=== PATIENT | female | born 1950 | race Two or more races ===

== ENCOUNTER 2020-03-12 07:14 | Outpatient (REF) | payer SELFPAY ==
[2020-03-12 07:53] LABS: Hematocrit 24.6 % (37-47); Hemoglobin 7.6 g/dl (12.0-16.0); Mean Corpuscular HGB Conc 30.9 g/dl (31.0-35.0); Mean Corpuscular Hemoglobin 27.2 pg (27.0-33.0); Mean Corpuscular Volume 88.2 fL (80-98); Mean Platelet Volume 10.8 fL (9.4-12.3); NRBC Pct Auto 0.3 /100WBC (0.0-0.2); Platelet Count 243 X10*3/uL (160-400); Red Blood Count 2.79 X10*6/uL (4.20-5.50); Red Cell Distribution Width 14.7 % (11.0-16.0); White Blood Count 10.9 X10*3/uL (4.8-10.8)
[2020-03-12 08:47] LABS: Alanine Aminotransferase 7 U/L (0-31); Albumin Level 2.7 g/dL (3.5-5.0); Alkaline Phosphatase 109 U/L (39-117); Anion Gap 12 (12-20); Aspartate Amino Transferase 9 U/L (5-31); Bilirubin Total 0.3 mg/dL (0.0-1.0); Blood Urea Nitrogen 26 mg/dL (9-16); Calcium 7.9 mg/dL (8.4-10.2); Carbon Dioxide 30 mmol/L (22-29); Chloride 101 mmol/L (96-108); Estimated Glomerular Filt Rate 15; Glucose Random 40 mg/dL (60-115); Sodium 139 mmol/L (135-145); Total Protein 4.9 g/dL (6.5-8.0)
== END 2020-03-12 07:15 | disposition home or self-care (01) ==
LOC: HO.MMNH1L 07:14
PROVIDERS: Visit Provider Family Medicine
DX: N18.9 Chronic kidney disease, unspecified (principal); E11.9 Type 2 diabetes mellitus without complications
CPT/HCPCS: 36415; 80053; 85027

== ENCOUNTER 2020-03-22 19:24 | Outpatient (REF) | payer MEDICARE, MEDICAID, SELFPAY | END 2020-03-22 19:25 | disposition home or self-care (01) | LOC: HO.LNP 19:24 | PROVIDERS: Visit Provider Family Medicine | DX: Z20.828 Contact with and (suspected) exposure to other viral communicable diseases (principal) | CPT/HCPCS: 87635 ==

== ENCOUNTER 2020-04-04 06:43 | Outpatient (REF) | payer SELFPAY | END 2020-04-04 06:44 | disposition home or self-care (01) | LOC: HO.MMNH3L 06:43 | PROVIDERS: Visit Provider Family Medicine | DX: Z20.828 Contact with and (suspected) exposure to other viral communicable diseases (principal) | CPT/HCPCS: 87635 ==

== ENCOUNTER 2022-04-21 15:42 | Emergency (ER) | payer MEDICARE, MEDICAID, SELFPAY ==
[2022-04-21 15:58] VITALS: BP 134/82; BP 163/61; PULSE 71; PULSE 89; RESP 16; TEMP 36.9; O2SAT 99; BMI 45.8
--- NOTE | 2022-04-21 16:34 | ED.GENADULT ---
HPI - General Adult General Chief complaint: General Medical Stated complaint: rectal bleeding Time Seen by Provider: 04/21/22 16:34 Source: patient Mode of arrival: ambulatory Limitations: no limitations History of Present Illness HPI narrative: Patient is 71 years old with history of CVA, atrial fibrillation, diabetes, end-stage renal disease on dialysis, hemorrhoids and chronic constipation on Eliquis and Plavix comes here for 2 days of rectal bleeding patient noticed bright red blood in her depends whenever she moves her bowels no blood clots noticed blood is bright red in color no abdominal pain no fever no chills no shortness of breath no chest pain or palpitation patient had dialysis yesterday Related Data Previous Rx's Medication Instructions Recorded hydrocortisone acetate 25 mg 25 mg HI BID #12 ea 04/21/22 rectal suppository (Anusol-HC) Allergies Allergy/AdvReac Type Severity Reaction Status Date / Time Penicillins Allergy Unknown Unknown Verified 04/21/22 16:53 lisinopri Allergy Unknown Unknown Uncoded 04/21/22 16:53 Review of Systems Review of Systems: Yes all other systems are reviewed and are negative [facility] Social History Social History Advance Directives: Yes Advance Directives on File: Yes Advance Directives Date on File: 03/12/20 Physical Exam ED Vital Signs: Vital Signs - 24 hr 04/21/22 15:58 04/21/22 19:25 Temperature 98.4 F 98.1 F Pulse Rate 71 72 Respiratory Rate 16 20 Blood Pressure 163/61 H 162/46 H Pulse Oximetry 99 98 Oxygen Delivery Method Room Air Room Air BMI result Body Mass Index 45.8 Appearance: Alert. Oriented X3. No acute distress. Eyes: PERRLA, No Nystagmus ENT: Pharynx normal. Oral Mucosa moist Neck: Normal inspection. Neck supple. CVS: Normal heart rate and rhythm. Pulses normal. Respiratory: No respiratory distress. Equal air entry bilateral, no wheezing/rales/rhonchi Abdomen: Soft and nontender. Bowel sounds are present, no mass palpable, no CVA tenderness rectal: No hemorrhoids palpable stool brown Skin: Skin warm and dry. Normal skin color. Normal skin turgor. Extremities: No lower extremity edema. No calf tenderness Neuro: Oriented X 3. Residual left-sided weakness No sensory deficit.No cerebellar signs , cranial nerves II-XII intact Medical Decision Making MDM Narrative Medical decision making narrative: Patient with rectal bleeding which is bright red mostly when she moves her bowels noticed bright red blood in the depends. No abdominal pain H&H stable rectal exam showed brown stool guaiac positive likely patient has hemorrhoids which causing the bleeding when patient strains will discharge patient home advised to use and his soles suppository avoid constipation report to the ER if major bleeding recurs Lab Data Lab results reviewed: Yes I reviewed the patient's lab results. Result diagrams: 04/21/22 17:46 04/21/22 17:46 Labs: Lab Results 04/21/22 04/21/22 04/21/22 Range/Units 17:46 17:46 17:46 WBC 13.6 H (4.8-10.8) X10*3/uL RBC 3.59 L (4.20-5.50) X10*6/uL Hgb 11.1 L (12.0-16.0) g/dl Hct 34.7 L (37.0-47.0) % MCV 96.7 (80.0-98.0) fL MCH 30.9 (27.0-33.0) pg MCHC 32.0 (31.0-35.0) g/dl RDW 15.1 (11.0-16.0) % Plt Count 225 (160-400) X10*3/uL MPV 10.3 (9.4-12.3) fL Immature Gran % (Auto) 0.7 H (0.0-0.4) % Neut % (Auto) 78.5 H (45-73) % Lymph % (Auto) 11.3 L (20-40) % [place] % (Auto) 8.4 (2-11) % Eos % (Auto) 0.9 (0-4) % Baso % (Auto) 0.2 (0-2) % Lymph # (Auto) 1.5 (1.2-4.9) X10*3/uL [place] # (Auto) 1.1 (0.1-1.2) X10*3/uL Eos # (Auto) 0.1 (0.0-0.4) X10*3/uL Baso # (Auto) 0.0 (0.0-0.2) X10*3/uL Abs Immat Gran (auto) 0.10 H (0.00-0.03) X10*3/uL Absolute Neuts (auto) 10.7 H (2.0-8.3) x10*3/uL Absolute Nucleated RBC 0.030 H (0.0-0.012) X10*3/uL Nucleated RBC % (auto) 0.2 (0.0-0.2) /100WBC PT 13.6 H (10.0-13.1) SEC INR 1.2 H (0.9-1.1) Sodium 140 (135-145) mmol/L Potassium 4.7 (3.3-5.1) mmol/L Chloride 95 L (96-108) mmol/L Carbon Dioxide 31 H (22-29) mmol/L Anion Gap 19 (12-20) BUN 36 H (9-16) mg/dL Creatinine 6.05 H* (0.5-1.4) mg/dL Estim Creat Clear Calc 11.2 Estimated GFR 7 Random Glucose 190 H (60-115) mg/dL Calcium 7.5 L (8.4-10.2) mg/dL Total Bilirubin 0.8 (0.0-1.0) mg/dL AST 14 (5-31) U/L ALT 10 (0-31) U/L Alkaline Phosphatase 350 H (39-117) U/L Total Protein 6.0 L (6.5-8.0) g/dL Albumin 3.5 (3.5-5.0) g/dL Stool Occult Blood (NEGATIVE) 04/21/22 Range/Units 17:47 WBC (4.8-10.8) X10*3/uL RBC (4.20-5.50) X10*6/uL Hgb (12.0-16.0) g/dl Hct (37.0-47.0) % MCV (80.0-98.0) fL MCH (27.0-33.0) pg MCHC (31.0-35.0) g/dl RDW (11.0-16.0) % Plt Count (160-400) X10*3/uL MPV (9.4-12.3) fL Immature Gran % (Auto) (0.0-0.4) % Neut % (Auto) (45-73) % Lymph % (Auto) (20-40) % [place] % (Auto) (2-11) % Eos % (Auto) (0-4) % Baso % (Auto) (0-2) % Lymph # (Auto) (1.2-4.9) X10*3/uL [place] # (Auto) (0.1-1.2) X10*3/uL Eos # (Auto) (0.0-0.4) X10*3/uL Baso # (Auto) (0.0-0.2) X10*3/uL Abs Immat Gran (auto) (0.00-0.03) X10*3/uL Absolute Neuts (auto) (2.0-8.3) x10*3/uL Absolute Nucleated RBC (0.0-0.012) X10*3/uL Nucleated RBC % (auto) (0.0-0.2) /100WBC PT (10.0-13.1) SEC INR (0.9-1.1) Sodium (135-145) mmol/L Potassium (3.3-5.1) mmol/L Chloride (96-108) mmol/L Carbon Dioxide (22-29) mmol/L Anion Gap (12-20) BUN (9-16) mg/dL Creatinine (0.5-1.4) mg/dL Estim Creat Clear Calc Estimated GFR Random Glucose (60-115) mg/dL Calcium (8.4-10.2) mg/dL Total Bilirubin (0.0-1.0) mg/dL AST (5-31) U/L ALT (0-31) U/L Alkaline Phosphatase (39-117) U/L Total Protein (6.5-8.0) g/dL Albumin (3.5-5.0) g/dL Stool Occult Blood POSITIVE (NEGATIVE) Discharge Plan Discharge Clinical Impression: Rectal bleeding, Bleeding hemorrhoids Patient Disposition: Xfer [facility] Transfer Details: Rectal bleeding likely from hemorrhoids Instructions: Hemorrhoids (ED) Additional Instructions: Anusol suppository twice daily Avoid straining/constipation Follow-up with your PCP Report to ER if recurrence of bleed may have to hold Eliquis if bleeding continues Prescriptions: New hydrocortisone acetate [Anusol-HC] 25 mg suppository 25 mg HI BID Qty: 12 0RF Interventions: ED Discharge Assessment Last Done: 04/21/22 19:28 Discharge Date/Time: 04/21/22 19:29
[2022-04-21 17:55] LABS: MANUAL DIFF FLAG NO
[2022-04-21 18:02] LABS: INTERNATIONAL NORM RATIO 1.2 (0.9-1.1); Prothrombin Time 13.6 SEC (10.0-13.1)
[2022-04-21 18:07] LABS: OBS Int Ctl Valid YES; OBS1 POSITIVE (NEGATIVE)
[2022-04-21 18:18] LABS: Basophils Percent Auto 0.2 % (0-2); Eosinophils Absolute Auto 0.1 X10*3/uL (0.0-0.4); Eosinophils Percent Auto 0.9 % (0-4); Hematocrit 34.7 % (37.0-47.0); Hemoglobin 11.1 g/dl (12.0-16.0); Imm Gran Pct Auto 0.7 % (0.0-0.4); Lymphocytes Absolute Auto 1.5 X10*3/uL (1.2-4.9); Lymphocytes Percent Auto 11.3 % (20-40); Mean Corpuscular Hemoglobin 30.9 pg (27.0-33.0); Mean Corpuscular Volume 96.7 fL (80.0-98.0); Mean Platelet Volume 10.3 fL (9.4-12.3); Monocytes Absolute Auto 1.1 X10*3/uL (0.1-1.2); Monocytes Percent Auto 8.4 % (2-11); NRBC Pct Auto 0.2 /100WBC (0.0-0.2); Neutrophils Absolute Auto 10.7 x10*3/uL (2.0-8.3); Neutrophils Percent Auto 78.5 % (45-73); Platelet Count 225 X10*3/uL (160-400); Red Blood Count 3.59 X10*6/uL (4.20-5.50); Red Cell Distribution Width 15.1 % (11.0-16.0); White Blood Count 13.6 X10*3/uL (4.8-10.8)
[2022-04-21 18:37] LABS: Alanine Aminotransferase 10 U/L (0-31); Albumin Level 3.5 g/dL (3.5-5.0); Alkaline Phosphatase 350 U/L (39-117); Anion Gap 19 (12-20); Aspartate Amino Transferase 14 U/L (5-31); Bilirubin Total 0.8 mg/dL (0.0-1.0); Blood Urea Nitrogen 36 mg/dL (9-16); Calcium 7.5 mg/dL (8.4-10.2); Carbon Dioxide 31 mmol/L (22-29); Chloride 95 mmol/L (96-108); Creatinine Clr Calc Pharmacy 11.2; Estimated Glomerular Filt Rate 7; Glucose Random 190 mg/dL (60-115); Potassium 4.7 mmol/L (3.3-5.1); Sodium 140 mmol/L (135-145)
--- NOTE | 2022-04-21 19:04 | PC.NURSE ---
Elliot called at 1859 for a bls transport back to [facility] per ,ETA 30mins.RN aware
[2022-04-21 19:25] VITALS: BP 162/46; PULSE 72; RESP 20; TEMP 36.7; O2SAT 98
== END 2022-04-21 19:29 | disposition skilled nursing facility (03) ==
PROVIDERS: Emergency Provider Internal Medicine
DX: K64.9 Unspecified hemorrhoids (principal); K62.5 Hemorrhage of anus and rectum; Z79.899 Other long term (current) drug therapy
CPT/HCPCS: 36415; 80053; 82272; 85025; 85610; 99283

== ENCOUNTER 2022-05-11 07:28 | Outpatient (REF) | payer MEDICARE, MEDICAID, SELFPAY ==
[2022-05-11 07:17] LABS: MANUAL DIFF FLAG NO
[2022-05-11 07:43] LABS: Basophils Absolute Auto 0.1 X10*3/uL (0.0-0.2); Basophils Percent Auto 0.8 % (0-2); Eosinophils Absolute Auto 0.2 X10*3/uL (0.0-0.4); Eosinophils Percent Auto 2.2 % (0-4); Hematocrit 33.5 % (37.0-47.0); Hemoglobin 11.2 g/dl (12.0-16.0); Imm Gran Abs Auto 0.11 X10*3/uL (0.00-0.03); Imm Gran Pct Auto 1.1 % (0.0-0.4); Lymphocytes Absolute Auto 1.6 X10*3/uL (1.2-4.9); Lymphocytes Percent Auto 15.5 % (20-40); Mean Corpuscular HGB Conc 33.4 g/dl (31.0-35.0); Mean Corpuscular Hemoglobin 30.7 pg (27.0-33.0); Mean Corpuscular Volume 91.8 fL (80.0-98.0); Mean Platelet Volume 10.3 fL (9.4-12.3); Monocytes Absolute Auto 1.1 X10*3/uL (0.1-1.2); Monocytes Percent Auto 10.3 % (2-11); Neutrophils Absolute Auto 7.2 x10*3/uL (2.0-8.3); Neutrophils Percent Auto 70.1 % (45-73); Platelet Count 285 X10*3/uL (160-400); Red Blood Count 3.65 X10*6/uL (4.20-5.50); Red Cell Distribution Width 13.8 % (11.0-16.0); White Blood Count 10.3 X10*3/uL (4.8-10.8)
[2022-05-11 08:10] LABS: Anion Gap 23 (12-20); Blood Urea Nitrogen 39 mg/dL (9-16); Calcium 8.7 mg/dL (8.4-10.2); Carbon Dioxide 30 mmol/L (22-29); Chloride 95 mmol/L (96-108); Potassium 3.7 mmol/L (3.3-5.1); Sodium 144 mmol/L (135-145)
[2022-05-11 08:46] LABS: Estimated Glomerular Filt Rate 5; Glucose Random 31 mg/dL (60-115)
== END 2022-05-11 07:29 | disposition home or self-care (01) ==
LOC: HO.MMNH2L 07:28
PROVIDERS: Visit Provider Family Medicine
DX: I10 Essential (primary) hypertension (principal)
CPT/HCPCS: 36415; 80048; 85025

== ENCOUNTER 2022-12-07 11:25 | Inpatient (IN) | payer MEDICARE, MEDICAID, SELFPAY ==
--- NOTE | ~2022-12-07 | XR_ITS ---
EXAMINATION: XR CHEST CLINICAL INFORMATION: Status post TLC placement. COMPARISON: Chest x-ray 12/22/2022 TECHNIQUE: Frontal view of the chest was obtained. FINDINGS: The lungs are well-expanded and clear of acute pneumonic process. The heart size is enlarged. Pulmonary vascularity is within normal limits. There is new left central venous catheter with its tip in proximal SVC. No gross bony abnormalities seen. XR/XR chest 1V IMPRESSION: New left central venous catheter tip is in proximal SVC. Mild cardiomegaly.
--- NOTE | ~2022-12-07 | MR_ITS ---
EXAMINATION: MR BRAIN WITHOUT CONTRAST CLINICAL INFORMATION: Encephalopathy COMPARISON: CT head without contrast 12/07/2021 TECHNIQUE: Multiplanar multisequence MR imaging of the brain was obtained without intravenous contrast. FINDINGS: There is no acute infarct on diffusion-weighted imaging. There is no intracranial hemorrhage on iron-sensitive imaging. No extra-axial collection or mass effect/herniation. Scattered periventricular and deep white matter T2 FLAIR hyperintensities consistent with mild underlying microangiopathy. Right parieto-occipital lobe encephalomalacia, gliosis, and mild cortical hemosiderin staining, compatible with chronic infarct. No hydrocephalus. Mild generalized cerebral volume loss with commensurate sulcal and ventricular prominence. Mild ex vacuo dilatation of the right occipital horn. The major flow voids at the skull base are preserved. Empty sella. The cerebellar tonsils are normally positioned. The craniocervical junction is normal. Congenital fusion of C2 and C3. Marrow signal is within normal limits. The visualized soft tissues are without significant abnormality. Mild scattered ethmoid sinus mucosal thickening. Small bilateral mastoid fluid. MR/MR head/brain wo con IMPRESSION: 1. No acute infarct or other acute intracranial abnormality. 2. Chronic right parieto-occipital lobe infarct and mild chronic microangiopathy.
--- NOTE | ~2022-12-07 | CT_ITS ---
EXAMINATION: CT ABDOMEN AND PELVIS WITHOUT CONTRAST CLINICAL INFORMATION: Question colonic versus obstructive uropathy. COMPARISON: Ultrasound of 12/29/2022. TECHNIQUE: Multidetector volumetric imaging was performed from the superior aspect of the liver through the pubic symphysis. Sagittal and coronal reformatted images were obtained on the technologist's workstation. This CT examination was performed using dose optimization techniques as appropriate, variously including the following: *Automated exposure control *Adjustment of mA and/or kV according to patient size (this includes techniques or standardized protocols for targeted exams where dose is matched to indication/reason for exam; i.e. extremities or head) *Use of iterative reconstruction technique DLP: 817 mGy-cm FINDINGS: LUNG BASES: There appear to be a few calcifications within the lower lobes bilaterally which may be related to old granulomatous disease. No suspicious mass, pleural effusion, or pericardial effusion is identified. LIVER, GALLBLADDER, AND BILIARY TREE: The liver is normal in size, shape, and attenuation. No focal hepatic lesion or biliary ductal dilatation is present. The gallbladder is unremarkable with no evidence of radiopaque gallstones, gallbladder wall thickening, or obvious pericholecystic inflammatory changes. There is some indistinctness of the gallbladder wall with what appears to be some wall thickening and question possible fat streaking, however, there is also motion artifact present, and an ultrasound study of the previous day did not show definite evidence of acute cholecystitis. PANCREAS: Unremarkable. No abnormal mass or peripancreatic inflammatory change is seen. SPLEEN: Unremarkable. ADRENAL GLANDS: There is some fullness of the left adrenal gland. There is a 1.5 cm right adrenal gland nodule with Hounsfield unit measurements of greater than 20. This probably represents an adenoma. A 1-year followup adrenal washout CT is recommended. If stable, no followup imaging would be recommended. KIDNEYS AND URETERS: There appears be some degree of cortical atrophy present bilaterally. There is lipomatosis of the collecting system. Bilateral renal cysts are present, largest within the lower pole of the right kidney measuring 1.7 cm in diameter. No hydronephrosis is evident. No followup imaging for the cysts is recommended. There are some vascular calcifications seen bilaterally. There are 2 mm nonobstructing calculi seen within the left renal upper and middle poles. No ureteral calculi identified. BLADDER: Unremarkable. GASTROINTESTINAL TRACT: No dilated loops of large or small bowel are evident. No free air or free fluid is noted. No pericolonic inflammatory change. The appendix appears unremarkable. ABDOMINAL WALL: No significant hernia is appreciated. LYMPH NODES: No lymphadenopathy appreciated. Calcified lymph node adjacent to the gastroesophageal junction and celiac axis noted. VASCULAR: Vascular calcifications are present. No abdominal aortic aneurysm. PELVIC VISCERA: 1.1 cm left ovarian calcification present. No suspicious abnormal adnexal masses. OSSEOUS STRUCTURES: There is question of possible nondisplaced insufficiency fracture involving the left sacrum as well as some degenerative change of the sacroiliac joints. There is bilateral facet arthropathy L4 through S1. Changes of enthesopathy present. There is bony bridging at a few levels of the lower thoracic and lumbar spine. CT/CT abdomen pelvis wo IV con IMPRESSION: Indistinctness of the gallbladder wall with question of pericholecystic fat stranding, however, this may be related to motion artifact. No definite pericholecystic fluid is seen. If there is strong suggestion of possible acute cholecystitis, then a repeat ultrasound examination may be of help in further evaluation. Bilateral renal cysts. Nephrolithiasis without evidence of obstructive uropathy. 1.5 cm right adrenal gland nodule with Hounsfield unit measurements of greater than 20. A 1-year followup adrenal washout CT is recommended. Question left sacral insufficiency fracture. Fleischner guidelines were followed.
--- NOTE | ~2022-12-07 | XR_ITS ---
EXAMINATION: XR CHEST CLINICAL INFORMATION: Hypoxia COMPARISON: None available. TECHNIQUE: Frontal view of the chest was obtained. FINDINGS: The lungs are clear with no focal consolidation. No evidence of pneumothorax, pulmonary edema, or pleural effusions. The cardiomediastinal silhouette is unremarkable. No acute osseous findings. XR/XR chest 1V IMPRESSION: No acute cardiopulmonary findings.
--- NOTE | ~2022-12-07 | US_ITS ---
EXAMINATION: US ABDOMEN LIMITED CLINICAL INFORMATION: SEPSIS TRANSAMINITIS ? GB DISEASE. COMPARISON: None available. TECHNIQUE: Real-time imaging of the right upper quadrant abdominal viscera. Color Doppler exam used. FINDINGS: PANCREAS: Normal appearance of the head and body of the pancreas. The tail is obscured by bowel gas. LIVER: Normal. The liver is normal in size. The liver contour is normal. Parenchymal echogenicity is normal. No focal hepatic lesion. There is no intrahepatic biliary duct dilatation seen. There is normal hepatopedal flow in the portal vein. GALLBLADDER: Normal. The gallbladder is physiologically distended without evidence of stones, sludge, polyps, wall thickening or pericholecystic fluid. COMMON BILE DUCT: Normal in caliber measuring 0.3 cm in diameter. RIGHT KIDNEY: Limited visualization of the right kidney. No gross evidence of hydronephrosis. 1 cm cortical cyst at the mid upper pole evident. No follow-up imaging is recommended for simple renal cyst.. FREE FLUID: None. US/US abdomen limited IMPRESSION: Normal ultrasound right upper quadrant.
--- NOTE | 2022-12-07 11:35 | ED.AMS ---
HPI - Altered Mental Status General Chief Complaint: Altered Mental Status Stated Complaint: Stroke alert LKWT last night. L side weak, conf Time Seen by Provider: 12/07/22 11:30 Source: EMS Mode of arrival: EMS Limitations: altered mental status History of Present Illness HPI narrative: 72-year-old female who was brought to the emergency department by ambulance for possible stroke. Information came from the paramedics. The patient's last well-known time was last night. According the paramedics the son believe the patient was not acting right this morning but he wanted her to go to dialysis. At the dialysis unit she appeared to be weak and there was a concerned that she may have had a stroke son ambulance was called and she was brought to the emergency department for evaluation. In reviewing her records she has had a previous stroke with aphasia. Patient was able to tell me her name. She was able to squeeze my fingers but not able to lift her legs up against gravity. Patient was sent immediately to CT scan from the ambulance stretcher to rule out possible stroke or bleed is the cause of her symptoms. I did obtain more information from the patient's sons who are here in the emergency department. The patient was admitted approximately 1 month prior to [facility] for seizures. She had a workup which included an MRI and EEG but the sons do not know the results. The patient however was started on valproic acid 250 mg pills, 3 pills b.i.d. and Keppra 500 mg daily. the patient's family states that the patient is not been acting herself, she the the sometimes appears confused and spaced out throughout the day. Related Data Home Medications Medication Instructions Recorded Confirmed albuterol sulfate 90 mcg/actuation 2 puff inhalation Q4H PRN Wheezing 12/07/22 12/07/22 aerosol inhaler (Ventolin HFA) amlodipine 5 mg tablet 5 mg PO DAILY 12/07/22 12/07/22 apixaban 5 mg tablet (Eliquis) 5 mg PO BID 12/07/22 12/07/22 atorvastatin 40 mg tablet 40 mg PO BEDTIME 12/07/22 12/07/22 cinacalcet 30 mg tablet 30 mg PO DAILY 12/07/22 12/07/22 divalproex 250 mg tablet,delayed 750 mg PO BID 12/07/22 12/07/22 release fluticasone 500 mcg-salmeterol 50 1 ea inhalation BID 12/07/22 12/07/22 mcg/dose blistr powdr for inhalation (Advair Diskus) gabapentin 100 mg capsule 100 mg PO TID 12/07/22 insulin aspart U-100 100 unit/mL 4 - 12 unit subcut TIDWM PRN 12/07/22 12/07/22 (3 mL) subcutaneous pen (Novolog ELEVATED BLOOD SUGAR FlexPen U-100 Insulin aspart) insulin detemir U-100 100 unit/mL 6 unit subcut BEDTIME 12/07/22 12/07/22 subcutaneous solution (Levemir U-100 Insulin) levetiracetam 500 mg tablet 500 mg PO DAILY 12/07/22 12/07/22 levetiracetam 500 mg tablet 500 mg PO MOWEFR@1645 12/07/22 12/07/22 levothyroxine 88 mcg tablet 88 mcg PO DAILY@0600 12/07/22 12/07/22 metoprolol tartrate 50 mg tablet 50 mg PO BID 12/07/22 12/07/22 midodrine 5 mg tablet 5 mg PO MOWEFR PRN Hypotension 12/07/22 12/07/22 pantoprazole 40 mg tablet,delayed 40 mg PO BID@0630,1630 12/07/22 12/07/22 release sevelamer carbonate 800 mg tablet 800 mg PO BIDWM 12/07/22 12/07/22 (Renvela) Allergies Allergy/AdvReac Type Severity Reaction Status Date / Time Penicillins Allergy Unknown Unknown Verified 04/21/22 16:53 lisinopri Allergy Unknown Unknown Uncoded 04/21/22 16:53 Review of Systems Review of Systems: Yes Unobtainable due to mental status [facility] Past Medical History [facility] Narrative: Past medical history was obtained from the [facility] dialysis center notes: Hypertension, hyperlipidemia, diastolic congestive heart failure, COPD, atrial fibrillation, depression, hypothyroidism, anemia, end-stage renal disease, cardiac arrest, stroke with aphasia. Social History Social History Advance Directives: Yes Advance Directives on File: Yes Advance Directives Date on File: 04/22/22 Physical Exam ED Vital Signs: Vital Signs - 24 hr 12/07/22 11:47 12/07/22 13:30 12/07/22 16:00 Temperature 97.9 F 97.8 F 97.8 F Pulse Rate 62 57 62 Respiratory Rate 12 16 17 Blood Pressure 158/69 H 137/47 L 150/41 H Pulse Oximetry 100 97 97 Oxygen Delivery Method Room Air Room Air Room Air BMI result Body Mass Index 41.8 Vital signs revealed an elevated blood pressure of 158/69 General: Patient is awake, she was able to tell me her name and follows some simple commands, she has aphasia at her baseline HEENT: Head is normal cephalic and atraumatic, pupils were equal round reactive light, sclera contact however normal, mouth revealed moist membranes Neck: Supple, no adenopathy Lungs: Clear to auscultation breath sounds symmetric bilaterally Heart: Regular rate rhythm, normal S1-S2 no murmurs rubs or gallops Abdomen: Obese, soft, nontender, nondistended, normoactive bowel sounds Extremities: No trauma Neuro: Patient is oriented to person, she has aphasia at baseline, she can follow simple commands, 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 Medical Decision Making Medical Decision Making MDM Narrative: 72-year-old female who was sent to the emergency department from her dialysis center for evaluation of possible stroke. Last well-known time was not able to be established but it was sometime yesterday. Patient is also on Eliquis which excludes here from consideration for tPA. According the sons, patient was admitted to [facility] 1 month prior diagnosed with seizure and started on valproic acid and Keppra. Patient's physical examination the is consistent with her old stroke and consistent with generalized weakness. The following tests were ordered: CBC, BMP, liver panel, troponin, CK, magnesium, PT/INR, PTT, lactic acid, stroke lab (PT/INR), point of care glucose, blood cultures x2, CT scan of the brain. [address] scan of the brain did not reveal any acute process but is consistent with an old stroke. Laboratory evaluation was consistent with her chronic kidney disease. Valproic acid was supratherapeutic at 108 The nursing staff witness several events which may be consistent with petite mal seizure. Patient was loaded with Keppra 500 mg IV. Patient's altered level of consciousness may be related to recurrent seizures versus subacute stroke. I will discuss admission with the covering hospitalist. 1719: I did discuss the patient's presentation with the covering hospitalist, Dr. Short the patient will be admitted for further management Differential Diagnosis Differential Diagnoses: The differential diagnosis associated with the presentation includes Differential diagnosis includes was not limited to stroke, cerebral hemorrhage, electrolyte abnormality, anemia Admission/Observation Consideration of admission/observation: Escalation of care including admission/observation considered Consult Healthcare Provider Management of the patient was discussed with: Hospitalist Lab Data MDM Lab Attestation statement: I reviewed the patient's lab results. My interpretation patient's laboratory evaluation is as follows: WBC was normal. H&H was low 10.9 and 32.4 consistent with chronic anemia. Coags were normal. Patient's potassium was normal at 3.8. BUN and creatinine were elevated at 46 and 8.35 consistent chronic kidney disease. Urinalysis was positive for blood and leukocyte esterase, microscopic revealed 5 RBCs 0 WBCs no bacteria-this is not consistent with an infection. Valproic acid level was supratherapeutic 108.6. 12/07/22 12:43 12/07/22 12:43 Labs: Lab Results 12/07/22 12/07/22 12/07/22 Range/Units 12:00 12:04 12:43 WBC 6.7 (4.8-10.8) X10*3/uL RBC 3.44 L (4.20-5.50) X10*6/uL Hgb 10.9 L (12.0-16.0) g/dl Hct 32.4 L (37.0-47.0) % MCV 94.2 (80.0-98.0) fL MCH 31.7 (27.0-33.0) pg MCHC 33.6 (31.0-35.0) g/dl RDW 16.2 H (11.0-16.0) % Plt Count 120 L D (160-400) X10*3/uL MPV Not Reportable Immature Gran % (Auto) 1.8 H (0.0-0.4) % Neut % (Auto) 60.8 (45-73) % Lymph % (Auto) 20.8 (20-40) % [place] % (Auto) 14.1 H (2-11) % Eos % (Auto) 1.9 (0-4) % Baso % (Auto) 0.6 (0-2) % Lymph # (Auto) 1.4 (1.2-4.9) X10*3/uL [place] # (Auto) 0.9 (0.1-1.2) X10*3/uL Eos # (Auto) 0.1 (0.0-0.4) X10*3/uL Baso # (Auto) 0.0 (0.0-0.2) X10*3/uL Abs Immat Gran (auto) 0.12 H (0.00-0.03) X10*3/uL Absolute Neuts (auto) 4.1 (2.0-8.3) x10*3/uL Absolute Nucleated RBC 0.000 (0.0-0.012) X10*3/uL Nucleated RBC % (auto) 0.0 (0.0-0.2) /100WBC Smear Tech's Comments VERIFIED PT (10.0-13.1) SEC Whole Blood PT 13.2 (11.1-13.5) sec INR (0.9-1.1) Whole Blood INR 1.1 (0.9-1.1) APTT (26.0-36.4) SEC Sodium (135-145) mmol/L Potassium (3.3-5.1) mmol/L Chloride (96-108) mmol/L Carbon Dioxide (22-29) mmol/L Anion Gap (12-20) BUN (9-16) mg/dL Creatinine (0.5-1.4) mg/dL Estim Creat Clear Calc Estimated GFR POC Glucose 126 H (60-115) mg/dL Random Glucose (60-115) mg/dL Lactic Acid (0.5-2.0) mmol/L Calcium (8.4-10.2) mg/dL Magnesium (1.6-2.6) mg/dL Total Bilirubin (0.0-1.0) mg/dL Direct Bilirubin (0.0-0.5) mg/dL AST (5-31) U/L ALT (0-31) U/L Alkaline Phosphatase (39-117) U/L Total Creatine Kinase (26-140) U/L Troponin I High Sens (<3.5-17.0) ng/L Total Protein (6.5-8.0) g/dL Albumin (3.5-5.0) g/dL Urine Color Urine Appearance Urine pH (5.0-9.0) Ur Specific [place] (1.005-1.025) Urine Protein (Neg-Trace) mg/dL Urine Glucose (UA) (Negative) mg/dL Urine Ketones (Negative) mg/dL Urine Blood (Negative) Urine Nitrite (Negative) Ur Leukocyte Esterase (Negative) Urine RBC (0-2) /HPF Urine WBC (0-5) /HPF Ur Squamous Epith Cells (0-2) /HPF Urine Bacteria (None Seen) Hyaline Casts (0-2) /LPF Valproic Acid (50.0-100.0) mcg/mL 12/07/22 12/07/22 12/07/22 Range/Units 12:43 12:43 14:44 WBC (4.8-10.8) X10*3/uL RBC (4.20-5.50) X10*6/uL Hgb (12.0-16.0) g/dl Hct (37.0-47.0) % MCV (80.0-98.0) fL MCH (27.0-33.0) pg MCHC (31.0-35.0) g/dl RDW (11.0-16.0) % Plt Count (160-400) X10*3/uL MPV Immature Gran % (Auto) (0.0-0.4) % Neut % (Auto) (45-73) % Lymph % (Auto) (20-40) % [place] % (Auto) (2-11) % Eos % (Auto) (0-4) % Baso % (Auto) (0-2) % Lymph # (Auto) (1.2-4.9) X10*3/uL [place] # (Auto) (0.1-1.2) X10*3/uL Eos # (Auto) (0.0-0.4) X10*3/uL Baso # (Auto) (0.0-0.2) X10*3/uL Abs Immat Gran (auto) (0.00-0.03) X10*3/uL Absolute Neuts (auto) (2.0-8.3) x10*3/uL Absolute Nucleated RBC (0.0-0.012) X10*3/uL Nucleated RBC % (auto) (0.0-0.2) /100WBC Smear Tech's Comments PT 10.7 (10.0-13.1) SEC Whole Blood PT (11.1-13.5) sec INR 0.9 (0.9-1.1) Whole Blood INR (0.9-1.1) APTT 31.8 (26.0-36.4) SEC Sodium (135-145) mmol/L Potassium (3.3-5.1) mmol/L Chloride (96-108) mmol/L Carbon Dioxide (22-29) mmol/L Anion Gap (12-20) BUN (9-16) mg/dL Creatinine (0.5-1.4) mg/dL Estim Creat Clear Calc Estimated GFR POC Glucose (60-115) mg/dL Random Glucose (60-115) mg/dL Lactic Acid (0.5-2.0) mmol/L Calcium (8.4-10.2) mg/dL Magnesium (1.6-2.6) mg/dL Total Bilirubin (0.0-1.0) mg/dL Direct Bilirubin (0.0-0.5) mg/dL AST (5-31) U/L ALT (0-31) U/L Alkaline Phosphatase (39-117) U/L Total Creatine Kinase (26-140) U/L Troponin I High Sens 8.3 (<3.5-17.0) ng/L Total Protein (6.5-8.0) g/dL Albumin (3.5-5.0) g/dL Urine Color Yellow Urine Appearance Clear Urine pH 8.5 (5.0-9.0) Ur Specific [place] <= 1.005 (1.005-1.025) Urine Protein 300 (3+) H (Neg-Trace) mg/dL Urine Glucose (UA) Negative (Negative) mg/dL Urine Ketones Negative (Negative) mg/dL Urine Blood Trace H (Negative) Urine Nitrite Negative (Negative) Ur Leukocyte Esterase Trace H (Negative) Urine RBC 3-5 H (0-2) /HPF Urine WBC 0-5 (0-5) /HPF Ur Squamous Epith Cells 0-2 (0-2) /HPF Urine Bacteria None Seen (None Seen) Hyaline Casts 0-2 (0-2) /LPF Valproic Acid (50.0-100.0) mcg/mL 12/07/22 12/07/22 12/07/22 Range/Units 16:17 16:17 16:17 WBC (4.8-10.8) X10*3/uL RBC (4.20-5.50) X10*6/uL Hgb (12.0-16.0) g/dl Hct (37.0-47.0) % MCV (80.0-98.0) fL MCH (27.0-33.0) pg MCHC (31.0-35.0) g/dl RDW (11.0-16.0) % Plt Count (160-400) X10*3/uL MPV Immature Gran % (Auto) (0.0-0.4) % Neut % (Auto) (45-73) % Lymph % (Auto) (20-40) % [place] % (Auto) (2-11) % Eos % (Auto) (0-4) % Baso % (Auto) (0-2) % Lymph # (Auto) (1.2-4.9) X10*3/uL [place] # (Auto) (0.1-1.2) X10*3/uL Eos # (Auto) (0.0-0.4) X10*3/uL Baso # (Auto) (0.0-0.2) X10*3/uL Abs Immat Gran (auto) (0.00-0.03) X10*3/uL Absolute Neuts (auto) (2.0-8.3) x10*3/uL Absolute Nucleated RBC (0.0-0.012) X10*3/uL Nucleated RBC % (auto) (0.0-0.2) /100WBC Smear Tech's Comments PT (10.0-13.1) SEC Whole Blood PT (11.1-13.5) sec INR (0.9-1.1) Whole Blood INR (0.9-1.1) APTT (26.0-36.4) SEC Sodium 137 (135-145) mmol/L Potassium 3.8 (3.3-5.1) mmol/L Chloride 91 L (96-108) mmol/L Carbon Dioxide 31 H (22-29) mmol/L Anion Gap 19 (12-20) BUN 46 H (9-16) mg/dL Creatinine 8.35 H* (0.5-1.4) mg/dL Estim Creat Clear Calc 7.6 Estimated GFR 5 POC Glucose (60-115) mg/dL Random Glucose 79 (60-115) mg/dL Lactic Acid 1.5 (0.5-2.0) mmol/L Calcium 9.2 (8.4-10.2) mg/dL Magnesium 1.7 (1.6-2.6) mg/dL Total Bilirubin 0.6 (0.0-1.0) mg/dL Direct Bilirubin 0.2 (0.0-0.5) mg/dL AST 15 (5-31) U/L ALT < 5 (0-31) U/L Alkaline Phosphatase 353 H (39-117) U/L Total Creatine Kinase 37 (26-140) U/L Troponin I High Sens (<3.5-17.0) ng/L Total Protein 6.5 (6.5-8.0) g/dL Albumin 3.5 (3.5-5.0) g/dL Urine Color Urine Appearance Urine pH (5.0-9.0) Ur Specific [place] (1.005-1.025) Urine Protein (Neg-Trace) mg/dL Urine Glucose (UA) (Negative) mg/dL Urine Ketones (Negative) mg/dL Urine Blood (Negative) Urine Nitrite (Negative) Ur Leukocyte Esterase (Negative) Urine RBC (0-2) /HPF Urine WBC (0-5) /HPF Ur Squamous Epith Cells (0-2) /HPF Urine Bacteria (None Seen) Hyaline Casts (0-2) /LPF Valproic Acid 108.6 H (50.0-100.0) mcg/mL Independent Interpretation I performed an independent interpretation of an: EKG Interpretation: My independent interpretation patient's 12 EKG done at 11:45 hours is as follows: Normal sinus rhythm with a rate of 63, normal LA interval, normal QRS duration, normal QTC interval, no ST segment elevation, no ST segment depression, no T-wave abnormalities, no PACs, no PVCs. This is a normal EKG. Radiology Impression Discussion of test interpretation with radiology: I discussed test interpretation with the radiologist Radiologist Impression: CT HEAD WITHOUT CONTRAST (STROKE PROTOCOL) CLINICAL INFORMATION: Stroke protocol. COMPARISON: None available. FINDINGS: There is large area of encephalomalacia in the right occipito-parietal lobe, most likely related to chronic/subacute stroke, without evidence of acute strokes or cerebral hemorrhage. There are patchy periventricular white matter changes as a sequela of microangiopathy. Ventricles and sulci are dilated. There is ex exvacuo dilatation of right occipital horn of lateral ventricle There is no mass effect, midline shift or brain edema. Frontal punctate coarse cortical calcification seen medially and there is punctate coarse calcification seen adjacent to the area of encephalomalacia in the right parietal lobe. This critical result was discussed with Dr. Prince at 11:50 AM hours on 12/07/2022. It was ascertained that the content and urgency of the report was understood at the time of direct communication. Dictated By:Archie Fonseca MD Discharge Plan Discharge Patient Disposition: Admitted As Inpatient Prescriptions: No Action atorvastatin 40 mg tablet 40 mg PO BEDTIME divalproex 250 mg tablet,delayed release (DR/EC) 750 mg PO BID levetiracetam 500 mg tablet 500 mg PO DAILY levetiracetam 500 mg tablet 500 mg PO MOWEFR@1645 Rx Instructions: GIVEN AFTER DIALYSIS ON DIALYSIS DAYS amlodipine 5 mg tablet 5 mg PO DAILY levothyroxine 88 mcg tablet 88 mcg PO DAILY@0600 pantoprazole 40 mg tablet,delayed release (DR/EC) 40 mg PO BID@0630,1630 fluticasone propion-salmeterol [Advair Diskus] 500-50 mcg/dose blister with device 1 ea INHALATION BID metoprolol tartrate 50 mg tablet 50 mg PO BID albuterol sulfate [Ventolin HFA] 90 mcg/actuation HFA aerosol inhaler 2 puff inhalation Q4H PRN (Reason: Wheezing) Levemir U-100 Insulin 100 unit/mL solution 6 unit subcut BEDTIME sevelamer carbonate [Renvela] 800 mg tablet 800 mg PO BIDWM Eliquis 5 mg tablet 5 mg PO BID midodrine 5 mg tablet 5 mg PO MOWEFR PRN (Reason: Hypotension) Rx Instructions: GIVEN NEEDED AT DIALYSIS insulin aspart U-100 [Novolog FlexPen U-100 Insulin] 100 unit/mL (3 mL) insulin pen 4 - 12 unit subcut TIDWM PRN (Reason: ELEVATED BLOOD SUGAR) cinacalcet 30 mg Tablet 30 mg PO DAILY gabapentin 100 mg capsule 100 mg PO TID
[2022-12-07 11:47] VITALS: BP 120/86; BP 158/69; PULSE 62; PULSE 68; RESP 12; TEMP 36.6; O2SAT 100; BMI 41.8
--- NOTE | 2022-12-07 12:15 | PC.NURSE ---
Went to place IV in patient, as starting IV patient reach across with her left arm and held it in place with blank expression on her face.
[2022-12-07 13:30] VITALS: BP 137/47; PULSE 57; RESP 16; TEMP 36.6; O2SAT 97
--- NOTE | 2022-12-07 13:30 | PC.NURSE ---
pt sleeping in naps, respirations are equal, and nonlabored
--- NOTE | 2022-12-07 15:35 | PC.NURSE ---
tech was in drawing patients blood, when she notified us that the patients o2 saturation dropped down to 55%, she sat the patient up with no increase in saturation. Removed the o2 probe and placed on other hand. patient had reached arm across her body and left it in air. patient had blank expression on her face. patient is now sitting up in bed, speaking with staff and family. o2 saturation 100% room air.
[2022-12-07 16:00] VITALS: BP 150/41; PULSE 62; RESP 17; TEMP 36.6; O2SAT 97
[2022-12-07 16:46] LABS: Alanine Aminotransferase < 5 U/L (0-31); Albumin Level 3.5 g/dL (3.5-5.0); Alkaline Phosphatase 353 U/L (39-117); Anion Gap 19 (12-20); Aspartate Amino Transferase 15 U/L (5-31); Bilirubin Direct 0.2 mg/dL (0.0-0.5); Bilirubin Total 0.6 mg/dL (0.0-1.0); Blood Urea Nitrogen 46 mg/dL (9-16); Calcium 9.2 mg/dL (8.4-10.2); Carbon Dioxide 31 mmol/L (22-29); Chloride 91 mmol/L (96-108); Creatinine Clr Calc Pharmacy 7.6; Estimated Glomerular Filt Rate 5; Glucose Random 79 mg/dL (60-115); Magnesium 1.7 mg/dL (1.6-2.6); Potassium 3.8 mmol/L (3.3-5.1); Sodium 137 mmol/L (135-145); Total Protein 6.5 g/dL (6.5-8.0); Valproate 108.6 mcg/mL (50.0-100.0)
--- NOTE | 2022-12-07 16:49 | PHA.MEDREC ---
Pharmacy Consult ? Medication Reconciliation Pharmacy has completed the medication reconciliation.Spoke to patient's three sons, one of which lives with patient and provides all medications. He had a list of the medications the patient is taking and he follows the list. I mentioned to him that certain medications were filled and had different directions. Here is a summary of the changes as reflected in the med list Patient is no longer on clopidogrel patient's son states patient is not taking on gabapentin, however claim history shows that patient gets dialysis MWF and has prn order for midodrine given as needed at dialysis patient only gets 6 units of levemir, not 23 patient has ss insulin used very seldomly cinacalcet 30mg on his list, patient son says he gets from dialysis center
--- NOTE | 2022-12-07 17:52 | PC.NURSE ---
PT RESTING, NO FURTHER URINE OUTPUT , HOSPITALIST WERE IN ED FOR ADMSSION
--- NOTE | 2022-12-07 19:06 | PM.IMHP ---
History of Present Illness Date of Service: 12/07/22 Attending physician on admission: Julio Cesar Short Chief Complaint: seizures 72-year-old female with history of paroxysmal atrial fibrillation anticoagulated with Eliquis, hypertension, hyperlipidemia, insulin-dependent type 2 diabetes, asthma, VIOLA, hypothyroidism, end-stage renal disease on dialysis, newly diagnosed seizure disorder, history CVA with expressive aphasia presented to the ED for evaluation of possible stroke. The patient lives with her son who stated that the patient is not acting like herself this morning prior to dialysis. At the dialysis unit she appeared to be weak and there is concern of stroke so EMS was called. She was recently diagnosed with generalized tonic-clonic seizures on 10/07 and started on Keppra and was recently admitted at [facility] with discharge in 11/20. During admission she did undergo EEG which showed seizure activity and she was started on Depakote 750 mg b.i.d. in addition to the Keppra 500 mg daily she was taking. Discussed with the son who states she had been mentating well following discharge off until this morning. On arrival to the ED, patient is altered, repeating her name when asked questions. There is no leukocytosis. Mild normocytic anemia with H/H 10.9/32.4, platelets 120. Creatinine 8.35, BUN 46, sodium 137, potassium 3.8, chloride 91, CO2 31 hepatic function normal. Troponin within normal limits. Total CK 37. Urinalysis with trace leukocytes, negative nitrites, trace blood, 3+ protein, negative urinary sediment and bacteria. Valproic acid level 108. Head CT showing large area of encephalomalacia in the right occipital parietal lobe most likely related to chronic/subacute stroke without evidence of acute infarction or hemorrhage. No mass effect, midline shift, brain edema. There is also an area of encephalomalacia in the right parietal lobe. Ventricles and sulci are dilated with ex vacuo dilatation of the right occipital horn of lateral ventricle. In ED, given 500 mg IV Keppra. For ED nurses, patient noted to have what appeared to be 2 absence seizures lasting several seconds while in the ED. Review of Systems Review of Systems: Yes Unobtainable due to mental condition and Unobtainable due to mental status [facility] Medical History (Updated 12/07/22 @ 19:25 by LORA Baires) Asthma Epilepsy ESRD on dialysis Expressive aphasia History of CVA (cerebrovascular accident) Hypertension Insulin dependent type 2 diabetes mellitus Morbid obesity Obstructive sleep apnea Paroxysmal atrial fibrillation Tubular adenoma of colon Social History Patient Tobacco Use Status: Never used Tobacco Advance Directives Date on File: 04/22/22 Meds Allergies Allergy/AdvReac Type Severity Reaction Status Date / Time Penicillins Allergy Unknown Unknown Verified 04/21/22 16:53 lisinopri Allergy Unknown Unknown Uncoded 04/21/22 16:53 Active Medications: Current Medications Acetaminophen (Acetaminophen 325 Mg Tablet) 650 mg PO Q6H PRN PRN Reason: Pain, Mild (Pain Scale 1-3) Docusate Sodium (Docusate Sodium 100 Mg Capsule) 100 mg PO DAILY PRN PRN Reason: Constipation Ondansetron HCl (Ondansetron Hcl 4 Mg/2 Ml Vial) 4 mg IVPUSH Q8H PRN PRN Reason: Nausea and Vomiting Pharmacy Consult (Consult Rx Perform Med Rec) 1 each MISCELLANE ONCE PRN PRN Reason: Consult order Home Medications Medication Instructions Recorded Confirmed Last Taken Type albuterol sulfate 90 mcg/actuation 2 puff inhalation Q4H PRN Wheezing 12/07/22 12/07/22 Unknown History aerosol inhaler (Ventolin HFA) amlodipine 5 mg tablet 5 mg PO DAILY 12/07/22 12/07/22 12/07/22 History apixaban 5 mg tablet (Eliquis) 5 mg PO BID 12/07/22 12/07/22 12/07/22 History atorvastatin 40 mg tablet 40 mg PO BEDTIME 12/07/22 12/07/22 12/06/22 History cinacalcet 30 mg tablet 30 mg PO DAILY 12/07/22 12/07/22 12/07/22 History divalproex 250 mg tablet,delayed 750 mg PO BID 12/07/22 12/07/22 12/07/22 History release fluticasone 500 mcg-salmeterol 50 1 ea inhalation BID 12/07/22 12/07/22 12/07/22 History mcg/dose blistr powdr for inhalation (Advair Diskus) gabapentin 100 mg capsule 100 mg PO TID 12/07/22 Unknown History insulin aspart U-100 100 unit/mL 4 - 12 unit subcut TIDWM PRN 12/07/22 12/07/22 Unknown History (3 mL) subcutaneous pen (Novolog ELEVATED BLOOD SUGAR FlexPen U-100 Insulin aspart) insulin detemir U-100 100 unit/mL 6 unit subcut BEDTIME 12/07/22 12/07/22 12/06/22 History subcutaneous solution (Levemir U-100 Insulin) levetiracetam 500 mg tablet 500 mg PO DAILY 12/07/22 12/07/22 12/07/22 History levetiracetam 500 mg tablet 500 mg PO MOWEFR@1645 12/07/22 12/07/22 12/04/22 History levothyroxine 88 mcg tablet 88 mcg PO DAILY@0600 12/07/22 12/07/22 12/07/22 History metoprolol tartrate 50 mg tablet 50 mg PO BID 12/07/22 12/07/22 12/07/22 History midodrine 5 mg tablet 5 mg PO MOWEFR PRN Hypotension 12/07/22 12/07/22 Unknown History pantoprazole 40 mg tablet,delayed 40 mg PO BID@0630,1630 12/07/22 12/07/22 12/07/22 History release sevelamer carbonate 800 mg tablet 800 mg PO BIDWM 12/07/22 12/07/22 12/07/22 History (Leonela) Physical Exam Vital Signs and Narrative: Vital Signs: Last Vital Signs Temp 97.8 F 12/07/22 16:00 Pulse 62 12/07/22 16:00 Resp 17 12/07/22 16:00 BP 150/41 H 12/07/22 16:00 Pulse Ox 97 12/07/22 16:00 O2 Del Method Room Air 12/07/22 16:00 BMI result Body Mass Index 41.8 Constitutional - Awake and Alert, No apparent distress Eyes - PERRLA, EOMI Cardiovascular - S1S2, RRR, No edema Respiratory - Normal lung expansion, Normal respiratory effort, No respiratory distress, CTA bilaterally Gastrointestinal - NT / ND; +BS; No rebound or guarding Extremities - no calf tenderness bilaterally, no swelling Skin - Warm/Dry Neurological - Alert & disoriented, repeating name when asked questions, 5/5 protein scientist strength, unable to to follow further commands to participate in neuro exam Psychological - Appropriate affect Results Labs 12/07/22 12:43 12/07/22 16:17 Labs: Laboratory Results - last 24 hr 12/07/22 12/07/22 12/07/22 12:00 12:04 12:43 MCV 94.2 MCH 31.7 MCHC 33.6 RDW 16.2 H Plt Count 120 L D MPV Not Reportable Immature Gran % (Auto) 1.8 H Neut % (Auto) 60.8 Lymph % (Auto) 20.8 [place] % (Auto) 14.1 H Eos % (Auto) 1.9 Baso % (Auto) 0.6 Lymph # (Auto) 1.4 [place] # (Auto) 0.9 Eos # (Auto) 0.1 Baso # (Auto) 0.0 Abs Immat Gran (auto) 0.12 H Absolute Neuts (auto) 4.1 Absolute Nucleated RBC 0.000 Nucleated RBC % (auto) 0.0 Smear Tech's Comments VERIFIED PT Whole Blood PT 13.2 INR Whole Blood INR 1.1 APTT Anion Gap Estim Creat Clear Calc Estimated GFR POC Glucose 126 H Random Glucose Lactic Acid Calcium Magnesium Total Bilirubin Direct Bilirubin AST ALT Alkaline Phosphatase Total Creatine Kinase Troponin I High Sens Total Protein Albumin Urine Color Urine Appearance Urine pH Ur Specific [place] Urine Protein Urine Glucose (UA) Urine Ketones Urine Blood Urine Nitrite Ur Leukocyte Esterase Urine RBC Urine WBC Ur Squamous Epith Cells Urine Bacteria Hyaline Casts Valproic Acid 12/07/22 12/07/22 12/07/22 12:43 12:43 14:44 MCV MCH MCHC RDW Plt Count MPV Immature Gran % (Auto) Neut % (Auto) Lymph % (Auto) [place] % (Auto) Eos % (Auto) Baso % (Auto) Lymph # (Auto) [place] # (Auto) Eos # (Auto) Baso # (Auto) Abs Immat Gran (auto) Absolute Neuts (auto) Absolute Nucleated RBC Nucleated RBC % (auto) Smear Tech's Comments PT 10.7 Whole Blood PT INR 0.9 Whole Blood INR APTT 31.8 Anion Gap Estim Creat Clear Calc Estimated GFR POC Glucose Random Glucose Lactic Acid Calcium Magnesium Total Bilirubin Direct Bilirubin AST ALT Alkaline Phosphatase Total Creatine Kinase Troponin I High Sens 8.3 Total Protein Albumin Urine Color Yellow Urine Appearance Clear Urine pH 8.5 Ur Specific [place] <= 1.005 Urine Protein 300 (3+) H Urine Glucose (UA) Negative Urine Ketones Negative Urine Blood Trace H Urine Nitrite Negative Ur Leukocyte Esterase Trace H Urine RBC 3-5 H Urine WBC 0-5 Ur Squamous Epith Cells 0-2 Urine Bacteria None Seen Hyaline Casts 0-2 Valproic Acid 12/07/22 12/07/22 12/07/22 16:17 16:17 16:17 MCV MCH MCHC RDW Plt Count MPV Immature Gran % (Auto) Neut % (Auto) Lymph % (Auto) [place] % (Auto) Eos % (Auto) Baso % (Auto) Lymph # (Auto) [place] # (Auto) Eos # (Auto) Baso # (Auto) Abs Immat Gran (auto) Absolute Neuts (auto) Absolute Nucleated RBC Nucleated RBC % (auto) Smear Tech's Comments PT Whole Blood PT INR Whole Blood INR APTT Anion Gap 19 Estim Creat Clear Calc 7.6 Estimated GFR 5 POC Glucose Random Glucose 79 Lactic Acid 1.5 Calcium 9.2 Magnesium 1.7 Total Bilirubin 0.6 Direct Bilirubin 0.2 AST 15 ALT < 5 Alkaline Phosphatase 353 H Total Creatine Kinase 37 Troponin I High Sens Total Protein 6.5 Albumin 3.5 Urine Color Urine Appearance Urine pH Ur Specific [place] Urine Protein Urine Glucose (UA) Urine Ketones Urine Blood Urine Nitrite Ur Leukocyte Esterase Urine RBC Urine WBC Ur Squamous Epith Cells Urine Bacteria Hyaline Casts Valproic Acid 108.6 H Assessment and Plan (1) Acute alteration in mental status: Status: Acute (2) Seizure: Status: Acute Plan 72-year-old female with history of paroxysmal atrial fibrillation anticoagulated with Eliquis, hypertension, hyperlipidemia, insulin-dependent type 2 diabetes, asthma, VIOLA, hypothyroidism, end-stage renal disease on dialysis, newly diagnosed seizure disorder, history CVA with expressive aphasia to be observed for seizure activity. #Recently diagnosed seziure disorder -head CT negative for any acute intracranial abnormality but shows areas of encephalomalacia in the left occipital and right parietal lobes -noted to have 2 absence seizures while in the ED -continue Keppra IV 500 mg b.i.d. -continue Depakote 750 mg b.i.d. -did not have brain MRI performed while at [facility] with new diagnosis of seizures. Brain MRI ordered -EEG at [facility] confirmed seizure activity during recent admission -neurology consult # acute metabolic encephalopathy -likely postictal -UA unremarkable. Lung exam clear. No leukocytosis, vital stable. Low suspicion for infection -monitor mentation -keep NPO for now, nursing bedside swallow evaluation ordered # paroxysmal atrial fibrillation -rate controlled -continue Eliquis for anticoagulation and metoprolol for rate control # ESRD on dialysis -gets dialyzed M, W, F. Missed dialysis this morning -creatinine 8.35, BUN 46, electrolytes normal except for chloride 91, CO2 31 -Nephrology consult # hypertension-reasonably controlled -continue home meds # hypothyroidism -continue Synthroid # insulin-dependent type 2 diabetes -dose adjusted basal insulin -Humalog on sliding scale -POC glucose -diabetic diet pending swallow eval #Thombocytopenia -etiology unclear -Trend, cbc am # mild intermittent asthma -no acute exacerbation -albuterol p.r.n. DVT prophylaxis- on eliquis Full code Time Spent With Patient Time: Total time managing care of this patient today ____ minutes. Quality Stroke Does the patient have a stroke diagnosis?: No VTE Prior VTE?: No VTE Risk Level:: Medical - moderate - high VTE Device Contraindication: Treatment Not Indicated VTE Drug Contraindication: N/A - Med Ordered
[2022-12-07 19:11] VITALS: BP 141/53; PULSE 64; RESP 13; O2SAT 99
--- NOTE | 2022-12-07 19:18 | PC.NURSE ---
Addendum to admission assessment: pt primarily bed bound, minimal ability to ambulate.
--- NOTE | 2022-12-07 19:19 | PC.NURSE ---
Assumed care of pt. pt lying on stretcher, responsive to voice. pt answering some questions, though appears to have mild confusion. VSS at this time, preparing for admission.
[2022-12-07 20:00] VITALS: BP 178/77; PULSE 57; RESP 16; TEMP 36.9; O2SAT 98
--- NOTE | 2022-12-07 20:50 | PC.NURSE ---
Report given to AYUSH Kilpatrick
[2022-12-07 22:00] VITALS: BMI 41.4
[2022-12-08] VITALS: BP 144/62; PULSE 55; PULSE 61; RESP 18; TEMP 36.3; O2SAT 93
--- NOTE | 2022-12-08 00:14 | PC.NURSE ---
Patient admitted to [facility] ~2130 from ED. Patient alert, opening eyes and moving extremities spontaneously. Appeared confused, pt awake but slow to verbally respond to assessment questions. When pt did verbally respond she kept repeating the same one or two responses ( What do you want? and Christina ) to all questions asked of her. See admission assessment for full details. Safety measures including bed alarm, in-room camera placed. POC obtained on arrival = 62. Covering Dr. Lal notified, prn 25gm dextrose IV given 2300 as pt NPO. Handoff report given to oncoming RN at 2305.
[2022-12-08 03:13] VITALS: BP 140/59; PULSE 61; RESP 16; TEMP 36.2; O2SAT 99
--- NOTE | 2022-12-08 04:50 | MHC.PIE ---
Late entry....POC AT 0320 WAS 56.Given PRN dextrose 25 grams IV.POC recheck was 117.Dr Lal updated.No further orders.
[2022-12-08 07:30] VITALS: PULSE 64; RESP 18; O2SAT 97
--- NOTE | 2022-12-08 08:59 | PM.NEUROCN ---
History of Present Illness Data of Consult Service Date: 12/08/22 Primary Care Provider: Jevon Rice MD [facility] Reason for consult: Epilepsy 72 years old woman with paroxysmal atrial fibrillation on anticoagulation, chronic right occipital infarct, and apparently secondarily generalized seizure disorder. She was brought to hospital with nonspecific symptoms of not doing well. Apparently she also was admitted [facility] recently with seizure disorder when Depakote was added to her regimen. Review of Systems Review of Systems: No recent cold or flu-like illness PMFSH Past Medical History Medical History (Updated 12/08/22 @ 09:06 by Radhika Flores MD) Asthma Epilepsy ESRD on dialysis Expressive aphasia History of CVA (cerebrovascular accident) Hypertension Insulin dependent type 2 diabetes mellitus Morbid obesity Obstructive sleep apnea Paroxysmal atrial fibrillation Tubular adenoma of colon Social History Social History Household Members: Unknown / Unable to assess Housing: Unknown / Unable to assess Unable to assess alcohol history related to: Refusing to respond Patient Tobacco Use Status: Never used Tobacco Use of substances other than those prescribed or required for medical reasons: Unknown Currently Displaying Signs/Symptoms of Drug Intoxication Withdrawal: No Advance Directives: Yes Advance Directives on File: Yes Advance Directives Date on File: 04/22/22 Recently lost weight without trying: Unsure How much weight loss: Unsure Nutrition Risks: No Nutritional Risk Patient : No Meds Allergies Allergy/AdvReac Type Severity Reaction Status Date / Time Penicillins Allergy Unknown Unknown Verified 04/21/22 16:53 lisinopri Allergy Unknown Unknown Uncoded 04/21/22 16:53 Active Medications: Current Medications Acetaminophen (Acetaminophen 325 Mg Tablet) 650 mg PO Q6H PRN PRN Reason: Pain, Mild (Pain Scale 1-3) Albuterol Sulfate (Albuterol Sulfate 90 Mcg 8 Gm Inhaler) 2 puff INHALE Q4H PRN PRN Reason: Wheezing Amlodipine Besylate (Amlodipine Besylate 5 Mg Tablet) 5 mg PO DAILY [facility]; Protocol Apixaban (Apixaban 5 Mg Tablet) 5 mg PO BID [facility] Last Admin: 12/07/22 22:30 Dose: Not Given Atorvastatin Calcium (Atorvastatin Calcium 40 Mg Tablet) 40 mg PO BEDTIME PB Last Admin: 12/07/22 22:30 Dose: Not Given Cinacalcet (Cinacalcet Hcl 30 Mg Tablet) 30 mg PO DAILY [facility] Dextrose (Dextrose 50 % 25 Gm/50 Ml Syringe) 25 gm IVPUSH Q15M PRN; Protocol PRN Reason: per Hypoglycemia Standing Ord. Last Admin: 12/08/22 03:25 Dose: 25 gm Dextrose (Dextrose 50 % 25 Gm/50 Ml Syringe) 25 gm IVPUSH Q15M PRN; Protocol PRN Reason: per Hypoglycemia Standing Ord. Last Admin: 12/07/22 23:03 Dose: 25 gm Divalproex Sodium (Divalproex Sodium 250 Mg Tablet.Dr) 750 mg PO BID [facility] Last Admin: 12/07/22 22:30 Dose: Not Given Docusate Sodium (Docusate Sodium 100 Mg Capsule) 100 mg PO DAILY PRN PRN Reason: Constipation Fluticasone/Vilanterol (Fluticasone/Vilanterol 200/25 Blst.W.Dev) 1 puff INHALE RDAILY [facility] Last Admin: 12/08/22 07:27 Dose: 1 puff Glucose (Glucose Gel 15 Gm Gel..Gram.) 15 gm PO Q15M PRN; Protocol PRN Reason: per Hypoglycemia Standing Ord. Glucose (Glucose Gel 15 Gm Gel..Gram.) 15 gm PO Q15M PRN; Protocol PRN Reason: per Hypoglycemia Standing Ord. Insulin Glargine (Insulin Glargine,Hum.Rec.Anlog 100 Unit/Ml 10 Ml Vial) 3 unit SUBCUT BEDTIME [facility] Last Admin: 12/07/22 22:31 Dose: Not Given Insulin Human Lispro (Insulin Lispro 100 Unit/Ml 3 Ml Vial) 0 unit SUBCUT QIDACHS [facility]; Protocol Last Admin: 12/08/22 07:52 Dose: Not Given Insulin Human Lispro (Insulin Lispro 100 Unit/Ml 3 Ml Vial) 0 unit SUBCUT Q4H [facility]; Protocol Last Admin: 12/08/22 06:45 Dose: Not Given Levetiracetam (Levetiracetam 500 Mg Tablet) 500 mg PO BID [facility] Levothyroxine Sodium (Levothyroxine Sodium 88 Mcg Tablet) 88 mcg PO DAILY@0600 [facility] Last Admin: 12/08/22 05:36 Dose: Not Given Metoprolol Tartrate (Metoprolol Tartrate 50 Mg Tablet) 50 mg PO BID [facility]; Protocol Last Admin: 12/07/22 22:30 Dose: Not Given Midodrine (Midodrine Hcl 5 Mg Tablet) 5 mg PO MOWEFR PRN PRN Reason: Hypotension Omeprazole (Omeprazole 20 Mg Capsule.) 20 mg PO BID@0630,1630 [facility] Last Admin: 12/08/22 05:36 Dose: Not Given Ondansetron HCl (Ondansetron Hcl 4 Mg/2 Ml Vial) 4 mg IVPUSH Q8H PRN PRN Reason: Nausea and Vomiting Pharmacy Consult (Consult Rx Perform Med Rec) 1 each MISCELLANE ONCE PRN PRN Reason: Consult order Sevelamer Carbonate (Sevelamer Carbonate Tablet 800 Mg Tablet) 800 mg PO BIDWM [facility] Home Medications Medication Instructions Recorded Confirmed Last Taken Type albuterol sulfate 90 mcg/actuation 2 puff inhalation Q4H PRN Wheezing 12/07/22 12/07/22 Unknown History aerosol inhaler (Ventolin HFA) amlodipine 5 mg tablet 5 mg PO DAILY 12/07/22 12/07/22 12/07/22 History apixaban 5 mg tablet (Eliquis) 5 mg PO BID 12/07/22 12/07/22 12/07/22 History atorvastatin 40 mg tablet 40 mg PO BEDTIME 12/07/22 12/07/22 12/06/22 History cinacalcet 30 mg tablet 30 mg PO DAILY 12/07/22 12/07/22 12/07/22 History divalproex 250 mg tablet,delayed 750 mg PO BID 12/07/22 12/07/22 12/07/22 History release fluticasone 500 mcg-salmeterol 50 1 ea inhalation BID 12/07/22 12/07/22 12/07/22 History mcg/dose blistr powdr for inhalation (Advair Diskus) gabapentin 100 mg capsule 100 mg PO TID 12/07/22 Unknown History insulin aspart U-100 100 unit/mL 4 - 12 unit subcut TIDWM PRN 12/07/22 12/07/22 Unknown History (3 mL) subcutaneous pen (Novolog ELEVATED BLOOD SUGAR FlexPen U-100 Insulin aspart) insulin detemir U-100 100 unit/mL 6 unit subcut BEDTIME 12/07/22 12/07/22 12/06/22 History subcutaneous solution (Levemir U-100 Insulin) levetiracetam 500 mg tablet 500 mg PO DAILY 12/07/22 12/07/22 12/07/22 History levetiracetam 500 mg tablet 500 mg PO MOWEFR@1645 12/07/22 12/07/22 12/04/22 History levothyroxine 88 mcg tablet 88 mcg PO DAILY@0600 12/07/22 12/07/22 12/07/22 History metoprolol tartrate 50 mg tablet 50 mg PO BID 12/07/22 12/07/22 12/07/22 History midodrine 5 mg tablet 5 mg PO MOWEFR PRN Hypotension 12/07/22 12/07/22 Unknown History pantoprazole 40 mg tablet,delayed 40 mg PO BID@0630,1630 12/07/22 12/07/22 12/07/22 History release sevelamer carbonate 800 mg tablet 800 mg PO BIDWM 12/07/22 12/07/22 12/07/22 History (Leonela) Physical Exam Vital Signs: Vital Signs: Last Vital Signs Temp 97.2 F 12/08/22 03:13 Pulse 64 12/08/22 07:30 Resp 18 12/08/22 07:30 BP 140/59 H 12/08/22 03:13 Pulse Ox 99 12/08/22 03:13 O2 Del Method Room Air 12/08/22 03:13 BMI result Body Mass Index 41.4 Neuro: Other: She is alert and awake able to tell me her last name and follow simple commands. She was not in any distress. There was no obvious tremor or myoclonus. Face was symmetrical. Visual razo were difficult to determine. [id number] testing was normal with right hand and she did not do that with left. Exam was limited Results Labs 12/08/22 06:21 12/08/22 06:21 Labs: Short CBC 12/07/22 12/08/22 Range/Units 12:43 06:21 WBC 6.7 6.7 (4.8-10.8) X10*3/uL Hgb 10.9 L 10.3 L (12.0-16.0) g/dl Hct 32.4 L 30.3 L (37.0-47.0) % Plt Count 120 L D 104 L (160-400) X10*3/uL BMP 12/07/22 12/08/22 16:17 06:21 Sodium 137 136 Potassium 3.8 4.1 Chloride 91 L 93 L Carbon Dioxide 31 H 26 BUN 46 H 53 H Creatinine 8.35 H* 9.04 H* Calcium 9.2 8.9 Cardiac Enzymes 12/07/22 Range/Units 16:17 Total Creatine Kinase 37 (26-140) U/L Liver Function 12/07/22 Range/Units 16:17 Total Bilirubin 0.6 (0.0-1.0) mg/dL Direct Bilirubin 0.2 (0.0-0.5) mg/dL AST 15 (5-31) U/L ALT < 5 (0-31) U/L Alkaline Phosphatase 353 H (39-117) U/L Albumin 3.5 (3.5-5.0) g/dL Urine 12/07/22 Range/Units 14:44 Urine Color Yellow Urine Appearance Clear Urine pH 8.5 (5.0-9.0) Ur Specific [place] <= 1.005 (1.005-1.025) Urine Protein 300 (3+) H (Neg-Trace) mg/dL Urine Glucose (UA) Negative (Negative) mg/dL Noncontrast head CT revealed chronic right occipital infarct. Assessment and Plan (1) Epilepsy: Status: Acute (2) Encephalopathy: Status: Acute 72 years old woman with paroxysmal atrial fibrillation on anticoagulation, a chronic right occipital infarct probably from cardiac source of embolism, likely secondarily generalize seizure disorder, and end-stage renal disease. Present admission was likely due to encephalopathy from multiple factors instead of seizure. This was likely triggered by relative high dose of Depakote and high level. I recommend discontinuing levetiracetam and decreasing divalproex acid dose to 500 mg twice a day. Time Spent With Patient Time: Total time managing care of this patient today ____ minutes. Procedures Date of Service Date of Service: 12/08/22
--- NOTE | 2022-12-08 10:58 | MHC.SL.SWA ---
Speech Pathologist Impression: Risk of Aspiration Due to: Lethargy Medically Fragile Neurological Condition History of Pneumonia Reduced Cognition Dysphasia Diet Status: Liquid Consistency and Strategies for Safe Swallow: Liquid Intake Recommendation: Thin Liquid Intake Strategies: Unrestricted Solid Food Consistency: Dietary Recommendations: Chopped/Advanced (NDD3) Additional Modifications to Solid Foods: Avoid difficult to chew solids and mixed consistencies. Oral Medication Intake: Whole with Puree Please contact the pharmacy regarding appropriate crushable or liquid drug formulations that are available whenever modified delivery is recommended. Compensatory Strategies and Precautions to be Taken for Safe Swallow: Sitting Upright (90 deg) Double Swallow Liquids from Straw Small Bites and Sips Alternate Liquids/Solids Rate of Ingestion Change Oral Check Avoid Specific Foods Supervision While Eating and Drinking for Safe Swallow: Intermittent Supervision Foods to Avoid: Regular Solids Mixed consistencies (i.e., soups, cereal with milk, fruit cups, etc.) Swallowing Recommended Treatments: Compens. Strategy Educat. Recommendation for Speech: Inpatient Speech Therapy Timeline to reassess: MANN Joint Sealer Clinican/Clinical Fellow: No Supervisory Statement: I have reviewed and agree with the student/clinical fellow's documentation: N/A Speech Language Pathologist: David De Jesus M.A., CCC-BAG FILLER
[2022-12-08 11:04] VITALS: BP 124/82; PULSE 68; RESP 20; TEMP 36.4; O2SAT 98
[2022-12-08] MEDS: amLODIPine Besylate 5 MG TABLET PO (11:04)
[2022-12-08] MEDS: Metoprolol Tartrate 50 MG TABLET PO (11:04)
[2022-12-08] MEDS: Apixaban 5 MG TABLET PO (11:05)
--- NOTE | 2022-12-08 13:43 | PM.DS ---
DS: Providers Provider Date of Service: 12/08/22 Date of admission: 12/07/22 19:01 Primary care physician: Jevon Rice MD Consults: 12/07/22 19:05 Consult to Neurology Routine Consulting Provider: [facility] Reason for consultation: increased seizure activity 12/07/22 19:17 Consult to Nephrology Routine Consulting Provider: Ender Esqueda Reason for consultation: esrd on dialysis DS: Diagnosis Discharge Diagnosis (1) Epilepsy: Status: Acute (2) Encephalopathy: Status: Acute DS: Summary Hospital Course Hospital Course: Chief Complaint: seizures 72-year-old female with history of paroxysmal atrial fibrillation anticoagulated with Eliquis, hypertension, hyperlipidemia, insulin-dependent type 2 diabetes, asthma, VIOLA, hypothyroidism, end-stage renal disease on dialysis, newly diagnosed seizure disorder, history CVA with expressive aphasia presented to the ED for evaluation of possible stroke.? The patient lives with her son who stated that the patient is not acting like herself this morning prior to dialysis.? At the dialysis unit she appeared to be weak and there is concern of stroke so EMS was called.? She was recently diagnosed with generalized tonic-clonic seizures on 10/07 and started on Keppra and was recently admitted at [facility] with discharge in 11/20. During admission she did undergo EEG which showed seizure activity and she was started on Depakote 750 mg b.i.d. in addition to the Keppra 500 mg daily she was taking.? Discussed with the son who states she had been mentating well following discharge off until this morning.? On arrival to the ED, patient is altered, repeating her name when asked questions.? There is no leukocytosis.? Mild normocytic anemia with H/H 10.9/32.4, platelets 120.? Creatinine 8.35, BUN 46, sodium 137, potassium 3.8, chloride 91, CO2 31 hepatic function normal.? Troponin within normal limits.? Total CK 37.? Urinalysis with trace leukocytes, negative nitrites, trace blood, 3+ protein, negative urinary sediment and bacteria.? Valproic acid level 108.? Head CT showing large area of encephalomalacia in the right occipital parietal lobe most likely related to chronic/subacute stroke without evidence of acute infarction or hemorrhage.? No mass effect, midline shift, brain edema.? There is also an area of encephalomalacia in the right parietal lobe.? Ventricles and sulci are dilated with ex vacuo dilatation of the right occipital horn of lateral ventricle.? In ED, given 500 mg IV Keppra.? For ED nurses, patient noted to have what appeared to be 2 absence seizures lasting several seconds while in the ED. Hospital course: This patient with ESRD on dialysis MWF was recently diagnoed with seizure at [facility] andstarted on Keppra 500 daily and additional suplement on dialysis days, Depakote 750 mg twice and presently with breakthrough seizure and noted to have excess depakote level of 108. CT showed no acute finding. She was observed overnight given IV Keppra 500 mg twice daily. There has not been no further seizure, Neurologist Dr. Flores recommend stopping Keppra, and redcucing Depakote 500 mg twice daily as toxic level of it likely trigered seizure and he furthermore does recommend MRI at this time. Time Spent with Patient Time attestation: Total time managing care of this patient today ____ minutes. Discharge coordination time: Greater than 30 minutes Quality: Safe Use of Opioids Does Pt have an Active Cancer Diagnosis on the Problem List?: No Quality: Stroke Does the patient have a stroke diagnosis?: No Physical Exam Vital Signs: Vital Signs: Last Vital Signs Temp 97.5 F 12/08/22 11:04 Pulse 68 12/08/22 11:04 Resp 20 12/08/22 11:04 BP 124/82 12/08/22 11:04 Pulse Ox 98 12/08/22 11:04 O2 Del Method Room Air 12/08/22 11:04 BMI result Body Mass Index 41.4 DS: Data Data Completed and Pending Labs on day of discharge: Laboratory Results - last 24 hr 12/07/22 12/07/22 12/07/22 12:04 12:43 14:44 WBC 6.7 RBC Hgb Hct MCV MCH MCHC RDW Plt Count 120 L D MPV Immature Gran % (Auto) 1.8 H Neut % (Auto) 60.8 Lymph % (Auto) 20.8 Elbert % (Auto) 14.1 H Eos % (Auto) 1.9 Baso % (Auto) 0.6 Lymph # (Auto) 1.4 Elbert # (Auto) 0.9 Eos # (Auto) 0.1 Baso # (Auto) 0.0 Abs Immat Gran (auto) 0.12 H Absolute Neuts (auto) 4.1 Absolute Nucleated RBC 0.000 Nucleated RBC % (auto) 0.0 Smear Tech's Comments VERIFIED Whole Blood PT 13.2 Whole Blood INR 1.1 Sodium Potassium Chloride Carbon Dioxide Anion Gap BUN Creatinine Estim Creat Clear Calc Estimated GFR POC Glucose Random Glucose Lactic Acid Calcium Magnesium Total Bilirubin Direct Bilirubin AST ALT Alkaline Phosphatase Total Creatine Kinase Total Protein Albumin Urine Color Yellow Urine Appearance Clear Urine pH 8.5 Ur Specific [place] <= 1.005 Urine Protein 300 (3+) H Urine Glucose (UA) Negative Urine Ketones Negative Urine Blood Trace H Urine Nitrite Negative Ur Leukocyte Esterase Trace H Urine RBC 3-5 H Urine WBC 0-5 Ur Squamous Epith Cells 0-2 Urine Bacteria None Seen Hyaline Casts 0-2 Valproic Acid 12/07/22 12/07/22 12/07/22 16:17 16:17 16:17 WBC RBC Hgb Hct MCV MCH MCHC RDW Plt Count MPV Immature Gran % (Auto) Neut % (Auto) Lymph % (Auto) Elbert % (Auto) Eos % (Auto) Baso % (Auto) Lymph # (Auto) Elbert # (Auto) Eos # (Auto) Baso # (Auto) Abs Immat Gran (auto) Absolute Neuts (auto) Absolute Nucleated RBC Nucleated RBC % (auto) Smear Tech's Comments Whole Blood PT Whole Blood INR Sodium 137 Potassium 3.8 Chloride 91 L Carbon Dioxide 31 H Anion Gap 19 BUN 46 H Creatinine 8.35 H* Estim Creat Clear Calc 7.6 Estimated GFR 5 POC Glucose Random Glucose 79 Lactic Acid 1.5 Calcium 9.2 Magnesium 1.7 Total Bilirubin 0.6 Direct Bilirubin 0.2 AST 15 ALT < 5 Alkaline Phosphatase 353 H Total Creatine Kinase 37 Total Protein 6.5 Albumin 3.5 Urine Color Urine Appearance Urine pH Ur Specific [place] Urine Protein Urine Glucose (UA) Urine Ketones Urine Blood Urine Nitrite Ur Leukocyte Esterase Urine RBC Urine WBC Ur Squamous Epith Cells Urine Bacteria Hyaline Casts Valproic Acid 108.6 H 12/07/22 12/07/22 12/08/22 21:50 23:53 03:21 WBC RBC Hgb Hct MCV MCH MCHC RDW Plt Count MPV Immature Gran % (Auto) Neut % (Auto) Lymph % (Auto) Elbert % (Auto) Eos % (Auto) Baso % (Auto) Lymph # (Auto) Elbert # (Auto) Eos # (Auto) Baso # (Auto) Abs Immat Gran (auto) Absolute Neuts (auto) Absolute Nucleated RBC Nucleated RBC % (auto) Smear Tech's Comments Whole Blood PT Whole Blood INR Sodium Potassium Chloride Carbon Dioxide Anion Gap BUN Creatinine Estim Creat Clear Calc Estimated GFR POC Glucose 62 133 H 56 L* Random Glucose Lactic Acid Calcium Magnesium Total Bilirubin Direct Bilirubin AST ALT Alkaline Phosphatase Total Creatine Kinase Total Protein Albumin Urine Color Urine Appearance Urine pH Ur Specific [place] Urine Protein Urine Glucose (UA) Urine Ketones Urine Blood Urine Nitrite Ur Leukocyte Esterase Urine RBC Urine WBC Ur Squamous Epith Cells Urine Bacteria Hyaline Casts Valproic Acid 12/08/22 12/08/22 12/08/22 04:41 06:21 06:21 WBC 6.7 RBC 3.24 L Hgb 10.3 L Hct 30.3 L MCV 93.5 MCH 31.8 MCHC 34.0 RDW 15.9 Plt Count 104 L MPV 10.7 Immature Gran % (Auto) 1.2 H Neut % (Auto) 58.7 Lymph % (Auto) 21.0 Elbert % (Auto) 16.2 H Eos % (Auto) 2.2 Baso % (Auto) 0.7 Lymph # (Auto) 1.4 Elbert # (Auto) 1.1 Eos # (Auto) 0.2 Baso # (Auto) 0.1 Abs Immat Gran (auto) 0.08 H Absolute Neuts (auto) 4.0 Absolute Nucleated RBC 0.000 Nucleated RBC % (auto) 0.0 Smear Tech's Comments Whole Blood PT Whole Blood INR Sodium 136 Potassium 4.1 Chloride 93 L Carbon Dioxide 26 Anion Gap 21 H BUN 53 H Creatinine 9.04 H* Estim Creat Clear Calc 7.0 Estimated GFR 4 POC Glucose 117 H Random Glucose 88 Lactic Acid Calcium 8.9 Magnesium Total Bilirubin Direct Bilirubin AST ALT Alkaline Phosphatase Total Creatine Kinase Total Protein Albumin Urine Color Urine Appearance Urine pH Ur Specific [place] Urine Protein Urine Glucose (UA) Urine Ketones Urine Blood Urine Nitrite Ur Leukocyte Esterase Urine RBC Urine WBC Ur Squamous Epith Cells Urine Bacteria Hyaline Casts Valproic Acid 12/08/22 12/08/22 12/08/22 06:41 07:51 10:14 WBC RBC Hgb Hct MCV MCH MCHC RDW Plt Count MPV Immature Gran % (Auto) Neut % (Auto) Lymph % (Auto) [place] % (Auto) Eos % (Auto) Baso % (Auto) Lymph # (Auto) [place]bert # (Auto) Eos # (Auto) Baso # (Auto) Abs Immat Gran (auto) Absolute Neuts (auto) Absolute Nucleated RBC Nucleated RBC % (auto) Smear Tech's Comments Whole Blood PT Whole Blood INR Sodium Potassium Chloride Carbon Dioxide Anion Gap BUN Creatinine Estim Creat Clear Calc Estimated GFR POC Glucose 70 75 70 Random Glucose Lactic Acid Calcium Magnesium Total Bilirubin Direct Bilirubin AST ALT Alkaline Phosphatase Total Creatine Kinase Total Protein Albumin Urine Color Urine Appearance Urine pH Ur Specific [place] Urine Protein Urine Glucose (UA) Urine Ketones Urine Blood Urine Nitrite Ur Leukocyte Esterase Urine RBC Urine WBC Ur Squamous Epith Cells Urine Bacteria Hyaline Casts Valproic Acid 12/08/22 12/08/22 11:08 11:56 WBC RBC Hgb Hct MCV MCH MCHC RDW Plt Count MPV Immature Gran % (Auto) Neut % (Auto) Lymph % (Auto) [place] % (Auto) Eos % (Auto) Baso % (Auto) Lymph # (Auto) [place]bert # (Auto) Eos # (Auto) Baso # (Auto) Abs Immat Gran (auto) Absolute Neuts (auto) Absolute Nucleated RBC Nucleated RBC % (auto) Smear Tech's Comments Whole Blood PT Whole Blood INR Sodium Potassium Chloride Carbon Dioxide Anion Gap BUN Creatinine Estim Creat Clear Calc Estimated GFR POC Glucose 66 88 Random Glucose Lactic Acid Calcium Magnesium Total Bilirubin Direct Bilirubin AST ALT Alkaline Phosphatase Total Creatine Kinase Total Protein Albumin Urine Color Urine Appearance Urine pH Ur Specific [place] Urine Protein Urine Glucose (UA) Urine Ketones Urine Blood Urine Nitrite Ur Leukocyte Esterase Urine RBC Urine WBC Ur Squamous Epith Cells Urine Bacteria Hyaline Casts Valproic Acid Discharge Plan Discharge Anticipated Discharge Date/Time: 12/08/22 13:33 Patient Disposition: Home Health Service Discharge Diagnosis: Breakthrough seizure Referrals: Jevon Rice MD [Primary Care Provider] - 1 Week Discharge Medications: Continued atorvastatin 40 mg tablet 40 mg PO BEDTIME amlodipine 5 mg tablet 5 mg PO DAILY levothyroxine 88 mcg tablet 88 mcg PO DAILY@0600 pantoprazole 40 mg tablet,delayed release (DR/EC) 40 mg PO BID@0630,1630 fluticasone propion-salmeterol [Advair Diskus] 500-50 mcg/dose blister with device 1 ea INHALATION BID metoprolol tartrate 50 mg tablet 50 mg PO BID albuterol sulfate [Ventolin HFA] 90 mcg/actuation HFA aerosol inhaler 2 puff inhalation Q4H PRN (Reason: Wheezing) Levemir U-100 Insulin 100 unit/mL solution 6 unit subcut BEDTIME sevelamer carbonate [Renvela] 800 mg tablet 800 mg PO BIDWM Eliquis 5 mg tablet 5 mg PO BID midodrine 5 mg tablet 5 mg PO MOWEFR PRN (Reason: Hypotension) Rx Instructions: GIVEN NEEDED AT DIALYSIS insulin aspart U-100 [Novolog FlexPen U-100 Insulin] 100 unit/mL (3 mL) insulin pen 4 - 12 unit subcut TIDWM PRN (Reason: ELEVATED BLOOD SUGAR) cinacalcet 30 mg Tablet 30 mg PO DAILY gabapentin 100 mg capsule 100 mg PO TID Changed divalproex 250 mg tablet,delayed release (DR/EC) 500 mg PO BID Qty: 60 0RF Discontinued levetiracetam 500 mg tablet 500 mg PO DAILY levetiracetam 500 mg tablet 500 mg PO MOWEFR@1645 Rx Instructions: GIVEN AFTER DIALYSIS ON DIALYSIS DAYS Discharge Orders: Discharge Order (Routine); Ordered 12/08/22 Ordered By: Alejandro Acosta Diet: chopped solid diet Activity on Discharge: As tolerated Stand Alone Forms: Patient Portal Discharge page Care Plan Goals: seizure control Health Concerns: seizure Plan of Treatment: Stop taking Keppra (levacitretam) Depkote dose has been reduced to 500 mg twice daily Follow up with your Doctor in a week Assessment: as above
--- NOTE | 2022-12-08 14:45 | P.CONNP_ITS ---
History of Present Illness Reason for Consult Consult date: 12/08/22 Reason for consult: ESRD Chief Complaint Chief complaint: Seizures History of Present Illness Narrative: 72-year-old female with history of paroxysmal atrial fibrillation anticoagulated with Eliquis, hypertension, hyperlipidemia, insulin-dependent type 2 diabetes, asthma, VIOLA, hypothyroidism, end-stage renal disease on dialysis, newly diagnose d seizure disorder, history CVA with expressive aphasia presented to the ED for evaluation of possible stroke.? The patient lives with her son who stated that the patient is not acting like herself this morning prior to dialysis.? At the dialysis unit she appeared to be weak and there is concern of stroke so EMS was called.? She was recently diagnosed with generalized tonic-clonic seizures on 10/07 and started on Keppra and was recently admitted at [facility] with discharge in 11/20. During admission she did undergo EEG which showed seizure activity and she was started on Depakote 750 mg b.i.d. in addition to the Keppra 500 mg daily she was taking.? She underwent hemodialysis today Review of Systems Review of Systems No headache. No nausea vomiting. No abdominal pain. No shortness of breath. No cough. No dysuria urgency or hematuria. No edema. No rash. [facility] Past Medical History Medical History (Updated 12/08/22 @ 09:06 by Radhika Flores MD) Asthma Epilepsy ESRD on dialysis Expressive aphasia History of CVA (cerebrovascular accident) Hypertension Insulin dependent type 2 diabetes mellitus Morbid obesity Obstructive sleep apnea Paroxysmal atrial fibrillation Tubular adenoma of colon Social History Social History Household Members: Unknown / Unable to assess Housing: Unknown / Unable to assess Unable to assess alcohol history related to: Refusing to respond Patient Tobacco Use Status: Never used Tobacco Use of substances other than those prescribed or required for medical reasons: Unknown Currently Displaying Signs/Symptoms of Drug Intoxication Withdrawal: No Advance Directives: Yes Advance Directives on File: Yes Advance Directives Date on File: 04/22/22 Recently lost weight without trying: Unsure How much weight loss: Unsure Nutrition Risks: No Nutritional Risk Patient : No Meds Allergies Allergy/AdvReac Type Severity Reaction Status Date / Time Penicillins Allergy Unknown Unknown Verified 04/21/22 16:53 lisinopri Allergy Unknown Unknown Uncoded 04/21/22 16:53 Active Medications: Current Medications Acetaminophen (Acetaminophen 325 Mg Tablet) 650 mg PO Q6H PRN PRN Reason: Pain, Mild (Pain Scale 1-3) Albuterol Sulfate (Albuterol Sulfate 90 Mcg 8 Gm Inhaler) 2 puff INHALE Q4H PRN PRN Reason: Wheezing Amlodipine Besylate (Amlodipine Besylate 5 Mg Tablet) 5 mg PO DAILY [facility]; Protocol Last Admin: 12/08/22 11:04 Dose: 5 mg Apixaban (Apixaban 5 Mg Tablet) 5 mg PO BID [facility] Last Admin: 12/08/22 11:05 Dose: 5 mg Atorvastatin Calcium (Atorvastatin Calcium 40 Mg Tablet) 40 mg PO BEDTIME [facility] Last Admin: 12/07/22 22:30 Dose: Not Given Cinacalcet (Cinacalcet Hcl 30 Mg Tablet) 30 mg PO DAILY [facility] Last Admin: 12/08/22 11:04 Dose: 30 mg Dextrose (Dextrose 50 % 25 Gm/50 Ml Syringe) 25 gm IVPUSH Q15M PRN; Protocol PRN Reason: per Hypoglycemia Standing Ord. Last Admin: 12/08/22 03:25 Dose: 25 gm Dextrose (Dextrose 50 % 25 Gm/50 Ml Syringe) 25 gm IVPUSH Q15M PRN; Protocol PRN Reason: per Hypoglycemia Standing Ord. Last Admin: 12/07/22 23:03 Dose: 25 gm Divalproex Sodium (Divalproex Sodium 250 Mg Tablet.Dr) 750 mg PO BID [facility] Last Admin: 12/08/22 11:25 Dose: Not Given Docusate Sodium (Docusate Sodium 100 Mg Capsule) 100 mg PO DAILY PRN PRN Reason: Constipation Fluticasone/Vilanterol (Fluticasone/Vilanterol 200/25 Blst.W.Dev) 1 puff INHALE RDAILY [facility] Last Admin: 12/08/22 07:27 Dose: 1 puff Glucose (Glucose Gel 15 Gm Gel..Gram.) 15 gm PO Q15M PRN; Protocol PRN Reason: per Hypoglycemia Standing Ord. Glucose (Glucose Gel 15 Gm Gel..Gram.) 15 gm PO Q15M PRN; Protocol PRN Reason: per Hypoglycemia Standing Ord. Insulin Glargine (Insulin Glargine,Hum.Rec.Anlog 100 Unit/Ml 10 Ml Vial) 3 unit SUBCUT BEDTIME [facility] Last Admin: 12/07/22 22:31 Dose: Not Given Insulin Human Lispro (Insulin Lispro 100 Unit/Ml 3 Ml Vial) 0 unit SUBCUT QIDACHS [facility]; Protocol Last Admin: 12/08/22 11:42 Dose: Not Given Insulin Human Lispro (Insulin Lispro 100 Unit/Ml 3 Ml Vial) 0 unit SUBCUT Q4H [facility]; Protocol Last Admin: 12/08/22 11:42 Dose: Not Given Levetiracetam (Levetiracetam 500 Mg Tablet) 500 mg PO BID [facility] Levothyroxine Sodium (Levothyroxine Sodium 88 Mcg Tablet) 88 mcg PO DAILY@0600 [facility] Last Admin: 12/08/22 05:36 Dose: Not Given Metoprolol Tartrate (Metoprolol Tartrate 50 Mg Tablet) 50 mg PO BID [facility]; Protocol Last Admin: 12/08/22 11:04 Dose: 50 mg Midodrine (Midodrine Hcl 5 Mg Tablet) 5 mg PO MOWEFR PRN PRN Reason: Hypotension Omeprazole (Omeprazole 20 Mg Capsule.Dr) 20 mg PO BID@0630,1630 [facility] Last Admin: 12/08/22 05:36 Dose: Not Given Ondansetron HCl (Ondansetron Hcl 4 Mg/2 Ml Vial) 4 mg IVPUSH Q8H PRN PRN Reason: Nausea and Vomiting Pharmacy Consult (Consult Rx Perform Med Rec) 1 each MISCELLANE ONCE PRN PRN Reason: Consult order Sevelamer Carbonate (Sevelamer Carbonate Tablet 800 Mg Tablet) 800 mg PO BIDWM [facility] Last Admin: 12/08/22 11:24 Dose: Not Given Home Medications Medication Instructions Recorded Confirmed Last Taken Type albuterol sulfate 90 mcg/actuation 2 puff inhalation Q4H PRN Wheezing 12/07/22 12/07/22 Unknown History aerosol inhaler (Ventolin HFA) amlodipine 5 mg tablet 5 mg PO DAILY 12/07/22 12/07/22 12/07/22 History apixaban 5 mg tablet (Eliquis) 5 mg PO BID 12/07/22 12/07/22 12/07/22 History atorvastatin 40 mg tablet 40 mg PO BEDTIME 12/07/22 12/07/22 12/06/22 History cinacalcet 30 mg tablet 30 mg PO DAILY 12/07/22 12/07/22 12/07/22 History fluticasone 500 mcg-salmeterol 50 1 ea inhalation BID 12/07/22 12/07/22 12/07/22 History mcg/dose blistr powdr for inhalation (Advair Diskus) gabapentin 100 mg capsule 100 mg PO TID 12/07/22 Unknown History insulin aspart U-100 100 unit/mL 4 - 12 unit subcut TIDWM PRN 12/07/22 12/07/22 Unknown History (3 mL) subcutaneous pen (Novolog ELEVATED BLOOD SUGAR FlexPen U-100 Insulin aspart) insulin detemir U-100 100 unit/mL 6 unit subcut BEDTIME 12/07/22 12/07/22 12/06/22 History subcutaneous solution (Levemir U-100 Insulin) levothyroxine 88 mcg tablet 88 mcg PO DAILY@0600 12/07/22 12/07/22 12/07/22 History metoprolol tartrate 50 mg tablet 50 mg PO BID 12/07/22 12/07/22 12/07/22 History midodrine 5 mg tablet 5 mg PO MOWEFR PRN Hypotension 12/07/22 12/07/22 Unknown History pantoprazole 40 mg tablet,delayed 40 mg PO BID@0630,1630 12/07/22 12/07/22 12/07/22 History release sevelamer carbonate 800 mg tablet 800 mg PO BIDWM 12/07/22 12/07/22 12/07/22 History (Renvela) Physical Exam Vital Signs: Last Vital Signs Temp 97.5 F 12/08/22 11:04 Pulse 68 12/08/22 11:04 Resp 20 12/08/22 11:04 BP 124/82 12/08/22 11:04 Pulse Ox 98 12/08/22 11:04 O2 Del Method Room Air 12/08/22 11:04 BMI result Body Mass Index 41.4 Comfortable Neck is supple Lung: Air entry equal Heart: S1,S2, normal. No rub Abd: Soft. BS + NS : Alert.No asterexis Ext: No edema Results Lab Results 12/08/22 06:21 12/08/22 06:21 Lab results: Chemistry 12/07/22 12/08/22 16:17 06:21 Sodium 137 136 Potassium 3.8 4.1 Carbon Dioxide 31 H 26 BUN 46 H 53 H Creatinine 8.35 H* 9.04 H* Calcium 9.2 8.9 Hematology 12/07/22 12/08/22 12:43 06:21 WBC 6.7 6.7 Hgb 10.9 L 10.3 L Plt Count 120 L D 104 L Urinalysis 12/07/22 14:44 Urine Color Yellow Urine Appearance Clear Urine pH 8.5 Ur Specific [place] <= 1.005 Urine Protein 300 (3+) H Urine Glucose (UA) Negative Urine Ketones Negative Urine Blood Trace H Urine Nitrite Negative Ur Leukocyte Esterase Trace H Urine RBC 3-5 H Urine WBC 0-5 Ur Squamous Epith Cells 0-2 Hyaline Casts 0-2 Assessment and Plan (1) End stage kidney disease: Status: Acute Plan ESRD Usually gets dialysis on Wednesday. No overt signs or symptoms of uremia. For hemodialysis today as per protocol Still follow along Time Spent With Patient Time: Total time managing care of this patient today ____ minutes. Procedures Date of Service Date of Service: 12/08/22
--- NOTE | 2022-12-08 14:57 | HO.PM.IMPN ---
Subjective Subjective Date of Service: 12/08/22 Interval History: f/u on seizure interval no sieizure Physical Exam Vital Signs: Vital Signs: Last Vital Signs Temp 97.5 F 12/08/22 11:04 Pulse 68 12/08/22 11:04 Resp 20 12/08/22 11:04 BP 124/82 12/08/22 11:04 Pulse Ox 98 12/08/22 11:04 O2 Del Method Room Air 12/08/22 11:04 BMI result Body Mass Index 41.4 Const: Other: General: Resp: CTA bilateral CVS: S1,S2,RRR GI: +BS, NT, no distention Skin: No rash Neuro: motor grossly intact Psych: appropriate affect Objective Data Active Medications Acetaminophen (Acetaminophen 325 Mg Tablet) 650 mg PO Q6H PRN PRN Reason: Pain, Mild (Pain Scale 1-3) Albuterol Sulfate (Albuterol Sulfate 90 Mcg 8 Gm Inhaler) 2 puff INHALE Q4H PRN PRN Reason: Wheezing Amlodipine Besylate (Amlodipine Besylate 5 Mg Tablet) 5 mg PO DAILY [facility]; Protocol Last Admin: 12/08/22 11:04 Dose: 5 mg Documented By: JOHN Apixaban (Apixaban 5 Mg Tablet) 5 mg PO BID [facility] Last Admin: 12/08/22 11:05 Dose: 5 mg Documented By: JOHN Atorvastatin Calcium (Atorvastatin Calcium 40 Mg Tablet) 40 mg PO BEDTIME [facility] Last Admin: 12/07/22 22:30 Dose: Not Given Documented By: FLOR Non-Admin Reason: NPO Cinacalcet (Cinacalcet Hcl 30 Mg Tablet) 30 mg PO DAILY [facility] Last Admin: 12/08/22 11:04 Dose: 30 mg Documented By: JOHN Dextrose (Dextrose 50 % 25 Gm/50 Ml Syringe) 25 gm IVPUSH Q15M PRN; Protocol PRN Reason: per Hypoglycemia Standing Ord. Last Admin: 12/08/22 03:25 Dose: 25 gm Documented By: FREYA Dextrose (Dextrose 50 % 25 Gm/50 Ml Syringe) 25 gm IVPUSH Q15M PRN; Protocol PRN Reason: per Hypoglycemia Standing Ord. Last Admin: 12/07/22 23:03 Dose: 25 gm Documented By: FLOR Divalproex Sodium (Divalproex Sodium 250 Mg Tablet.) 750 mg PO BID [facility] Last Admin: 12/08/22 11:25 Dose: Not Given Documented By: JOHN Non-Admin Reason: can not be crushed Docusate Sodium (Docusate Sodium 100 Mg Capsule) 100 mg PO DAILY PRN PRN Reason: Constipation Fluticasone/Vilanterol (Fluticasone/Vilanterol 200/25 Blst.W.Dev) 1 puff INHALE RDAILY [facility] Last Admin: 12/08/22 07:27 Dose: 1 puff Documented By: DOUG Glucose (Glucose Gel 15 Gm Gel..Gram.) 15 gm PO Q15M PRN; Protocol PRN Reason: per Hypoglycemia Standing Ord. Glucose (Glucose Gel 15 Gm Gel..Gram.) 15 gm PO Q15M PRN; Protocol PRN Reason: per Hypoglycemia Standing Ord. Insulin Glargine (Insulin Glargine,Hum.Rec.Anlog 100 Unit/Ml 10 Ml Vial) 3 unit SUBCUT BEDTIME [facility] Last Admin: 12/07/22 22:31 Dose: Not Given Documented By: FLOR Non-Admin Reason: NPO Insulin Human Lispro (Insulin Lispro 100 Unit/Ml 3 Ml Vial) 0 unit SUBCUT QIDACHS [facility]; Protocol Last Admin: 12/08/22 11:42 Dose: Not Given Documented By: JOHN Non-Admin Reason: No Insulin Coverage Insulin Human Lispro (Insulin Lispro 100 Unit/Ml 3 Ml Vial) 0 unit SUBCUT Q4H [facility]; Protocol Last Admin: 12/08/22 11:42 Dose: Not Given Documented By: JOHN Non-Admin Reason: No Insulin Coverage Levetiracetam (Levetiracetam 500 Mg Tablet) 500 mg PO BID [facility] Levothyroxine Sodium (Levothyroxine Sodium 88 Mcg Tablet) 88 mcg PO DAILY@0600 [facility] Last Admin: 12/08/22 05:36 Dose: Not Given Documented By: FREYA Non-Admin Reason: NPO Metoprolol Tartrate (Metoprolol Tartrate 50 Mg Tablet) 50 mg PO BID [facility]; Protocol Last Admin: 12/08/22 11:04 Dose: 50 mg Documented By: JOHN Midodrine (Midodrine Hcl 5 Mg Tablet) 5 mg PO MOWEFR PRN PRN Reason: Hypotension Omeprazole (Omeprazole 20 Mg Capsule.Dr) 20 mg PO BID@0630,1630 [facility] Last Admin: 12/08/22 05:36 Dose: Not Given Documented By: FREYA Non-Admin Reason: NPO Ondansetron HCl (Ondansetron Hcl 4 Mg/2 Ml Vial) 4 mg IVPUSH Q8H PRN PRN Reason: Nausea and Vomiting Pharmacy Consult (Consult Rx Perform Med Rec) 1 each MISCELLANE ONCE PRN PRN Reason: Consult order Sevelamer Carbonate (Sevelamer Carbonate Tablet 800 Mg Tablet) 800 mg PO BIDWM [facility] Last Admin: 12/08/22 11:24 Dose: Not Given Documented By: JOHN Non-Admin Reason: cant be crushed Labs 12/08/22 06:21 12/08/22 06:21 Labs: Laboratory Results - last 24 hr 12/07/22 12/07/22 12/07/22 14:44 16:17 16:17 MCV MCH MCHC RDW Plt Count MPV Immature Gran % (Auto) Neut % (Auto) Lymph % (Auto) [place] % (Auto) Eos % (Auto) Baso % (Auto) Lymph # (Auto) [place] # (Auto) Eos # (Auto) Baso # (Auto) Abs Immat Gran (auto) Absolute Neuts (auto) Absolute Nucleated RBC Nucleated RBC % (auto) Anion Gap 19 Estim Creat Clear Calc 7.6 Estimated GFR 5 POC Glucose Random Glucose 79 Lactic Acid 1.5 Calcium 9.2 Magnesium 1.7 Total Bilirubin 0.6 Direct Bilirubin 0.2 AST 15 ALT < 5 Alkaline Phosphatase 353 H Total Creatine Kinase 37 Total Protein 6.5 Albumin 3.5 Urine Color Yellow Urine Appearance Clear Urine pH 8.5 Ur Specific [place] <= 1.005 Urine Protein 300 (3+) H Urine Glucose (UA) Negative Urine Ketones Negative Urine Blood Trace H Urine Nitrite Negative Ur Leukocyte Esterase Trace H Urine RBC 3-5 H Urine WBC 0-5 Ur Squamous Epith Cells 0-2 Urine Bacteria None Seen Hyaline Casts 0-2 Valproic Acid 12/07/22 12/07/22 12/07/22 16:17 21:50 23:53 MCV MCH MCHC RDW Plt Count MPV Immature Gran % (Auto) Neut % (Auto) Lymph % (Auto) [place] % (Auto) Eos % (Auto) Baso % (Auto) Lymph # (Auto) [place] # (Auto) Eos # (Auto) Baso # (Auto) Abs Immat Gran (auto) Absolute Neuts (auto) Absolute Nucleated RBC Nucleated RBC % (auto) Anion Gap Estim Creat Clear Calc Estimated GFR POC Glucose 62 133 H Random Glucose Lactic Acid Calcium Magnesium Total Bilirubin Direct Bilirubin AST ALT Alkaline Phosphatase Total Creatine Kinase Total Protein Albumin Urine Color Urine Appearance Urine pH Ur Specific [place] Urine Protein Urine Glucose (UA) Urine Ketones Urine Blood Urine Nitrite Ur Leukocyte Esterase Urine RBC Urine WBC Ur Squamous Epith Cells Urine Bacteria Hyaline Casts Valproic Acid 108.6 H 12/08/22 12/08/22 12/08/22 03:21 04:41 06:21 MCV 93.5 MCH 31.8 MCHC 34.0 RDW 15.9 Plt Count 104 L MPV 10.7 Immature Gran % (Auto) 1.2 H Neut % (Auto) 58.7 Lymph % (Auto) 21.0 [place] % (Auto) 16.2 H Eos % (Auto) 2.2 Baso % (Auto) 0.7 Lymph # (Auto) 1.4 [place] # (Auto) 1.1 Eos # (Auto) 0.2 Baso # (Auto) 0.1 Abs Immat Gran (auto) 0.08 H Absolute Neuts (auto) 4.0 Absolute Nucleated RBC 0.000 Nucleated RBC % (auto) 0.0 Anion Gap Estim Creat Clear Calc Estimated GFR POC Glucose 56 L* 117 H Random Glucose Lactic Acid Calcium Magnesium Total Bilirubin Direct Bilirubin AST ALT Alkaline Phosphatase Total Creatine Kinase Total Protein Albumin Urine Color Urine Appearance Urine pH Ur Specific [place] Urine Protein Urine Glucose (UA) Urine Ketones Urine Blood Urine Nitrite Ur Leukocyte Esterase Urine RBC Urine WBC Ur Squamous Epith Cells Urine Bacteria Hyaline Casts Valproic Acid 12/08/22 12/08/22 12/08/22 06:21 06:41 07:51 MCV MCH MCHC RDW Plt Count MPV Immature Gran % (Auto) Neut % (Auto) Lymph % (Auto) [place] % (Auto) Eos % (Auto) Baso % (Auto) Lymph # (Auto) [place] # (Auto) Eos # (Auto) Baso # (Auto) Abs Immat Gran (auto) Absolute Neuts (auto) Absolute Nucleated RBC Nucleated RBC % (auto) Anion Gap 21 H Estim Creat Clear Calc 7.0 Estimated GFR 4 POC Glucose 70 75 Random Glucose 88 Lactic Acid Calcium 8.9 Magnesium Total Bilirubin Direct Bilirubin AST ALT Alkaline Phosphatase Total Creatine Kinase Total Protein Albumin Urine Color Urine Appearance Urine pH Ur Specific [place] Urine Protein Urine Glucose (UA) Urine Ketones Urine Blood Urine Nitrite Ur Leukocyte Esterase Urine RBC Urine WBC Ur Squamous Epith Cells Urine Bacteria Hyaline Casts Valproic Acid 12/08/22 12/08/22 12/08/22 10:14 11:08 11:56 MCV MCH MCHC RDW Plt Count MPV Immature Gran % (Auto) Neut % (Auto) Lymph % (Auto) [place] % (Auto) Eos % (Auto) Baso % (Auto) Lymph # (Auto) [place] # (Auto) Eos # (Auto) Baso # (Auto) Abs Immat Gran (auto) Absolute Neuts (auto) Absolute Nucleated RBC Nucleated RBC % (auto) Anion Gap Estim Creat Clear Calc Estimated GFR POC Glucose 70 66 88 Random Glucose Lactic Acid Calcium Magnesium Total Bilirubin Direct Bilirubin AST ALT Alkaline Phosphatase Total Creatine Kinase Total Protein Albumin Urine Color Urine Appearance Urine pH Ur Specific [place] Urine Protein Urine Glucose (UA) Urine Ketones Urine Blood Urine Nitrite Ur Leukocyte Esterase Urine RBC Urine WBC Ur Squamous Epith Cells Urine Bacteria Hyaline Casts Valproic Acid Microbiology Microbiology Results: Microbiology 12/07/22 12:43 Blood Culture - Preliminary Blood - Venous No growth after 24 hours. 12/07/22 12:11 Blood Culture - Preliminary Blood - Venous No growth after 24 hours. Assessment and Plan (1) Encephalopathy: Status: Acute (2) Epilepsy: Status: Acute Plan 72-year-old female with history of paroxysmal atrial fibrillation anticoagulated with Eliquis, hypertension, hyperlipidemia, insulin-dependent type 2 diabetes, asthma, VIOLA, hypothyroidism, end-stage renal disease on dialysis, newly diagnosed seizure disorder, history CVA with expressive aphasia to be observed for seizure activity. #Recently diagnosed seziure disorder and now with breakthrough SZ with supratherapeutic depakote level -Neuro recommends reducing Depakote to 500 bid and stop Keppra, MRI not indicated at this time. # acute metabolic encephalopathy -likely postictal, at baseline now # paroxysmal atrial fibrillation-continue Eliquis for anticoagulation and metoprolol for rate control # ESRD on dialysis -gets dialyzed M, W, F. Missed dialysis this morning -creatinine 8.35, BUN 46, electrolytes normal except for chloride 91, CO2 31 -Nephrology consult # hypertension-reasonably controlled -continue home meds # hypothyroidism -continue Synthroid # insulin-dependent type 2 diabetes -dose adjusted basal insulin -Humalog on sliding scale -POC glucose -diabetic diet pending swallow eval #Thombocytopenia -etiology unclear -Trend, cbc am # mild intermittent asthma -no acute exacerbation -albuterol p.r.n. DVT prophylaxis- on eliquis Full code Obsv for seizure Time Spent With Patient Time: Total time managing care of this patient today ____ minutes. Quality Stroke Does the patient have a stroke diagnosis?: No VTE Prior VTE?: No VTE Risk Level:: Medical - moderate - high VTE Device Contraindication: Treatment Not Indicated VTE Drug Contraindication: N/A - Med Ordered
--- NOTE | 2022-12-08 15:08 | MHC.CM.PN ---
JOY 12/08/22 DELIVERED TO SON/HCP [facility] AT BEDSIDE PT SOUNDLY SLEEPING, SON REQUESTING STR AT [facility] SHE WAS THERE IN PAST AND HAS HD AT [facility], [facility] REPORTS AT BASELINE PT AMBULATES INDEP W/WALKER HOWEVER HAS NOT BEEN ABLE TO DO SO AND PT UNABLE TO AMBULATE INDEPENDENTLY AT THIS TIME, PT EVAL REQUESTED. HOSPITALIST DID LOOK [facility] AND REPORTS SHE WAS ADMITTED 11/16- QUALIFYING HER FOR STR. REFERRAL PLACED TO PREFERRED [facility] AWAITING RESPONSE.
[2022-12-08 15:33] VITALS: BP 140/84; PULSE 65; RESP 14; TEMP 36.1; O2SAT 95
[2022-12-08] MEDS: Omeprazole 20 MG CAPSULE.DR PO (17:14)
[2022-12-08 19:31] VITALS: BP 146/67; PULSE 62; RESP 14; TEMP 36.2; O2SAT 92
[2022-12-09] VITALS: BP 135/60; PULSE 63; RESP 20; TEMP 36.3; O2SAT 96
[2022-12-09 04:00] VITALS: BP 140/63; PULSE 69; RESP 20; TEMP 37.1; O2SAT 97
[2022-12-09] MEDS: Omeprazole 20 MG CAPSULE.DR PO (06:00)
[2022-12-09] MEDS: Levothyroxine Sodium 88 MCG TABLET PO (06:00)
--- NOTE | 2022-12-09 09:22 | HO.PM.IMPN ---
Subjective Subjective Date of Service: 12/09/22 Interval History: f/u on seizure interval has had 3 mini seizures during dialysis and confused after Physical Exam Vital Signs: Vital Signs: Last Vital Signs Temp 98.7 F 12/09/22 04:00 Pulse 69 12/09/22 04:00 Resp 20 12/09/22 04:00 BP 140/63 H 12/09/22 04:00 Pulse Ox 97 12/09/22 04:00 O2 Del Method Room Air 12/09/22 00:00 BMI result Body Mass Index 41.4 Const: Other: General: Resp: CTA bilateral CVS: S1,S2,RRR GI: +BS, NT, no distention Skin: No rash Neuro: motor grossly intact Psych: appropriate affect Objective Data Active Medications Acetaminophen (Acetaminophen 325 Mg Tablet) 650 mg PO Q6H PRN PRN Reason: Pain, Mild (Pain Scale 1-3) Albuterol Sulfate (Albuterol Sulfate 90 Mcg 8 Gm Inhaler) 2 puff INHALE Q4H PRN PRN Reason: Wheezing Amlodipine Besylate (Amlodipine Besylate 5 Mg Tablet) 5 mg PO DAILY [facility]; Protocol Last Admin: 12/08/22 11:04 Dose: 5 mg Documented By: JOHN Apixaban (Apixaban 5 Mg Tablet) 5 mg PO BID [facility] Last Admin: 12/08/22 20:58 Dose: Not Given Documented By: BASSAM Non-Admin Reason: Patient Refused Atorvastatin Calcium (Atorvastatin Calcium 40 Mg Tablet) 40 mg PO BEDTIME [facility] Last Admin: 12/08/22 20:57 Dose: Not Given Documented By: BASSAM Non-Admin Reason: Patient Refused Cinacalcet (Cinacalcet Hcl 30 Mg Tablet) 30 mg PO DAILY [facility] Last Admin: 12/08/22 11:04 Dose: 30 mg Documented By: JOHN Dextrose (Dextrose 50 % 25 Gm/50 Ml Syringe) 25 gm IVPUSH Q15M PRN; Protocol PRN Reason: per Hypoglycemia Standing Ord. Last Admin: 12/08/22 03:25 Dose: 25 gm Documented By: FREYA Dextrose (Dextrose 50 % 25 Gm/50 Ml Syringe) 25 gm IVPUSH Q15M PRN; Protocol PRN Reason: per Hypoglycemia Standing Ord. Last Admin: 12/07/22 23:03 Dose: 25 gm Documented By: FLOR Divalproex Sodium (Divalproex Sodium 500 Mg Tablet.) 500 mg PO BID [facility] Last Admin: 12/08/22 20:57 Dose: Not Given Documented By: BASSAM Non-Admin Reason: Patient Refused Docusate Sodium (Docusate Sodium 100 Mg Capsule) 100 mg PO DAILY PRN PRN Reason: Constipation Fluticasone/Vilanterol (Fluticasone/Vilanterol 200/25 Blst.W.Dev) 1 puff INHALE RDAILY [facility] Last Admin: 12/09/22 07:49 Dose: Not Given Documented By: DOUG Non-Admin Reason: Off unit: Dialysis Glucose (Glucose Gel 15 Gm Gel..Gram.) 15 gm PO Q15M PRN; Protocol PRN Reason: per Hypoglycemia Standing Ord. Glucose (Glucose Gel 15 Gm Gel..Gram.) 15 gm PO Q15M PRN; Protocol PRN Reason: per Hypoglycemia Standing Ord. Insulin Glargine (Insulin Glargine,Hum.Rec.Anlog 100 Unit/Ml 10 Ml Vial) 3 unit SUBCUT BEDTIME [facility] Last Admin: 12/08/22 20:58 Dose: Not Given Documented By: BASSAM Non-Admin Reason: NPO Insulin Human Lispro (Insulin Lispro 100 Unit/Ml 3 Ml Vial) 0 unit SUBCUT QIDACHS [facility]; Protocol Last Admin: 12/09/22 07:13 Dose: Not Given Documented By: JOHN Non-Admin Reason: No Insulin Coverage Insulin Human Lispro (Insulin Lispro 100 Unit/Ml 3 Ml Vial) 0 unit SUBCUT Q4H [facility]; Protocol Last Admin: 12/09/22 06:11 Dose: Not Given Documented By: BASSAM Non-Admin Reason: No Insulin Coverage Levothyroxine Sodium (Levothyroxine Sodium 88 Mcg Tablet) 88 mcg PO DAILY@0600 [facility] Last Admin: 12/09/22 06:00 Dose: 88 mcg Documented By: BASSAM Metoprolol Tartrate (Metoprolol Tartrate 50 Mg Tablet) 50 mg PO BID [facility]; Protocol Last Admin: 12/08/22 20:57 Dose: Not Given Documented By: BASSAM Non-Admin Reason: Patient Refused Midodrine (Midodrine Hcl 5 Mg Tablet) 5 mg PO MOWEFR PRN PRN Reason: Hypotension Omeprazole (Omeprazole 20 Mg Capsule.) 20 mg PO BID@0630,1630 [facility] Last Admin: 12/09/22 06:00 Dose: 20 mg Documented By: BASSAM Ondansetron HCl (Ondansetron Hcl 4 Mg/2 Ml Vial) 4 mg IVPUSH Q8H PRN PRN Reason: Nausea and Vomiting Pharmacy Consult (Consult Rx Perform Med Rec) 1 each MISCELLANE ONCE PRN PRN Reason: Consult order Sevelamer Carbonate (Sevelamer Carbonate Tablet 800 Mg Tablet) 800 mg PO BIDWM [facility] Last Admin: 12/09/22 07:20 Dose: Not Given Documented By: JOHN Non-Admin Reason: Patient Refused Labs 12/08/22 06:21 12/08/22 06:21 Labs: Laboratory Results - last 24 hr 12/08/22 12/08/22 12/08/22 10:14 11:08 11:56 POC Glucose 70 66 88 12/08/22 12/08/22 12/08/22 15:35 19:35 22:31 POC Glucose 114 119 H 108 12/09/22 12/09/22 02:01 05:59 POC Glucose 80 93 Microbiology Microbiology Results: Microbiology 12/07/22 12:43 Blood Culture - Preliminary Blood - Venous No growth after 24 hours. 12/07/22 12:11 Blood Culture - Preliminary Blood - Venous No growth after 24 hours. Assessment and Plan (1) Epilepsy: Status: Acute (2) Encephalopathy: Status: Acute Plan 72-year-old female with history of paroxysmal atrial fibrillation anticoagulated with Eliquis, hypertension, hyperlipidemia, insulin-dependent type 2 diabetes, asthma, VIOLA, hypothyroidism, end-stage renal disease on dialysis, newly diagnosed seizure disorder, history CVA with expressive aphasia to be observed for seizure activity. #Recently diagnosed seziure disorder with [place] [facility] [place] and now with breakthrough SZ with supratherapeutic depakote level -Neuro recommends reducing Depakote to 500 bid and stop Keppra. continues to have seizure, check depakote level and discuss next step with neurology # acute metabolic encephalopathy -likely postictal, expected to return to baseline # paroxysmal atrial fibrillation-continue Eliquis for anticoagulation and metoprolol for rate control # ESRD on dialysis -gets dialyzed M, W, F. Missed dialysis this morning -creatinine 8.35, BUN 46, electrolytes normal except for chloride 91, CO2 31 -Nephrology consult # hypertension-reasonably controlled -continue home meds # hypothyroidism -continue Synthroid # insulin-dependent type 2 diabetes -dose adjusted basal insulin -Humalog on sliding scale -POC glucose -diabetic diet pending swallow eval #Thombocytopenia -etiology unclear -Trend, cbc am # mild intermittent asthma -no acute exacerbation -albuterol p.r.n. DVT prophylaxis- on eliquis Full code Obsv for seizure Time Spent With Patient Time: Total time managing care of this patient today ____ minutes. Quality Stroke Does the patient have a stroke diagnosis?: No VTE Prior VTE?: No VTE Risk Level:: Medical - moderate - high VTE Device Contraindication: Treatment Not Indicated VTE Drug Contraindication: N/A - Med Ordered
--- NOTE | 2022-12-09 09:41 | PC.NURSE ---
Pt. taken to dialysis at ^am this morning. Upon arriving the dialysis nurse stated that she believed that the pt. had a mini seizure but was not sure. At 8:15 dialysis nurse called and started she believed that the pt. had another mini seizure, this RN went to check up on pt. and found the pt. to be non-verbal and less coherent the usual but was still able to form words. MD was notified. At 9:00 dialysis nurse called again and stated that the pt. had another mini seizure, this RN went to check up on pt. and found the same after affect on pt. non-verbal and non coherent. The dialysis nurse said that each seizure lasted for less than 1 minute. MD was notified again and 0.5 ml ativan was ordered. This Rn gave the ativan and upon giving the medication the pt. was starting to speak more, still not coherent but verbal. Will continue to monitor pt.
--- NOTE | 2022-12-09 11:11 | PM.PNNEP ---
Subjective Subjective Date of Service: 12/09/22 Interval history: Seen on HD Had seizure confused after Had ativan Physical Exam Vital Signs: Vital Signs: Last Vital Signs Temp 98.7 F 12/09/22 04:00 Pulse 69 12/09/22 04:00 Resp 20 12/09/22 04:00 BP 140/63 H 12/09/22 04:00 Pulse Ox 97 12/09/22 04:00 O2 Del Method Room Air 12/09/22 00:00 BMI result Body Mass Index 41.4 Const: Other: General: Resp: CTA bilateral CVS: S1,S2,RRR GI: +BS, NT, no distention Skin: No rash Neuro: motor grossly intact Psych: appropriate affect Objective Data Labs 12/08/22 06:21 12/08/22 06:21 Labs: Laboratory Results - last 24 hr 12/08/22 12/08/22 12/08/22 11:08 11:56 15:35 POC Glucose 66 88 114 12/08/22 12/08/22 12/09/22 19:35 22:31 02:01 POC Glucose 119 H 108 80 12/09/22 05:59 POC Glucose 93 Microbiology Microbiology Results: Microbiology 12/07/22 12:43 Blood - Venous Blood Culture - Preliminary No growth after 24 hours. 12/07/22 12:11 Blood - Venous Blood Culture - Preliminary No growth after 24 hours. Procedures Date of Service Date of Service: 12/09/22 Assessment & Plan Assessment and plan (1) End stage kidney disease: Status: Acute (2) Seizure: Status: Acute Plan ESRD No overt signs or symptoms of uremia. On hemodialysis Still follow along Seizures- W/u in progress Will d/c Cinacalcet- Ca is normal Not uremia related Time Spent With Patient Time: Total time managing care of this patient today ____ minutes. Progress Note: Quality Stroke Does the patient have a stroke diagnosis?: No
--- NOTE | 2022-12-09 11:14 | MHC.SLORD ---
Speech Language Pathology Order Status: FEATHER DRYING MACHINE OPERATOR attempted to see pt this morning for dysphagia treatment. Pt was unavailable, away from room. Pt currently on CHOPPED/ADVANCED (NDD3) diet w/ THIN liquids, whole pills in puree, intermittent supervision. [facility] FEATHER DRYING MACHINE OPERATOR f/u 1-2x during hospitalization.
[2022-12-09 11:25] VITALS: BP 104/50; PULSE 73; RESP 16; TEMP 36.6; O2SAT 100
--- NOTE | 2022-12-09 11:50 | PC.NURSE ---
Morning medications held due to pt. being in dialysis. Ativan given in dialysis making pt. more comfortable but now drowsy. Pt. now unable to take medications due to drowsiness, all morning medications held.
--- NOTE | 2022-12-09 13:14 | MHC.CM.PN ---
IMM 12/09 given verbally to son Gwyn and copy will be sent via certified mail to him. Pt changed from obs to inpatient. EMR reviewed and per MD rounds, pt is not medically cleared for D/C due to ongoing seizures and management of seizures. [facility] willing to accept pt when she is medically cleared for D/C, pts son updated. CM will continue to follow.
--- NOTE | 2022-12-09 13:59 | MHC.SLORD ---
Speech Language Pathology Order Status: SHELL FREEZING MACHINE OPERATOR attempted to see patient this afternoon. Per RN, patient too lethargic and not appropriate for PO trials. SHELL FREEZING MACHINE OPERATOR will continue to follow.
[2022-12-09 15:27] VITALS: BP 147/65; PULSE 73; RESP 73; TEMP 36.1; O2SAT 100
[2022-12-09 19:28] VITALS: BP 144/65; PULSE 75; RESP 19; TEMP 36.5; O2SAT 98
[2022-12-09] MEDS: Metoprolol Tartrate 50 MG TABLET PO (20:46)
[2022-12-09] MEDS: Apixaban 5 MG TABLET PO (20:46)
[2022-12-09] MEDS: Atorvastatin Calcium 40 MG TABLET PO (20:46)
[2022-12-09] MEDS: Divalproex Sodium 500 MG TABLET.DR PO (20:46)
[2022-12-09 22:59] VITALS: BP 125/57; PULSE 72; RESP 18; TEMP 36.3; O2SAT 97
[2022-12-10] VITALS (7 sets, daily range): BP systolic 125–145; BP diastolic 50–63; PULSE 62–71; RESP 14–20; TEMP 36.1–37.1; O2SAT 96–100
[2022-12-10] MEDS: Levothyroxine Sodium 88 MCG TABLET PO (05:26)
[2022-12-10] MEDS: Omeprazole 20 MG CAPSULE.DR PO ×2 (05:28→17:18)
[2022-12-10] MEDS: Apixaban 5 MG TABLET PO ×2 (08:17→21:02)
[2022-12-10] MEDS: Divalproex Sodium 500 MG TABLET.DR PO ×2 (08:17→21:02)
[2022-12-10] MEDS: amLODIPine Besylate 5 MG TABLET PO (08:18)
[2022-12-10] MEDS: Metoprolol Tartrate 50 MG TABLET PO ×2 (08:18→21:02)
--- NOTE | 2022-12-10 10:31 | HO.PM.IMPN ---
Subjective Subjective Date of Service: 12/10/22 Interval History: f/u on seizure No seizure noted overnight Physical Exam Vital Signs: Vital Signs: Last Vital Signs Temp 97.6 F 12/10/22 07:04 Pulse 69 12/10/22 07:57 Resp 16 12/10/22 07:57 BP 132/60 12/10/22 07:04 Pulse Ox 100 12/10/22 07:04 O2 Del Method Room Air 12/10/22 07:04 BMI result Body Mass Index 41.4 Const: Other: General: Resp: CTA bilateral CVS: S1,S2,RRR GI: +BS, NT, no distention Skin: No rash Neuro: motor grossly intact Psych: appropriate affect Objective Data Active Medications Acetaminophen (Acetaminophen 325 Mg Tablet) 650 mg PO Q6H PRN PRN Reason: Pain, Mild (Pain Scale 1-3) Albuterol Sulfate (Albuterol Sulfate 90 Mcg 8 Gm Inhaler) 2 puff INHALE Q4H PRN PRN Reason: Wheezing Amlodipine Besylate (Amlodipine Besylate 5 Mg Tablet) 5 mg PO DAILY [facility]; Protocol Last Admin: 12/10/22 08:18 Dose: 5 mg Documented By: RASHAWN Apixaban (Apixaban 5 Mg Tablet) 5 mg PO BID [facility] Last Admin: 12/10/22 08:17 Dose: 5 mg Documented By: RASHAWN Atorvastatin Calcium (Atorvastatin Calcium 40 Mg Tablet) 40 mg PO BEDTIME [facility] Last Admin: 12/09/22 20:46 Dose: 40 mg Documented By: JUSTINO Dextrose (Dextrose 50 % 25 Gm/50 Ml Syringe) 25 gm IVPUSH Q15M PRN; Protocol PRN Reason: per Hypoglycemia Standing Ord. Last Admin: 12/08/22 03:25 Dose: 25 gm Documented By: FREYA Divalproex Sodium (Divalproex Sodium 500 Mg Tablet.Dr) 500 mg PO BID [facility] Last Admin: 12/10/22 08:17 Dose: 500 mg Documented By: RASHAWN Docusate Sodium (Docusate Sodium 100 Mg Capsule) 100 mg PO DAILY PRN PRN Reason: Constipation Fluticasone/Vilanterol (Fluticasone/Vilanterol 200/25 Blst.W.Dev) 1 puff INHALE RDAILY [facility] Last Admin: 12/10/22 07:55 Dose: 1 puff Documented By: CAL Glucose (Glucose Gel 15 Gm Gel..Gram.) 15 gm PO Q15M PRN; Protocol PRN Reason: per Hypoglycemia Standing Ord. Insulin Glargine (Insulin Glargine,Hum.Rec.Anlog 100 Unit/Ml 10 Ml Vial) 3 unit SUBCUT BEDTIME [facility] Last Admin: 12/09/22 20:57 Dose: Not Given Documented By: JUSTINO Non-Admin Reason: No Insulin Coverage Insulin Human Lispro (Insulin Lispro 100 Unit/Ml 3 Ml Vial) 0 unit SUBCUT QIDACHS [facility]; Protocol Last Admin: 12/10/22 07:24 Dose: Not Given Documented By: RASHAWN Non-Admin Reason: No Insulin Coverage Levothyroxine Sodium (Levothyroxine Sodium 88 Mcg Tablet) 88 mcg PO DAILY@0600 [facility] Last Admin: 12/10/22 05:26 Dose: 88 mcg Documented By: JUSTINO Metoprolol Tartrate (Metoprolol Tartrate 50 Mg Tablet) 50 mg PO BID [facility]; Protocol Last Admin: 12/10/22 08:18 Dose: 50 mg Documented By: RASHAWN Midodrine (Midodrine Hcl 5 Mg Tablet) 5 mg PO MOWEFR PRN PRN Reason: Hypotension Omeprazole (Omeprazole 20 Mg Capsule.Dr) 20 mg PO BID@0630,1630 [facility] Last Admin: 12/10/22 05:28 Dose: 20 mg Documented By: JUSTINO Ondansetron HCl (Ondansetron Hcl 4 Mg/2 Ml Vial) 4 mg IVPUSH Q8H PRN PRN Reason: Nausea and Vomiting Pharmacy Consult (Consult Rx Perform Med Rec) 1 each MISCELLANE ONCE PRN PRN Reason: Consult order Sevelamer Carbonate (Sevelamer Carbonate Tablet 800 Mg Tablet) 800 mg PO BIDWM [facility] Last Admin: 12/10/22 09:29 Dose: Not Given Documented By: RASHAWN Non-Admin Reason: cant crush med Labs 12/08/22 06:21 12/08/22 06:21 Labs: Laboratory Results - last 24 hr 12/09/22 12/09/22 12/09/22 11:27 15:51 20:22 POC Glucose 123 H 116 H 132 H 12/10/22 07:09 POC Glucose 94 Microbiology Microbiology Results: Microbiology 12/07/22 12:43 Blood Culture - Preliminary Blood - Venous No growth after 48 hours. 12/07/22 12:11 Blood Culture - Preliminary Blood - Venous No growth after 48 hours. Assessment and Plan (1) Epilepsy: Status: Acute (2) Encephalopathy: Status: Acute Plan 72-year-old female with history of paroxysmal atrial fibrillation anticoagulated with Eliquis, hypertension, hyperlipidemia, insulin-dependent type 2 diabetes, asthma, VIOLA, hypothyroidism, end-stage renal disease on dialysis, newly diagnosed seizure disorder, history CVA with expressive aphasia to be observed for seizure activity. #Recently diagnosed seziure disorder with video eeg at [facility] [place] and now with breakthrough SZs with supratherapeutic depakote level -Neuro recommends reducing Depakote to 500 bid and stop Keppra. check depakote level and discuss next step with neurology if continues to have seizure, # acute metabolic encephalopathy -likely postictal, expected to return to baseline # paroxysmal atrial fibrillation-continue Eliquis for anticoagulation and metoprolol for rate control # ESRD on dialysis -gets dialyzed M, W, F. Missed dialysis this morning -creatinine 8.35, BUN 46, electrolytes normal except for chloride 91, CO2 31 -Nephrology consult # hypertension-reasonably controlled -continue home meds # hypothyroidism -continue Synthroid # insulin-dependent type 2 diabetes -dose adjusted basal insulin -Humalog on sliding scale -POC glucose -diabetic diet pending swallow eval #Thombocytopenia -etiology unclear -Trend, cbc am # mild intermittent asthma -no acute exacerbation -albuterol p.r.n. DVT prophylaxis- on eliquis Full code Need for inpatient: recurrent seizures, needing med adjustment and monitoring of levels PT is recommending SNF Time Spent With Patient Time: Total time managing care of this patient today ____ minutes. Quality Stroke Does the patient have a stroke diagnosis?: No VTE Prior VTE?: No VTE Risk Level:: Medical - moderate - high VTE Device Contraindication: Treatment Not Indicated VTE Drug Contraindication: N/A - Med Ordered
--- NOTE | 2022-12-10 11:06 | MHC.CM.PN ---
Patient has been unable to participate with PT and she may require LTC. First choice SNF/[facility] (also where Patient gets her HD)is unable to accept a LTC Patient. CM has expanded SNF search. Patient does have [facility] [employer] (# [phone]) that could cover transport to HD at [facility] from another accepting SNF. CM awaits a bed offer and will continue to follow. is aware.
--- NOTE | 2022-12-10 13:09 | MHC.SLORD ---
Speech Language Pathology Order Status: Attempted to see patient X2. In a.m. patient asleep, per RN had been distressed at taking meds. Later INCIDENT RESPONSE CONSULTANT reported patient had eaten most of Breakfast without difficulty. In PM arrived after patient had finished lunch, patient refused any other PO trials, Patient repeatedly asking to go home. Per INCIDENT RESPONSE CONSULTANT patient ate all of lunch with assistance. Patient appears to be tolerating current diet, but requires encouragement and assistance at meal. MEAT DEPARTMENT MANAGER will continue to follow.
[2022-12-10] MEDS: Insulin Glargine,Hum.rec.anlog 100 UNIT/ML 10 ML VIAL SUBCUT (21:01)
[2022-12-10] MEDS: Insulin Lispro 100 UNIT/ML 3 ML VIAL SUBCUT (21:02)
[2022-12-10] MEDS: Atorvastatin Calcium 40 MG TABLET PO (21:02)
--- NOTE | 2022-12-10 22:36 | PM.PNNEP ---
Subjective Subjective Date of Service: 12/10/22 Interval history: f/u on seizure No seizure noted overnight Physical Exam Vital Signs: Vital Signs: Last Vital Signs Temp 97.4 F 12/10/22 19:13 Pulse 67 12/10/22 19:13 Resp 18 12/10/22 19:13 BP 130/61 12/10/22 19:13 Pulse Ox 96 12/10/22 19:13 O2 Del Method Room Air 12/10/22 19:13 BMI result Body Mass Index 41.4 Const: Other: General: Resp: CTA bilateral CVS: S1,S2,RRR GI: +BS, NT, no distention Skin: No rash Neuro: motor grossly intact Psych: appropriate affect Objective Data Labs 12/08/22 06:21 12/08/22 06:21 Labs: Laboratory Results - last 24 hr 12/10/22 12/10/22 12/10/22 07:09 11:00 16:11 POC Glucose 94 146 H 123 H 12/10/22 20:22 POC Glucose 163 H Microbiology Microbiology Results: Microbiology 12/07/22 12:43 Blood - Venous Blood Culture - Preliminary No growth after 48 hours. 12/07/22 12:11 Blood - Venous Blood Culture - Preliminary No growth after 48 hours. Procedures Date of Service Date of Service: 12/10/22 Assessment & Plan Assessment and plan (1) End stage kidney disease: Status: Acute (2) Seizure: Status: Acute Plan ESRD No overt signs or symptoms of uremia. On hemodialysis Still follow along Seizures- W/u in progress HD in AM Not uremia related Time Spent With Patient Time: Total time managing care of this patient today ____ minutes. Progress Note: Quality Stroke Does the patient have a stroke diagnosis?: No
[2022-12-11] VITALS (7 sets, daily range): BP systolic 108–153; BP diastolic 50–69; PULSE 63–77; RESP 18–20; TEMP 35.7–36.7; O2SAT 90–98
[2022-12-11] MEDS: Levothyroxine Sodium 88 MCG TABLET PO (05:45)
[2022-12-11] MEDS: Apixaban 5 MG TABLET PO ×2 (08:50→20:27)
[2022-12-11] MEDS: Sevelamer Carbonate Powder 800 MG POWD.PACK PO ×2 (08:50→17:07)
[2022-12-11] MEDS: Divalproex Sodium 500 MG TABLET.DR PO ×2 (08:50→20:27)
--- NOTE | 2022-12-11 08:53 | HO.PM.IMPN ---
Subjective Subjective Date of Service: 12/11/22 Interval History: f/uo seizures no seizures reported last over the last 24 hours Physical Exam Vital Signs: Vital Signs: Last Vital Signs Temp 97.2 F 12/11/22 07:14 Pulse 63 12/11/22 08:33 Resp 18 12/11/22 08:33 BP 130/50 L 12/11/22 07:14 Pulse Ox 98 12/11/22 07:14 O2 Del Method Room Air 12/11/22 07:14 BMI result Body Mass Index 41.4 Const: Other: General: AO X 2, no acute distress Resp: CTA bilateral CVS: S1,S2,RRR GI: +BS, NT, no distention Skin: No rash Neuro: motor grossly intact Psych: appropriate affect Objective Data Active Medications Acetaminophen (Acetaminophen 325 Mg Tablet) 650 mg PO Q6H PRN PRN Reason: Pain, Mild (Pain Scale 1-3) Albuterol Sulfate (Albuterol Sulfate 90 Mcg 8 Gm Inhaler) 2 puff INHALE Q4H PRN PRN Reason: Wheezing Amlodipine Besylate (Amlodipine Besylate 5 Mg Tablet) 5 mg PO DAILY [facility]; Protocol Last Admin: 12/10/22 08:18 Dose: 5 mg Documented By: RASHAWN Apixaban (Apixaban 5 Mg Tablet) 5 mg PO BID [facility] Last Admin: 12/10/22 21:02 Dose: 5 mg Documented By: IRMA Atorvastatin Calcium (Atorvastatin Calcium 40 Mg Tablet) 40 mg PO BEDTIME [facility] Last Admin: 12/10/22 21:02 Dose: 40 mg Documented By: IRMA Dextrose (Dextrose 50 % 25 Gm/50 Ml Syringe) 25 gm IVPUSH Q15M PRN; Protocol PRN Reason: per Hypoglycemia Standing Ord. Last Admin: 12/08/22 03:25 Dose: 25 gm Documented By: FREYA Divalproex Sodium (Divalproex Sodium 500 Mg Tablet.Dr) 500 mg PO BID [facility] Last Admin: 12/10/22 21:02 Dose: 500 mg Documented By: IRMA Docusate Sodium (Docusate Sodium 100 Mg Capsule) 100 mg PO DAILY PRN PRN Reason: Constipation Fluticasone/Vilanterol (Fluticasone/Vilanterol 200/25 Blst.W.Dev) 1 puff INHALE RDAILY [facility] Last Admin: 12/11/22 08:33 Dose: 1 puff Documented By: CAL Glucose (Glucose Gel 15 Gm Gel..Gram.) 15 gm PO Q15M PRN; Protocol PRN Reason: per Hypoglycemia Standing Ord. Insulin Glargine (Insulin Glargine,Hum.Rec.Anlog 100 Unit/Ml 10 Ml Vial) 3 unit SUBCUT BEDTIME [facility] Last Admin: 12/10/22 21:01 Dose: 3 unit Documented By: IRMA Insulin Human Lispro (Insulin Lispro 100 Unit/Ml 3 Ml Vial) 0 unit SUBCUT QIDACHS [facility]; Protocol Last Admin: 12/11/22 07:20 Dose: Not Given Documented By: PRAFUL Non-Admin Reason: No Insulin Coverage Levothyroxine Sodium (Levothyroxine Sodium 88 Mcg Tablet) 88 mcg PO DAILY@0600 [facility] Last Admin: 12/11/22 05:45 Dose: 88 mcg Documented By: IRMA Metoprolol Tartrate (Metoprolol Tartrate 50 Mg Tablet) 50 mg PO BID [facility]; Protocol Last Admin: 12/10/22 21:02 Dose: 50 mg Documented By: IRMA Midodrine (Midodrine Hcl 5 Mg Tablet) 5 mg PO MOWEFR PRN PRN Reason: Hypotension Omeprazole (Omeprazole 20 Mg Capsule.Dr) 20 mg PO BID@0630,1630 [facility] Last Admin: 12/11/22 05:47 Dose: Not Given Documented By: IRMA Non-Admin Reason: Patient Refused Ondansetron HCl (Ondansetron Hcl 4 Mg/2 Ml Vial) 4 mg IVPUSH Q8H PRN PRN Reason: Nausea and Vomiting Pharmacy Consult (Consult Rx Perform Med Rec) 1 each MISCELLANE ONCE PRN PRN Reason: Consult order Sevelamer Carbonate (Sevelamer Carbonate Powder 800 Mg Powd.Pack) 800 mg PO BIDWM [facility] Labs 12/08/22 06:21 12/08/22 06:21 Labs: Laboratory Results - last 24 hr 12/10/22 12/10/22 12/10/22 11:00 16:11 20:22 POC Glucose 146 H 123 H 163 H 12/11/22 07:04 POC Glucose 104 Assessment and Plan (1) Epilepsy: Status: Acute (2) Encephalopathy: Status: Acute Plan 72-year-old female with history of paroxysmal atrial fibrillation anticoagulated with Eliquis, hypertension, hyperlipidemia, insulin-dependent type 2 diabetes, asthma, VIOLA, hypothyroidism, end-stage renal disease on dialysis, newly diagnosed seizure disorder, history CVA with expressive aphasia to be observed for seizure activity. #Recently diagnosed seziure disorder with video eeg at [facility] [place] and now with breakthrough SZs with supratherapeutic depakote level -Neuro recommends reducing Depakote to 500 bid and stop Keppra. check depakote level and discuss next step with neurology if continues to have seizure, # acute metabolic encephalopathy -likely postictal, expected to return to baseline # paroxysmal atrial fibrillation-continue Eliquis for anticoagulation and metoprolol for rate control # ESRD on dialysis -gets dialyzed M, W, F. Missed dialysis this morning # hypertension-reasonably controlled -continue home meds # hypothyroidism -continue Synthroid # insulin-dependent type 2 diabetes -dose adjusted basal insulin -Humalog on sliding scale -POC glucose -diabetic diet pending swallow eval #Thombocytopenia -etiology unclear -Trend, cbc am # mild intermittent asthma -no acute exacerbation -albuterol p.r.n. DVT prophylaxis- on eliquis Full code Need for inpatient: recurrent seizures, needing med adjustment and monitoring of levels PT is recommending SNF Time Spent With Patient Time: Total time managing care of this patient today ____ minutes. Quality Stroke Does the patient have a stroke diagnosis?: No VTE Prior VTE?: No VTE Risk Level:: Medical - moderate - high VTE Device Contraindication: Treatment Not Indicated VTE Drug Contraindication: N/A - Med Ordered
[2022-12-11] MEDS: amLODIPine Besylate 5 MG TABLET PO (08:54)
[2022-12-11] MEDS: Metoprolol Tartrate 50 MG TABLET PO ×2 (08:54→20:26)
[2022-12-11 11:07] LABS: Valproate 63.6 mcg/mL (50.0-100.0)
--- NOTE | 2022-12-11 13:09 | MHC.SLORD ---
Speech Language Pathology Order Status: [employer] attempted to see pt for dysphagia tx. Pt was away from floor. She has reportedly been tolerating chopped diet (NDD3) and thin liquids, pills whole in puree.
[2022-12-11] MEDS: Omeprazole 20 MG CAPSULE.DR PO (17:07)
[2022-12-11] MEDS: Atorvastatin Calcium 40 MG TABLET PO (20:26)
[2022-12-11] MEDS: Insulin Glargine,Hum.rec.anlog 100 UNIT/ML 10 ML VIAL SUBCUT (20:28)
--- NOTE | 2022-12-11 23:48 | PM.PNNEP ---
Subjective Subjective Date of Service: 12/11/22 Interval history: f/uo seizures no seizures reported last over the last 24 hours een on HD Physical Exam Vital Signs: Vital Signs: Last Vital Signs Temp 97.8 F 12/11/22 23:23 Pulse 74 12/11/22 23:23 Resp 18 12/11/22 23:23 BP 147/66 H 12/11/22 23:23 Pulse Ox 97 12/11/22 23:23 O2 Del Method Room Air 12/11/22 23:23 BMI result Body Mass Index 41.4 Const: Other: General: AO X 2, no acute distress Resp: CTA bilateral CVS: S1,S2,RRR GI: +BS, NT, no distention Skin: No rash Neuro: motor grossly intact Psych: appropriate affect Objective Data Labs 12/08/22 06:21 12/08/22 06:21 Labs: Laboratory Results - last 24 hr 12/11/22 12/11/22 12/11/22 07:04 09:29 10:53 POC Glucose 104 140 H Valproic Acid 63.6 12/11/22 12/11/22 16:19 19:57 POC Glucose 109 134 H Valproic Acid Microbiology Microbiology Results: Microbiology 12/07/22 12:43 Blood - Venous Blood Culture - Preliminary No growth after 48 hours. 12/07/22 12:11 Blood - Venous Blood Culture - Preliminary No growth after 48 hours. Procedures Date of Service Date of Service: 12/11/22 Assessment & Plan Assessment and plan (1) End stage kidney disease: Status: Acute (2) Seizure: Status: Acute Plan ESRD No overt signs or symptoms of uremia. On hemodialysis Still follow along Seizures- W/u in progress Continue Hd Vol removal as tolerated Not uremia related Time Spent With Patient Time: Total time managing care of this patient today ____ minutes. Progress Note: Quality Stroke Does the patient have a stroke diagnosis?: No
[2022-12-12] VITALS (7 sets, daily range): BP systolic 113–152; BP diastolic 57–74; PULSE 66–77; RESP 14–19; TEMP 36–36.8; O2SAT 95–100
[2022-12-12] MEDS: Levothyroxine Sodium 88 MCG TABLET PO (06:08)
[2022-12-12] MEDS: Omeprazole 20 MG CAPSULE.DR PO ×2 (06:08→16:30)
--- NOTE | 2022-12-12 08:48 | HO.PM.IMPN ---
Subjective Subjective Date of Service: 12/12/22 Interval History: f/uo seizures no seizures reported last over the last 24 hours. seems confused this morning Physical Exam Vital Signs: Vital Signs: Last Vital Signs Temp 96.8 F 12/12/22 07:34 Pulse 69 12/12/22 08:05 Resp 18 12/12/22 08:05 BP 127/59 L 12/12/22 07:34 Pulse Ox 98 12/12/22 07:34 O2 Del Method Room Air 12/12/22 07:34 BMI result Body Mass Index 41.4 Const: Other: General: AO X 2, no acute distress Resp: CTA bilateral CVS: S1,S2,RRR GI: +BS, NT, no distention Skin: No rash Neuro: motor grossly intact Psych: appropriate affect Objective Data Active Medications Acetaminophen (Acetaminophen 325 Mg Tablet) 650 mg PO Q6H PRN PRN Reason: Pain, Mild (Pain Scale 1-3) Albuterol Sulfate (Albuterol Sulfate 90 Mcg 8 Gm Inhaler) 2 puff INHALE Q4H PRN PRN Reason: Wheezing Amlodipine Besylate (Amlodipine Besylate 5 Mg Tablet) 5 mg PO DAILY [facility]; Protocol Last Admin: 12/11/22 08:54 Dose: 5 mg Documented By: PRAFUL Apixaban (Apixaban 5 Mg Tablet) 5 mg PO BID [facility] Last Admin: 12/11/22 20:27 Dose: 5 mg Documented By: ELIAS Atorvastatin Calcium (Atorvastatin Calcium 40 Mg Tablet) 40 mg PO BEDTIME [facility] Last Admin: 12/11/22 20:26 Dose: 40 mg Documented By: ELIAS Dextrose (Dextrose 50 % 25 Gm/50 Ml Syringe) 25 gm IVPUSH Q15M PRN; Protocol PRN Reason: per Hypoglycemia Standing Ord. Last Admin: 12/08/22 03:25 Dose: 25 gm Documented By: FREYA Divalproex Sodium (Divalproex Sodium 500 Mg Tablet.) 500 mg PO BID [facility] Last Admin: 12/11/22 20:27 Dose: 500 mg Documented By: ELIAS Docusate Sodium (Docusate Sodium 100 Mg Capsule) 100 mg PO DAILY PRN PRN Reason: Constipation Fluticasone/Vilanterol (Fluticasone/Vilanterol 200/25 Blst.W.Dev) 1 puff INHALE RDAILY [facility] Last Admin: 12/12/22 08:05 Dose: 1 puff Documented By: TERESA Glucose (Glucose Gel 15 Gm Gel..Gram.) 15 gm PO Q15M PRN; Protocol PRN Reason: per Hypoglycemia Standing Ord. Insulin Glargine (Insulin Glargine,Hum.Rec.Anlog 100 Unit/Ml 10 Ml Vial) 3 unit SUBCUT BEDTIME [facility] Last Admin: 12/11/22 20:28 Dose: 1 unit Documented By: ELIAS Insulin Human Lispro (Insulin Lispro 100 Unit/Ml 3 Ml Vial) 0 unit SUBCUT QIDACHS [facility]; Protocol Last Admin: 12/12/22 08:06 Dose: Not Given Documented By: OSWALDO Non-Admin Reason: NPO Levothyroxine Sodium (Levothyroxine Sodium 88 Mcg Tablet) 88 mcg PO DAILY@0600 [facility] Last Admin: 12/12/22 06:08 Dose: 88 mcg Documented By: ELIAS Metoprolol Tartrate (Metoprolol Tartrate 50 Mg Tablet) 50 mg PO BID [facility]; Protocol Last Admin: 12/11/22 20:26 Dose: 50 mg Documented By: ELIAS Midodrine (Midodrine Hcl 5 Mg Tablet) 5 mg PO MOWEFR PRN PRN Reason: Hypotension Omeprazole (Omeprazole 20 Mg Capsule.Dr) 20 mg PO BID@0630,1630 [facility] Last Admin: 12/12/22 06:08 Dose: 20 mg Documented By: ELIAS Ondansetron HCl (Ondansetron Hcl 4 Mg/2 Ml Vial) 4 mg IVPUSH Q8H PRN PRN Reason: Nausea and Vomiting Pharmacy Consult (Consult Rx Perform Med Rec) 1 each MISCELLANE ONCE PRN PRN Reason: Consult order Sevelamer Carbonate (Sevelamer Carbonate Powder 800 Mg Powd.Pack) 800 mg PO BIDWM [facility] Last Admin: 12/11/22 17:07 Dose: 800 mg Documented By: PRAFUL Labs 12/08/22 06:21 12/08/22 06:21 Labs: Laboratory Results - last 24 hr 12/11/22 12/11/22 12/11/22 09:29 10:53 16:19 POC Glucose 140 H 109 Valproic Acid 63.6 12/11/22 12/12/22 19:57 07:32 POC Glucose 134 H 86 Valproic Acid Assessment and Plan (1) Epilepsy: Status: Acute (2) Encephalopathy: Status: Acute Plan 72-year-old female with history of paroxysmal atrial fibrillation anticoagulated with Eliquis, hypertension, hyperlipidemia, insulin-dependent type 2 diabetes, asthma, VIOLA, hypothyroidism, end-stage renal disease on dialysis, newly diagnosed seizure disorder, history CVA with expressive aphasia to be observed for seizure activity. #Recently diagnosed seziure disorder with video eeg at [facility] [place] and now with breakthrough SZs with supratherapeutic depakote level -Neuro recommends reducing Depakote to 500 bid and stop Keppra. Depakote level is within therapeutic range at 68 # acute metabolic encephalopathy -likely postictal, expected to return to baseline # paroxysmal atrial fibrillation-continue Eliquis for anticoagulation and metoprolol for rate control # ESRD on dialysis---HD on MWF # hypertension-reasonably controlled -continue home meds # hypothyroidism -continue Synthroid # insulin-dependent type 2 diabetes -dose adjusted basal insulin -Humalog on sliding scale -POC glucose -diabetic diet pending swallow eval #Thombocytopenia -etiology unclear -Trend, cbc am # mild intermittent asthma -no acute exacerbation -albuterol p.r.n. DVT prophylaxis- on eliquis Full code Need for inpatient: recurrent seizures, needing med adjustment and monitoring of levels, extremely weak and need full assitance and therefore needs rehab PT is recommending SNF Time Spent With Patient Time: Total time managing care of this patient today ____ minutes. Quality Stroke Does the patient have a stroke diagnosis?: No VTE Prior VTE?: No VTE Risk Level:: Medical - moderate - high VTE Device Contraindication: Treatment Not Indicated VTE Drug Contraindication: N/A - Med Ordered
[2022-12-12] MEDS: Sevelamer Carbonate Powder 800 MG POWD.PACK PO ×2 (09:25→16:29)
[2022-12-12] MEDS: Apixaban 5 MG TABLET PO ×2 (09:25→21:38)
[2022-12-12] MEDS: amLODIPine Besylate 5 MG TABLET PO (09:26)
[2022-12-12] MEDS: Metoprolol Tartrate 50 MG TABLET PO ×2 (09:26→21:38)
[2022-12-12] MEDS: Divalproex Sodium 500 MG TABLET.DR PO ×2 (09:26→21:38)
--- NOTE | 2022-12-12 14:10 | PM.PNNEP ---
Subjective Subjective Date of Service: 12/12/22 Interval history: f/uo seizures no seizures reported last over the last 24 hours. seems confused this morning Physical Exam Vital Signs: Vital Signs: Last Vital Signs Temp 96.8 F 12/12/22 11:25 Pulse 66 12/12/22 11:25 Resp 18 12/12/22 11:25 BP 122/57 L 12/12/22 11:25 Pulse Ox 99 12/12/22 11:25 O2 Del Method Room Air 12/12/22 11:25 BMI result Body Mass Index 41.4 Const: Other: General: AO X 2, no acute distress Resp: CTA bilateral CVS: S1,S2,RRR GI: +BS, NT, no distention Skin: No rash Neuro: motor grossly intact Psych: appropriate affect Objective Data Labs 12/08/22 06:21 12/08/22 06:21 Labs: Laboratory Results - last 24 hr 12/11/22 12/11/22 12/12/22 16:19 19:57 07:32 POC Glucose 109 134 H 86 12/12/22 11:16 POC Glucose 122 H Microbiology Microbiology Results: Microbiology 12/07/22 12:43 Blood - Venous Blood Culture - Preliminary No growth after 48 hours. 12/07/22 12:11 Blood - Venous Blood Culture - Preliminary No growth after 48 hours. Procedures Date of Service Date of Service: 12/12/22 Assessment & Plan Assessment and plan (1) End stage kidney disease: Status: Acute (2) Seizure: Status: Acute Plan ESRD No overt signs or symptoms of uremia. On hemodialysis Still follow along Seizures- W/u in progress Continue Hd per schedule Vol removal as tolerated Not uremia related Time Spent With Patient Time: Total time managing care of this patient today ____ minutes. Progress Note: Quality Stroke Does the patient have a stroke diagnosis?: No
[2022-12-12] MEDS: Atorvastatin Calcium 40 MG TABLET PO (21:38)
[2022-12-12] MEDS: Insulin Glargine,Hum.rec.anlog 100 UNIT/ML 10 ML VIAL SUBCUT (21:38)
[2022-12-13] VITALS (7 sets, daily range): BP systolic 138–151; BP diastolic 64–70; PULSE 65–77; RESP 14–20; TEMP 35.9–36.6; O2SAT 97–100
[2022-12-13] MEDS: Omeprazole 20 MG CAPSULE.DR PO ×2 (05:21→15:25)
[2022-12-13] MEDS: Levothyroxine Sodium 88 MCG TABLET PO (05:21)
[2022-12-13] MEDS: Metoprolol Tartrate 50 MG TABLET PO ×2 (08:09→21:59)
[2022-12-13] MEDS: amLODIPine Besylate 5 MG TABLET PO (08:09)
[2022-12-13] MEDS: Divalproex Sodium 500 MG TABLET.DR PO ×2 (08:10→21:59)
[2022-12-13] MEDS: Apixaban 5 MG TABLET PO ×2 (08:10→21:59)
[2022-12-13] MEDS: Sevelamer Carbonate Powder 800 MG POWD.PACK PO ×2 (08:10→15:25)
--- NOTE | 2022-12-13 08:46 | HO.PM.IMPN ---
Subjective Subjective Date of Service: 12/13/22 Interval History: f/uo seizures no seizures reported overnight, she is very confused Physical Exam Vital Signs: Vital Signs: Last Vital Signs Temp 97.5 F 12/13/22 07:11 Pulse 71 12/13/22 07:31 Resp 14 12/13/22 07:31 BP 150/64 H 12/13/22 07:11 Pulse Ox 98 12/13/22 07:11 O2 Del Method Room Air 12/13/22 07:11 BMI result Body Mass Index 41.4 Const: Other: General: confused Resp: CTA bilateral CVS: S1,S2,RRR GI: +BS, NT, no distention Skin: No rash Neuro: motor grossly intact Psych: flat Objective Data Active Medications Acetaminophen (Acetaminophen 325 Mg Tablet) 650 mg PO Q6H PRN PRN Reason: Pain, Mild (Pain Scale 1-3) Albuterol Sulfate (Albuterol Sulfate 90 Mcg 8 Gm Inhaler) 2 puff INHALE Q4H PRN PRN Reason: Wheezing Amlodipine Besylate (Amlodipine Besylate 5 Mg Tablet) 5 mg PO DAILY [facility]; Protocol Last Admin: 12/13/22 08:09 Dose: 5 mg Documented By: OSWALDO Apixaban (Apixaban 5 Mg Tablet) 5 mg PO BID [facility] Last Admin: 12/13/22 08:10 Dose: 5 mg Documented By: OSWALDO Atorvastatin Calcium (Atorvastatin Calcium 40 Mg Tablet) 40 mg PO BEDTIME [facility] Last Admin: 12/12/22 21:38 Dose: 40 mg Documented By: REGINALDO Dextrose (Dextrose 50 % 25 Gm/50 Ml Syringe) 25 gm IVPUSH Q15M PRN; Protocol PRN Reason: per Hypoglycemia Standing Ord. Last Admin: 12/08/22 03:25 Dose: 25 gm Documented By: FREYA Divalproex Sodium (Divalproex Sodium 500 Mg Tablet.Dr) 500 mg PO BID [facility] Last Admin: 12/13/22 08:10 Dose: 500 mg Documented By: OSWALDO Docusate Sodium (Docusate Sodium 100 Mg Capsule) 100 mg PO DAILY PRN PRN Reason: Constipation Fluticasone/Vilanterol (Fluticasone/Vilanterol 200/25 Blst.W.Dev) 1 puff INHALE RDAILY [facility] Last Admin: 12/13/22 07:29 Dose: 1 puff Documented By: DOUG Glucose (Glucose Gel 15 Gm Gel..Gram.) 15 gm PO Q15M PRN; Protocol PRN Reason: per Hypoglycemia Standing Ord. Insulin Glargine (Insulin Glargine,Hum.Rec.Anlog 100 Unit/Ml 10 Ml Vial) 3 unit SUBCUT BEDTIME [facility] Last Admin: 12/12/22 21:38 Dose: 3 unit Documented By: REGINALDO Insulin Human Lispro (Insulin Lispro 100 Unit/Ml 3 Ml Vial) 0 unit SUBCUT QIDACHS [facility]; Protocol Last Admin: 12/13/22 07:56 Dose: Not Given Documented By: OSWALDO Non-Admin Reason: No Insulin Coverage Levothyroxine Sodium (Levothyroxine Sodium 88 Mcg Tablet) 88 mcg PO DAILY@0600 [facility] Last Admin: 12/13/22 05:21 Dose: 88 mcg Documented By: REGINALDO Metoprolol Tartrate (Metoprolol Tartrate 50 Mg Tablet) 50 mg PO BID [facility]; Protocol Last Admin: 12/13/22 08:09 Dose: 50 mg Documented By: OSWALDO Midodrine (Midodrine Hcl 5 Mg Tablet) 5 mg PO MOWEFR PRN PRN Reason: Hypotension Omeprazole (Omeprazole 20 Mg Capsule.Dr) 20 mg PO BID@0630,1630 [facility] Last Admin: 12/13/22 05:21 Dose: 20 mg Documented By: REGINALDO Ondansetron HCl (Ondansetron Hcl 4 Mg/2 Ml Vial) 4 mg IVPUSH Q8H PRN PRN Reason: Nausea and Vomiting Pharmacy Consult (Consult Rx Perform Med Rec) 1 each MISCELLANE ONCE PRN PRN Reason: Consult order Sevelamer Carbonate (Sevelamer Carbonate Powder 800 Mg Powd.Pack) 800 mg PO BIDWM [facility] Last Admin: 12/13/22 08:10 Dose: 800 mg Documented By: OSWALDO Labs 12/08/22 06:21 12/08/22 06:21 Labs: Laboratory Results - last 24 hr 12/12/22 12/12/22 12/12/22 11:16 15:55 19:26 POC Glucose 122 H 122 H 145 H 12/13/22 07:16 POC Glucose 92 Microbiology Microbiology Results: Microbiology 12/07/22 12:43 Blood Culture - Final Blood - Venous No growth after 5 days. 12/07/22 12:11 Blood Culture - Final Blood - Venous No growth after 5 days. Assessment and Plan (1) Epilepsy: Status: Acute (2) Encephalopathy: Status: Acute Plan 72-year-old female with history of paroxysmal atrial fibrillation anticoagulated with Eliquis, hypertension, hyperlipidemia, insulin-dependent type 2 diabetes, asthma, VIOLA, hypothyroidism, end-stage renal disease on dialysis, newly diagnosed seizure disorder, history CVA with expressive aphasia to be observed for seizure activity. #Recently [place] [facility] [place] with breakthrough SZs with supratherapeutic depakote level -Neuro recommends reducing Depakote to 500 bid and stop Keppra. Depakote level is within therapeutic range at 68 # acute metabolic encephalopathy -Initially d/t post ictal state, but continues to be donfuse, rule uti # paroxysmal atrial fibrillation-continue Eliquis for anticoagulation and metoprolol for rate control # ESRD on dialysis---HD on MWF # hypertension-reasonably controlled -continue home meds # hypothyroidism -continue Synthroid # insulin-dependent type 2 diabetes -dose adjusted basal insulin -Humalog on sliding scale -POC glucose -diabetic diet pending swallow eval #Thombocytopenia -etiology unclear -Trend, cbc am # mild intermittent asthma -no acute exacerbation -albuterol p.r.n. DVT prophylaxis- on eliquis Full code Need for inpatient: recurrent seizures, needing med adjustment and monitoring of levels, extremely weak and need full assitance and therefore needs rehab PT is recommending SNF Time Spent With Patient Time: Total time managing care of this patient today ____ minutes. Quality Stroke Does the patient have a stroke diagnosis?: No VTE Prior VTE?: No VTE Risk Level:: Medical - moderate - high VTE Device Contraindication: Treatment Not Indicated VTE Drug Contraindication: N/A - Med Ordered
--- NOTE | 2022-12-13 14:40 | PM.PNNEP ---
Subjective Subjective Date of Service: 12/13/22 Interval history: f/uo seizures no seizures reported overnight, she is very confused Physical Exam Vital Signs: Vital Signs: Last Vital Signs Temp 97.9 F 12/13/22 11:06 Pulse 65 12/13/22 11:06 Resp 18 12/13/22 11:06 BP 151/67 H 12/13/22 11:06 Pulse Ox 100 12/13/22 11:06 O2 Del Method Room Air 12/13/22 11:06 BMI result Body Mass Index 41.4 Const: Other: General: confused Resp: CTA bilateral CVS: S1,S2,RRR GI: +BS, NT, no distention Skin: No rash Neuro: motor grossly intact Psych: flat Objective Data Labs 12/08/22 06:21 12/08/22 06:21 Labs: Laboratory Results - last 24 hr 12/12/22 12/12/22 12/13/22 15:55 19:26 07:16 POC Glucose 122 H 145 H 92 12/13/22 11:09 POC Glucose 138 H Microbiology Microbiology Results: Microbiology 12/07/22 12:43 Blood - Venous Blood Culture - Final No growth after 5 days. 12/07/22 12:11 Blood - Venous Blood Culture - Final No growth after 5 days. Procedures Date of Service Date of Service: 12/13/22 Assessment & Plan Assessment and plan (1) End stage kidney disease: Status: Acute (2) Seizure: Status: Acute Plan ESRD No overt signs or symptoms of uremia. On hemodialysis Still follow along Seizures- W/u in progress Continue Hd per schedule Vol removal as tolerated Not uremia related Time Spent With Patient Time: Total time managing care of this patient today ____ minutes. Progress Note: Quality Stroke Does the patient have a stroke diagnosis?: No
[2022-12-13] MEDS: Insulin Lispro 100 UNIT/ML 3 ML VIAL SUBCUT (17:11)
[2022-12-13] MEDS: Atorvastatin Calcium 40 MG TABLET PO (21:59)
[2022-12-13] MEDS: Insulin Glargine,Hum.rec.anlog 100 UNIT/ML 10 ML VIAL SUBCUT (21:59)
[2022-12-14] VITALS: BP 163/68; PULSE 75; RESP 20; TEMP 36.7; O2SAT 98
[2022-12-14 04:00] VITALS: BP 159/67; PULSE 77; RESP 20; TEMP 36.6; O2SAT 97
[2022-12-14] MEDS: Omeprazole 20 MG CAPSULE.DR PO ×2 (05:37→18:02)
[2022-12-14] MEDS: Levothyroxine Sodium 88 MCG TABLET PO (05:37)
[2022-12-14 08:04] VITALS: PULSE 77; RESP 16; O2SAT 97
--- NOTE | 2022-12-14 08:56 | HO.PM.IMPN ---
Subjective Subjective Date of Service: 12/14/22 Interval History: f/u on seizure, confusion remains confused Physical Exam Vital Signs: Vital Signs: Last Vital Signs Temp 97.8 F 12/14/22 04:00 Pulse 77 12/14/22 08:04 Resp 16 12/14/22 08:04 BP 159/67 H 12/14/22 04:00 Pulse Ox 97 12/14/22 04:00 O2 Del Method Room Air 12/14/22 04:00 BMI result Body Mass Index 41.4 Const: Other: General: AO X 3, no acute distress Resp: CTA bilateral CVS: S1,S2,RRR GI: +BS, NT, no distention Skin: No rash Neuro: motor grossly intact Psych: appropriate affect Objective Data Active Medications Acetaminophen (Acetaminophen 325 Mg Tablet) 650 mg PO Q6H PRN PRN Reason: Pain, Mild (Pain Scale 1-3) Albuterol Sulfate (Albuterol Sulfate 90 Mcg 8 Gm Inhaler) 2 puff INHALE Q4H PRN PRN Reason: Wheezing Amlodipine Besylate (Amlodipine Besylate 5 Mg Tablet) 5 mg PO DAILY [facility]; Protocol Last Admin: 12/13/22 08:09 Dose: 5 mg Documented By: OSWALDO Apixaban (Apixaban 5 Mg Tablet) 5 mg PO BID [facility] Last Admin: 12/13/22 21:59 Dose: 5 mg Documented By: GEOVANNA Atorvastatin Calcium (Atorvastatin Calcium 40 Mg Tablet) 40 mg PO BEDTIME [facility] Last Admin: 12/13/22 21:59 Dose: 40 mg Documented By: GEOVANNA Dextrose (Dextrose 50 % 25 Gm/50 Ml Syringe) 25 gm IVPUSH Q15M PRN; Protocol PRN Reason: per Hypoglycemia Standing Ord. Last Admin: 12/08/22 03:25 Dose: 25 gm Documented By: FREYA Divalproex Sodium (Divalproex Sodium 500 Mg Tablet.Dr) 500 mg PO BID [facility] Last Admin: 12/13/22 21:59 Dose: 500 mg Documented By: GEOVANNA Docusate Sodium (Docusate Sodium 100 Mg Capsule) 100 mg PO DAILY PRN PRN Reason: Constipation Fluticasone/Vilanterol (Fluticasone/Vilanterol 200/25 Blst.W.Dev) 1 puff INHALE RDAILY [facility] Last Admin: 12/14/22 08:03 Dose: 1 puff Documented By: CAL Glucose (Glucose Gel 15 Gm Gel..Gram.) 15 gm PO Q15M PRN; Protocol PRN Reason: per Hypoglycemia Standing Ord. Insulin Glargine (Insulin Glargine,Hum.Rec.Anlog 100 Unit/Ml 10 Ml Vial) 3 unit SUBCUT BEDTIME [facility] Last Admin: 12/13/22 21:59 Dose: 3 unit Documented By: GEOVANNA Insulin Human Lispro (Insulin Lispro 100 Unit/Ml 3 Ml Vial) 0 unit SUBCUT QIDACHS [facility]; Protocol Last Admin: 12/13/22 21:42 Dose: Not Given Documented By: GEOVANNA Non-Admin Reason: Glucose in range Levothyroxine Sodium (Levothyroxine Sodium 88 Mcg Tablet) 88 mcg PO DAILY@0600 [facility] Last Admin: 12/14/22 05:37 Dose: 88 mcg Documented By: GEOVANNA Metoprolol Tartrate (Metoprolol Tartrate 50 Mg Tablet) 50 mg PO BID [facility]; Protocol Last Admin: 12/13/22 21:59 Dose: 50 mg Documented By: GEOVANNA Midodrine (Midodrine Hcl 5 Mg Tablet) 5 mg PO MOWEFR PRN PRN Reason: Hypotension Omeprazole (Omeprazole 20 Mg Capsule.Dr) 20 mg PO BID@0630,1630 [facility] Last Admin: 12/14/22 05:37 Dose: 20 mg Documented By: GEOVANNA Ondansetron HCl (Ondansetron Hcl 4 Mg/2 Ml Vial) 4 mg IVPUSH Q8H PRN PRN Reason: Nausea and Vomiting Pharmacy Consult (Consult Rx Perform Med Rec) 1 each MISCELLANE ONCE PRN PRN Reason: Consult order Sevelamer Carbonate (Sevelamer Carbonate Powder 800 Mg Powd.Pack) 800 mg PO BIDWM [facility] Last Admin: 12/13/22 15:25 Dose: 800 mg Documented By: OSWALDO Labs 12/08/22 06:21 12/08/22 06:21 Labs: Laboratory Results - last 24 hr 12/13/22 12/13/22 12/13/22 11:09 15:18 18:57 POC Glucose 138 H 153 H 135 H 12/14/22 07:41 POC Glucose 102 Assessment and Plan (1) Epilepsy: Status: Acute (2) Encephalopathy: Status: Acute Plan 72-year-old female with history of paroxysmal atrial fibrillation anticoagulated with Eliquis, hypertension, hyperlipidemia, insulin-dependent type 2 diabetes, asthma, VIOLA, hypothyroidism, end-stage renal disease on dialysis, newly diagnosed seizure disorder, history CVA with expressive aphasia to be observed for seizure activity. #[place] [facility] [place] with breakthrough SZs with supratherapeutic depakote level -Neuro suspect high supratherapeutic depakote causing seizure and recommends reducing Depakote to 500 bid and stop Keppra. Depakote level is within therapeutic range at 68 # acute metabolic encephalopathy -Initially d/t post ictal state, but continues to be donfuse, rule uti # paroxysmal atrial fibrillation-continue Eliquis for anticoagulation and metoprolol for rate control # ESRD on dialysis---HD on MWF # hypERtension-reasonably controlled -continue home meds # hypothyroidism -continue Synthroid # insulin-dependent type 2 diabetes -dose adjusted basal insulin -Humalog on sliding scale -POC glucose -diabetic diet pending swallow eval #Thombocytopenia -etiology unclear -Trend, cbc am # mild intermittent asthma -no acute exacerbation -albuterol p.r.n. DVT prophylaxis- on eliquis Full code Need for inpatient: recurrent seizures, needing med adjustment and monitoring of levels, and need to go to SNF PT is recommending SNF Time Spent With Patient Time: Total time managing care of this patient today ____ minutes. Quality Stroke Does the patient have a stroke diagnosis?: No VTE Prior VTE?: No VTE Risk Level:: Medical - moderate - high VTE Device Contraindication: Treatment Not Indicated VTE Drug Contraindication: N/A - Med Ordered
--- NOTE | 2022-12-14 10:06 | MHC.CM.PN ---
Patient is medically cleared for dc and has been unable to participate with PT and therefore appearing like LTC may be needed. Extensive SNF search is ongoing with no resulting SNF bed offers. Per MD in ROUNDS, Patient appears more alert today and CM has asked PT to re-eval Patient today. CM will follow.
[2022-12-14 13:07] VITALS: BP 140/63; PULSE 85; RESP 17; TEMP 36.5; O2SAT 97
[2022-12-14] MEDS: Apixaban 5 MG TABLET PO ×2 (13:17→20:32)
[2022-12-14] MEDS: amLODIPine Besylate 5 MG TABLET PO (13:17)
[2022-12-14] MEDS: Metoprolol Tartrate 50 MG TABLET PO ×3 (13:17→20:32)
[2022-12-14] MEDS: Divalproex Sodium 500 MG TABLET.DR PO ×2 (13:17→20:32)
[2022-12-14] MEDS: Acetaminophen 325 MG TABLET 650 MG PO (13:22)
--- NOTE | 2022-12-14 14:54 | PM.PNNEP ---
Subjective Subjective Date of Service: 12/14/22 Interval history: Seen and examined,events noted Physical Exam Vital Signs: Vital Signs: Last Vital Signs Temp 97.7 F 12/14/22 13:07 Pulse 85 12/14/22 13:07 Resp 17 12/14/22 13:07 BP 140/63 H 12/14/22 13:07 Pulse Ox 97 12/14/22 13:07 O2 Del Method Room Air 12/14/22 13:07 BMI result Body Mass Index 41.4 Const: Other: General: confused Resp: CTA bilateral CVS: S1,S2,RRR GI: +BS, NT, no distention Skin: No rash Neuro: motor grossly intact Psych: flat Objective Data Labs 12/08/22 06:21 12/08/22 06:21 Labs: Laboratory Results - last 24 hr 12/13/22 12/13/22 12/14/22 15:18 18:57 07:41 POC Glucose 153 H 135 H 102 12/14/22 13:05 POC Glucose 111 Microbiology Microbiology Results: Microbiology 12/07/22 12:43 Blood - Venous Blood Culture - Final No growth after 5 days. 12/07/22 12:11 Blood - Venous Blood Culture - Final No growth after 5 days. Procedures Date of Service Date of Service: 12/14/22 Assessment & Plan Assessment and plan (1) End stage kidney disease: Status: Acute (2) Seizure: Status: Acute Plan ESRD: mwf AMS: w/u in progress H/O Calciphylaxis: will look to r/s STS MBD with signif 2ry HPTism: will recheck REC: cont HD 3x/wk; AMS being eval; recheck PTH Time Spent With Patient Time: Total time managing care of this patient today ____ minutes. Progress Note: Quality Stroke Does the patient have a stroke diagnosis?: No
--- NOTE | 2022-12-14 15:02 | PC.NURSE ---
Per [place] pt does not need IV access.
[2022-12-14 15:14] VITALS: BP 134/61; PULSE 74; RESP 20; TEMP 36.6; O2SAT 97
[2022-12-14] MEDS: Sevelamer Carbonate Powder 800 MG POWD.PACK PO (18:04)
[2022-12-14 19:13] VITALS: BP 148/70; PULSE 87; RESP 14; TEMP 36.4; O2SAT 93
[2022-12-14 20:24] LABS: Glucose, Whole Blood 194 mg/dL (60-115)
[2022-12-14] MEDS: Insulin Glargine,Hum.rec.anlog 100 UNIT/ML 10 ML VIAL SUBCUT (20:31)
[2022-12-14] MEDS: Insulin Lispro 100 UNIT/ML 3 ML VIAL SUBCUT (20:31)
[2022-12-14] MEDS: Atorvastatin Calcium 40 MG TABLET PO (20:32)
[2022-12-15] VITALS (8 sets, daily range): BP systolic 106–155; BP diastolic 52–74; PULSE 73–84; RESP 14–20; TEMP 36.1–36.6; O2SAT 97–100
--- NOTE | 2022-12-15 | EEG_ITS ---
DESCRIPTION: This is a 16-channel EEG with an EKG lead. The patient is reported awake during the tracing. Background EEG rhythm in earlier part of the tracing was about 10-12 Hz, 5-20 microvolt posteriorly, lower amplitude fast anteriorly. The patient transitioned into drowsiness with rhythm ranging in theta to delta range. Mild asymmetric slowing was noted in the right hemispheric leads compared to left. Cardiac lead did not reveal any significant abnormality. Photic stimulation did not produce any significant driving. No sharp waves or spikes were noted. IMPRESSION: No evidence of seizure disorder on this EEG. There was mild right hemispheric slowing that should be correlated with imaging. MD SALENA Gallardo/LEO / [id number]
[2022-12-15] MEDS: Omeprazole 20 MG CAPSULE.DR PO ×2 (06:12→18:22)
[2022-12-15] MEDS: Levothyroxine Sodium 88 MCG TABLET PO (06:12)
[2022-12-15 07:20] LABS: Phosphorus 4.7 mg/dL (2.7-4.5)
[2022-12-15 07:31] LABS: Glucose, Whole Blood 107 mg/dL (60-115)
--- NOTE | 2022-12-15 07:48 | MHC.CM.PN ---
CM continues to search for a LTC SNF bed. [facility] today and CM will continue to follow.
[2022-12-15] MEDS: amLODIPine Besylate 5 MG TABLET PO (08:32)
[2022-12-15] MEDS: Divalproex Sodium 500 MG TABLET.DR PO ×2 (08:32→21:24)
[2022-12-15] MEDS: Metoprolol Tartrate 50 MG TABLET PO ×2 (08:33→21:24)
[2022-12-15] MEDS: Apixaban 5 MG TABLET PO ×2 (08:33→21:24)
[2022-12-15] MEDS: Sevelamer Carbonate Powder 800 MG POWD.PACK PO ×2 (08:33→18:22)
[2022-12-15 08:50] LABS: Hemoglobin 12.2 g/dl (12.0-16.0)
[2022-12-15 11:10] LABS: Ammonia 41 umol/L (13-55)
[2022-12-15 11:11] LABS: Anion Gap 19 (12-20); Blood Urea Nitrogen 48 mg/dL (9-16); Calcium 9.8 mg/dL (8.4-10.2); Carbon Dioxide 20 mmol/L (22-29); Chloride 95 mmol/L (96-108); Creatinine Clr Calc Pharmacy 8.8; Estimated Glomerular Filt Rate 6; Glucose Random 144 mg/dL (60-115); Potassium 4.5 mmol/L (3.3-5.1); Sodium 129 mmol/L (135-145)
[2022-12-15 11:20] LABS: Glucose, Whole Blood 137 mg/dL (60-115)
[2022-12-15 11:40] LABS: Basophils Absolute Auto 0.1 X10*3/uL (0.0-0.2); Basophils Percent Auto 0.7 % (0-2); Eosinophils Absolute Auto 0.1 X10*3/uL (0.0-0.4); Eosinophils Percent Auto 0.8 % (0-4); Imm Gran Abs Auto 0.08 X10*3/uL (0.00-0.03); Imm Gran Pct Auto 0.7 % (0.0-0.4); Lymphocytes Absolute Auto 1.6 X10*3/uL (1.2-4.9); Lymphocytes Percent Auto 12.7 % (20-40); MANUAL DIFF FLAG SCAN; Mean Corpuscular HGB Conc 34.3 g/dl (31.0-35.0); Mean Corpuscular Hemoglobin 31.9 pg (27.0-33.0); Mean Corpuscular Volume 93.2 fL (80.0-98.0); Mean Platelet Volume 11.3 fL (9.4-12.3); Monocytes Absolute Auto 2.1 X10*3/uL (0.1-1.2); Monocytes Percent Auto 17.4 % (2-11); Neutrophils Absolute Auto 8.3 x10*3/uL (2.0-8.3); Neutrophils Percent Auto 67.7 % (45-73); Platelet Count 206 X10*3/uL (160-400); Red Blood Count 3.85 X10*6/uL (4.20-5.50); Red Cell Distribution Width 16.4 % (11.0-16.0); SCAN SMEAR FLAG 1; White Blood Count 12.3 X10*3/uL (4.8-10.8)
--- NOTE | 2022-12-15 12:10 | MHC.CM.PN ---
CM left a detailed message for Son/HCP/Gwyn @ [phone], requesting a return call to discuss dc planning (to determine id a dc to home with services is at all possible); CM will follow.
[2022-12-15 12:18] LABS: SLIDE REVIEW VERIFIED
--- NOTE | 2022-12-15 12:57 | P.CNNE_ITS ---
History of Present Illness Data of Consult Service Date: 12/15/22 Primary Care Provider: Jevon Rice MD [facility] Reason for consult: Encephalopathy 72 years old woman who I had seen few days ago. She was still not back to her baseline and this consultation was requested. There was no sign of any active convulsion or seizure. There was no other obvious explanation now. Her Depakote level has dropped to 60s and Keppra has been stop. Review of Systems Review of Systems: Could not be done with her. [facility] Past Medical History Medical History (Updated 12/08/22 @ 09:06 by Radhika Flores MD) Asthma Epilepsy ESRD on dialysis Expressive aphasia History of CVA (cerebrovascular accident) Hypertension Insulin dependent type 2 diabetes mellitus Morbid obesity Obstructive sleep apnea Paroxysmal atrial fibrillation Tubular adenoma of colon Social History Social History Household Members: Unknown / Unable to assess Housing: Unknown / Unable to assess Unable to assess alcohol history related to: Refusing to respond Patient Tobacco Use Status: Never used Tobacco Use of substances other than those prescribed or required for medical reasons: Unknown Currently Displaying Signs/Symptoms of Drug Intoxication Withdrawal: No Advance Directives: Yes Advance Directives on File: Yes Advance Directives Date on File: 04/22/22 Recently lost weight without trying: Unsure How much weight loss: Unsure Nutrition Risks: No Nutritional Risk Patient : No service: No Meds Allergies Allergy/AdvReac Type Severity Reaction Status Date / Time Penicillins Allergy Unknown Unknown Verified 04/21/22 16:53 lisinopri Allergy Unknown Unknown Uncoded 04/21/22 16:53 Active Medications: Current Medications Acetaminophen (Acetaminophen 325 Mg Tablet) 650 mg PO Q6H PRN PRN Reason: Pain, Mild (Pain Scale 1-3) Last Admin: 12/14/22 13:22 Dose: 650 mg Albuterol Sulfate (Albuterol Sulfate 90 Mcg 8 Gm Inhaler) 2 puff INHALE Q4H PRN PRN Reason: Wheezing Amlodipine Besylate (Amlodipine Besylate 5 Mg Tablet) 5 mg PO DAILY [facility]; Protocol Last Admin: 12/15/22 08:32 Dose: 5 mg Apixaban (Apixaban 5 Mg Tablet) 5 mg PO BID [facility] Last Admin: 12/15/22 08:33 Dose: 5 mg Atorvastatin Calcium (Atorvastatin Calcium 40 Mg Tablet) 40 mg PO BEDTIME [facility] Last Admin: 12/14/22 20:32 Dose: 40 mg Dextrose (Dextrose 50 % 25 Gm/50 Ml Syringe) 25 gm IVPUSH Q15M PRN; Protocol PRN Reason: per Hypoglycemia Standing Ord. Last Admin: 12/08/22 03:25 Dose: 25 gm Divalproex Sodium (Divalproex Sodium 500 Mg Tablet.) 500 mg PO BID [facility] Last Admin: 12/15/22 08:32 Dose: 500 mg Docusate Sodium (Docusate Sodium 100 Mg Capsule) 100 mg PO DAILY PRN PRN Reason: Constipation Fluticasone/Vilanterol (Fluticasone/Vilanterol 200/25 Blst.W.Dev) 1 puff INHALE RDAILY [facility] Last Admin: 12/15/22 07:38 Dose: 1 puff Glucose (Glucose Gel 15 Gm Gel..Gram.) 15 gm PO Q15M PRN; Protocol PRN Reason: per Hypoglycemia Standing Ord. Insulin Glargine (Insulin Glargine,Hum.Rec.Anlog 100 Unit/Ml 10 Ml Vial) 3 unit SUBCUT BEDTIME [facility] Last Admin: 12/14/22 20:31 Dose: 3 unit Insulin Human Lispro (Insulin Lispro 100 Unit/Ml 3 Ml Vial) 0 unit SUBCUT Q IDACHS [facility]; Protocol Last Admin: 12/15/22 12:21 Dose: Not Given Levothyroxine Sodium (Levothyroxine Sodium 88 Mcg Tablet) 88 mcg PO DAILY@0600 [facility] Last Admin: 12/15/22 06:12 Dose: 88 mcg Metoprolol Tartrate (Metoprolol Tartrate 50 Mg Tablet) 50 mg PO BID [facility]; Protocol Last Admin: 12/15/22 08:33 Dose: 50 mg Midodrine (Midodrine Hcl 5 Mg Tablet) 5 mg PO MOWEFR PRN PRN Reason: Hypotension Omeprazole (Omeprazole 20 Mg Capsule.) 20 mg PO BID@0630,1630 [facility] Last Admin: 12/15/22 06:12 Dose: 20 mg Ondansetron HCl (Ondansetron Hcl 4 Mg/2 Ml Vial) 4 mg IVPUSH Q8H PRN PRN Reason: Nausea and Vomiting Pharmacy Consult (Consult Rx Perform Med Rec) 1 each MISCELLANE ONCE PRN PRN Reason: Consult order Sevelamer Carbonate (Sevelamer Carbonate Powder 800 Mg Powd.Pack) 800 mg PO BIDWM [facility] Last Admin: 12/15/22 08:33 Dose: 800 mg Home Medications Medication Instructions Recorded Confirmed Last Taken Type albuterol sulfate 90 mcg/actuation 2 puff inhalation Q4H PRN Wheezing 12/07/22 12/07/22 Unknown History aerosol inhaler (Ventolin HFA) amlodipine 5 mg tablet 5 mg PO DAILY 12/07/22 12/07/22 12/07/22 History apixaban 5 mg tablet (Eliquis) 5 mg PO BID 12/07/22 12/07/22 12/07/22 History atorvastatin 40 mg tablet 40 mg PO BEDTIME 12/07/22 12/07/22 12/06/22 History cinacalcet 30 mg tablet 30 mg PO DAILY 12/07/22 12/07/22 12/07/22 History fluticasone 500 mcg-salmeterol 50 1 ea inhalation BID 12/07/22 12/07/22 12/07/22 History mcg/dose blistr powdr for inhalation (Advair Diskus) gabapentin 100 mg capsule 100 mg PO TID 12/07/22 Unknown History insulin aspart U-100 100 unit/mL 4 - 12 unit subcut TIDWM PRN 12/07/22 12/07/22 Unknown History (3 mL) subcutaneous pen (Novolog ELEVATED BLOOD SUGAR FlexPen U-100 Insulin aspart) insulin detemir U-100 100 unit/mL 6 unit subcut BEDTIME 12/07/22 12/07/22 12/06/22 History subcutaneous solution (Levemir U-100 Insulin) levothyroxine 88 mcg tablet 88 mcg PO DAILY@0600 12/07/22 12/07/22 12/07/22 History metoprolol tartrate 50 mg tablet 50 mg PO BID 12/07/22 12/07/22 12/07/22 History midodrine 5 mg tablet 5 mg PO MOWEFR PRN Hypotension 12/07/22 12/07/22 Unknown History pantoprazole 40 mg tablet,delayed 40 mg PO BID@0630,1630 12/07/22 12/07/22 12/07/22 History release sevelamer carbonate 800 mg tablet 800 mg PO BIDWM 12/07/22 12/07/22 12/07/22 History (Renvela) Physical Exam 2 Vital Signs: Vital Signs: Last Vital Signs Temp 96.9 F 12/15/22 11:30 Pulse 74 12/15/22 11:30 Resp 20 12/15/22 11:30 BP 115/57 L 12/15/22 11:30 Pulse Ox 97 12/15/22 11:30 O2 Del Method Room Air 12/15/22 11:30 BMI result Body Mass Index 41.4 Neuro: Other: She is alert and awake makes an eye contact and answers some simple questions but not all of them. Sometime she mumbles and say something that does not make sense. She is not following commands. There is no obvious focal weakness. Results Labs 12/15/22 08:42 12/15/22 10:27 Labs: Short CBC 12/15/22 Range/Units 08:42 WBC 12.3 H (4.8-10.8) X10*3/uL Hgb 12.2 (12.0-16.0) g/dl Hct 36.0 L (37.0-47.0) % Plt Count 206 D (160-400) X10*3/uL BMP 12/15/22 10:27 Sodium 129 L Potassium 4.5 Chloride 95 L Carbon Dioxide 20 L BUN 48 H Creatinine 7.12 H* Calcium 9.8 D Microbiology Microbiology Results: Microbiology 12/07/22 12:43 Blood - Venous Blood Culture - Final No growth after 5 days. 12/07/22 12:11 Blood - Venous Blood Culture - Final No growth after 5 days. Assessment and Plan (1) Encephalopathy: Status: Acute Unexplained encephalopathy in this 72 years old woman. My recommendation is to obtain an EEG and a noncontrast MRI of brain to rule out epileptic encephalopathy or any vascular lesion to explain encephalopathy/aphasia. Time Spent With Patient Time: Total time managing care of this patient today ____ minutes. Procedures Date of Service Date of Service: 12/15/22
--- NOTE | 2022-12-15 14:19 | HO.PM.IMPN ---
Subjective Subjective Date of Service: 12/16/22 Interval History: f/u on seizure, confusion Review of Systems Still says seems similar confused. No overnight events. Physical Exam Vital Signs: Vital Signs: Last Vital Signs Temp 96.9 F 12/15/22 11:30 Pulse 74 12/15/22 11:30 Resp 20 12/15/22 11:30 BP 115/57 L 12/15/22 11:30 Pulse Ox 97 12/15/22 11:30 O2 Del Method Room Air 12/15/22 11:30 BMI result Body Mass Index 41.4 General: AO X 3, no acute distress Resp:? CTA bilateral CVS: S1,S2,RRR GI: +BS, NT, no distention Skin: No rash Neuro:? motor grossly intact Psych: appropriate affect Objective Data Active Medications Acetaminophen (Acetaminophen 325 Mg Tablet) 650 mg PO Q6H PRN PRN Reason: Pain, Mild (Pain Scale 1-3) Last Admin: 12/14/22 13:22 Dose: 650 mg Documented By: NIRAJ Albuterol Sulfate (Albuterol Sulfate 90 Mcg 8 Gm Inhaler) 2 puff INHALE Q4H PRN PRN Reason: Wheezing Amlodipine Besylate (Amlodipine Besylate 5 Mg Tablet) 5 mg PO DAILY [facility]; Protocol Last Admin: 12/15/22 08:32 Dose: 5 mg Documented By: LOUIS Apixaban (Apixaban 5 Mg Tablet) 5 mg PO BID [facility] Last Admin: 12/15/22 08:33 Dose: 5 mg Documented By: LOUIS Atorvastatin Calcium (Atorvastatin Calcium 40 Mg Tablet) 40 mg PO BEDTIME [facility] Last Admin: 12/14/22 20:32 Dose: 40 mg Documented By: BRANT Dextrose (Dextrose 50 % 25 Gm/50 Ml Syringe) 25 gm IVPUSH Q15M PRN; Protocol PRN Reason: per Hypoglycemia Standing Ord. Last Admin: 12/08/22 03:25 Dose: 25 gm Documented By: FREYA Divalproex Sodium (Divalproex Sodium 500 Mg Tablet.) 500 mg PO BID [facility] Last Admin: 12/15/22 08:32 Dose: 500 mg Documented By: LOUIS Docusate Sodium (Docusate Sodium 100 Mg Capsule) 100 mg PO DAILY PRN PRN Reason: Constipation Fluticasone/Vilanterol (Fluticasone/Vilanterol 200/25 Blst.W.Dev) 1 puff INHALE RDAILY [facility] Last Admin: 12/15/22 07:38 Dose: 1 puff Documented By: CAL Glucose (Glucose Gel 15 Gm Gel..Gram.) 15 gm PO Q15M PRN; Protocol PRN Reason: per Hypoglycemia Standing Ord. Insulin Glargine (Insulin Glargine,Hum.Rec.Anlog 100 Unit/Ml 10 Ml Vial) 3 unit SUBCUT BEDTIME [facility] Last Admin: 12/14/22 20:31 Dose: 3 unit Documented By: BRANT Insulin Human Lispro (Insulin Lispro 100 Unit/Ml 3 Ml Vial) 0 unit SUBCUT QIDACHS [facility]; Protocol Last Admin: 12/15/22 12:21 Dose: Not Given Documented By: LOUIS Non-Admin Reason: No Insulin Coverage Levothyroxine Sodium (Levothyroxine Sodium 88 Mcg Tablet) 88 mcg PO DAILY@0600 [facility] Last Admin: 12/15/22 06:12 Dose: 88 mcg Documented By: ESTRELLA Metoprolol Tartrate (Metoprolol Tartrate 50 Mg Tablet) 50 mg PO BID [facility]; Protocol Last Admin: 12/15/22 08:33 Dose: 50 mg Documented By: LOUIS Midodrine (Midodrine Hcl 5 Mg Tablet) 5 mg PO MOWEFR PRN PRN Reason: Hypotension Omeprazole (Omeprazole 20 Mg Capsule.Dr) 20 mg PO BID@0630,1630 [facility] Last Admin: 12/15/22 06:12 Dose: 20 mg Documented By: ESTRELLA Ondansetron HCl (Ondansetron Hcl 4 Mg/2 Ml Vial) 4 mg IVPUSH Q8H PRN PRN Reason: Nausea and Vomiting Pharmacy Consult (Consult Rx Perform Med Rec) 1 each MISCELLANE ONCE PRN PRN Reason: Consult order Sevelamer Carbonate (Sevelamer Carbonate Powder 800 Mg Powd.Pack) 800 mg PO BIDWM [facility] Last Admin: 12/15/22 08:33 Dose: 800 mg Documented By: LOUIS Labs 12/15/22 08:42 12/15/22 10:27 Labs: Laboratory Results - last 24 hr 12/14/22 12/14/22 12/15/22 16:02 19:17 05:23 MCV MCH MCHC RDW Plt Count MPV Immature Gran % (Auto) Neut % (Auto) Lymph % (Auto) Benton % (Auto) Eos % (Auto) Baso % (Auto) Lymph # (Auto) [place] # (Auto) Eos # (Auto) Baso # (Auto) Abs Immat Gran (auto) Absolute Neuts (auto) Absolute Nucleated RBC Nucleated RBC % (auto) Smear Tech's Comments Anion Gap Estim Creat Clear Calc Estimated GFR POC Glucose 142 H 194 H Random Glucose Calcium Phosphorus 4.7 H Ammonia 12/15/22 12/15/22 12/15/22 07:26 08:42 10:27 MCV 93.2 MCH 31.9 MCHC 34.3 RDW 16.4 H Plt Count 206 D MPV 11.3 Immature Gran % (Auto) 0.7 H Neut % (Auto) 67.7 Lymph % (Auto) 12.7 L Benton % (Auto) 17.4 H Eos % (Auto) 0.8 Baso % (Auto) 0.7 Lymph # (Auto) 1.6 Benton # (Auto) 2.1 H Eos # (Auto) 0.1 Baso # (Auto) 0.1 Abs Immat Gran (auto) 0.08 H Absolute Neuts (auto) 8.3 Absolute Nucleated RBC 0.000 Nucleated RBC % (auto) 0.0 Smear Tech's Comments VERIFIED Anion Gap 19 Estim Creat Clear Calc 8.8 Estimated GFR 6 POC Glucose 107 Random Glucose 144 H Calcium 9.8 D Phosphorus Ammonia 12/15/22 12/15/22 10:27 11:15 MCV MCH MCHC RDW Plt Count MPV Immature Gran % (Auto) Neut % (Auto) Lymph % (Auto) Benton % (Auto) Eos % (Auto) Baso % (Auto) Lymph # (Auto) Benton # (Auto) Eos # (Auto) Baso # (Auto) Abs Immat Gran (auto) Absolute Neuts (auto) Absolute Nucleated RBC Nucleated RBC % (auto) Smear Tech's Comments Anion Gap Estim Creat Clear Calc Estimated GFR POC Glucose 137 H Random Glucose Calcium Phosphorus Ammonia 41 Assessment and Plan (1) Epilepsy: Status: Acute (2) Encephalopathy: Status: Acute Plan 72-year-old female with history of paroxysmal atrial fibrillation anticoagulated with Eliquis, hypertension, hyperlipidemia, insulin-dependent type 2 diabetes, asthma, VIOLA, hypothyroidism, end-stage renal disease on dialysis, newly diagnosed seizure disorder, history CVA with expressive aphasia to be observed for seizure activity. Recently diagnosed seziure disorder with [place] e[place] [facility] [place] and presented with breakthrough SZs with supratherapeutic depakote level. dilantin 108.6 -63.6 seizure precaution and recommends reducing Depakote to 500 bid and stop Keppra. neuro seen patient -added mri/eeg. acute metabolic encephalopathy -Initially d/t post ictal state, but continues to be confuse, rule uti. ammonia normal, sats normal,added repeat ua added mri/eeg. paroxysmal atrial fibrillation-continue Eliquis for anticoagulation and metoprolol for rate control ESRD on dialysis---HD on MWF hyponatremia ? dilutional esrd patient . hypERtension-reasonably controlled-continue home meds. hypothyroidism-continue Synthroid. insulin-dependent type 2 diabetes fs 110-130 -dose adjusted basal insulin -Humalog on sliding scale -POC glucose -diabetic diet pending swallow eval Thombocytopenia -etiology unclear -Trend, cbc am mild intermittent asthma -no acute exacerbation -albuterol p.r.n. DVT prophylaxis- on eliquis Need for inpatient: recurrent seizures, needing med adjustment and monitoring of levels, and need to go to SNF. need neuro -added mri/eeg. Time Spent With Patient Time: Total time managing care of this patient today ____ minutes. Quality Stroke Does the patient have a stroke diagnosis?: No VTE Prior VTE?: No VTE Risk Level:: Medical - moderate - high VTE Device Contraindication: Treatment Not Indicated VTE Drug Contraindication: N/A - Med Ordered
[2022-12-15 16:48] LABS: Glucose, Whole Blood 114 mg/dL (60-115)
[2022-12-15 20:26] LABS: Glucose, Whole Blood 144 mg/dL (60-115)
[2022-12-15] MEDS: Atorvastatin Calcium 40 MG TABLET PO (21:24)
[2022-12-15] MEDS: Insulin Glargine,Hum.rec.anlog 100 UNIT/ML 10 ML VIAL SUBCUT (21:27)
[2022-12-16 03:15] VITALS: BP 121/57; PULSE 71; RESP 20; TEMP 36.3; O2SAT 98
[2022-12-16] MEDS: Levothyroxine Sodium 88 MCG TABLET PO (08:22)
[2022-12-16] MEDS: Apixaban 5 MG TABLET PO ×2 (08:22→20:32)
[2022-12-16] MEDS: amLODIPine Besylate 5 MG TABLET PO (08:22)
[2022-12-16] MEDS: Divalproex Sodium 500 MG TABLET.DR PO (08:22)
[2022-12-16] MEDS: Sevelamer Carbonate Powder 800 MG POWD.PACK PO ×2 (08:22→17:52)
--- NOTE | 2022-12-16 08:59 | MHC.CM.PN ---
CM spoke with Son/HCP/Gwyn @ [phone] regarding dc planning. EMIL explained that the original goal was for STR @ [facility] (also where Patient receives her HD) but because Patient has not been able to participate with PT, Medicare does not pay for STR in this case and LTC SNF beds are very scarce (35 SNF denials thus far). Gwyn explained that he wants his Mother to come home but she requires more care than what she needed [employer] and that he does have to work. Gwyn stated that he needs to speak with his Brothers to see if they are able to assist with Patient's care in order to make a dc to home a safe option. CM will f/u with Gwyn after he speaks with his family.
--- NOTE | 2022-12-16 09:53 | PM.PNNEP ---
Subjective Subjective Date of Service: 12/16/22 Interval history: Seen and eamined, events noted Confused; not following commands and simple say yes/no this def NOT her BSL mental status currently on HD Physical Exam Vital Signs: Vital Signs: Last Vital Signs Temp 97.3 F 12/16/22 03:15 Pulse 71 12/16/22 03:15 Resp 20 12/16/22 03:15 BP 121/57 L 12/16/22 03:15 Pulse Ox 98 12/16/22 03:15 O2 Del Method Room Air 12/16/22 03:15 BMI result Body Mass Index 41.4 Const: Other: General: confused Resp: CTA bilateral CVS: S1,S2,RRR GI: +BS, NT, no distention Skin: No rash Neuro: motor grossly intact Psych: flat Objective Data Labs 12/15/22 08:42 12/15/22 10:27 Labs: Laboratory Results - last 24 hr 12/15/22 12/15/22 12/15/22 08:42 10:27 10:27 WBC 12.3 H RBC 3.85 L Hgb 12.2 Hct 36.0 L MCV 93.2 MCH 31.9 MCHC 34.3 RDW 16.4 H Plt Count 206 D MPV 11.3 Immature Gran % (Auto) 0.7 H Neut % (Auto) 67.7 Lymph % (Auto) 12.7 L [place] % (Auto) 17.4 H Eos % (Auto) 0.8 Baso % (Auto) 0.7 Lymph # (Auto) 1.6 [place] # (Auto) 2.1 H Eos # (Auto) 0.1 Baso # (Auto) 0.1 Abs Immat Gran (auto) 0.08 H Absolute Neuts (auto) 8.3 Absolute Nucleated RBC 0.000 Nucleated RBC % (auto) 0.0 Smear Tech's Comments VERIFIED Sodium 129 L Potassium 4.5 Chloride 95 L Carbon Dioxide 20 L Anion Gap 19 BUN 48 H Creatinine 7.12 H* Estim Creat Clear Calc 8.8 Estimated GFR 6 POC Glucose Random Glucose 144 H Calcium 9.8 D Ammonia 41 12/15/22 12/15/22 12/15/22 11:15 16:44 20:19 WBC RBC Hgb Hct MCV MCH MCHC RDW Plt Count MPV Immature Gran % (Auto) Neut % (Auto) Lymph % (Auto) [place] % (Auto) Eos % (Auto) Baso % (Auto) Lymph # (Auto) [place] # (Auto) Eos # (Auto) Baso # (Auto) Abs Immat Gran (auto) Absolute Neuts (auto) Absolute Nucleated RBC Nucleated RBC % (auto) Smear Tech's Comments Sodium Potassium Chloride Carbon Dioxide Anion Gap BUN Creatinine Estim Creat Clear Calc Estimated GFR POC Glucose 137 H 114 144 H Random Glucose Calcium Ammonia Microbiology Microbiology Results: Microbiology 12/07/22 12:43 Blood - Venous Blood Culture - Final No growth after 5 days. 12/07/22 12:11 Blood - Venous Blood Culture - Final No growth after 5 days. Procedures Date of Service Date of Service: 12/16/22 Assessment & Plan Assessment and plan (1) End stage kidney disease: Status: Acute (2) Seizure: Status: Acute Plan ESRD: mwf AMS: w/u in progress H/O Calciphylaxis: will look to r/s STS MBD with signif 2ry HPTism: will recheck REC: cont HD 3x/wk; AMS being eval; recheck PTH Time Spent With Patient Time: Total time managing care of this patient today ____ minutes. Progress Note: Quality Stroke Does the patient have a stroke diagnosis?: No
[2022-12-16 10:46] VITALS: BP 120/56; PULSE 80; RESP 20; TEMP 36.3; O2SAT 100
[2022-12-16 11:53] LABS: Anion Gap 16 (12-20); Blood Urea Nitrogen 11 mg/dL (9-16); Calcium 9.9 mg/dL (8.4-10.2); Carbon Dioxide 20 mmol/L (22-29); Chloride 99 mmol/L (96-108); Creatinine Clr Calc Pharmacy 33.6; Estimated Glomerular Filt Rate 26; Glucose Random 104 mg/dL (60-115); Potassium 2.7 mmol/L (3.3-5.1); Sodium 132 mmol/L (135-145)
[2022-12-16 12:03] LABS: Glucose, Whole Blood 91 mg/dL (60-115)
--- NOTE | 2022-12-16 14:19 | MHC.CM.PN ---
Per MD, Patient's Son has indicated that Patient's Sons all work and are unable to care for Patient at home. CM will continue to try to locate a LTC SNF bed. CM will follow.
--- NOTE | 2022-12-16 14:41 | MHC.SL.SWA ---
Risk of Aspiration Due to: Lethargy Medically Fragile Neurological Condition History of Pneumonia Reduced Cognition Dysphasia Diet Status: No change Liquid Consistency and Strategies for Safe Swallow: Liquid Intake Recommendation: Thin Liquid Intake Strategies: Unrestricted Solid Food Consistency: Dietary Recommendations: Chopped/Advanced (NDD3) Additional Modifications to Solid Foods: Avoid difficult to chew solids and mixed consistencies. Oral Medication Intake: Whole with Puree Please contact the pharmacy regarding appropriate crushable or liquid drug formulations that are available whenever modified delivery is recommended. Compensatory Strategies and Precautions to be Taken for Safe Swallow: Sitting Upright (90 deg) Liquids from Straw Small Bites and Sips Alternate Liquids/Solids Rate of Ingestion Change Oral Check Avoid Specific Foods Supervision While Eating and Drinking for Safe Swallow: Total Assistance (1:1) Foods to Avoid: Regular Solids Mixed consistencies (i.e., soups, cereal with milk, fruit cups, etc.) Swallowing Recommended Treatments: Compens. Strategy Educat. Recommendation for Speech: Inpatient Speech Therapy Comment: Continue to recommend Chopped/Advanced (NDD3) Solids and Thin Liquids. Meds Whole with Puree. Pt requires assistance w/ tray set up. ZMT OPERATOR to continue to follow. Digitizer Clinican/Clinical Fellow: No Supervisory Statement: I have reviewed and agree with the student/clinical fellow's documentation: N/A Speech Language Pathologist: Deanne Hernandez M.A., [facility]-ZMT OPERATOR
--- NOTE | 2022-12-16 14:53 | HO.PM.IMPN ---
Subjective Subjective Date of Service: 12/16/22 Interval History: f/u on seizure, confusion Review of Systems still plesantly confused no new events Physical Exam Vital Signs: Vital Signs: Last Vital Signs Temp 97.3 F 12/16/22 10:46 Pulse 80 12/16/22 10:46 Resp 20 12/16/22 10:46 BP 120/56 L 12/16/22 10:46 Pulse Ox 100 12/16/22 10:46 O2 Del Method Room Air 12/16/22 10:46 BMI result Body Mass Index 41.4 General: AO X 1, no acute distress Resp:? CTA bilateral CVS: S1,S2,RRR GI: +BS, NT, no distention Skin: No rash Neuro:? motor grossly intact Psych: appropriate affect Objective Data Active Medications Acetaminophen (Acetaminophen 325 Mg Tablet) 650 mg PO Q6H PRN PRN Reason: Pain, Mild (Pain Scale 1-3) Last Admin: 12/14/22 13:22 Dose: 650 mg Documented By: NIRAJ Albuterol Sulfate (Albuterol Sulfate 90 Mcg 8 Gm Inhaler) 2 puff INHALE Q4H PRN PRN Reason: Wheezing Amlodipine Besylate (Amlodipine Besylate 5 Mg Tablet) 5 mg PO DAILY [facility]; Protocol Last Admin: 12/16/22 08:22 Dose: 5 mg Documented By: LOUIS Apixaban (Apixaban 5 Mg Tablet) 5 mg PO BID [facility] Last Admin: 12/16/22 08:22 Dose: 5 mg Documented By: LOUIS Atorvastatin Calcium (Atorvastatin Calcium 40 Mg Tablet) 40 mg PO BEDTIME [facility] Last Admin: 12/15/22 21:24 Dose: 40 mg Documented By: BRITTA Dextrose (Dextrose 50 % 25 Gm/50 Ml Syringe) 25 gm IVPUSH Q15M PRN; Protocol PRN Reason: per Hypoglycemia Standing Ord. Last Admin: 12/08/22 03:25 Dose: 25 gm Documented By: FREYA Divalproex Sodium (Divalproex Sodium 250 Mg Tablet.Dr) 750 mg PO BID [facility] Docusate Sodium (Docusate Sodium 100 Mg Capsule) 100 mg PO DAILY PRN PRN Reason: Constipation Fluticasone/Vilanterol (Fluticasone/Vilanterol 200/25 Blst.W.Dev) 1 puff INHALE RDAILY [facility] Last Admin: 12/16/22 07:36 Dose: Not Given Documented By: MACRINA Non-Admin Reason: Not In Room Glucose (Glucose Gel 15 Gm Gel..Gram.) 15 gm PO Q15M PRN; Protocol PRN Reason: per Hypoglycemia Standing Ord. Insulin Glargine (Insulin Glargine,Hum.Rec.Anlog 100 Unit/Ml 10 Ml Vial) 3 unit SUBCUT BEDTIME [facility] Last Admin: 12/15/22 21:27 Dose: 3 unit Documented By: BRITTA Insulin Human Lispro (Insulin Lispro 100 Unit/Ml 3 Ml Vial) 0 unit SUBCUT QIDACHS [facility]; Protocol Last Admin: 12/16/22 12:40 Dose: Not Given Documented By: LOUIS Non-Admin Reason: No Insulin Coverage Levothyroxine Sodium (Levothyroxine Sodium 88 Mcg Tablet) 88 mcg PO DAILY@0600 [facility] Last Admin: 12/16/22 08:22 Dose: 88 mcg Documented By: LOUIS Metoprolol Tartrate (Metoprolol Tartrate 50 Mg Tablet) 50 mg PO BID [facility]; Protocol Last Admin: 12/16/22 08:43 Dose: Not Given Documented By: LOUIS Non-Admin Reason: soft bp Midodrine (Midodrine Hcl 5 Mg Tablet) 5 mg PO MOWEFR PRN PRN Reason: Hypotension Omeprazole (Omeprazole 20 Mg Capsule.Dr) 20 mg PO BID@0630,1630 [facility] Last Admin: 12/16/22 07:36 Dose: Not Given Documented By: BRITTA Non-Admin Reason: Pt in dialysis Ondansetron HCl (Ondansetron Hcl 4 Mg/2 Ml Vial) 4 mg IVPUSH Q8H PRN PRN Reason: Nausea and Vomiting Pharmacy Consult (Consult Rx Perform Med Rec) 1 each MISCELLANE ONCE PRN PRN Reason: Consult order Sevelamer Carbonate (Sevelamer Carbonate Powder 800 Mg Powd.Pack) 800 mg PO BIDWM [facility] Last Admin: 12/16/22 08:22 Dose: 800 mg Documented By: LOUIS Labs 12/15/22 08:42 12/16/22 10:00 Labs: Laboratory Results - last 24 hr 0712/15/22 12/16/22 16:44 20:19 10:00 Anion Gap 16 Estim Creat Clear Calc 33.6 Estimated GFR 26 POC Glucose 114 144 H Random Glucose 104 Calcium 9.9 12/16/22 10:50 Anion Gap Estim Creat Clear Calc Estimated GFR POC Glucose 91 Random Glucose Calcium Assessment and Plan (1) Epilepsy: Status: Acute (2) Encephalopathy: Status: Acute Plan 72-year-old female with history of paroxysmal atrial fibrillation anticoagulated with Eliquis, hypertension, hyperlipidemia, insulin-dependent type 2 diabetes, asthma, VIOLA, hypothyroidism, end-stage renal disease on dialysis, newly diagnosed seizure disorder, history CVA with expressive aphasia to be observed for seizure activity. Recently diagnosed seziure disorder with video eeg at [facility] and presented with breakthrough SZs with supratherapeutic depakote level. dilantin 108.6 -63.6 seizure precaution and recommends reducing Depakote to 500 bid and stop Keppra. neuro seen patient -added mri/eeg. encephalopathy ammonia normal, sats normal, ua intial -seems not bacteruria or pyuria ,blood culture neg added mri/eeg reviewed . eeg:No evidence of seizure disorder on this EEG.? There was mild right hemispheric slowing that should be correlated with imaging. mri-1.? No acute infarct or other acute intracranial abnormality. 2.? Chronic right parieto-occipital lobe infarct and mild chronic microangiopathy. d/w neurology -encephalopathy possibly multifactorial considering stroke history as well as seizure, might have underlying undiagnosed dementia.patient eltonley need rehab ,if does not improve -may need half-way care. paroxysmal atrial fibrillation-continue Eliquis for anticoagulation and metoprolol for rate control ESRD on dialysis---HD on MWF hyponatremia ? dilutional esrd patient . hypERtension-reasonably controlled-continue home meds. hypothyroidism-continue Synthroid. insulin-dependent type 2 diabetes fs 110-130 -dose adjusted basal insulin -Humalog on sliding scale -POC glucose -diabetic diet pending swallow eval Thombocytopenia -etiology unclear -Trend, cbc am mild intermittent asthma -no acute exacerbation -albuterol p.r.n. DVT prophylaxis- on eliquis Patient condition discussed with the family in detail length-family currently unable to take care of patient at home, patient needs rehab. Need for inpatient: [facility] Time Spent With Patient Time: Total time managing care of this patient today ____ minutes. Quality Stroke Does the patient have a stroke diagnosis?: No VTE Prior VTE?: No VTE Risk Level:: Medical - moderate - high VTE Device Contraindication: Treatment Not Indicated VTE Drug Contraindication: N/A - Med Ordered
[2022-12-16 15:05] VITALS: BP 96/35; PULSE 85; RESP 18; TEMP 35.9; O2SAT 99
[2022-12-16 15:24] LABS: Glucose, Whole Blood 140 mg/dL (60-115)
[2022-12-16] MEDS: Omeprazole 20 MG CAPSULE.DR PO ×2 (17:52→18:01)
[2022-12-16] MEDS: Potassium Chloride Packet 20 MEQ PACKET PO (17:52)
[2022-12-16] MEDS: Potassium Chloride ER 10 MEQ TABLET.ER PO (17:57)
[2022-12-16 19:15] VITALS: BP 112/59; PULSE 96; RESP 17; TEMP 36; O2SAT 100
[2022-12-16 19:45] LABS: Glucose, Whole Blood 177 mg/dL (60-115)
[2022-12-16] MEDS: Divalproex Sodium 250 MG TABLET.DR 750 MG PO (20:31)
[2022-12-16] MEDS: Metoprolol Tartrate 50 MG TABLET PO (20:32)
[2022-12-16] MEDS: Atorvastatin Calcium 40 MG TABLET PO (20:32)
[2022-12-16] MEDS: Insulin Lispro 100 UNIT/ML 3 ML VIAL SUBCUT (20:32)
[2022-12-16] MEDS: Insulin Glargine,Hum.rec.anlog 100 UNIT/ML 10 ML VIAL SUBCUT (20:32)
[2022-12-17] VITALS (7 sets, daily range): BP systolic 103–136; BP diastolic 51–79; PULSE 62–78; RESP 14–20; TEMP 36.1–36.7; O2SAT 97–100
[2022-12-17 04:38] LABS: PTHI 1585 pg/mL (16-77)
[2022-12-17 07:47] LABS: Thyroid Stimulating Hormone 2.73 uIU/mL (0.32-4.0)
[2022-12-17 07:53] LABS: Glucose, Whole Blood 66 mg/dL (60-115)
[2022-12-17 07:56] LABS: Folate 3.8 ng/mL (> or = 4.0); Vitamin B12 675 pg/mL (200-900)
[2022-12-17] MEDS: Sevelamer Carbonate Powder 800 MG POWD.PACK PO ×2 (07:58→17:55)
[2022-12-17] MEDS: amLODIPine Besylate 5 MG TABLET PO (07:59)
[2022-12-17] MEDS: Metoprolol Tartrate 50 MG TABLET PO ×2 (07:59→20:25)
[2022-12-17] MEDS: Divalproex Sodium 250 MG TABLET.DR 750 MG PO ×2 (07:59→20:25)
[2022-12-17] MEDS: Levothyroxine Sodium 88 MCG TABLET PO (07:59)
[2022-12-17] MEDS: Folic Acid 1 MG TABLET 2 MG PO (11:03)
[2022-12-17] MEDS: Apixaban 5 MG TABLET PO ×2 (11:03→20:25)
[2022-12-17 11:56] LABS: Glucose, Whole Blood 109 mg/dL (60-115)
--- NOTE | 2022-12-17 12:17 | MHC.SL.SWA ---
Speech Pathologist Impression: Risk of Aspiration Due to: Lethargy Medically Fragile Neurological Condition History of Pneumonia Reduced Cognition Dysphasia Diet Status: Continue to recommend Chopped/Advanced (NDD3) Solids and Thin Liquids. Meds Whole with Puree. Pt requires assistance w/ tray set up. Liquid Consistency and Strategies for Safe Swallow: Liquid Intake Recommendation: Thin Liquid Intake Strategies: Unrestricted Solid Food Consistency: Dietary Recommendations: Chopped/Advanced (NDD3) Additional Modifications to Solid Foods: Avoid difficult to chew solids and mixed consistencies. Oral Medication Intake: Whole with Puree Please contact the pharmacy regarding appropriate crushable or liquid drug formulations that are available whenever modified delivery is recommended. Compensatory Strategies and Precautions to be Taken for Safe Swallow: Sitting Upright (90 deg) Liquids from Straw Small Bites and Sips Alternate Liquids/Solids Avoid Specific Foods Supervision While Eating and Drinking for Safe Swallow: Intermittent Supervision Foods to Avoid: Regular Solids Mixed consistencies (i.e., soups, cereal with milk, fruit cups, etc.) Swallowing Recommended Treatments: Compens. Strategy Educat. Recommendation for Speech: Inpatient Speech Therapy Comment: Patient seen during lunch for toleration of current diet. Patient has been mostly stable on Chopped/Advanced (NDD3) with Thin liquids for an extended period, with the exception of some textural issues due to food preparation. On todays lunch, which included barbequed pork, carrots, potatoes, patient was mostly independent with self feeding, evidenced good oral management of consistencies, tolerated all liquids without clinical signs of aspiration. Recommend patient continue on current diet of Chopped/Advanced (NDD3) with thin liquids, pills whole with puree. Continue to provide assistance with setting up tray and periodic supervision during meal to assure patient is progressing. Recommend d/c speech at this time. Frequency/Duration: Date Range for Service Req: Timeline to reassess: PRN Cat Sitter Clinican/Clinical Fellow: No Supervisory Statement: I have reviewed and agree with the student/clinical fellow's documentation: N/A Speech Language Pathologist: Sondra Linares M.A., CCC-GAMING ASSOCIATE
--- NOTE | 2022-12-17 12:29 | HO.PM.IMPN ---
Subjective Subjective Date of Service: 12/17/22 Interval History: f/u on seizure, confusion Review of Systems still confused similar, no new events overnight. Physical Exam Vital Signs: Vital Signs: Last Vital Signs Temp 97.0 F 12/17/22 10:54 Pulse 71 12/17/22 10:54 Resp 20 12/17/22 10:54 BP 103/51 L 12/17/22 10:54 Pulse Ox 99 12/17/22 10:54 O2 Del Method Room Air 12/17/22 10:54 BMI result Body Mass Index 41.4 General: AO X 1(intermittent), no acute distress Resp:? CTA bilateral CVS: S1,S2,RRR GI: +BS, NT, no distention Skin: No rash Neuro:? motor grossly intact Psych: appropriate affect Objective Data Active Medications Acetaminophen (Acetaminophen 325 Mg Tablet) 650 mg PO Q6H PRN PRN Reason: Pain, Mild (Pain Scale 1-3) Last Admin: 12/14/22 13:22 Dose: 650 mg Documented By: NIRAJ Albuterol Sulfate (Albuterol Sulfate 90 Mcg 8 Gm Inhaler) 2 puff INHALE Q4H PRN PRN Reason: Wheezing Amlodipine Besylate (Amlodipine Besylate 5 Mg Tablet) 5 mg PO DAILY [facility]; Protocol Last Admin: 12/17/22 07:59 Dose: 5 mg Documented By: LOUIS Apixaban (Apixaban 5 Mg Tablet) 5 mg PO BID [facility] Last Admin: 12/17/22 11:03 Dose: 5 mg Documented By: LOUIS Atorvastatin Calcium (Atorvastatin Calcium 40 Mg Tablet) 40 mg PO BEDTIME [facility] Last Admin: 12/16/22 20:32 Dose: 40 mg Documented By: DANIEL Dextrose (Dextrose 50 % 25 Gm/50 Ml Syringe) 25 gm IVPUSH Q15M PRN; Protocol PRN Reason: per Hypoglycemia Standing Ord. Last Admin: 12/08/22 03:25 Dose: 25 gm Documented By: FREYA Divalproex Sodium (Divalproex Sodium 250 Mg Tablet.) 750 mg PO BID [facility] Last Admin: 12/17/22 07:59 Dose: 750 mg Documented By: LOUIS Docusate Sodium (Docusate Sodium 100 Mg Capsule) 100 mg PO DAILY PRN PRN Reason: Constipation Fluticasone/Vilanterol (Fluticasone/Vilanterol 200/25 Blst.W.Dev) 1 puff INHALE RDAILY [facility] Last Admin: 12/17/22 08:35 Dose: 1 puff Documented By: NANCY Folic Acid (Folic Acid 1 Mg Tablet) 2 mg PO DAILY [facility] Last Admin: 12/17/22 11:03 Dose: 2 mg Documented By: LOUIS Glucose (Glucose Gel 15 Gm Gel..Gram.) 15 gm PO Q15M PRN; Protocol PRN Reason: per Hypoglycemia Standing Ord. Insulin Glargine (Insulin Glargine,Hum.Rec.Anlog 100 Unit/Ml 10 Ml Vial) 3 unit SUBCUT BEDTIME [facility] Last Admin: 12/16/22 20:32 Dose: 3 unit Documented By: DANIEL Insulin Human Lispro (Insulin Lispro 100 Unit/Ml 3 Ml Vial) 0 unit SUBCUT QIDACHS [facility]; Protocol Last Admin: 12/17/22 10:02 Dose: Not Given Documented By: LOUIS Non-Admin Reason: No Insulin Coverage Levothyroxine Sodium (Levothyroxine Sodium 88 Mcg Tablet) 88 mcg PO DAILY@0600 [facility] Last Admin: 12/17/22 07:59 Dose: 88 mcg Documented By: LOUIS Metoprolol Tartrate (Metoprolol Tartrate 50 Mg Tablet) 50 mg PO BID [facility]; Protocol Last Admin: 12/17/22 07:59 Dose: 50 mg Documented By: LOUIS Midodrine (Midodrine Hcl 5 Mg Tablet) 5 mg PO MOWEFR PRN PRN Reason: Hypotension Multivitamins/Vitamin C (Multivitamin Tablet) 1 tab PO BEDTIME [facility] Omeprazole (Omeprazole 20 Mg Capsule.) 20 mg PO BID@0630,1630 [facility] Last Admin: 12/16/22 18:01 Dose: 20 mg Documented By: LOUIS Ondansetron HCl (Ondansetron Hcl 4 Mg/2 Ml Vial) 4 mg IVPUSH Q8H PRN PRN Reason: Nausea and Vomiting Pharmacy Consult (Consult Rx Perform Med Rec) 1 each MISCELLANE ONCE PRN PRN Reason: Consult order Sevelamer Carbonate (Sevelamer Carbonate Powder 800 Mg Powd.Pack) 800 mg PO BIDWM [facility] Last Admin: 12/17/22 07:58 Dose: 800 mg Documented By: LOUIS Labs 12/15/22 08:42 12/16/22 10:00 Labs: Laboratory Results - last 24 hr 12/15/22 12/16/22 12/16/22 05:23 15:20 19:39 POC Glucose 140 H 177 H Vitamin B12 Folate TSH PTH Intact 1585 H Calcium (PTH Intact) 9.0 12/17/22 12/17/22 12/17/22 06:31 06:31 07:18 POC Glucose 66 Vitamin B12 675 Folate 3.8 L TSH 2.73 PTH Intact Calcium (PTH Intact) 12/17/22 10:53 POC Glucose 109 Vitamin B12 Folate TSH PTH Intact Calcium (PTH Intact) Assessment and Plan (1) Epilepsy: Status: Acute (2) Encephalopathy: Status: Acute Plan 72-year-old female with history of paroxysmal atrial fibrillation anticoagulated with Eliquis, hypertension, hyperlipidemia, insulin-dependent type 2 diabetes, asthma, VIOLA, hypothyroidism, end-stage renal disease on dialysis, newly diagnosed seizure disorder, history CVA with expressive aphasia to be observed for seizure activity. Recently diagnosed seziure disorder with [place] [facility] [place] and presented with breakthrough SZs with supratherapeutic depakote level. dilantin 108.6 -63.6 seizure precaution and recommends reducing Depakote to 500 bid and stop Keppra. neuro seen patient -added mri/eeg. encephalopathy ammonia normal, sats normal, ua intial -seems not bacteruria or pyuria ,blood culture neg added mri/eeg reviewed . eeg:No evidence of seizure disorder on this EEG.? There was mild right hemispheric slowing that should be correlated with imaging. mri-1.? No acute infarct or other acute intracranial abnormality. 2.? Chronic right parieto-occipital lobe infarct and mild chronic microangiopathy. d/w neurology -encephalopathy possibly multifactorial considering stroke history as well as seizure, might have underlying undiagnosed dementia.patient eltonley need rehab ,if does not improve -may need [facility] care. paroxysmal atrial fibrillation-continue Eliquis for anticoagulation and metoprolol for rate control ESRD on dialysis---HD on MWF hyponatremia ? dilutional esrd patient . hypERtension-reasonably controlled-continue home meds. hypothyroidism-continue Synthroid. insulin-dependent type 2 diabetes: flactuating -fs with Humalog on sliding scale diabetic diet pending swallow eval Thombocytopenia -etiology unclear -Trend, cbc am mild intermittent asthma -no acute exacerbation -albuterol p.r.n. DVT prophylaxis- on eliquis Patient condition discussed with the family in detail length-family currently unable to take care of patient at home, patient needs rehab. Need for inpatient: [facility] placement Time Spent With Patient Time: Total time managing care of this patient today ____ minutes. Quality Stroke Does the patient have a stroke diagnosis?: No VTE Prior VTE?: No VTE Risk Level:: Medical - moderate - high VTE Device Contraindication: Treatment Not Indicated VTE Drug Contraindication: N/A - Med Ordered
--- NOTE | 2022-12-17 15:18 | PM.PNNEP ---
Subjective Subjective Date of Service: 12/17/22 Interval history: Seen and examiend, events noted Physical Exam Vital Signs: Vital Signs: Last Vital Signs Temp 97.6 F 12/17/22 15:04 Pulse 72 12/17/22 15:04 Resp 14 12/17/22 15:04 BP 136/60 12/17/22 15:04 Pulse Ox 98 12/17/22 15:04 O2 Del Method Room Air 12/17/22 15:04 BMI result Body Mass Index 41.4 Const: Other: General: confused Resp: CTA bilateral CVS: S1,S2,RRR GI: +BS, NT, no distention Skin: No rash Neuro: motor grossly intact Psych: flat Objective Data Labs 12/15/22 08:42 12/16/22 10:00 Labs: Laboratory Results - last 24 hr 12/15/22 12/16/22 12/16/22 05:23 15:20 19:39 POC Glucose 140 H 177 H Vitamin B12 Folate TSH PTH Intact 1585 H Calcium (PTH Intact) 9.0 12/17/22 12/17/22 12/17/22 06:31 06:31 07:18 POC Glucose 66 Vitamin B12 675 Folate 3.8 L TSH 2.73 PTH Intact Calcium (PTH Intact) 12/17/22 10:53 POC Glucose 109 Vitamin B12 Folate TSH PTH Intact Calcium (PTH Intact) Microbiology Microbiology Results: Microbiology 12/07/22 12:43 Blood - Venous Blood Culture - Final No growth after 5 days. 12/07/22 12:11 Blood - Venous Blood Culture - Final No growth after 5 days. 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 Progress Note: Quality Stroke Does the patient have a stroke diagnosis?: No
[2022-12-17 15:50] LABS: Glucose, Whole Blood 137 mg/dL (60-115)
[2022-12-17] MEDS: Omeprazole 20 MG CAPSULE.DR PO (17:55)
[2022-12-17 19:54] LABS: Glucose, Whole Blood 164 mg/dL (60-115)
[2022-12-17] MEDS: Multivitamin TABLET 1 TAB PO (20:25)
[2022-12-17] MEDS: Atorvastatin Calcium 40 MG TABLET PO (20:25)
[2022-12-17] MEDS: Insulin Lispro 100 UNIT/ML 3 ML VIAL SUBCUT (20:26)
[2022-12-18] VITALS (7 sets, daily range): BP systolic 86–129; BP diastolic 49–76; PULSE 68–91; RESP 12–20; TEMP 36–36.3; O2SAT 95–99
[2022-12-18] MEDS: Omeprazole 20 MG CAPSULE.DR PO (05:25)
--- NOTE | 2022-12-18 10:23 | PM.PNNEP ---
Subjective Subjective Date of Service: 12/18/22 Interval history: seen and examined on dialysis no complaints Physical Exam Vital Signs: Vital Signs: Last Vital Signs Temp 97.3 F 12/18/22 03:48 Pulse 68 12/18/22 03:48 Resp 20 12/18/22 03:48 BP 128/56 L 12/18/22 03:48 Pulse Ox 98 12/18/22 03:48 O2 Del Method Room Air 12/18/22 03:48 BMI result Body Mass Index 41.4 Const: General: alert and awake HEENT: Head: Yes normocephalic and Yes atraumatic Neck: Neck: Yes supple Resp: Auscultation: diminished lung sounds Cardio: Heart sounds: S1 normal heart sound present and S2 normal heart sound present GI: Palpation (GI): Soft to palpation and nontender Extrem: General: Yes edema Objective Data Labs 12/15/22 08:42 12/16/22 10:00 Labs: Laboratory Results - last 24 hr 12/17/22 12/17/22 12/17/22 10:53 15:39 19:46 POC Glucose 109 137 H 164 H Microbiology Microbiology Results: Microbiology 12/07/22 12:43 Blood - Venous Blood Culture - Final No growth after 5 days. 12/07/22 12:11 Blood - Venous Blood Culture - Final No growth after 5 days. Procedures Date of Service Date of Service: 12/18/22 Assessment & Plan Assessment and plan (1) End stage kidney disease: Status: Acute (2) Seizure: Status: Acute (3) Anemia: Status: Acute Plan HD today optimize volume status renal diet ABEBE per protocol phosphate binders Time Spent With Patient Time: Total time managing care of this patient today ____ minutes. Progress Note: Quality Stroke Does the patient have a stroke diagnosis?: No
[2022-12-18 11:45] LABS: Glucose, Whole Blood 101 mg/dL (60-115)
--- NOTE | 2022-12-18 11:52 | HO.PM.IMPN ---
Subjective Subjective Date of Service: 12/18/22 Interval History: Seen and examiend, events noted Review of Systems says her name not answer much questions Physical Exam Vital Signs: Vital Signs: Last Vital Signs Temp 97.3 F 12/18/22 03:48 Pulse 68 12/18/22 03:48 Resp 20 12/18/22 03:48 BP 128/56 L 12/18/22 03:48 Pulse Ox 98 12/18/22 03:48 O2 Del Method Room Air 12/18/22 03:48 BMI result Body Mass Index 41.4 General: confused Resp:? CTA bilateral CVS: S1,S2,RRR GI: +BS, NT, no distention Skin: No rash Neuro:? motor grossly intact Psych: flat Objective Data Active Medications Acetaminophen (Acetaminophen 325 Mg Tablet) 650 mg PO Q6H PRN PRN Reason: Pain, Mild (Pain Scale 1-3) Last Admin: 12/14/22 13:22 Dose: 650 mg Documented By: NIRAJ Albuterol Sulfate (Albuterol Sulfate 90 Mcg 8 Gm Inhaler) 2 puff INHALE Q4H PRN PRN Reason: Wheezing Amlodipine Besylate (Amlodipine Besylate 5 Mg Tablet) 5 mg PO DAILY [facility]; Protocol Last Admin: 12/18/22 10:24 Dose: Not Given Documented By: RASHAWN Non-Admin Reason: Off unit: Dialysis Apixaban (Apixaban 5 Mg Tablet) 5 mg PO BID [facility] Last Admin: 12/18/22 10:24 Dose: Not Given Documented By: RASHAWN Non-Admin Reason: Off unit: Dialysis Atorvastatin Calcium (Atorvastatin Calcium 40 Mg Tablet) 40 mg PO BEDTIME [facility] Last Admin: 12/17/22 20:25 Dose: 40 mg Documented By: NATALIE Cinacalcet (Cinacalcet Hcl 30 Mg Tablet) 30 mg PO DAILY [facility] Last Admin: 12/18/22 10:24 Dose: Not Given Documented By: RASHAWN Non-Admin Reason: Off unit: Dialysis Dextrose (Dextrose 50 % 25 Gm/50 Ml Syringe) 25 gm IVPUSH Q15M PRN; Protocol PRN Reason: per Hypoglycemia Standing Ord. Last Admin: 12/08/22 03:25 Dose: 25 gm Documented By: FREYA Divalproex Sodium (Divalproex Sodium 250 Mg Tablet.) 750 mg PO BID [facility] Last Admin: 12/18/22 10:24 Dose: Not Given Documented By: RASHAWN Non-Admin Reason: Off unit: Dialysis Docusate Sodium (Docusate Sodium 100 Mg Capsule) 100 mg PO DAILY PRN PRN Reason: Constipation Fluticasone/Vilanterol (Fluticasone/Vilanterol 200/25 Blst.W.Dev) 1 puff INHALE RDAILY [facility] Last Admin: 12/18/22 07:44 Dose: Not Given Documented By: MACRINA Non-Admin Reason: Not In Room Folic Acid (Folic Acid 1 Mg Tablet) 2 mg PO DAILY [facility] Last Admin: 12/18/22 10:24 Dose: Not Given Documented By: RASHAWN Non-Admin Reason: Off unit: Dialysis Glucose (Glucose Gel 15 Gm Gel..Gram.) 15 gm PO Q15M PRN; Protocol PRN Reason: per Hypoglycemia Standing Ord. Insulin Human Lispro (Insulin Lispro 100 Unit/Ml 3 Ml Vial) 0 unit SUBCUT QIDACHS [facility]; Protocol Last Admin: 12/18/22 11:51 Dose: Not Given Documented By: RASHAWN Non-Admin Reason: No Insulin Coverage Levothyroxine Sodium (Levothyroxine Sodium 88 Mcg Tablet) 88 mcg PO DAILY@0600 [facility] Last Admin: 12/17/22 07:59 Dose: 88 mcg Documented By: LOUIS Metoprolol Tartrate (Metoprolol Tartrate 50 Mg Tablet) 50 mg PO BID [facility]; Protocol Last Admin: 12/18/22 10:24 Dose: Not Given Documented By: RASHAWN Non-Admin Reason: Off unit: Dialysis Midodrine (Midodrine Hcl 5 Mg Tablet) 5 mg PO MOWEFR PRN PRN Reason: Hypotension Multivitamins/Vitamin C (Multivitamin Tablet) 1 tab PO BEDTIME [facility] Last Admin: 12/17/22 20:25 Dose: 1 tab Documented By: NATALIE Omeprazole (Omeprazole 20 Mg Capsule.) 20 mg PO BID@0630,1630 [facility] Last Admin: 12/18/22 05:25 Dose: 20 mg Documented By: NATALIE Ondansetron HCl (Ondansetron Hcl 4 Mg/2 Ml Vial) 4 mg IVPUSH Q8H PRN PRN Reason: Nausea and Vomiting Pharmacy Consult (Consult Rx Perform Med Rec) 1 each MISCELLANE ONCE PRN PRN Reason: Consult order Sevelamer Carbonate (Sevelamer Carbonate Powder 800 Mg Powd.Pack) 800 mg PO BIDWM PB Last Admin: 12/18/22 08:23 Dose: Not Given Documented By: RASHAWN Non-Admin Reason: Off unit: Dialysis Labs 12/15/22 08:42 12/16/22 10:00 Labs: Laboratory Results - last 24 hr 12/17/22 12/17/22 12/17/22 10:53 15:39 19:46 POC Glucose 109 137 H 164 H 12/18/22 11:42 POC Glucose 101 Assessment and Plan (1) Epilepsy: Status: Acute (2) Encephalopathy: Status: Acute Plan 72-year-old female with history of paroxysmal atrial fibrillation anticoagulated with Eliquis, hypertension, hyperlipidemia, insulin-dependent type 2 diabetes, asthma, VIOLA, hypothyroidism, end-stage renal disease on dialysis, newly diagnosed seizure disorder, history CVA with expressive aphasia to be observed for seizure activity. Recently diagnosed seziure disorder with video eeg at [facility] [place] and presented with breakthrough SZs with supratherapeutic depakote level. dilantin 108.6 -63.6 seizure precaution neuro seen patient -added mri/eeg-seems unrevealin. adjusted Depakote to 750 bid . encephalopathy ammonia normal, sats normal, ua intial -seems not bacteruria or pyuria ,blood culture neg added mri/eeg reviewed . eeg:No evidence of seizure disorder on this EEG.? There was mild right hemispheric slowing that should be correlated with imaging. mri-1.? No acute infarct or other acute intracranial abnormality. 2.? Chronic right parieto-occipital lobe infarct and mild chronic microangiopathy. d/w neurology -encephalopathy possibly multifactorial considering stroke history as well as seizure, might have underlying undiagnosed dementia.patient eltonley need rehab ,if does not improve -may need powder expert care. paroxysmal atrial fibrillation-continue Eliquis for anticoagulation and metoprolol for rate control ESRD on dialysis---HD on MWF hyponatremia ? dilutional esrd patient . hypERtension-reasonably controlled-continue home meds. hypothyroidism-continue Synthroid. insulin-dependent type 2 diabetes: flactuating -fs with Humalog on sliding scale diabetic diet pending swallow eval Thombocytopenia -etiology unclear -Trend, cbc am mild intermittent asthma -no acute exacerbation -albuterol p.r.n. Low folate levels :added folate replacements DVT prophylaxis- on eliquis Patient condition discussed with the family in detail length-family currently unable to take care of patient at home, patient needs rehab. Need for inpatient: [facility] rehab placement Time Spent With Patient Time: Total time managing care of this patient today ____ minutes. Quality Stroke Does the patient have a stroke diagnosis?: No VTE Prior VTE?: No VTE Risk Level:: Medical - moderate - high VTE Device Contraindication: Treatment Not Indicated VTE Drug Contraindication: N/A - Med Ordered
--- NOTE | 2022-12-18 11:53 | MHC.CM.PN ---
Addendum entered by Sondra Moon RN 12/18/22 16:26: ALL COMMUNICATION W/[facility] LIAISON REGARDING PLACEMENT HAS BEEN VIA PHONE TODAY NOT IN [facility]. Addendum entered by Sondra Moon RN 12/18/22 16:23: CM STILL AWAITING RESPONSE FROM LIAISON AT [facility] REGARDING ARRANGEMENTS FOR PT'S HD TRANSPORTATION W/[facility], PT'S DIALYSIS SCHEDULE IS MWF, PT'S SON/ALT HCP WOULD LIKE TO BE CALLED TOMORROW IF PT IS ABLE TO D/C HE WILL COME TO [facility] PRIOR TO TRANSFER. Original Note: EMR REVIEWED, [facility] WILLING TO OFFER PT A STR BED W/PLAN FOR TRANSITION TO LTC IF NEEDED, THEY WILL JUST NEED TO SET UP HER TRANSPORT TO DIALYSIS AT [facility], PCM CONTACTED PT'S SON/HCP EDSON AND HE REPORTS PT DOES HAVE BUS/VAN TRANSPORT TO HD AND CM WILL CONTACT [facility] FOR NUMBER OF BUS COMPANY EDSON IS AT WORK AND DOES NOT HAVE NUMBER ON HIM. EDSON ALSO REPORTS PT FILLED OUT A HCP AT [facility], CM CONTACTED [facility] [employer] AND THEY WILL FAX COPY TO [facility] FAX.
[2022-12-18 15:50] LABS: Glucose, Whole Blood 67 mg/dL (60-115)
[2022-12-18] MEDS: Midodrine HCl 5 MG TABLET PO (16:15)
[2022-12-18 16:33] LABS: Glucose, Whole Blood 133 mg/dL (60-115)
[2022-12-18 20:12] LABS: Glucose, Whole Blood 164 mg/dL (60-115)
[2022-12-18] MEDS: Multivitamin TABLET 1 TAB PO (22:14)
[2022-12-18] MEDS: Insulin Lispro 100 UNIT/ML 3 ML VIAL SUBCUT (22:14)
[2022-12-18] MEDS: Atorvastatin Calcium 40 MG TABLET PO (22:14)
[2022-12-18] MEDS: Divalproex Sodium 250 MG TABLET.DR 750 MG PO (22:14)
[2022-12-18] MEDS: Apixaban 5 MG TABLET PO (22:14)
[2022-12-19 03:57] VITALS: BP 128/46; PULSE 105; RESP 20; TEMP 36.6; O2SAT 98
[2022-12-19] MEDS: Levothyroxine Sodium 88 MCG TABLET PO (05:51)
[2022-12-19] MEDS: Omeprazole 20 MG CAPSULE.DR PO ×2 (05:51→16:52)
[2022-12-19 07:23] VITALS: BP 126/56; PULSE 96; RESP 20; TEMP 36.4; O2SAT 94
[2022-12-19 07:59] LABS: Glucose, Whole Blood 142 mg/dL (60-115)
--- NOTE | 2022-12-19 08:31 | PM.PNNEP ---
Subjective Subjective Date of Service: 12/19/22 Interval history: Seen and examined had HD yesterday no complaints Physical Exam Vital Signs: Vital Signs: Last Vital Signs Temp 97.6 F 12/19/22 07:23 Pulse 96 12/19/22 07:23 Resp 20 12/19/22 07:23 BP 126/56 L 12/19/22 07:23 Pulse Ox 94 12/19/22 07:23 O2 Del Method Room Air 12/19/22 07:23 BMI result Body Mass Index 41.4 Const: General: alert and awake HEENT: Head: Yes normocephalic and Yes atraumatic Neck: Neck: Yes supple Resp: Auscultation: diminished lung sounds Cardio: Heart sounds: S1 normal heart sound present and S2 normal heart sound present GI: Palpation (GI): Soft to palpation and nontender Extrem: General: Yes edema Objective Data Labs 12/15/22 08:42 12/16/22 10:00 Labs: Laboratory Results - last 24 hr 12/18/22 12/18/22 12/18/22 11:42 15:32 16:29 POC Glucose 101 67 133 H 12/18/22 12/19/22 20:07 07:21 POC Glucose 164 H 142 H Microbiology Microbiology Results: Microbiology 12/07/22 12:43 Blood - Venous Blood Culture - Final No growth after 5 days. 12/07/22 12:11 Blood - Venous Blood Culture - Final No growth after 5 days. Procedures Date of Service Date of Service: 12/19/22 Assessment & Plan Assessment and plan (1) End stage kidney disease: Status: Acute (2) Seizure: Status: Acute (3) Anemia: Status: Acute Plan s/p HD yesterday usually has HD at [place] dialysis unit [facility] REC HD on Wednesday renal diet ABEBE per protocol phosphate binders Time Spent With Patient Time: Total time managing care of this patient today ____ minutes. Progress Note: Quality Stroke Does the patient have a stroke diagnosis?: No
[2022-12-19 08:51] VITALS: PULSE 104; RESP 16; O2SAT 96
[2022-12-19] MEDS: Sevelamer Carbonate Powder 800 MG POWD.PACK PO ×2 (10:16→16:52)
[2022-12-19] MEDS: Folic Acid 1 MG TABLET 2 MG PO (10:17)
[2022-12-19] MEDS: Apixaban 5 MG TABLET PO ×2 (10:17→20:06)
[2022-12-19] MEDS: Cinacalcet HCl 30 MG TABLET PO (10:19)
[2022-12-19] MEDS: Divalproex Sodium 250 MG TABLET.DR 750 MG PO ×2 (10:21→20:06)
[2022-12-19 11:06] VITALS: BP 112/53; PULSE 105; RESP 20; TEMP 36.4; O2SAT 96
[2022-12-19 11:27] LABS: Glucose, Whole Blood 182 mg/dL (60-115)
--- NOTE | 2022-12-19 12:01 | P.PNIM_ITS ---
Subjective Subjective Date of Service: 12/19/22 Interval History: Encephalopathy Review of Systems Mental status seems similar to yesterday No new events overnight. Physical Exam Vital Signs: Vital Signs: Last Vital Signs Temp 97.5 F 12/19/22 11:06 Pulse 105 H 12/19/22 11:06 Resp 20 12/19/22 11:06 BP 112/53 L 12/19/22 11:06 Pulse Ox 96 12/19/22 11:06 O2 Del Method Room Air 12/19/22 11:06 BMI result Body Mass Index 41.4 General: confused Resp:? CTA bilateral CVS: S1,S2,RRR GI: +BS, NT, no distention Skin: No rash Neuro:? motor grossly intact Psych: flat Objective Data Active Medications Acetaminophen (Acetaminophen 325 Mg Tablet) 650 mg PO Q6H PRN PRN Reason: Pain, Mild (Pain Scale 1-3) Last Admin: 12/14/22 13:22 Dose: 650 mg Documented By: NIRAJ Albuterol Sulfate (Albuterol Sulfate 90 Mcg 8 Gm Inhaler) 2 puff INHALE Q4H PRN PRN Reason: Wheezing Apixaban (Apixaban 5 Mg Tablet) 5 mg PO BID [facility] Last Admin: 12/19/22 10:17 Dose: 5 mg Documented By: JOHN Atorvastatin Calcium (Atorvastatin Calcium 40 Mg Tablet) 40 mg PO BEDTIME [facility] Last Admin: 12/18/22 22:14 Dose: 40 mg Documented By: NATALIE Cinacalcet (Cinacalcet Hcl 30 Mg Tablet) 30 mg PO DAILY [facility] Last Admin: 12/19/22 10:19 Dose: 30 mg Documented By: JOHN Dextrose (Dextrose 50 % 25 Gm/50 Ml Syringe) 25 gm IVPUSH Q15M PRN; Protocol PRN Reason: per Hypoglycemia Standing Ord. Last Admin: 12/08/22 03:25 Dose: 25 gm Documented By: FREYA Divalproex Sodium (Divalproex Sodium 250 Mg Tablet.Dr) 750 mg PO BID [facility] Last Admin: 12/19/22 10:21 Dose: 750 mg Documented By: JOHN Docusate Sodium (Docusate Sodium 100 Mg Capsule) 100 mg PO DAILY PRN PRN Reason: Constipation Fluticasone/Vilanterol (Fluticasone/Vilanterol 200/25 Blst.W.Dev) 1 puff INHALE RDAILY [facility] Last Admin: 12/19/22 08:49 Dose: 1 puff Documented By: WOLF Folic Acid (Folic Acid 1 Mg Tablet) 2 mg PO DAILY [facility] Last Admin: 12/19/22 10:17 Dose: 2 mg Documented By: JOHN Glucose (Glucose Gel 15 Gm Gel..Gram.) 15 gm PO Q15M PRN; Protocol PRN Reason: per Hypoglycemia Standing Ord. Insulin Human Lispro (Insulin Lispro 100 Unit/Ml 3 Ml Vial) 0 unit SUBCUT QIDACHS [facility]; Protocol Last Admin: 12/19/22 08:12 Dose: Not Given Documented By: JOHN Non-Admin Reason: No Insulin Coverage Levothyroxine Sodium (Levothyroxine Sodium 88 Mcg Tablet) 88 mcg PO DAILY@0600 [facility] Last Admin: 12/19/22 05:51 Dose: 88 mcg Documented By: NATALIE Metoprolol Tartrate (Metoprolol Tartrate 25 Mg Tablet) 25 mg PO QID [facility]; Protocol Midodrine (Midodrine Hcl 5 Mg Tablet) 5 mg PO MOWEFR PRN PRN Reason: Hypotension Multivitamins/Vitamin C (Multivitamin Tablet) 1 tab PO BEDTIME [facility] Last Admin: 12/18/22 22:14 Dose: 1 tab Documented By: NATALIE Omeprazole (Omeprazole 20 Mg Capsule.Dr) 20 mg PO BID@0630,1630 [facility] Last Admin: 12/19/22 05:51 Dose: 20 mg Documented By: NATALIE Ondansetron HCl (Ondansetron Hcl 4 Mg/2 Ml Vial) 4 mg IVPUSH Q8H PRN PRN Reason: Nausea and Vomiting Pharmacy Consult (Consult Rx Perform Med Rec) 1 each MISCELLANE ONCE PRN PRN Reason: Consult order Sevelamer Carbonate (Sevelamer Carbonate Powder 800 Mg Powd.Pack) 800 mg PO BIDWM [facility] Last Admin: 12/19/22 10:16 Dose: 800 mg Documented By: JOHN Labs 12/15/22 08:42 12/16/22 10:00 Labs: Laboratory Results - last 24 hr 12/18/22 12/18/22 12/18/22 15:32 16:29 20:07 POC Glucose 67 133 H 164 H 12/19/22 12/19/22 07:21 11:06 POC Glucose 142 H 182 H Assessment and Plan (1) Epilepsy: Status: Acute (2) Encephalopathy: Status: Acute Plan 72-year-old female with history of paroxysmal atrial fibrillation anticoagulated with Eliquis, hypertension, hyperlipidemia, insulin-dependent type 2 diabetes, asthma, VIOLA, hypothyroidism, end-stage renal disease on dialysis, newly diagnosed seizure disorder, history CVA with expressive aphasia to be observed for seizure activity. Recently diagnosed seziure disorder with video eeg at [facility] [place] and presented with breakthrough SZs with supratherapeutic depakote level. dilantin 108.6 -63.6 seizure precaution neuro seen patient -added mri/eeg-seems unrevealin. adjusted Depakote to 750 bid . encephalopathy ammonia normal, sats normal, ua intial -seems not bacteruria or pyuria ,blood culture neg added mri/eeg reviewed . eeg:No evidence of seizure disorder on this EEG.? There was mild right hemispheric slowing that should be correlated with imaging. mri-1.? No acute infarct or other acute intracranial abnormality. 2.? Chronic right parieto-occipital lobe infarct and mild chronic microangiopathy. d/w neurology -encephalopathy possibly multifactorial considering stroke history as well as seizure, might have underlying undiagnosed dementia.patient gordo li eed rehab ,if does not improve -may need termite inspector care. paroxysmal atrial fibrillation-continue Eliquis for anticoagulation and metoprolol for rate control ESRD on dialysis---HD on MWF hyponatremia ? dilutional esrd patient . hypERtension-reasonably controlled-continue home meds. hypothyroidism-continue Synthroid. insulin-dependent type 2 diabetes: flactuating -fs with Humalog on sliding scale diabetic diet pending swallow eval Thombocytopenia -etiology unclear -Trend, cbc am mild intermittent asthma -no acute exacerbation -albuterol p.r.n. Low folate levels :added folate replacements DVT prophylaxis- on eliquis Patient condition discussed with the family in detail length-family currently unable to take care of patient at home, patient needs rehab. Need for inpatient: [facility] rehab placement Time Spent With Patient Time: Total time managing care of this patient today ____ minutes. Quality Stroke Does the patient have a stroke diagnosis?: No VTE Prior VTE?: No VTE Risk Level:: Medical - moderate - high VTE Device Contraindication: Treatment Not Indicated VTE Drug Contraindication: N/A - Med Ordered
[2022-12-19] MEDS: Insulin Lispro 100 UNIT/ML 3 ML VIAL SUBCUT ×2 (12:10→16:52)
[2022-12-19] MEDS: Metoprolol Tartrate 25 MG TABLET PO ×3 (14:06→20:06)
[2022-12-19 15:17] VITALS: BP 118/56; PULSE 97; RESP 20; TEMP 36.3; O2SAT 95
[2022-12-19 16:36] LABS: Glucose, Whole Blood 160 mg/dL (60-115)
[2022-12-19 19:02] VITALS: BP 101/57; PULSE 77; RESP 18; TEMP 36.1; O2SAT 98
[2022-12-19] MEDS: Atorvastatin Calcium 40 MG TABLET PO (20:06)
[2022-12-19] MEDS: Multivitamin TABLET 1 TAB PO (20:06)
[2022-12-19 20:14] LABS: Glucose, Whole Blood 137 mg/dL (60-115)
[2022-12-20] VITALS (7 sets, daily range): BP systolic 97–151; BP diastolic 40–98; PULSE 70–126; RESP 16–20; TEMP 35.8–36.7; O2SAT 95–98
[2022-12-20] MEDS: Acetaminophen 325 MG TABLET 650 MG PO (03:19)
[2022-12-20] MEDS: Omeprazole 20 MG CAPSULE.DR PO ×2 (06:07→17:48)
[2022-12-20] MEDS: Levothyroxine Sodium 88 MCG TABLET PO (06:07)
--- NOTE | 2022-12-20 08:00 | PM.PNNEP ---
Subjective Subjective Date of Service: 12/20/22 Interval history: seen and examined no complaints Physical Exam Vital Signs: Vital Signs: Last Vital Signs Temp 96.9 F 12/20/22 07:25 Pulse 70 12/20/22 07:42 Resp 18 12/20/22 07:42 BP 97/51 L 12/20/22 07:25 Pulse Ox 96 12/20/22 07:25 O2 Del Method Room Air 12/20/22 07:25 BMI result Body Mass Index 41.4 Const: General: alert and awake HEENT: Head: Yes normocephalic and Yes atraumatic Neck: Neck: Yes supple Resp: Auscultation: diminished lung sounds Cardio: Heart sounds: S1 normal heart sound present and S2 normal heart sound present GI: Palpation (GI): Soft to palpation and nontender Extrem: General: Yes edema Objective Data Labs 12/15/22 08:42 12/16/22 10:00 Labs: Laboratory Results - last 24 hr 12/19/22 12/19/22 12/19/22 11:06 16:18 19:47 POC Glucose 182 H 160 H 137 H Microbiology Microbiology Results: Microbiology 12/07/22 12:43 Blood - Venous Blood Culture - Final No growth after 5 days. 12/07/22 12:11 Blood - Venous Blood Culture - Final No growth after 5 days. Procedures Date of Service Date of Service: 12/20/22 Assessment & Plan Assessment and plan (1) End stage kidney disease: Status: Acute (2) Seizure: Status: Acute (3) Anemia: Status: Acute Plan s/p HD yesterday usually has HD at [place] dialysis unit [facility] HD tomorrow renal diet ABEBE per protocol phosphate binders Time Spent With Patient Time: Total time managing care of this patient today ____ minutes. Progress Note: Quality Stroke Does the patient have a stroke diagnosis?: No
[2022-12-20] MEDS: Sevelamer Carbonate Powder 800 MG POWD.PACK PO ×2 (08:01→17:47)
[2022-12-20] MEDS: Folic Acid 1 MG TABLET 2 MG PO (08:02)
[2022-12-20] MEDS: Divalproex Sodium 250 MG TABLET.DR 750 MG PO ×2 (08:03→21:39)
[2022-12-20 08:10] LABS: Glucose, Whole Blood 131 mg/dL (60-115)
[2022-12-20] MEDS: Cinacalcet HCl 30 MG TABLET PO (08:18)
[2022-12-20] MEDS: Apixaban 5 MG TABLET PO ×2 (08:19→21:39)
[2022-12-20 09:09] LABS: Anion Gap 23 (12-20); Blood Urea Nitrogen 50 mg/dL (9-16); Calcium 8.3 mg/dL (8.4-10.2); Carbon Dioxide 16 mmol/L (22-29); Chloride 95 mmol/L (96-108); Creatinine Clr Calc Pharmacy 8.9; Estimated Glomerular Filt Rate 6; Glucose Random 118 mg/dL (60-115); Potassium 5.1 mmol/L (3.3-5.1); Sodium 129 mmol/L (135-145)
--- NOTE | 2022-12-20 09:17 | P.PNIM_ITS ---
Subjective Subjective Date of Service: 12/21/22 Interval History: Encephalopathy Review of Systems Mental status seems similar to yesterday No new events overnight. Physical Exam Vital Signs: Vital Signs: Last Vital Signs Temp 96.9 F 12/20/22 07:25 Pulse 70 12/20/22 07:42 Resp 18 12/20/22 07:42 BP 97/51 L 12/20/22 07:25 Pulse Ox 96 12/20/22 07:25 O2 Del Method Room Air 12/20/22 07:25 BMI result Body Mass Index 41.4 General: confused Resp:? CTA bilateral CVS: S1,S2,RRR GI: +BS, NT, no distention Skin: No rash Neuro:? motor grossly intact Psych: flat Objective Data Active Medications Acetaminophen (Acetaminophen 325 Mg Tablet) 650 mg PO Q6H PRN PRN Reason: Pain, Mild (Pain Scale 1-3) Last Admin: 12/20/22 03:19 Dose: 650 mg Documented By: NATALIE Albuterol Sulfate (Albuterol Sulfate 90 Mcg 8 Gm Inhaler) 2 puff INHALE Q4H PRN PRN Reason: Wheezing Apixaban (Apixaban 5 Mg Tablet) 5 mg PO BID [facility] Last Admin: 12/20/22 08:19 Dose: 5 mg Documented By: LOUIS Atorvastatin Calcium (Atorvastatin Calcium 40 Mg Tablet) 40 mg PO BEDTIME [facility] Last Admin: 12/19/22 20:06 Dose: 40 mg Documented By: NATALIE Cinacalcet (Cinacalcet Hcl 30 Mg Tablet) 30 mg PO DAILY [facility] Last Admin: 12/20/22 08:18 Dose: 30 mg Documented By: LOUIS Dextrose (Dextrose 50 % 25 Gm/50 Ml Syringe) 25 gm IVPUSH Q15M PRN; Protocol PRN Reason: per Hypoglycemia Standing Ord. Last Admin: 12/08/22 03:25 Dose: 25 gm Documented By: FREYA Divalproex Sodium (Divalproex Sodium 250 Mg Tablet.) 750 mg PO BID [facility] Last Admin: 12/20/22 08:03 Dose: 750 mg Documented By: LOUIS Docusate Sodium (Docusate Sodium 100 Mg Capsule) 100 mg PO DAILY PRN PRN Reason: Constipation Fluticasone/Vilanterol (Fluticasone/Vilanterol 200/25 Blst.W.Dev) 1 puff INHALE RDAILY [facility] Last Admin: 12/20/22 07:40 Dose: 1 puff Documented By: CAL Folic Acid (Folic Acid 1 Mg Tablet) 2 mg PO DAILY [facility] Last Admin: 12/20/22 08:02 Dose: 2 mg Documented By: LOUIS Glucose (Glucose Gel 15 Gm Gel..Gram.) 15 gm PO Q15M PRN; Protocol PRN Reason: per Hypoglycemia Standing Ord. Insulin Human Lispro (Insulin Lispro 100 Unit/Ml 3 Ml Vial) 0 unit SUBCUT QIDACHS [facility]; Protocol Last Admin: 12/20/22 08:27 Dose: Not Given Documented By: LOUIS Non-Admin Reason: No Insulin Coverage Levothyroxine Sodium (Levothyroxine Sodium 88 Mcg Tablet) 88 mcg PO DAILY@0600 [facility] Last Admin: 12/20/22 06:07 Dose: 88 mcg Documented By: NATALIE Metoprolol Tartrate (Metoprolol Tartrate 25 Mg Tablet) 25 mg PO QID [facility]; Protocol Last Admin: 12/20/22 08:27 Dose: Not Given Documented By: LOUIS Non-Admin Reason: Decreased Blood Pressure Midodrine (Midodrine Hcl 5 Mg Tablet) 5 mg PO MOWEFR PRN PRN Reason: Hypotension Multivitamins/Vitamin C (Multivitamin Tablet) 1 tab PO BEDTIME [facility] Last Admin: 12/19/22 20:06 Dose: 1 tab Documented By: NATALIE Omeprazole (Omeprazole 20 Mg Jennifer.) 20 mg PO BID@0630,1630 [facility] Last Admin: 12/20/22 06:07 Dose: 20 mg Documented By: NATALIE Ondansetron HCl (Ondansetron Hcl 4 Mg/2 Ml Vial) 4 mg IVPUSH Q8H PRN PRN Reason: Nausea and Vomiting Pharmacy Consult (Consult Rx Perform Med Rec) 1 each MISCELLANE ONCE PRN PRN Reason: Consult order Sevelamer Carbonate (Sevelamer Carbonate Powder 800 Mg Powd.Pack) 800 mg PO BIDWM [facility] Last Admin: 12/20/22 08:01 Dose: 800 mg Documented By: LOUIS Labs 12/15/22 08:42 12/20/22 08:07 Labs: Laboratory Results - last 24 hr 12/19/22 12/19/22 12/19/22 11:06 16:18 19:47 Anion Gap Estim Creat Clear Calc Estimated GFR POC Glucose 182 H 160 H 137 H Random Glucose Calcium 12/20/22 12/20/22 07:30 08:07 Anion Gap 23 H Estim Creat Clear Calc 8.9 Estimated GFR 6 POC Glucose 131 H Random Glucose 118 H Calcium 8.3 L D Assessment and Plan (1) Encephalopathy: Status: Acute Plan 72-year-old female with history of paroxysmal atrial fibrillation anticoagulated with Eliquis, hypertension, hyperlipidemia, insulin-dependent type 2 diabetes, asthma, VIOLA, hypothyroidism, end-stage renal disease on dialysis, newly diagnosed seizure disorder, history CVA with expressive aphasia to be observed for seizure activity. Recently diagnosed seziure disorder? with video eeg at [facility] [place] and presented with breakthrough SZs with supratherapeutic depakote level. dilantin 108.6 -63.6 seizure precaution? neuro seen patient -added mri/eeg-seems unrevealin. adjusted Depakote to 750 bid . ? encephalopathy ammonia normal, sats normal, ua intial -seems not bacteruria or pyuria ,blood culture neg added mri/eeg reviewed . eeg:No evidence of seizure disorder on this EEG.? There was mild right hemispheric slowing that should be correlated with imaging. mri-1.? No acute infarct or other acute intracranial abnormality. 2.? Chronic right parieto-occipital lobe infarct and mild chronic microangiopathy. d/w neurology -encephalopathy possibly multifactorial considering stroke history as well as seizure, might have underlying undiagnosed dementia.patient gordo need rehab ,if does not improve -may need regional intermodal truck driver care. ?paroxysmal atrial fibrillation-continue Eliquis for anticoagulation and metopr olol for rate control ?ESRD on dialysis---HD on MWF AGMA-seems likely related to esrd. will check vbg. hyponatremia ? dilutional esrd patient . ?hypERtension-reasonably controlled-continue home meds. hypothyroidism-continue Synthroid. ?insulin-dependent type 2 diabetes: flactuating -fs with Humalog on sliding scale diabetic diet pending swallow eval Thombocytopenia -etiology unclear -Trend, cbc am ?mild intermittent asthma -no acute exacerbation -albuterol p.r.n. Low folate levels :added folate replacements DVT prophylaxis- on eliquis Patient condition discussed with the family in detail length-family currently unable to take care of patient at home, patient needs rehab. Need for inpatient:? [facility] rehab placement Time Spent With Patient Time: Total time managing care of this patient today ____ minutes. Quality Stroke Does the patient have a stroke diagnosis?: No VTE Prior VTE?: No VTE Risk Level:: Medical - moderate - high VTE Device Contraindication: Treatment Not Indicated VTE Drug Contraindication: N/A - Med Ordered
[2022-12-20 09:39] LABS: Venous Blood Gas Refer to POC result
[2022-12-20 09:42] LABS: VBG Base Excess -4.9 mmol/L; VBG HCO3 19 mmol/L (22-26); VBG pCO2 31 mmHg; VBG pH 7.38 (7.32-7.43); VBG pO2 78 mmHg
[2022-12-20] MEDS: Sodium Bicarbonate 650 MG TABLET PO ×4 (11:00→21:39)
[2022-12-20 11:55] LABS: Glucose, Whole Blood 188 mg/dL (60-115)
[2022-12-20] MEDS: Metoprolol Tartrate 25 MG TABLET PO ×4 (12:39→21:48)
[2022-12-20] MEDS: Insulin Lispro 100 UNIT/ML 3 ML VIAL SUBCUT ×2 (12:40→17:46)
[2022-12-20 16:31] LABS: Glucose, Whole Blood 176 mg/dL (60-115)
[2022-12-20] MEDS: Atorvastatin Calcium 40 MG TABLET PO (21:39)
[2022-12-20] MEDS: Multivitamin TABLET 1 TAB PO (21:39)
[2022-12-20 21:42] LABS: Glucose, Whole Blood 131 mg/dL (60-115)
[2022-12-21] VITALS: BP 111/56; PULSE 62; RESP 16; TEMP 36.4; O2SAT 97
[2022-12-21 03:28] VITALS: BP 109/55; PULSE 63; RESP 16; TEMP 36.6; O2SAT 97
[2022-12-21] MEDS: Levothyroxine Sodium 88 MCG TABLET PO (05:39)
[2022-12-21] MEDS: Omeprazole 20 MG CAPSULE.DR PO ×2 (05:39→18:15)
[2022-12-21 07:30] LABS: Glucose, Whole Blood 99 mg/dL (60-115)
[2022-12-21] MEDS: Sodium Bicarbonate 650 MG TABLET PO ×3 (07:42→22:02)
[2022-12-21] MEDS: Cinacalcet HCl 30 MG TABLET PO (07:42)
[2022-12-21] MEDS: Metoprolol Tartrate 25 MG TABLET PO ×2 (07:42→22:03)
[2022-12-21] MEDS: Apixaban 5 MG TABLET PO ×2 (07:43→22:03)
[2022-12-21] MEDS: Folic Acid 1 MG TABLET 2 MG PO (07:43)
[2022-12-21] MEDS: Divalproex Sodium 250 MG TABLET.DR 750 MG PO (07:43)
[2022-12-21] MEDS: Sevelamer Carbonate Powder 800 MG POWD.PACK PO ×2 (07:45→18:15)
[2022-12-21 08:00] VITALS: BP 110/50; PULSE 55; RESP 17; TEMP 35.7; O2SAT 98
[2022-12-21 08:07] VITALS: PULSE 78; RESP 16; O2SAT 96
--- NOTE | 2022-12-21 11:00 | HO.PM.IMPN ---
Subjective Subjective Date of Service: 12/21/22 Interval History: Encephalopathy Review of Systems Mental status seems similar (knows her name ,flacuates) No new events overnight. Physical Exam Vital Signs: Vital Signs: Last Vital Signs Temp 96.3 F L 12/21/22 08:00 Pulse 78 12/21/22 08:07 Resp 16 12/21/22 08:07 BP 110/50 L 12/21/22 08:00 Pulse Ox 98 12/21/22 08:00 O2 Del Method Room Air 12/21/22 08:00 BMI result Body Mass Index 41.4 General: confused Resp:? CTA bilateral CVS: S1,S2,RRR GI: +BS, NT, no distention Skin: No rash Neuro:? motor grossly intact Psych: flat Objective Data Active Medications Acetaminophen (Acetaminophen 325 Mg Tablet) 650 mg PO Q6H PRN PRN Reason: Pain, Mild (Pain Scale 1-3) Last Admin: 12/20/22 03:19 Dose: 650 mg Documented By: NATALIE Albuterol Sulfate (Albuterol Sulfate 90 Mcg 8 Gm Inhaler) 2 puff INHALE Q4H PRN PRN Reason: Wheezing Apixaban (Apixaban 5 Mg Tablet) 5 mg PO BID REPLACED BY [facility] Last Admin: 12/21/22 07:43 Dose: 5 mg Documented By: LOUIS Atorvastatin Calcium (Atorvastatin Calcium 40 Mg Tablet) 40 mg PO BEDTIME REPLACED BY [facility] Last Admin: 12/20/22 21:39 Dose: 40 mg Documented By: STEFFANIE Cinacalcet (Cinacalcet Hcl 30 Mg Tablet) 30 mg PO DAILY REPLACED BY [facility] Last Admin: 12/21/22 07:42 Dose: 30 mg Documented By: LOUIS Dextrose (Dextrose 50 % 25 Gm/50 Ml Syringe) 25 gm IVPUSH Q15M PRN; Protocol PRN Reason: per Hypoglycemia Standing Ord. Last Admin: 12/08/22 03:25 Dose: 25 gm Documented By: FREYA Divalproex Sodium (Divalproex Sodium 250 Mg Tablet.) 750 mg PO BID REPLACED BY [facility] Last Admin: 12/21/22 07:43 Dose: 750 mg Documented By: LOUIS Docusate Sodium (Docusate Sodium 100 Mg Capsule) 100 mg PO DAILY PRN PRN Reason: Constipation Fluticasone/Vilanterol (Fluticasone/Vilanterol 200/25 Blst.W.Dev) 1 puff INHALE RDAILY REPLACED BY [facility] Last Admin: 12/21/22 08:06 Dose: 1 puff Documented By: ANA Folic Acid (Folic Acid 1 Mg Tablet) 2 mg PO DAILY REPLACED BY [facility] Last Admin: 12/21/22 07:43 Dose: 2 mg Documented By: LOUIS Glucose (Glucose Gel 15 Gm Gel..Gram.) 15 gm PO Q15M PRN; Protocol PRN Reason: per Hypoglycemia Standing Ord. Insulin Human Lispro (Insulin Lispro 100 Unit/Ml 3 Ml Vial) 0 unit SUBCUT QIDACHS REPLACED BY [facility]; Protocol Last Admin: 12/21/22 08:25 Dose: Not Given Documented By: LOUIS Non-Admin Reason: No Insulin Coverage Levothyroxine Sodium (Levothyroxine Sodium 88 Mcg Tablet) 88 mcg PO DAILY@0600 REPLACED BY [facility] Last Admin: 12/21/22 05:39 Dose: 88 mcg Documented By: STEFFANIE Metoprolol Tartrate (Metoprolol Tartrate 25 Mg Tablet) 25 mg PO QID REPLACED BY [facility]; Protocol Last Admin: 12/21/22 07:42 Dose: 25 mg Documented By: LOUIS Midodrine (Midodrine Hcl 5 Mg Tablet) 5 mg PO MOWEFR PRN PRN Reason: Hypotension Multivitamins/Vitamin C (Multivitamin Tablet) 1 tab PO BEDTIME REPLACED BY [facility] Last Admin: 12/20/22 21:39 Dose: 1 tab Documented By: STEFFANIE Omeprazole (Omeprazole 20 Mg Capsule.) 20 mg PO BID@0630,1630 REPLACED BY [facility] Last Admin: 12/21/22 05:39 Dose: 20 mg Documented By: STEFFANIE Ondansetron HCl (Ondansetron Hcl 4 Mg/2 Ml Vial) 4 mg IVPUSH Q8H PRN PRN Reason: Nausea and Vomiting Pharmacy Consult (Consult Rx Perform Med Rec) 1 each MISCELLANE ONCE PRN PRN Reason: Consult order Sevelamer Carbonate (Sevelamer Carbonate Powder 800 Mg Powd.Pack) 800 mg PO BIDWM REPLACED BY [facility] Last Admin: 12/21/22 07:45 Dose: 800 mg Documented By: LOUIS Sodium Bicarbonate (Sodium Bicarbonate 650 Mg Tablet) 650 mg PO QID REPLACED BY [facility] Last Admin: 12/21/22 07:42 Dose: 650 mg Documented By: LOUIS Labs 12/15/22 08:42 12/20/22 08:07 Labs: Laboratory Results - last 24 hr 12/20/22 12/20/22 12/20/22 11:23 16:15 19:55 POC Glucose 188 H 176 H 131 H 12/21/22 07:27 POC Glucose 99 Assessment and Plan (1) Encephalopathy: Status: Acute Plan 72-year-old female with history of paroxysmal atrial fibrillation anticoagulated with Eliquis, hypertension, hyperlipidemia, insulin-dependent type 2 diabetes, asthma, VIOLA, hypothyroidism, end-stage renal disease on dialysis, newly diagnosed seizure disorder, history CVA with expressive aphasia to be observed for seizure activity. Recently diagnosed seziure disorder? with video eeg at [facility] [place] and presented with breakthrough SZs with supratherapeutic depakote level. dilantin 108.6 -63.6 seizure precaution? neuro seen patient -added mri/eeg-seems unrevealin. adjusted Depakote to 750 bid . ? encephalopathy ammonia normal, sats normal, ua intial -seems not bacteruria or pyuria ,blood culture neg added mri/eeg reviewed . eeg:No evidence of seizure disorder on this EEG.? There was mild right hemispheric slowing that should be correlated with imaging. mri-1.? No acute infarct or other acute intracranial abnormality. 2.? Chronic right parieto-occipital lobe infarct and mild chronic microangiopathy. d/w neurology -encephalopathy possibly multifactorial considering stroke history as well as seizure, might have underlying undiagnosed dementia.patient gordo need rehab ,if does not improve -may need superintendent container terminal care. ?paroxysmal atrial fibrillation-continue Eliquis for anticoagulation and metoprolol for rate control ?ESRD on dialysis---HD on MWF AGMA-seems likely related to esrd. will check vbg. hyponatremia ? dilutional esrd patient . ?hypERtension-reasonably controlled-continue home meds. hypothyroidism-continue Synthroid. ?insulin-dependent type 2 diabetes: flactuating -fs with Humalog on sliding scale diabetic diet pending swallow eval Thombocytopenia -etiology unclear -Trend, cbc am ?mild intermittent asthma -no acute exacerbation -albuterol p.r.n. Low folate levels :added folate replacements DVT prophylaxis- on eliquis Need for inpatient:? [facility] rehab placement Time Spent With Patient Time: Total time managing care of this patient today ____ minutes. Quality Stroke Does the patient have a stroke diagnosis?: No VTE Prior VTE?: No VTE Risk Level:: Medical - moderate - high VTE Device Contraindication: Treatment Not Indicated VTE Drug Contraindication: N/A - Med Ordered
[2022-12-21 11:06] LABS: Glucose, Whole Blood 111 mg/dL (60-115)
[2022-12-21 11:22] LABS: Anion Gap 25 (12-20); Blood Urea Nitrogen 70 mg/dL (9-16); Calcium 8.2 mg/dL (8.4-10.2); Carbon Dioxide 20 mmol/L (22-29); Chloride 91 mmol/L (96-108); Creatinine Clr Calc Pharmacy 7.1; Estimated Glomerular Filt Rate 4; Glucose Random 116 mg/dL (60-115); Potassium 5.2 mmol/L (3.3-5.1); Sodium 131 mmol/L (135-145)
--- NOTE | 2022-12-21 12:02 | PM.PNNEP ---
Subjective Subjective Date of Service: 12/21/22 Interval history: seen and examined on dialysis Physical Exam Vital Signs: Vital Signs: Last Vital Signs Temp 96.3 F L 12/21/22 08:00 Pulse 78 12/21/22 08:07 Resp 16 12/21/22 08:07 BP 110/50 L 12/21/22 08:00 Pulse Ox 98 12/21/22 08:00 O2 Del Method Room Air 12/21/22 08:00 BMI result Body Mass Index 41.4 Const: General: alert and awake HEENT: Head: Yes normocephalic and Yes atraumatic Neck: Neck: Yes supple Resp: Auscultation: diminished lung sounds Cardio: Heart sounds: S1 normal heart sound present and S2 normal heart sound present GI: Palpation (GI): Soft to palpation and nontender Extrem: General: Yes edema Objective Data Labs 12/15/22 08:42 12/21/22 09:59 Labs: Laboratory Results - last 24 hr 12/20/22 12/20/22 12/21/22 16:15 19:55 07:27 Sodium Potassium Chloride Carbon Dioxide Anion Gap BUN Creatinine Estim Creat Clear Calc Estimated GFR POC Glucose 176 H 131 H 99 Random Glucose Calcium 12/21/22 12/21/22 09:59 11:02 Sodium 131 L Potassium 5.2 H Chloride 91 L Carbon Dioxide 20 L Anion Gap 25 H BUN 70 H Creatinine 8.86 H* Estim Creat Clear Calc 7.1 Estimated GFR 4 POC Glucose 111 Random Glucose 116 H Calcium 8.2 L Microbiology Microbiology Results: Microbiology 12/07/22 12:43 Blood - Venous Blood Culture - Final No growth after 5 days. 12/07/22 12:11 Blood - Venous Blood Culture - Final No growth after 5 days. Procedures Date of Service Date of Service: 12/21/22 Assessment & Plan Assessment and plan (1) End stage kidney disease: Status: Acute (2) Seizure: Status: Acute (3) Anemia: Status: Acute Plan usually has HD at [facility] REC HD today volume optimization renal diet ABEBE per protocol phosphate binders Time Spent With Patient Time: Total time managing care of this patient today ____ minutes. Progress Note: Quality Stroke Does the patient have a stroke diagnosis?: No
--- NOTE | 2022-12-21 13:25 | P.PNIM_ITS ---
Subjective Subjective Date of Service: 12/21/22 Interval History: Encephalopathy Review of Systems Mental status seems similar (knows her name ,flacuates) No new events overnight. Physical Exam Vital Signs: Vital Signs: Last Vital Signs Temp 96.3 F L 12/21/22 08:00 Pulse 78 12/21/22 08:07 Resp 16 12/21/22 08:07 BP 110/50 L 12/21/22 08:00 Pulse Ox 98 12/21/22 08:00 O2 Del Method Room Air 12/21/22 08:00 BMI result Body Mass Index 41.4 General: confused Resp:? CTA bilateral CVS: S1,S2,RRR GI: +BS, NT, no distention Skin: No rash Neuro:? motor grossly intact Psych: flat Objective Data Active Medications Acetaminophen (Acetaminophen 325 Mg Tablet) 650 mg PO Q6H PRN PRN Reason: Pain, Mild (Pain Scale 1-3) Last Admin: 12/20/22 03:19 Dose: 650 mg Documented By: NATALIE Albuterol Sulfate (Albuterol Sulfate 90 Mcg 8 Gm Inhaler) 2 puff INHALE Q4H PRN PRN Reason: Wheezing Apixaban (Apixaban 5 Mg Tablet) 5 mg PO BID [facility] Last Admin: 12/21/22 07:43 Dose: 5 mg Documented By: LOUIS Atorvastatin Calcium (Atorvastatin Calcium 40 Mg Tablet) 40 mg PO BEDTIME [facility] Last Admin: 12/20/22 21:39 Dose: 40 mg Documented By: STEFFANIE Cinacalcet (Cinacalcet Hcl 30 Mg Tablet) 30 mg PO DAILY [facility] Last Admin: 12/21/22 07:42 Dose: 30 mg Documented By: LOUIS Dextrose (Dextrose 50 % 25 Gm/50 Ml Syringe) 25 gm IVPUSH Q15M PRN; Protocol PRN Reason: per Hypoglycemia Standing Ord. Last Admin: 12/08/22 03:25 Dose: 25 gm Documented By: FREYA Divalproex Sodium (Divalproex Sodium 250 Mg Tablet.) 750 mg PO BID [facility] Last Admin: 12/21/22 07:43 Dose: 750 mg Documented By: LOUIS Docusate Sodium (Docusate Sodium 100 Mg Capsule) 100 mg PO DAILY PRN PRN Reason: Constipation Fluticasone/Vilanterol (Fluticasone/Vilanterol 200/25 Blst.W.Dev) 1 puff INHALE RDAILY [facility] Last Admin: 12/21/22 08:06 Dose: 1 puff Documented By: ANA Folic Acid (Folic Acid 1 Mg Tablet) 2 mg PO DAILY [facility] Last Admin: 12/21/22 07:43 Dose: 2 mg Documented By: LOUIS Glucose (Glucose Gel 15 Gm Gel..Gram.) 15 gm PO Q15M PRN; Protocol PRN Reason: per Hypoglycemia Standing Ord. Insulin Human Lispro (Insulin Lispro 100 Unit/Ml 3 Ml Vial) 0 unit SUBCUT QIDACHS [facility]; Protocol Last Admin: 12/21/22 11:10 Dose: Not Given Documented By: LOUIS Non-Admin Reason: No Insulin Coverage Levothyroxine Sodium (Levothyroxine Sodium 88 Mcg Tablet) 88 mcg PO DAILY@0600 [facility] Last Admin: 12/21/22 05:39 Dose: 88 mcg Documented By: STEFFANIE Metoprolol Tartrate (Metoprolol Tartrate 25 Mg Tablet) 25 mg PO QID [facility]; Protocol Last Admin: 12/21/22 07:42 Dose: 25 mg Documented By: LOUIS Midodrine (Midodrine Hcl 5 Mg Tablet) 5 mg PO MOWEFR PRN PRN Reason: Hypotension Multivitamins/Vitamin C (Multivitamin Tablet) 1 tab PO BEDTIME [facility] Last Admin: 12/20/22 21:39 Dose: 1 tab Documented By: STEFFANIE Omeprazole (Omeprazole 20 Mg Capsule.) 20 mg PO BID@0630,1630 [facility] Last Admin: 12/21/22 05:39 Dose: 20 mg Documented By: STEFFANIE Ondansetron HCl (Ondansetron Hcl 4 Mg/2 Ml Vial) 4 mg IVPUSH Q8H PRN PRN Reason: Nausea and Vomiting Pharmacy Consult (Consult Rx Perform Med Rec) 1 each MISCELLANE ONCE PRN PRN Reason: Consult order Sevelamer Carbonate (Sevelamer Carbonate Powder 800 Mg Powd.Pack) 800 mg PO BIDWM [facility] Last Admin: 12/21/22 07:45 Dose: 800 mg Documented By: LOUIS Sodium Bicarbonate (Sodium Bicarbonate 650 Mg Tablet) 650 mg PO QID [facility] Last Admin: 12/21/22 07:42 Dose: 650 mg Documented By: LOUIS Labs 12/15/22 08:42 12/21/22 09:59 Labs: Laboratory Results - last 24 hr 12/20/22 12/20/22 12/21/22 16:15 19:55 07:27 Anion Gap Estim Creat Clear Calc Estimated GFR POC Glucose 176 H 131 H 99 Random Glucose Calcium 12/21/22 12/21/22 09:59 11:02 Anion Gap 25 H Estim Creat Clear Calc 7.1 Estimated GFR 4 POC Glucose 111 Random Glucose 116 H Calcium 8.2 L Assessment and Plan (1) Encephalopathy: Status: Acute Plan 72-year-old female with history of paroxysmal atrial fibrillation anticoagulated with Eliquis, hypertension, hyperlipidemia, insulin-dependent type 2 diabetes, asthma, VIOLA, hypothyroidism, end-stage renal disease on dialysis, newly diagnosed seizure disorder, history CVA with expressive aphasia to be observed for seizure activity. Recently diagnosed seziure disorder? [place] [facility] [place] with breakthrough SZs with supratherapeutic depakote level. dilantin 108.6 -63.6 seizure precaution? neuro seen patient -added mri/eeg-seems unrevealin. d/w neuro adjusted Depakote to 750 bid, repeat depakote levels in am. ? encephalopathy ammonia normal, sats normal, ua intial -seems not bacteruria or pyuria ,blood culture neg added mri/eeg reviewed . eeg:No evidence of seizure disorder on this EEG.? There was mild right hemispheric slowing that should be correlated with imaging. mri-1.? No acute infarct or other acute intracranial abnormality. 2.? Chronic right parieto-occipital lobe infarct and mild chronic microangiopathy. d/w neurology -encephalopathy possibly multifactorial considering stroke history as well as seizure, might have underlying undiagnosed dementia.patient gordo need rehab ,if does not improve -may need terminal clerk care. ?paroxysmal atrial fibrillation-continue Eliquis for anticoagulation and metoprolol for rate control ?ESRD on dialysis---HD on MWF AGMA-seems likely related to esrd.vbg 12/20-ph maintained mild hyperkalemia hyponatremia ? dilutional esrd patient . added bicarb. need Hd . nephrology following ?HTN -reasonably controlled-continue home meds. hypothyroidism-continue Synthroid. ?insulin-dependent type 2 diabetes: flactuating -fs with Humalog on sliding scale diabetic diet pending swallow eval Thombocytopenia -etiology unclear -Trend, cbc am ?mild intermittent asthma -no acute exacerbation -albuterol p.r.n. Low folate levels :on folate replacements DVT prophylaxis- on eliquis Need for inpatient:? awaiting rehab placement, nephro following for esrd-follow bmp/depakote in am -see esrd section for details. Time Spent With Patient Time: Total time managing care of this patient today ____ minutes. Quality Stroke Does the patient have a stroke diagnosis?: No VTE Prior VTE?: No VTE Risk Level:: Medical - moderate - high VTE Device Contraindication: Treatment Not Indicated VTE Drug Contraindication: N/A - Med Ordered
[2022-12-21 15:17] VITALS: BP 134/63; PULSE 76; RESP 16; TEMP 35.8
[2022-12-21] MEDS: Acetaminophen 325 MG TABLET 650 MG PO (15:46)
--- NOTE | 2022-12-21 16:12 | MHC.CM.PN ---
EMR reviewed and per MD rounds, pt is cleared medically, however we are awaiting safe discharge placement. [facility] confirmation that they can accept pt and set up transportation to HD. CM will continue to follow.
[2022-12-21 16:56] LABS: Glucose, Whole Blood 133 mg/dL (60-115)
[2022-12-21 18:50] VITALS: BP 128/78; PULSE 81; RESP 14; TEMP 36.1; O2SAT 93
[2022-12-21 20:14] LABS: Glucose, Whole Blood 183 mg/dL (60-115)
[2022-12-21] MEDS: Atorvastatin Calcium 40 MG TABLET PO (22:02)
[2022-12-21] MEDS: Multivitamin TABLET 1 TAB PO (22:03)
[2022-12-21] MEDS: Insulin Lispro 100 UNIT/ML 3 ML VIAL SUBCUT (22:03)
[2022-12-22] VITALS (8 sets, daily range): BP systolic 86–144; BP diastolic 43–80; PULSE 68–106; RESP 16–20; TEMP 35.9–36.8; O2SAT 95–99
--- NOTE | 2022-12-22 | ECG_ITS ---
Test Reason : tachycardia Blood Pressure : / mmHG Vent. Rate : 074 BPM Atrial Rate : 074 BPM P-R Int : 158 ms QRS Dur : 090 ms QT Int : 426 ms P-R-T Axes : 060 -38 041 degrees QTc Int : 472 ms Sinus rhythm with Premature atrial complexes Left axis deviation Minimal voltage criteria for LVH, may be normal variant ( R in aVL ) Abnormal ECG When compared with ECG of 07-DEC-2022 11:44, Premature atrial complexes are now Present Referred By: David Lal Electronically Signed By:Jesús New
[2022-12-22] MEDS: Albumin Human 25 % 100 ML IV (05:13)
[2022-12-22] MEDS: Levothyroxine Sodium 88 MCG TABLET PO (05:23)
[2022-12-22 05:47] LABS: Glucose, Whole Blood 139 mg/dL (60-115)
--- NOTE | 2022-12-22 06:19 | P.EN_ITS ---
Event Note Date of Service: 12/22/22 Event Note: DRIVER RECRUITER was called on the patient due to decreased responsiveness and hypoxia. Patient's extremities were cold. Unable to obtain automated blood pressure. Ordered ABG, chest x-ray, troponin, BNP, lactic acid and VBG. Patient responding to painful stimulus. Patient's systolic was noted to be 120 using Doppler machine momentarily. Will order albumin. Awaiting labs. Low threshold to escalate care Time Spent With Patient Time: Total time managing care of this patient today ____ minutes.
[2022-12-22 07:38] LABS: Glucose, Whole Blood 99 mg/dL (60-115)
--- NOTE | 2022-12-22 07:52 | PC.NURSE ---
approx 0400 RN called to room for pt with O2 sat 60's. Attempts made to get another O2 sat very difficult and multiple sites, machines used. pt's extremities cool, mottled, Unable to get manual or automated BP. Pt rousable but drowsy. [employer] called, Unable to get all labs despite multi attempts and attempt via foot. ecg completed, POC needed multiple attempts was within acceptable limits. Pt roused more with the commotion and attempts to get VS and labs and pt appropriate. Vitals as they were noted were ok. O2 titrated down to 10L PNRB to see how pt tolerated. She is asking to go home and was able to take her AM med. IV access obtained and albumin hung as ordered. Pt given several warmed blankets. Will CTM.....
[2022-12-22] MEDS: Sodium Bicarbonate 650 MG TABLET PO ×4 (08:08→21:23)
[2022-12-22] MEDS: Cinacalcet HCl 30 MG TABLET PO (08:08)
[2022-12-22] MEDS: Folic Acid 1 MG TABLET 2 MG PO (08:08)
[2022-12-22] MEDS: Apixaban 5 MG TABLET PO ×2 (08:09→21:23)
[2022-12-22] MEDS: Sevelamer Carbonate Powder 800 MG POWD.PACK PO (08:28)
--- NOTE | 2022-12-22 09:13 | HO.PM.IMPN ---
Subjective Subjective Date of Service: 12/22/22 Interval History: f/u on seizure, ecephalopathy Physical Exam Vital Signs: Vital Signs: Last Vital Signs Temp 97.0 F 12/22/22 08:00 Pulse 80 12/22/22 08:00 Resp 20 12/22/22 08:00 BP 114/50 L 12/22/22 08:00 Pulse Ox 97 12/22/22 08:00 O2 Del Method Room Air 12/22/22 08:00 O2 Flow Rate 100 12/22/22 05:00 BMI result Body Mass Index 41.4 Const: Other: General: confused Resp: CTA bilateral CVS: S1,S2,RRR GI: +BS, NT, no distention Skin: No rash Neuro: motor grossly intact Psych: flat Objective Data Active Medications Acetaminophen (Acetaminophen 325 Mg Tablet) 650 mg PO Q6H PRN PRN Reason: Pain, Mild (Pain Scale 1-3) Last Admin: 12/21/22 15:46 Dose: 650 mg Documented By: LOUIS Albuterol Sulfate (Albuterol Sulfate 90 Mcg 8 Gm Inhaler) 2 puff INHALE Q4H PRN PRN Reason: Wheezing Apixaban (Apixaban 5 Mg Tablet) 5 mg PO BID [facility] Last Admin: 12/22/22 08:09 Dose: 5 mg Documented By: LOUIS Atorvastatin Calcium (Atorvastatin Calcium 40 Mg Tablet) 40 mg PO BEDTIME [facility] Last Admin: 12/21/22 22:02 Dose: 40 mg Documented By: TABATHA Cinacalcet (Cinacalcet Hcl 30 Mg Tablet) 30 mg PO DAILY [facility] Last Admin: 12/22/22 08:08 Dose: 30 mg Documented By: LOUIS Dextrose (Dextrose 50 % 25 Gm/50 Ml Syringe) 25 gm IVPUSH Q15M PRN; Protocol PRN Reason: per Hypoglycemia Standing Ord. Last Admin: 12/08/22 03:25 Dose: 25 gm Documented By: FREYA Docusate Sodium (Docusate Sodium 100 Mg Capsule) 100 mg PO DAILY PRN PRN Reason: Constipation Fluticasone/Vilanterol (Fluticasone/Vilanterol 200/25 Blst.W.Dev) 1 puff INHALE RDAILY [facility] Last Admin: 12/22/22 07:26 Dose: Not Given Documented By: DOUG Non-Admin Reason: See Note Folic Acid (Folic Acid 1 Mg Tablet) 2 mg PO DAILY [facility] Last Admin: 12/22/22 08:08 Dose: 2 mg Documented By: LOUIS Glucose (Glucose Gel 15 Gm Gel..Gram.) 15 gm PO Q15M PRN; Protocol PRN Reason: per Hypoglycemia Standing Ord. Insulin Human Lispro (Insulin Lispro 100 Unit/Ml 3 Ml Vial) 0 unit SUBCUT QIDACHS [facility]; Protocol Last Admin: 12/21/22 22:03 Dose: 2 unit Documented By: TABATHA Levothyroxine Sodium (Levothyroxine Sodium 88 Mcg Tablet) 88 mcg PO DAILY@0600 [facility] Last Admin: 12/22/22 05:23 Dose: 88 mcg Documented By: TABATHA Metoprolol Tartrate (Metoprolol Tartrate 25 Mg Tablet) 25 mg PO QID [facility]; Protocol Last Admin: 12/21/22 22:03 Dose: 25 mg Documented By: TABATHA Midodrine (Midodrine Hcl 5 Mg Tablet) 5 mg PO MOWEFR PRN PRN Reason: Hypotension Multivitamins/Vitamin C (Multivitamin Tablet) 1 tab PO BEDTIME [facility] Last Admin: 12/21/22 22:03 Dose: 1 tab Documented By: TABATHA Omeprazole (Omeprazole 20 Mg Capsule.Dr) 20 mg PO BID@0630,1630 [facility] Last Admin: 12/22/22 05:39 Dose: Not Given Documented By: TABATHA Non-Admin Reason: pt not able to swallow whole, cannot crush Ondansetron HCl (Ondansetron Hcl 4 Mg/2 Ml Vial) 4 mg IVPUSH Q8H PRN PRN Reason: Nausea and Vomiting Pharmacy Consult (Consult Rx Perform Med Rec) 1 each MISCELLANE ONCE PRN PRN Reason: Consult order Sevelamer Carbonate (Sevelamer Carbonate Powder 800 Mg Powd.Pack) 800 mg PO BIDWM [facility] Last Admin: 12/22/22 08:28 Dose: 800 mg Documented By: LOUIS Sodium Bicarbonate (Sodium Bicarbonate 650 Mg Tablet) 650 mg PO QID [facility] Last Admin: 12/22/22 08:08 Dose: 650 mg Documented By: LOUIS Valproic Acid (Valproic Acid (As Sodium Salt) 250 Mg/5 Ml Solution) 750 mg PO BID [facility] Last Admin: 12/22/22 08:06 Dose: 750 mg Documented By: LOUIS Labs 12/15/22 08:42 12/21/22 09:59 Labs: Laboratory Results - last 24 hr 12/21/22 12/21/22 12/21/22 09:59 11:02 16:46 Anion Gap 25 H Estim Creat Clear Calc 7.1 Estimated GFR 4 POC Glucose 111 133 H Random Glucose 116 H Calcium 8.2 L Valproic Acid 12/21/22 12/22/22 12/22/22 20:09 03:44 06:27 Anion Gap Estim Creat Clear Calc Estimated GFR POC Glucose 183 H 139 H Random Glucose Calcium Valproic Acid 97.0 12/22/22 07:31 Anion Gap Estim Creat Clear Calc Estimated GFR POC Glucose 99 Random Glucose Calcium Valproic Acid Assessment and Plan (1) Encephalopathy: Status: Acute Plan 72-year-old female with history of paroxysmal atrial fibrillation anticoagulated with Eliquis, hypertension, hyperlipidemia, insulin-dependent type 2 diabetes, asthma, VIOLA, hypothyroidism, end-stage renal disease on dialysis, newly diagnosed seizure disorder, history CVA with expressive aphasia to be observed for seizure activity. Recently diagnosed seziure disorder? with video eeg at [facility] [place] and presented with breakthrough SZs with supratherapeutic depakote level, 108, now 97. Continue depakote at 750 bid encephalopathy unclear etiology work up with mri and eeg unremarkable. continue to obsever ?paroxysmal atrial fibrillation-continue Eliquis for anticoagulation and metoprolol for rate control ?ESRD on dialysis---HD on MWF AGMA-seems likely related to esrd.vbg 12/20-ph maintained mild hyperkalemia hyponatremia ? dilutional esrd patient . added bicarb. need Hd . nephrology following ?HTN -reasonably controlled-continue home meds. hypothyroidism-continue Synthroid. ?insulin-dependent type 2 diabetes: flactuating -fs with Humalog on sliding scale diabetic diet pending swallow eval Thombocytopenia -etiology unclear -Trend, cbc am ?mild intermittent asthma -no acute exacerbation -albuterol p.r.n. Low folate levels :on folate replacements DVT prophylaxis- on eliquis Need for inpatient:? awaiting rehab placement, nephro following for esrd-follow bmp/depakote in am -see esrd section for details. Will need longter care Time Spent With Patient Time: Total time managing care of this patient today ____ minutes. Quality Stroke Does the patient have a stroke diagnosis?: No VTE Prior VTE?: No VTE Risk Level:: Medical - moderate - high VTE Device Contraindication: Treatment Not Indicated VTE Drug Contraindication: N/A - Med Ordered
--- NOTE | 2022-12-22 11:27 | PM.PNNEP ---
Subjective Subjective Date of Service: 12/22/22 Interval history: seen and examined had HD yesterday Physical Exam Vital Signs: Vital Signs: Last Vital Signs Temp 97.0 F 12/22/22 08:00 Pulse 80 12/22/22 08:00 Resp 20 12/22/22 08:00 BP 114/50 L 12/22/22 08:00 Pulse Ox 97 12/22/22 08:00 O2 Del Method Room Air 12/22/22 08:00 O2 Flow Rate 100 12/22/22 05:00 BMI result Body Mass Index 41.4 Const: General: alert and awake HEENT: Head: Yes normocephalic and Yes atraumatic Neck: Neck: Yes supple Resp: Auscultation: diminished lung sounds Cardio: Heart sounds: S1 normal heart sound present and S2 normal heart sound present GI: Palpation (GI): Soft to palpation and nontender Extrem: General: Yes edema Objective Data Labs 12/15/22 08:42 12/21/22 09:59 Labs: Laboratory Results - last 24 hr 12/21/22 12/21/22 12/22/22 16:46 20:09 03:44 POC Glucose 133 H 183 H 139 H Valproic Acid 12/22/22 12/22/22 06:27 07:31 POC Glucose 99 Valproic Acid 97.0 Microbiology Microbiology Results: Microbiology 12/07/22 12:43 Blood - Venous Blood Culture - Final No growth after 5 days. 12/07/22 12:11 Blood - Venous Blood Culture - Final No growth after 5 days. Procedures Date of Service Date of Service: 12/22/22 Assessment & Plan Assessment and plan (1) End stage kidney disease: Status: Acute (2) Seizure: Status: Acute (3) Anemia: Status: Acute Plan usually has HD at [place] dialysis unit mwf hypervolemic hyponatremia REC HD tomorrow renal diet ABEBE per protocol phosphate binders Time Spent With Patient Time: Total time managing care of this patient today ____ minutes. Progress Note: Quality Stroke Does the patient have a stroke diagnosis?: No
[2022-12-22 11:46] LABS: Glucose, Whole Blood 182 mg/dL (60-115)
--- NOTE | 2022-12-22 12:12 | MHC.CM.PN ---
Patient has been medically cleared for dc to SNF/STR today. [facility] today at [facility], via [facility]. CM spoke with Son/HCP/Gwyn and Son Juan and addressed IMM with Gwyn (original will be mailed certified letter to Gwyn and a copy has been placed on the chart). Both Sons are aware of and pleased with the dc plan.
[2022-12-22] MEDS: Insulin Lispro 100 UNIT/ML 3 ML VIAL SUBCUT ×2 (13:41→21:24)
--- NOTE | 2022-12-22 14:54 | MHC.CM.PN ---
Per MD, Planned dc for today has been canceled. Transportation has been canceled and SNF has been notified of the change.
[2022-12-22 16:22] LABS: Glucose, Whole Blood 136 mg/dL (60-115)
[2022-12-22] MEDS: Metoprolol Tartrate 25 MG TABLET PO (17:45)
[2022-12-22] MEDS: Omeprazole 20 MG CAPSULE.DR PO (17:45)
[2022-12-22 19:56] LABS: Glucose, Whole Blood 174 mg/dL (60-115)
[2022-12-22] MEDS: Multivitamin TABLET 1 TAB PO (21:23)
[2022-12-22] MEDS: Atorvastatin Calcium 40 MG TABLET PO (21:23)
[2022-12-23] VITALS (7 sets, daily range): BP systolic 76–116; BP diastolic 40–71; PULSE 71–99; RESP 14–20; TEMP 36.2–36.9; O2SAT 92–99; BMI 41.4
[2022-12-23] MEDS: Acetaminophen 325 MG TABLET 650 MG PO (04:18)
[2022-12-23] MEDS: Levothyroxine Sodium 88 MCG TABLET PO (05:55)
[2022-12-23] MEDS: Omeprazole 20 MG CAPSULE.DR PO ×2 (05:55→16:54)
[2022-12-23 07:16] LABS: Glucose, Whole Blood 128 mg/dL (60-115)
--- NOTE | 2022-12-23 08:38 | PC.RT ---
pt was lethargic but arousable this am with sternal rub. Pt sats 97% on r/a HR 100. RN Admissions Nurse aware and Dr. Acosta
--- NOTE | 2022-12-23 09:53 | P.PNIM_ITS ---
Subjective Subjective Date of Service: 12/23/22 Interval History: Pt had an episode when she was less responsive, difficult to obatin BP, no obvious seizure activity, similar to an episode yesterday he seems to be back at her baseline for now. Sugar was ok Physical Exam Vital Signs: Vital Signs: Last Vital Signs Temp 98.5 F 12/23/22 07:15 Pulse 71 12/23/22 07:15 Resp 20 12/23/22 07:15 BP 99/52 L 12/23/22 03:26 Pulse Ox 97 12/23/22 07:15 O2 Del Method Room Air 12/23/22 07:15 O2 Flow Rate 100 12/22/22 05:00 BMI result Body Mass Index 41.4 Const: Other: General: confused, follows simple ommands Resp: CTA bilateral CVS: S1,S2,RRR GI: +BS, NT, no distention Skin: No rash Neuro: motor grossly intact Psych: flat Objective Data Active Medications Acetaminophen (Acetaminophen 325 Mg Tablet) 650 mg PO Q6H PRN PRN Reason: Pain, Mild (Pain Scale 1-3) Last Admin: 12/23/22 04:18 Dose: 650 mg Documented By: RONNY Albuterol Sulfate (Albuterol Sulfate 90 Mcg 8 Gm Inhaler) 2 puff INHALE Q4H PRN PRN Reason: Wheezing Apixaban (Apixaban 5 Mg Tablet) 5 mg PO BID [facility] Last Admin: 12/22/22 21:23 Dose: 5 mg Documented By: RONNY Atorvastatin Calcium (Atorvastatin Calcium 40 Mg Tablet) 40 mg PO BEDTIME [facility] Last Admin: 12/22/22 21:23 Dose: 40 mg Documented By: RONNY Cinacalcet (Cinacalcet Hcl 30 Mg Tablet) 30 mg PO DAILY [facility] Last Admin: 12/22/22 08:08 Dose: 30 mg Documented By: LOUIS Dextrose (Dextrose 50 % 25 Gm/50 Ml Syringe) 25 gm IVPUSH Q15M PRN; Protocol PRN Reason: per Hypoglycemia Standing Ord. Last Admin: 12/08/22 03:25 Dose: 25 gm Documented By: FREYA Docusate Sodium (Docusate Sodium 100 Mg Capsule) 100 mg PO DAILY PRN PRN Reason: Constipation Fluticasone/Vilanterol (Fluticasone/Vilanterol 200/25 Blst.W.Dev) 1 puff INHALE RDAILY [facility] Last Admin: 12/23/22 07:51 Dose: Not Given Documented By: CAL Non-Admin Reason: Patient Condition Contraindication Folic Acid (Folic Acid 1 Mg Tablet) 2 mg PO DAILY [facility] Last Admin: 12/22/22 08:08 Dose: 2 mg Documented By: LOUIS Glucose (Glucose Gel 15 Gm Gel..Gram.) 15 gm PO Q15M PRN; Protocol PRN Reason: per Hypoglycemia Standing Ord. Insulin Human Lispro (Insulin Lispro 100 Unit/Ml 3 Ml Vial) 0 unit SUBCUT QIDACHS [facility]; Protocol Last Admin: 12/23/22 08:54 Dose: Not Given Documented By: TODD Non-Admin Reason: No Insulin Coverage Levothyroxine Sodium (Levothyroxine Sodium 88 Mcg Tablet) 88 mcg PO DAILY@0600 [facility] Last Admin: 12/23/22 05:55 Dose: 88 mcg Documented By: RONNY Metoprolol Tartrate (Metoprolol Tartrate 25 Mg Tablet) 25 mg PO QID [facility]; Protocol Last Admin: 12/22/22 19:45 Dose: Not Given Documented By: RONNY Non-Admin Reason: Decreased Blood Pressure Midodrine (Midodrine Hcl 5 Mg Tablet) 5 mg PO MOWEFR PRN PRN Reason: Hypotension Multivitamins/Vitamin C (Multivitamin Tablet) 1 tab PO BEDTIME [facility] Last Admin: 12/22/22 21:23 Dose: 1 tab Documented By: RONNY Omeprazole (Omeprazole 20 Mg Jennifer.) 20 mg PO BID@0630,1630 [facility] Last Admin: 12/23/22 05:55 Dose: 20 mg Documented By: RONNY Ondansetron HCl (Ondansetron Hcl 4 Mg/2 Ml Vial) 4 mg IVPUSH Q8H PRN PRN Reason: Nausea and Vomiting Pharmacy Consult (Consult Rx Perform Med Rec) 1 each MISCELLANE ONCE PRN PRN Reason: Consult order Sevelamer Carbonate (Sevelamer Carbonate Powder 800 Mg Powd.Pack) 800 mg PO BIDWM [facility] Last Admin: 12/22/22 17:57 Dose: Not Given Documented By: LOUIS Non-Admin Reason: Patient Refused Sodium Bicarbonate (Sodium Bicarbonate 650 Mg Tablet) 650 mg PO QID [facility] Last Admin: 12/22/22 21:23 Dose: 650 mg Documented By: RONNY Valproic Acid (Valproic Acid (As Sodium Salt) 250 Mg/5 Ml Solution) 750 mg PO BID [facility] Last Admin: 12/22/22 21:24 Dose: 750 mg Documented By: RONNY Labs 12/15/22 08:42 12/21/22 09:59 Labs: Laboratory Results - last 24 hr 12/22/22 12/22/22 12/22/22 04:54 04:54 11:26 Anion Gap Cancelled Estim Creat Clear Calc Cancelled Estimated GFR Cancelled POC Glucose 182 H Random Glucose Cancelled Calcium Cancelled Troponin I High Sens Cancelled 12/22/22 12/22/22 12/23/22 16:16 19:49 07:08 Anion Gap Estim Creat Clear Calc Estimated GFR POC Glucose 136 H 174 H 128 H Random Glucose Calcium Troponin I High Sens Assessment and Plan (1) Encephalopathy: Status: Acute Plan 72-year-old female with history of paroxysmal atrial fibrillation anticoagulated with Eliquis, hypertension, hyperlipidemia, insulin-dependent type 2 diabetes, asthma, VIOLA, hypothyroidism, end-stage renal disease on dialysis, newly diagnos ed seizure disorder, history CVA with expressive aphasia to be observed for seizure activity. Recently diagnosed seziure disorder? [place] [facility] [place] with breakthrough SZs with supratherapeutic depakote level, 108, now 97. Continue depakote at 750 bid encephalopathy unclear etiology work up with mri and eeg unremarkable, continue to have intermittent episodes of altered mental status of unclear etiology, ? mabybe absence seizures continue to obsever ?paroxysmal atrial fibrillation-continue Eliquis for anticoagulation and metoprolol for rate control ?ESRD on dialysis---HD on MWF AGMA-seems likely related to esrd.vbg 12/20-ph maintained mild hyperkalemia hyponatremia ? dilutional esrd patient . added bicarb. need Hd . nephrology following ?HTN -reasonably controlled-continue home meds. hypothyroidism-continue Synthroid. ?insulin-dependent type 2 diabetes: flactuating -fs with Humalog on sliding scale diabetic diet pending swallow eval Thombocytopenia -etiology unclear -Trend, cbc am ?mild intermittent asthma -no acute exacerbation -albuterol p.r.n. Low folate levels :on folate replacements DVT prophylaxis- on eliquis Need for inpatient:? awaiting rehab placement, nephro following for esrd-follow bmp/depakote in am -see esrd section for details. Will need longter care once stable Time Spent With Patient Time: Total time managing care of this patient today ____ minutes. Quality Stroke Does the patient have a stroke diagnosis?: No VTE Prior VTE?: No VTE Risk Level:: Medical - moderate - high VTE Device Contraindication: Treatment Not Indicated VTE Drug Contraindication: N/A - Med Ordered
--- NOTE | 2022-12-23 10:18 | MHC.CM.PN ---
Per ROUNDS discussion, Patient experienced an unresponsive episode today and she is not yet medically cleared for dc. [facility] continues to follow.
--- NOTE | 2022-12-23 12:44 | PM.PNNEP ---
Subjective Subjective Date of Service: 12/23/22 Interval history: seen and examined on dialysis no complaints Physical Exam Vital Signs: Vital Signs: Last Vital Signs Temp 98.5 F 12/23/22 07:15 Pulse 71 12/23/22 07:15 Resp 20 12/23/22 07:15 BP 99/52 L 12/23/22 03:26 Pulse Ox 97 12/23/22 07:15 O2 Del Method Room Air 12/23/22 07:15 O2 Flow Rate 100 12/22/22 05:00 BMI result Body Mass Index 41.4 Const: General: alert and awake HEENT: Head: Yes normocephalic and Yes atraumatic Neck: Neck: Yes supple Resp: Auscultation: diminished lung sounds Cardio: Heart sounds: S1 normal heart sound present and S2 normal heart sound present GI: Palpation (GI): Soft to palpation and nontender Extrem: General: Yes edema Objective Data Labs 12/15/22 08:42 12/21/22 09:59 Labs: Laboratory Results - last 24 hr 12/22/22 12/22/22 12/22/22 04:54 04:54 16:16 Sodium Cancelled Potassium Cancelled Chloride Cancelled Carbon Dioxide Cancelled Anion Gap Cancelled BUN Cancelled Creatinine Cancelled Estim Creat Clear Calc Cancelled Estimated GFR Cancelled POC Glucose 136 H Random Glucose Cancelled Calcium Cancelled Troponin I High Sens Cancelled 12/22/22 12/23/22 19:49 07:08 Sodium Potassium Chloride Carbon Dioxide Anion Gap BUN Creatinine Estim Creat Clear Calc Estimated GFR POC Glucose 174 H 128 H Random Glucose Calcium Troponin I High Sens Microbiology Microbiology Results: Microbiology 12/07/22 12:43 Blood - Venous Blood Culture - Final No growth after 5 days. 12/07/22 12:11 Blood - Venous Blood Culture - Final No growth after 5 days. Procedures Date of Service Date of Service: 12/23/22 Assessment & Plan Assessment and plan (1) End stage kidney disease: Status: Acute (2) Seizure: Status: Acute (3) Anemia: Status: Acute Plan usually has HD at [place] dialysis unit mwf hypervolemic hyponatremia REC HD today UF as tolerated renal diet ABEBE per protocol phosphate binders Time Spent With Patient Time: Total time managing care of this patient today ____ minutes. Progress Note: Quality Stroke Does the patient have a stroke diagnosis?: No
[2022-12-23 14:34] LABS: Glucose, Whole Blood 122 mg/dL (60-115)
[2022-12-23] MEDS: Sodium Bicarbonate 650 MG TABLET PO ×3 (14:57→21:07)
[2022-12-23] MEDS: Folic Acid 1 MG TABLET 2 MG PO (14:57)
[2022-12-23] MEDS: Cinacalcet HCl 30 MG TABLET PO (14:58)
[2022-12-23 15:58] LABS: Glucose, Whole Blood 140 mg/dL (60-115)
--- NOTE | 2022-12-23 16:31 | P.EN_ITS ---
Event Note Date of Service: 12/23/22 Event Note: [employer] called for severe hypotension, sbp about 60 likely due to HD (was negative 0.5L) [place] in [place], fluid bolus initiated sbp improved to 110, patient alert and responsive Time Spent With Patient Time: Total time managing care of this patient today ____ minutes.
[2022-12-23] MEDS: Sevelamer Carbonate Powder 800 MG POWD.PACK PO (16:54)
[2022-12-23 17:02] LABS: Glucose, Whole Blood 152 mg/dL (60-115)
--- NOTE | 2022-12-23 18:05 | PC.NURSE ---
pt was given a 500mL bolus of NS due to low blood pressure. order in MAR was confusing (known issue regarding 500mL bags of IV fluids); confirmed order was for 500mL with MD.
[2022-12-23] MEDS: 0.9 % Sodium Chloride 1,000 ML 500 ML IVCONT (18:19)
[2022-12-23 20:19] LABS: Glucose, Whole Blood 223 mg/dL (60-115)
[2022-12-23] MEDS: Apixaban 5 MG TABLET PO (21:06)
[2022-12-23] MEDS: Atorvastatin Calcium 40 MG TABLET PO (21:06)
[2022-12-23] MEDS: Insulin Lispro 100 UNIT/ML 3 ML VIAL SUBCUT (21:07)
[2022-12-24] VITALS (7 sets, daily range): BP systolic 77–128; BP diastolic 35–82; PULSE 76–99; RESP 16–18; TEMP 36–37.1; O2SAT 94–98
[2022-12-24] MEDS: Levothyroxine Sodium 88 MCG TABLET PO (05:40)
[2022-12-24] MEDS: Omeprazole 20 MG CAPSULE.DR PO (05:40)
[2022-12-24 07:49] LABS: Glucose, Whole Blood 146 mg/dL (60-115)
[2022-12-24] MEDS: Sodium Bicarbonate 650 MG TABLET PO ×3 (08:44→22:15)
[2022-12-24] MEDS: Apixaban 5 MG TABLET PO ×2 (08:44→22:15)
[2022-12-24] MEDS: Metoprolol Tartrate 25 MG TABLET PO ×3 (08:44→22:15)
[2022-12-24] MEDS: Folic Acid 1 MG TABLET 2 MG PO (08:44)
[2022-12-24] MEDS: Sevelamer Carbonate Powder 800 MG POWD.PACK PO (08:44)
--- NOTE | 2022-12-24 09:26 | HO.PM.IMPN ---
Subjective Subjective Date of Service: 12/24/22 Interval History: Pt had another episode hypotension yesterday and decrease responsiveness, but no evidence of seizure, she is more alert and more interactive today, BP is good Physical Exam Vital Signs: Vital Signs: Last Vital Signs Temp 97.2 F 12/24/22 07:32 Pulse 99 12/24/22 07:32 Resp 16 12/24/22 07:32 BP 123/63 12/24/22 07:32 Pulse Ox 94 12/24/22 07:32 O2 Del Method Room Air 12/24/22 07:32 O2 Flow Rate 100 12/22/22 05:00 BMI result Body Mass Index 41.4 Const: Other: General: confused, follows simple ommands Resp: CTA bilateral CVS: S1,S2,RRR GI: +BS, NT, no distention Skin: No rash Neuro: motor grossly intact Psych: flat Objective Data Active Medications Acetaminophen (Acetaminophen 325 Mg Tablet) 650 mg PO Q6H PRN PRN Reason: Pain, Mild (Pain Scale 1-3) Last Admin: 12/23/22 04:18 Dose: 650 mg Documented By: RONNY Albuterol Sulfate (Albuterol Sulfate 90 Mcg 8 Gm Inhaler) 2 puff INHALE Q4H PRN PRN Reason: Wheezing Apixaban (Apixaban 5 Mg Tablet) 5 mg PO BID [facility] Last Admin: 12/24/22 08:44 Dose: 5 mg Documented By: SEEMA Atorvastatin Calcium (Atorvastatin Calcium 40 Mg Tablet) 40 mg PO BEDTIME [facility] Last Admin: 12/23/22 21:06 Dose: 40 mg Documented By: BING Cinacalcet (Cinacalcet Hcl 30 Mg Tablet) 30 mg PO DAILY [facility] Last Admin: 12/24/22 09:10 Dose: Not Given Documented By: SEEMA Non-Admin Reason: NPO Dextrose (Dextrose 50 % 25 Gm/50 Ml Syringe) 25 gm IVPUSH Q15M PRN; Protocol PRN Reason: per Hypoglycemia Standing Ord. Last Admin: 12/08/22 03:25 Dose: 25 gm Documented By: FREYA Docusate Sodium (Docusate Sodium 100 Mg Capsule) 100 mg PO DAILY PRN PRN Reason: Constipation Fluticasone/Vilanterol (Fluticasone/Vilanterol 200/25 Blst.W.Dev) 1 puff INHALE RDAILY [facility] Last Admin: 12/24/22 07:54 Dose: Not Given Documented By: CAL Non-Admin Reason: Patient Condition Contraindication Folic Acid (Folic Acid 1 Mg Tablet) 2 mg PO DAILY [facility] Last Admin: 12/24/22 08:44 Dose: 2 mg Documented By: SEEMA Glucose (Glucose Gel 15 Gm Gel..Gram.) 15 gm PO Q15M PRN; Protocol PRN Reason: per Hypoglycemia Standing Ord. Insulin Human Lispro (Insulin Lispro 100 Unit/Ml 3 Ml Vial) 0 unit SUBCUT QIDACHS [facility]; Protocol Last Admin: 12/24/22 07:51 Dose: Not Given Documented By: SEEMA Non-Admin Reason: No Insulin Coverage Levothyroxine Sodium (Levothyroxine Sodium 88 Mcg Tablet) 88 mcg PO DAILY@0600 [facility] Last Admin: 12/24/22 05:40 Dose: 88 mcg Documented By: BING Metoprolol Tartrate (Metoprolol Tartrate 25 Mg Tablet) 25 mg PO QID [facility]; Protocol Last Admin: 12/24/22 08:44 Dose: 25 mg Documented By: SEEMA Midodrine (Midodrine Hcl 5 Mg Tablet) 5 mg PO MOWEFR PRN PRN Reason: Hypotension Multivitamins/Vitamin C (Multivitamin Tablet) 1 tab PO BEDTIME [facility] Last Admin: 12/23/22 21:15 Dose: Not Given Documented By: BING Non-Admin Reason: pt spit out Omeprazole (Omeprazole 20 Mg Jennifer.) 20 mg PO BID@0630,1630 [facility] Last Admin: 12/24/22 05:40 Dose: 20 mg Documented By: BING Ondansetron HCl (Ondansetron Hcl 4 Mg/2 Ml Vial) 4 mg IVPUSH Q8H PRN PRN Reason: Nausea and Vomiting Pharmacy Consult (Consult Rx Perform Med Rec) 1 each MISCELLANE ONCE PRN PRN Reason: Consult order Sevelamer Carbonate (Sevelamer Carbonate Powder 800 Mg Powd.Pack) 800 mg PO BIDWM [facility] Last Admin: 12/24/22 08:44 Dose: 800 mg Documented By: ESEMA Sodium Bicarbonate (Sodium Bicarbonate 650 Mg Tablet) 650 mg PO QID [facility] Last Admin: 12/24/22 08:44 Dose: 650 mg Documented By: SEEMA Valproic Acid (Valproic Acid (As Sodium Salt) 250 Mg/5 Ml Solution) 750 mg PO BID [facility] Last Admin: 12/24/22 08:44 Dose: 750 mg Documented By: SEEMA Labs 12/15/22 08:42 12/21/22 09:59 Labs: Laboratory Results - last 24 hr 12/23/22 12/23/22 12/23/22 14:22 15:54 16:22 POC Glucose 122 H 140 H 152 H 12/23/22 12/24/22 20:15 07:31 POC Glucose 223 H 146 H Assessment and Plan (1) Encephalopathy: Status: Acute Plan 72-year-old female with history of paroxysmal atrial fibrillation anticoagulated with Eliquis, hypertension, hyperlipidemia, insulin-dependent type 2 diabetes, asthma, VIOLA, hypothyroidism, end-stage renal disease on dialysis, newly diagnosed seizure disorder, history CVA with expressive aphasia to be observed for seizure activity. Recently diagnosed seziure disorder? [place] [facility] [place] presented with breakthrough SZs with supratherapeutic depakote level, 108, now 97. Continue depakote at 750 bid encephalopathy unclear etiology work up with mri and eeg unremarkable, continue to have intermittent episodes of altered mental status of unclear etiology, ? mabybe absence seizures continue to obsever ?paroxysmal atrial fibrillation-continue Eliquis for anticoagulation and metoprolol for rate control ?ESRD on dialysis---HD on MWF AGMA-seems likely related to esrd.vbg 12/20-ph maintained mild hyperkalemia hyponatremia ? dilutional esrd patient . added bicarb. need Hd . nephrology following ?HTN -reasonably controlled-continue home meds. hypothyroidism-continue Synthroid. ?insulin-dependent type 2 diabetes: flactuating -fs with Humalog on sliding scale diabetic diet pending swallow eval Thombocytopenia -etiology unclear -Trend, cbc am ?mild intermittent asthma -no acute exacerbation -albuterol p.r.n. Low folate levels :on folate replacements DVT prophylaxis- on eliquis Need for inpatient:? awaiting rehab placement, nephro following for esrd-follow bmp/depakote in am -see esrd section for details. Will need longter care once stable Time Spent With Patient Time: Total time managing care of this patient today ____ minutes. Quality Stroke Does the patient have a stroke diagnosis?: No VTE Prior VTE?: No VTE Risk Level:: Medical - moderate - high VTE Device Contraindication: Treatment Not Indicated VTE Drug Contraindication: N/A - Med Ordered
--- NOTE | 2022-12-24 10:50 | P.PNNP_ITS ---
Subjective Subjective Date of Service: 12/24/22 Interval history: seen and examined son at bedside updated Physical Exam Vital Signs: Vital Signs: Last Vital Signs Temp 97.2 F 12/24/22 07:32 Pulse 99 12/24/22 07:32 Resp 16 12/24/22 07:32 BP 123/63 12/24/22 07:32 Pulse Ox 94 12/24/22 07:32 O2 Del Method Room Air 12/24/22 07:32 O2 Flow Rate 100 12/22/22 05:00 BMI result Body Mass Index 41.4 Const: General: alert and awake HEENT: Head: Yes normocephalic and Yes atraumatic Neck: Neck: Yes supple Resp: Auscultation: diminished lung sounds Cardio: Heart sounds: S1 normal heart sound present and S2 normal heart sound present GI: Palpation (GI): Soft to palpation and nontender Extrem: General: Yes edema Objective Data Labs 12/15/22 08:42 12/21/22 09:59 Labs: Laboratory Results - last 24 hr 12/23/22 12/23/22 12/23/22 14:22 15:54 16:22 POC Glucose 122 H 140 H 152 H 12/23/22 12/24/22 20:15 07:31 POC Glucose 223 H 146 H Microbiology Microbiology Results: Microbiology 12/07/22 12:43 Blood - Venous Blood Culture - Final No growth after 5 days. 12/07/22 12:11 Blood - Venous Blood Culture - Final No growth after 5 days. Procedures Date of Service Date of Service: 12/24/22 Assessment & Plan Assessment and plan (1) End stage kidney disease: Status: Acute (2) Seizure: Status: Acute (3) Anemia: Status: Acute Plan usually has HD at [place] dialysis unit [facility] new diagnosed seizure disorder with expressive aphasia hypervolemic hyponatremia REC HD tomorrow renal diet ABEBE per protocol phosphate binders Time Spent With Patient Time: Total time managing care of this patient today ____ minutes. Progress Note: Quality Stroke Does the patient have a stroke diagnosis?: No
[2022-12-24 11:30] LABS: Glucose, Whole Blood 276 mg/dL (60-115)
--- NOTE | 2022-12-24 11:30 | P.CDIM_ITS ---
PROVIDER RESPONSE TEXT: To clarify, the appropriate diagnosis supported by the clinical indicators: pressure ulcer coccyx stage 2 QUERY TEXT: PHYSICIAN'S DOCUMENTATION REQUEST Date of Query: 12/24/2022 10:58 AM EDT Patient Name: HOLGER BILL Admit Date: 12/09/2022 Dear Alejandro Acosta, A review of the medical record indicates additional documentation may be needed. Please review below and update the documentation accordingly. Clinical Indicators: The following diagnoses or signs and symptoms were noted in the patient record: Per nursing pressure injury assessment 12/23/22: wound coccyx stage 2 Based on the above, could you clarify the appropriate diagnosis, if significant, that supports the ab ove abnormalities and additional evaluation, monitoring, and/or treatment rendered: pressure ulcer coccyx stage 2 Other type of wound, please specify Other (explain)Clinically unable to determine (explain)Thank you, Peggy Paz RN Use of terms such as suspected, likely, concern for, or probable (associated with a specific diagnosi s that is being evaluated, monitored, or treated as if it exists) are acceptable and can be coded in the inpatient se tting, when documented at the time of discharge. Please use your independent medical judgment in providing your response. THIS QUERY IS PART OF THE PERMANENT MEDICAL RECORD
[2022-12-24] MEDS: Insulin Lispro 100 UNIT/ML 3 ML VIAL SUBCUT (12:09)
--- NOTE | 2022-12-24 14:06 | MHC.SL.SWA ---
Speech Pathologist Impression: Risk of Aspiration Due to: Lethargy Medically Fragile Neurological Condition History of Pneumonia Reduced Cognition Dysphasia Diet Status: Recommend downgrade to PUREE (NDD1) with Thin Liquids (small sips), pills crushed in puree. Patient will require 1-1 feed at this time Liquid Consistency and Strategies for Safe Swallow: Liquid Intake Recommendation: Thin Liquid Intake Strategies: Small Sips Solid Food Consistency: Dietary Recommendations: Pureed (NDD1) Additional Modifications to Solid Foods: Patient requires one to one feeding. Present food in small bites, and liquid in small controlled cup sip or controlled straw sip. Alternate liquids and solids. Monitor that patient has swallowed before presenting more food or liquid. Do not attempt if patient is lethargic or not engaged in meal. Discontinue with clinical signs of aspiration (including coughing after swallow, frequent throat clearing, upper respiratory noise) Oral Medication Intake: Crushed with Puree Please contact the pharmacy regarding appropriate crushable or liquid drug formulations that are available whenever modified delivery is recommended. Compensatory Strategies and Precautions to be Taken for Safe Swallow: Sitting Upright (90 deg) Liquids from Cup Liquids from Straw Small Bites and Sips Alternate Liquids/Solids Rate of Ingestion Change Oral Check Supervision While Eating and Drinking for Safe Swallow: Total Assistance (1:1) Foods to Avoid: Mixed consistencies (i.e., soups, cereal with milk, fruit cups, etc.) Swallowing Recommended Treatments: Compens. Strategy Educat. Recommendation for Speech: Inpatient Speech Therapy Comment: BRUCE Peterson requested re-evaluation of patient's swallow as she noted patient was having difficulty with meds, diet and noted to be coughing on liquids. Per Chart review, patient had an unresponsive incident yesterday. Patient was previously on Chopped/Advance diet with thin liquids, as of 12/17/22, patient was tolerating this diet well, eating independently, and at that time was conversationally communicative. Today, patient is minimally responsive to communication in [place], did not respond follow directions for oral mechanism eval, responding only in context to presentation of food or liquid. On tsps of water, patient held water in mouth momentarily, then intiated propelling bolus, produced a swallow after a mild delay. After several presentation some mild throat clearing noted. Patient given sips of NT liquid, with some improvement in timing of oral transit and swallow. Patient was then given further cup sips of water and produced similar behavior, no clinical signs of aspiration. Patient given tsps of puree, produced a prolonged period of manipilulating bolus with small slow movments, moderated delay before initiating swallow. Bites of puree were followed with sips of liquid to assure clearance. Patient then given softened cookie in puree, producing a slow rotary chewing pattern, prolonged oral phase, mild delay initiating swallow. Patient then notably with increased fatigue at the end of the assessment. Due to patient's decreased level of responsiveness, delay of swallow, recommend downgrade to PUREE (NDD1) with Thin Liquids (small sips), pills crushed in puree. Patient will require 1-1 feed at this time. FRONT OFFICE SPEC will continue to follow, re-assess for toleration, upgrade if warranted. Recommendations communicated by secure text to , RD, RN, white board in room changed to reflect recommendations. Frequency/Duration: Date Range for Service Req: Timeline to reassess: PRN [place]ip[place] Placing Supervisor Clinican/Clinical Fellow: No Supervisory Statement: I have reviewed and agree with the student/clinical fellow's documentation: N/A Speech Language Pathologist: Sondra Linares M.A., [facility]3]-FRONT OFFICE SPEC
--- NOTE | 2022-12-24 14:21 | HO.SKINPHOTO ---
Location: LOWER ABDOMEN Category: Stage: Length: Width: Depth: cm Location: Category: Stage: Length: Width: Depth: cm Location: Category: Stage: Length: Width: Depth: cm Location: Category: Stage: Length: Width: Depth: cm Location: Category: Stage: Length: Width: Depth: cm Location: Category: Stage: Length: Width: Depth: cm
--- NOTE | 2022-12-24 14:35 | MHC.SLORD ---
Speech Language Pathology Order Status: Patient seen this pm for re-assessment of swallow, documented as Daily Swallow Treatment/Re-eval and in notes as Clinical Swallow (see note).
--- NOTE | 2022-12-24 14:44 | HO.SKINPHOTO ---
Location: Coccyx Category: Stage: Length: Width: Depth: cm Location: Category: Stage: Length: Width: Depth: cm Location: Category: Stage: Length: Width: Depth: cm Location: Category: Stage: Length: Width: Depth: cm Location: Category: Stage: Length: Width: Depth: cm Location: Category: Stage: Length: Width: Depth: cm
[2022-12-24] MEDS: 0.9 % Sodium Chloride 500 ML IV (16:06)
--- NOTE | 2022-12-24 16:07 | PC.NURSE ---
Addendum entered by Evelina Peterson RN 12/24/22 18:03: repeat BP 97/46. MD notified, midodrine order times one. Original Note: ptarousable to sternal rub/shaking. noted to be hypotensive, manual Bp 77/35. MD notified/ at bedside. 500cc bolus administered per providers orders. Will continue to monitor.
--- NOTE | 2022-12-24 16:21 | HO.WOUND ---
Wound Care Consult: Reason for consult: Open skin to lower abd/coccyx Patient was in bed at the time of consult. She had a small abrasion to the abdominal fold midline. Foam border as well as zinc barrier cream removed. There was a moderate amount of serousanguineous drainage. Wound bed appearance was all red granulation tissue. Wound edges were well defined and attached. No undermining or tunneling. No odor. Surrounding tissue was scarred and when abdomen is held up the scar becomes very taught and this might be why this area keeps breaking down. The scar tissue is not forgiving. Wound measured 0.5cm x 0.5cm x 0.1cm. Wound cleansed with sea clens wound cleanser. Zinc barrier cream was applied to the periwound. Alginate ag cut to wound size and applied to wound bed. Skin prep also applied to periwound and covered with a foam border. The wound on the dionte coccyx is a stage 2 pressure injury. Foam border and zinc oxide removed. Wound bed was all pink/red granular tissue. The dressing had a moderate amount of serousangineous drainage. Wound edges were well defined and attached. No underming or tunneling. No odor. Surrounding tissue was intact. Wound measured 2cm x 0.5cm x 0.1cm. Wound cleansed with sea clens wound cleanser. Zinc barrier cream was applied to the periwound. Alginate ag cut to wound size and applied to wound bed. Skin prep also applied to periwound and covered with a foam border. Also there was a DTI area on the patients right upper buttock. This was a purplish discolored area and skin was intact. Discolored area measured 14cm x 14cm. Recommendation: Abdominal fold wound- Cleanse wound with sea clens wound cleanser or normal saline. Apply zinc barrier cream to the periwound. Cut alginate ag to wound size and apply to wound bed. Skin prep periwound and cover with a foam border every other day. Coccyx wound- Cleanse wound with sea clens wound cleanser or normal saline. Apply zinc barrier cream to the periwound. Cut alginate ag to wound size and apply to wound bed. Skin prep periwound and cover with a foam border every other day or as needed with soiling. Make sure to reposition patient frequently, at least every 2 hours if not sooner. If patients protein intake is problematic, dietary may need to be consulted to make sure nutrition is optimized. If there are any changes or concerns, please feel free and reconsult wound care. And if on discharge patient is in need of wound care services, may make an appointment with wound care outpatient.
[2022-12-24 16:53] LABS: Glucose, Whole Blood 280 mg/dL (60-115)
[2022-12-24] MEDS: Midodrine HCl 5 MG TABLET PO (17:55)
[2022-12-24] MEDS: Multivitamin TABLET 1 TAB PO (22:15)
[2022-12-24] MEDS: Atorvastatin Calcium 40 MG TABLET PO (22:15)
[2022-12-25 00:14] LABS: Glucose, Whole Blood 155 mg/dL (60-115)
[2022-12-25 03:27] VITALS: BP 110/56; PULSE 89; RESP 16; TEMP 37; O2SAT 93
[2022-12-25] MEDS: Omeprazole 20 MG CAPSULE.DR PO ×2 (06:05→16:29)
[2022-12-25] MEDS: Levothyroxine Sodium 88 MCG TABLET PO (06:05)
[2022-12-25 07:26] LABS: Glucose, Whole Blood 155 mg/dL (60-115)
[2022-12-25 07:33] VITALS: BP 114/72; PULSE 80; RESP 20; TEMP 36.3; O2SAT 97
--- NOTE | 2022-12-25 08:00 | P.PNNP_ITS ---
Subjective Subjective Date of Service: 12/25/22 Interval history: seen and examined sleeping Physical Exam Vital Signs: Vital Signs: Last Vital Signs Temp 97.4 F 12/25/22 07:33 Pulse 80 12/25/22 07:33 Resp 20 12/25/22 07:33 BP 114/72 12/25/22 07:33 Pulse Ox 97 12/25/22 07:33 O2 Del Method Room Air 12/25/22 07:33 O2 Flow Rate 100 12/22/22 05:00 BMI result Body Mass Index 41.4 Const: General: alert and awake HEENT: Head: Yes normocephalic and Yes atraumatic Neck: Neck: Yes supple Resp: Auscultation: diminished lung sounds Cardio: Heart sounds: S1 normal heart sound present and S2 normal heart sound present GI: Palpation (GI): Soft to palpation and nontender Extrem: General: Yes edema Objective Data Labs 12/15/22 08:42 12/21/22 09:59 Labs: Laboratory Results - last 24 hr 12/24/22 12/24/22 12/24/22 11:10 16:46 22:16 POC Glucose 276 H 280 H 155 H 12/25/22 07:22 POC Glucose 155 H Microbiology Microbiology Results: Microbiology 12/07/22 12:43 Blood - Venous Blood Culture - Final No growth after 5 days. 12/07/22 12:11 Blood - Venous Blood Culture - Final No growth after 5 days. Procedures Date of Service Date of Service: 12/25/22 Assessment & Plan Assessment and plan (1) End stage kidney disease: Status: Acute (2) Seizure: Status: Acute (3) Anemia: Status: Acute Plan usually has HD at [place] [facility] unit [facility] new diagnosed seizure disorder with expressive aphasia hypervolemic hyponatremia REC HD today UF as tolerated renal diet ABEBE per protocol phosphate binders Time Spent With Patient Time: Total time managing care of this patient today ____ minutes. Progress Note: Quality Stroke Does the patient have a stroke diagnosis?: No
[2022-12-25] MEDS: Midodrine HCl 5 MG TABLET PO (08:43)
[2022-12-25] MEDS: Sevelamer Carbonate Powder 800 MG POWD.PACK PO ×2 (08:43→16:29)
[2022-12-25] MEDS: Apixaban 5 MG TABLET PO ×2 (08:43→20:49)
[2022-12-25] MEDS: Cinacalcet HCl 30 MG TABLET PO (08:43)
[2022-12-25] MEDS: Sodium Bicarbonate 650 MG TABLET PO ×3 (08:43→20:49)
[2022-12-25] MEDS: Folic Acid 1 MG TABLET 2 MG PO (08:43)
--- NOTE | 2022-12-25 08:54 | P.PNIM_ITS ---
Subjective Subjective Date of Service: 12/25/22 Interval History: Episode of hypotension yesterday resolved with ivf and midodrine, more alert today yet remains confused Physical Exam Vital Signs: Vital Signs: Last Vital Signs Temp 97.4 F 12/25/22 07:33 Pulse 80 12/25/22 07:33 Resp 20 12/25/22 07:33 BP 114/72 12/25/22 07:33 Pulse Ox 97 12/25/22 07:33 O2 Del Method Room Air 12/25/22 07:33 O2 Flow Rate 100 12/22/22 05:00 BMI result Body Mass Index 41.4 Const: Other: General: confused, follows simple ommands Resp: CTA bilateral CVS: S1,S2,RRR GI: +BS, NT, no distention Skin: No rash Neuro: motor grossly intact Psych: flat Objective Data Active Medications Acetaminophen (Acetaminophen 325 Mg Tablet) 650 mg PO Q6H PRN PRN Reason: Pain, Mild (Pain Scale 1-3) Last Admin: 12/23/22 04:18 Dose: 650 mg Documented By: RONNY Albuterol Sulfate (Albuterol Sulfate 90 Mcg 8 Gm Inhaler) 2 puff INHALE Q4H PRN PRN Reason: Wheezing Apixaban (Apixaban 5 Mg Tablet) 5 mg PO BID [facility] Last Admin: 12/25/22 08:43 Dose: 5 mg Documented By: SEEMA Atorvastatin Calcium (Atorvastatin Calcium 40 Mg Tablet) 40 mg PO BEDTIME [facility] Last Admin: 12/24/22 22:15 Dose: 40 mg Documented By: CHACHO Cinacalcet (Cinacalcet Hcl 30 Mg Tablet) 30 mg PO DAILY [facility] Last Admin: 12/25/22 08:43 Dose: 30 mg Documented By: SEEMA Dextrose (Dextrose 50 % 25 Gm/50 Ml Syringe) 25 gm IVPUSH Q15M PRN; Protocol PRN Reason: per Hypoglycemia Standing Ord. Last Admin: 12/08/22 03:25 Dose: 25 gm Documented By: FREYA Docusate Sodium (Docusate Sodium 100 Mg Capsule) 100 mg PO DAILY PRN PRN Reason: Constipation Fluticasone/Vilanterol (Fluticasone/Vilanterol 200/25 Blst.W.Dev) 1 puff INHALE RDAILY [facility] Last Admin: 12/25/22 07:40 Dose: Not Given Documented By: DOUG Non-Admin Reason: See Note Folic Acid (Folic Acid 1 Mg Tablet) 2 mg PO DAILY [facility] Last Admin: 12/25/22 08:43 Dose: 2 mg Documented By: SEEMA Glucose (Glucose Gel 15 Gm Gel..Gram.) 15 gm PO Q15M PRN; Protocol PRN Reason: per Hypoglycemia Standing Ord. Insulin Human Lispro (Insulin Lispro 100 Unit/Ml 3 Ml Vial) 0 unit SUBCUT QIDACHS [facility]; Protocol Last Admin: 12/25/22 07:25 Dose: Not Given Documented By: SEEMA Non-Admin Reason: not getting po ENOUGH INTAKE Levothyroxine Sodium (Levothyroxine Sodium 88 Mcg Tablet) 88 mcg PO DAILY@0600 [facility] Last Admin: 12/25/22 06:05 Dose: 88 mcg Documented By: NATALIE Metoprolol Tartrate (Metoprolol Tartrate 25 Mg Tablet) 25 mg PO QID [facility]; Protocol Last Admin: 12/24/22 22:15 Dose: 25 mg Documented By: CHACHO Midodrine (Midodrine Hcl 5 Mg Tablet) 5 mg PO MOWEFR PRN PRN Reason: Hypotension Last Admin: 12/25/22 08:43 Dose: 5 mg Documented By: SEEMA Multivitamins/Vitamin C (Multivitamin Tablet) 1 tab PO BEDTIME [facility] Last Admin: 12/24/22 22:15 Dose: 1 tab Documented By: CHACHO Omeprazole (Omeprazole 20 Mg Jennifer.) 20 mg PO BID@0630,1630 [facility] Last Admin: 12/25/22 06:05 Dose: 20 mg Documented By: NATALIE Ondansetron HCl (Ondansetron Hcl 4 Mg/2 Ml Vial) 4 mg IVPUSH Q8H PRN PRN Reason: Nausea and Vomiting Pharmacy Consult (Consult Rx Perform Med Rec) 1 each MISCELLANE ONCE PRN PRN Reason: Consult order Sevelamer Carbonate (Sevelamer Carbonate Powder 800 Mg Powd.Pack) 800 mg PO BIDWM [facility] Last Admin: 12/25/22 08:43 Dose: 800 mg Documented By: SEEMA Sodium Bicarbonate (Sodium Bicarbonate 650 Mg Tablet) 650 mg PO QID [facility] Last Admin: 12/25/22 08:43 Dose: 650 mg Documented By: SEEMA Valproic Acid (Valproic Acid (As Sodium Salt) 250 Mg/5 Ml Solution) 750 mg PO BID PB Last Admin: 12/25/22 08:43 Dose: 750 mg Documented By: SEEMA Labs 12/15/22 08:42 12/21/22 09:59 Labs: Laboratory Results - last 24 hr 12/24/22 12/24/22 12/24/22 11:10 16:46 22:16 POC Glucose 276 H 280 H 155 H 12/25/22 07:22 POC Glucose 155 H Assessment and Plan (1) Encephalopathy: Status: Acute Plan 72-year-old female with history of paroxysmal atrial fibrillation anticoagulated with Eliquis, hypertension, hyperlipidemia, insulin-dependent type 2 diabetes, asthma, VIOLA, hypothyroidism, end-stage renal disease on dialysis, newly diagnosed seizure disorder, history CVA with expressive aphasia to be observed for seizure activity. Recently diagnosed seziure disorder? with video eeg at [facility] [place] and presented with breakthrough SZs with supratherapeutic depakote level, 108, now 97. Continue depakote at 750 bid encephalopathy unclear etiology work up with mri and eeg unremarkable, continue to have intermittent episodes of altered mental status of unclear etiology, ? mabybe absence seizures continue to obsever ?paroxysmal atrial fibrillation-continue Eliquis for anticoagulation and metoprolol for rate control ?ESRD on dialysis---HD on MWF AGMA-seems likely related to esrd.vbg 12/20-ph maintained mild hyperkalemia hyponatremia ? dilutional esrd patient . added bicarb. need Hd . nephrology following ?HTN -reasonably controlled-continue home meds. hypothyroidism-continue Synthroid. ?insulin-dependent type 2 diabetes: flactuating -fs with Humalog on sliding scale diabetic diet pending swallow eval Thombocytopenia -etiology unclear -Trend, cbc am ?mild intermittent asthma -no acute exacerbation -albuterol p.r.n. Low folate levels :on folate replacements DVT prophylaxis- on eliquis Need for inpatient:? awaiting rehab placement, nephro following for esrd-follow bmp/depakote in am -see esrd section for details. Will need longter care once stable Time Spent With Patient Time: Total time managing care of this patient today ____ minutes. Quality Stroke Does the patient have a stroke diagnosis?: No VTE Prior VTE?: No VTE Risk Level:: Medical - moderate - high VTE Device Contraindication: Treatment Not Indicated VTE Drug Contraindication: N/A - Med Ordered
--- NOTE | 2022-12-25 10:12 | MHC.CM.PN ---
Per ROUNDS discussion, Patient is having episodes of low BP and is still very confused. [facility] has accepted Patient and CM will follow.
--- NOTE | 2022-12-25 12:10 | MHC.CLN ---
F/U PT WITH INCREASED NUTRITION RISK R/T PRESSURE INJURY VARIABLE PO INTAKE DIET RX 1800DM 2GM NA LOW LOW PHOS PUREED-APPROPRIATE PT RECEIVING ENSURE CLEAR TID TO INCREASE KCALS AND PROMOTE WOUND HEALING SUPPLEMENT IS RENAL FRIENDLY AND WILL PROVIDE 720KCALS, 24G PROTEIN MONITOR PO INTAKE CLOSELY
--- NOTE | 2022-12-25 12:19 | MHC.SLORD ---
Speech Language Pathology Order Status: Pt away at dialysis this morning. Per RN, pt has been tolerating purees better since having been downgraded from a chopped diet to pureed diet.
[2022-12-25 14:00] VITALS: BP 107/50; PULSE 90; RESP 20; TEMP 36.1; O2SAT 94
[2022-12-25 14:07] LABS: Glucose, Whole Blood 171 mg/dL (60-115)
[2022-12-25 15:53] VITALS: BP 110/55; PULSE 86; RESP 19; TEMP 37.1; O2SAT 97
[2022-12-25 16:11] LABS: Glucose, Whole Blood 234 mg/dL (60-115)
[2022-12-25] MEDS: Insulin Lispro 100 UNIT/ML 3 ML VIAL SUBCUT ×2 (16:28→20:49)
--- NOTE | 2022-12-25 17:41 | MHC.SL.SWA ---
Speech Pathologist Impression: Risk of aspiration, oropharyngeal dysphagia Risk of Aspiration Due to: Lethargy Medically Fragile Neurological Condition History of Pneumonia Reduced Cognition Dysphasia Diet Status: Recommend continue w/ PUREE (NDD1) with Thin Liquids (small sips), pills crushed in puree. Patient will require 1-1 feed at this time Liquid Consistency and Strategies for Safe Swallow: Liquid Intake Recommendation: Thin Liquid Intake Strategies: Small Sips Solid Food Consistency: Dietary Recommendations: Pureed (NDD1) Additional Modifications to Solid Foods: Patient requires one to one feeding. Present food in small bites, and liquid in small controlled cup sip or controlled straw sip. Alternate liquids and solids. Monitor that patient has swallowed before presenting more food or liquid. Do not attempt if patient is lethargic or not engaged in meal. Discontinue with clinical signs of aspiration (including coughing after swallow, frequent throat clearing, upper respiratory noise) Oral Medication Intake: Crushed with Puree Please contact the pharmacy regarding appropriate crushable or liquid drug formulations that are available whenever modified delivery is recommended. Compensatory Strategies and Precautions to be Taken for Safe Swallow: Sitting Upright (90 deg) Liquids from Cup Liquids from Straw Small Bites and Sips Alternate Liquids/Solids Rate of Ingestion Change Oral Check Supervision While Eating and Drinking for Safe Swallow: Total Assistance (1:1) Foods to Avoid: Mixed consistencies (i.e., soups, cereal with milk, fruit cups, etc.) Swallowing Recommended Treatments: Compens. Strategy Educat. Recommendation for Speech: Inpatient Speech Therapy Spray Pilot Clinican/Clinical Fellow: No Supervisory Statement: I have reviewed and agree with the student/clinical fellow's documentation: N/A Speech Language Pathologist: Marely Daniels M.A., CCC-[employer] OR LUNCHROOM CHECKER
[2022-12-25 19:21] VITALS: BP 109/57; PULSE 82; RESP 18; TEMP 37; O2SAT 98
[2022-12-25 20:28] LABS: Glucose, Whole Blood 259 mg/dL (60-115)
[2022-12-25] MEDS: Atorvastatin Calcium 40 MG TABLET PO (20:49)
[2022-12-25] MEDS: Multivitamin TABLET 1 TAB PO (20:49)
[2022-12-26] VITALS (7 sets, daily range): BP systolic 107–158; BP diastolic 53–93; PULSE 69–104; RESP 16–20; TEMP 35.8–37.1; O2SAT 94–99
[2022-12-26] MEDS: Levothyroxine Sodium 88 MCG TABLET PO (06:10)
[2022-12-26 07:44] LABS: Glucose, Whole Blood 178 mg/dL (60-115)
--- NOTE | 2022-12-26 08:13 | PM.PNNEP ---
Subjective Subjective Date of Service: 12/26/22 Interval history: seen and examined confused Physical Exam Vital Signs: Vital Signs: Last Vital Signs Temp 97.7 F 12/26/22 07:35 Pulse 104 H 12/26/22 07:35 Resp 18 12/26/22 07:35 BP 132/53 L 12/26/22 07:35 Pulse Ox 97 12/26/22 07:35 O2 Del Method Room Air 12/26/22 07:35 O2 Flow Rate 100 12/22/22 05:00 BMI result Body Mass Index 41.4 Const: General: alert and awake HEENT: Head: Yes normocephalic and Yes atraumatic Neck: Neck: Yes supple Resp: Auscultation: diminished lung sounds Cardio: Heart sounds: S1 normal heart sound present and S2 normal heart sound present GI: Palpation (GI): Soft to palpation and nontender Extrem: General: Yes edema Objective Data Labs 12/15/22 08:42 12/21/22 09:59 Labs: Laboratory Results - last 24 hr 12/25/22 12/25/22 12/25/22 14:00 16:07 20:24 POC Glucose 171 H 234 H 259 H 12/26/22 07:33 POC Glucose 178 H Microbiology Microbiology Results: Microbiology 12/07/22 12:43 Blood - Venous Blood Culture - Final No growth after 5 days. 12/07/22 12:11 Blood - Venous Blood Culture - Final No growth after 5 days. Procedures Date of Service Date of Service: 12/26/22 Assessment & Plan Assessment and plan (1) End stage kidney disease: Status: Acute (2) Seizure: Status: Acute (3) Anemia: Status: Acute Plan s/p HD yesterday usually has HD at [place] dialysis unit [facility] new diagnosed seizure disorder with expressive aphasia hypervolemic hyponatremia REC HD on Wednesday renal diet ABEBE per protocol phosphate binders Time Spent With Patient Time: Total time managing care of this patient today ____ minutes. Progress Note: Quality Stroke Does the patient have a stroke diagnosis?: No
[2022-12-26] MEDS: Sodium Bicarbonate 650 MG TABLET PO ×4 (09:01→19:08)
[2022-12-26] MEDS: Apixaban 5 MG TABLET PO ×2 (09:01→19:08)
[2022-12-26] MEDS: Insulin Lispro 100 UNIT/ML 3 ML VIAL SUBCUT ×4 (09:01→20:44)
[2022-12-26] MEDS: Cinacalcet HCl 30 MG TABLET PO (09:02)
[2022-12-26] MEDS: Sevelamer Carbonate Powder 800 MG POWD.PACK PO ×2 (09:02→16:40)
[2022-12-26] MEDS: Folic Acid 1 MG TABLET 2 MG PO (09:02)
--- NOTE | 2022-12-26 10:12 | P.PNIM_ITS ---
Subjective Subjective Date of Service: 12/26/22 Interval History: Remains confused, no further episodes of unresponsiveness Physical Exam 2 Vital Signs: Vital Signs: Last Vital Signs Temp 97.7 F 12/26/22 07:35 Pulse 104 H 12/26/22 07:35 Resp 18 12/26/22 07:35 BP 132/53 L 12/26/22 07:35 Pulse Ox 97 12/26/22 07:35 O2 Del Method Room Air 12/26/22 07:35 O2 Flow Rate 100 12/22/22 05:00 BMI result Body Mass Index 41.4 Const: Other: General: confused, follows simple ommands Resp: CTA bilateral CVS: S1,S2,RRR GI: +BS, NT, no distention Skin: No rash Neuro: motor grossly intact Psych: flat Objective Data Active Medications Acetaminophen (Acetaminophen 325 Mg Tablet) 650 mg PO Q6H PRN PRN Reason: Pain, Mild (Pain Scale 1-3) Last Admin: 12/23/22 04:18 Dose: 650 mg Documented By: RONNY Albuterol Sulfate (Albuterol Sulfate 90 Mcg 8 Gm Inhaler) 2 puff INHALE Q4H PRN PRN Reason: Wheezing Apixaban (Apixaban 5 Mg Tablet) 5 mg PO BID [facility] Last Admin: 12/26/22 09:01 Dose: 5 mg Documented By: OSWALDO Atorvastatin Calcium (Atorvastatin Calcium 40 Mg Tablet) 40 mg PO BEDTIME [facility] Last Admin: 12/25/22 20:49 Dose: 40 mg Documented By: RONNY Cinacalcet (Cinacalcet Hcl 30 Mg Tablet) 30 mg PO DAILY [facility] Last Admin: 12/26/22 09:02 Dose: 30 mg Documented By: OSWALDO Dextrose (Dextrose 50 % 25 Gm/50 Ml Syringe) 25 gm IVPUSH Q15M PRN; Protocol PRN Reason: per Hypoglycemia Standing Ord. Last Admin: 12/08/22 03:25 Dose: 25 gm Documented By: FREYA Docusate Sodium (Docusate Sodium 100 Mg Capsule) 100 mg PO DAILY PRN PRN Reason: Constipation Fluticasone/Vilanterol (Fluticasone/Vilanterol 200/25 Blst.W.Dev) 1 puff INHALE RDAILY [facility] Last Admin: 07/22/23 07:25 Dose: Not Given Documented By: DOUG Non-Admin Reason: See Note Folic Acid (Folic Acid 1 Mg Tablet) 2 mg PO DAILY [facility] Last Admin: 12/26/22 09:02 Dose: 2 mg Documented By: OSWALDO Glucose (Glucose Gel 15 Gm Gel..Gram.) 15 gm PO Q15M PRN; Protocol PRN Reason: per Hypoglycemia Standing Ord. Insulin Human Lispro (Insulin Lispro 100 Unit/Ml 3 Ml Vial) 0 unit SUBCUT QIDACHS [facility]; Protocol Last Admin: 12/26/22 09:01 Dose: 2 unit Documented By: OSWALDO Levothyroxine Sodium (Levothyroxine Sodium 88 Mcg Tablet) 88 mcg PO DAILY@0600 [facility] Last Admin: 12/26/22 06:10 Dose: 88 mcg Documented By: RONNY Metoprolol Tartrate (Metoprolol Tartrate 25 Mg Tablet) 25 mg PO BID [facility]; Protocol Last Admin: 12/26/22 09:12 Dose: Not Given Documented By: OSWALDO Non-Admin Reason: Decreased Blood Pressure Midodrine (Midodrine Hcl 5 Mg Tablet) 5 mg PO MOWEFR PRN PRN Reason: Hypotension Last Admin: 12/25/22 08:43 Dose: 5 mg Documented By: SEEMA Multivitamins/Vitamin C (Multivitamin Tablet) 1 tab PO BEDTIME [facility] Last Admin: 12/25/22 20:49 Dose: 1 tab Documented By: RONNY Omeprazole (Omeprazole/Na Bicarb Oral Susp 20 Mg/10 Ml Ud Cup) 20 mg PO BID@0630,1630 [facility] Last Admin: 12/26/22 06:10 Dose: Not Given Documented By: RONNY Non-Admin Reason: Med Not Available Ondansetron HCl (Ondansetron Hcl 4 Mg/2 Ml Vial) 4 mg IVPUSH Q8H PRN PRN Reason: Nausea and Vomiting Pharmacy Consult (Consult Rx Perform Med Rec) 1 each MISCELLANE ONCE PRN PRN Reason: Consult order Sevelamer Carbonate (Sevelamer Carbonate Powder 800 Mg Powd.Pack) 800 mg PO BIDWM [facility] Last Admin: 12/26/22 09:02 Dose: 800 mg Documented By: OSWALDO Sodium Bicarbonate (Sodium Bicarbonate 650 Mg Tablet) 650 mg PO QID [facility] Last Admin: 12/26/22 09:01 Dose: 650 mg Documented By: OSWALDO Valproic Acid (Valproic Acid (As Sodium Salt) 250 Mg/5 Ml Solution) 750 mg PO BID [facility] Last Admin: 12/26/22 09:02 Dose: 750 mg Documented By: OSWALDO Labs 12/15/22 08:42 12/21/22 09:59 Labs: Laboratory Results - last 24 hr 12/25/22 12/25/22 12/25/22 14:00 16:07 20:24 POC Glucose 171 H 234 H 259 H 12/26/22 07:33 POC Glucose 178 H Assessment and Plan (1) Encephalopathy: Status: Acute Plan 72-year-old female with history of paroxysmal atrial fibrillation anticoagulated with Eliquis, hypertension, hyperlipidemia, insulin-dependent type 2 diabetes, asthma, VIOLA, hypothyroidism, end-stage renal disease on dialysis, newly diagnosed seizure disorder, history CVA with expressive aphasia to be observed for seizure activity. Recently diagnosed seziure disorder? with video eeg at [facility] [place] and presented with breakthrough SZs with supratherapeutic depakote level, 108, now 97. Continue depakote at 750 bid encephalopathy unclear etiology work up with mri and eeg unremarkable, continue to have intermittent episodes of altered mental status of unclear etiology, ? mabybe absence seizures continue to obsever ?paroxysmal atrial fibrillation-continue Eliquis for anticoagulation and metoprolol for rate control ?ESRD on dialysis---HD on MWF AGMA-seems likely related to esrd.vbg 12/20-ph maintained mild hyperkalemia hyponatremia ? dilutional esrd patient . added bicarb. need Hd . nephrology following ?HTN -reduce metoprolol to 25 bid d/t frequent hypotension hypothyroidism-continue Synthroid. ?insulin-dependent type 2 diabetes: flactuating -fs with Humalog on sliding scale diabetic diet pending swallow eval Thombocytopenia -etiology unclear -Trend, cbc am ?mild intermittent asthma -no acute exacerbation -albuterol p.r.n. Low folate levels :on folate replacements DVT prophylaxis- on eliquis Need for inpatient:? awaiting rehab placement, nephro following for esrd-follow bmp/depakote in am -see esrd section for details. Will need longter care once stable Time Spent With Patient Time: Total time managing care of this patient today ____ minutes. Quality Stroke Does the patient have a stroke diagnosis?: No VTE Prior VTE?: No VTE Risk Level:: Medical - moderate - high VTE Device Contraindication: Treatment Not Indicated VTE Drug Contraindication: N/A - Med Ordered
[2022-12-26 11:36] LABS: Glucose, Whole Blood 310 mg/dL (60-115)
[2022-12-26 16:14] LABS: Glucose, Whole Blood 174 mg/dL (60-115)
[2022-12-26] MEDS: Omeprazole/Na Bicarb Oral Susp 20 MG/10 ML UD Cup PO (17:36)
[2022-12-26] MEDS: Metoprolol Tartrate 25 MG TABLET PO (19:08)
[2022-12-26] MEDS: Atorvastatin Calcium 40 MG TABLET PO (19:08)
[2022-12-26] MEDS: Multivitamin TABLET 1 TAB PO (19:08)
[2022-12-26 20:33] LABS: Glucose, Whole Blood 204 mg/dL (60-115)
[2022-12-27 03:42] VITALS: BP 106/49; PULSE 70; RESP 20; TEMP 36; O2SAT 97
[2022-12-27] MEDS: Omeprazole/Na Bicarb Oral Susp 20 MG/10 ML UD Cup PO ×2 (05:43→17:27)
[2022-12-27] MEDS: Levothyroxine Sodium 88 MCG TABLET PO (05:43)
[2022-12-27 07:22] VITALS: BP 123/65; PULSE 84; RESP 18; TEMP 36.4; O2SAT 94
[2022-12-27 07:43] LABS: Glucose, Whole Blood 128 mg/dL (60-115)
--- NOTE | 2022-12-27 07:46 | PM.PNNEP ---
Subjective Subjective Date of Service: 12/27/22 Interval history: seen and examined still confused but more alert this morning Physical Exam Vital Signs: Vital Signs: Last Vital Signs Temp 97.6 F 12/27/22 07:22 Pulse 84 12/27/22 07:22 Resp 18 12/27/22 07:22 BP 123/65 12/27/22 07:22 Pulse Ox 94 12/27/22 07:22 O2 Del Method Room Air 12/27/22 07:22 O2 Flow Rate 100 12/22/22 05:00 BMI result Body Mass Index 41.4 Const: General: alert and awake HEENT: Head: Yes normocephalic and Yes atraumatic Neck: Neck: Yes supple Resp: Auscultation: diminished lung sounds Cardio: Heart sounds: S1 normal heart sound present and S2 normal heart sound present GI: Palpation (GI): Soft to palpation and nontender Extrem: General: Yes edema Objective Data Labs 12/15/22 08:42 12/21/22 09:59 Labs: Laboratory Results - last 24 hr 12/26/22 12/26/22 12/26/22 11:19 16:10 20:25 POC Glucose 310 H 174 H 204 H 12/27/22 07:25 POC Glucose 128 H Microbiology Microbiology Results: Microbiology 12/07/22 12:43 Blood - Venous Blood Culture - Final No growth after 5 days. 12/07/22 12:11 Blood - Venous Blood Culture - Final No growth after 5 days. Procedures Date of Service Date of Service: 12/27/22 Assessment & Plan Assessment and plan (1) End stage kidney disease: Status: Acute (2) Seizure: Status: Acute (3) Anemia: Status: Acute Plan usually has HD at [facility] new diagnosed seizure disorder with expressive aphasia hypervolemic hyponatremia REC HD tomorrow renal diet ABEBE per protocol phosphate binders Time Spent With Patient Time: Total time managing care of this patient today ____ minutes. Progress Note: Quality Stroke Does the patient have a stroke diagnosis?: No
[2022-12-27] MEDS: Sodium Bicarbonate 650 MG TABLET PO ×4 (08:12→20:14)
[2022-12-27] MEDS: Folic Acid 1 MG TABLET 2 MG PO (08:12)
[2022-12-27] MEDS: Sevelamer Carbonate Powder 800 MG POWD.PACK PO ×2 (08:12→17:27)
[2022-12-27] MEDS: Cinacalcet HCl 30 MG TABLET PO (08:12)
[2022-12-27] MEDS: Apixaban 5 MG TABLET PO ×2 (08:12→20:14)
[2022-12-27] MEDS: Metoprolol Tartrate 25 MG TABLET PO ×2 (08:13→20:14)
--- NOTE | 2022-12-27 09:17 | P.PNIM_ITS ---
Subjective Subjective Date of Service: 12/27/22 Interval History: seen and examined he remains alert, but confused, and has not had any further episode of unresponsiveness in 48 hrs Physical Exam Vital Signs: Vital Signs: Last Vital Signs Temp 97.6 F 12/27/22 07:22 Pulse 84 12/27/22 07:22 Resp 18 12/27/22 07:22 BP 123/65 12/27/22 07:22 Pulse Ox 94 12/27/22 07:22 O2 Del Method Room Air 12/27/22 07:22 O2 Flow Rate 100 12/22/22 05:00 BMI result Body Mass Index 41.4 Const: Other: General: confused, follows simple ommands Resp: CTA bilateral CVS: S1,S2,RRR GI: +BS, NT, no distention Skin: No rash Neuro: motor grossly intact Psych: flat Objective Data Active Medications Acetaminophen (Acetaminophen 325 Mg Tablet) 650 mg PO Q6H PRN PRN Reason: Pain, Mild (Pain Scale 1-3) Last Admin: 12/23/22 04:18 Dose: 650 mg Documented By: RONNY Albuterol Sulfate (Albuterol Sulfate 90 Mcg 8 Gm Inhaler) 2 puff INHALE Q4H PRN PRN Reason: Wheezing Apixaban (Apixaban 5 Mg Tablet) 5 mg PO BID [facility] Last Admin: 12/27/22 08:12 Dose: 5 mg Documented By: OSWALDO Atorvastatin Calcium (Atorvastatin Calcium 40 Mg Tablet) 40 mg PO BEDTIME [facility] Last Admin: 12/26/22 19:08 Dose: 40 mg Documented By: RONNY Cinacalcet (Cinacalcet Hcl 30 Mg Tablet) 30 mg PO DAILY [facility] Last Admin: 12/27/22 08:12 Dose: 30 mg Documented By: OSWALDO Dextrose (Dextrose 50 % 25 Gm/50 Ml Syringe) 25 gm IVPUSH Q15M PRN; Protocol PRN Reason: per Hypoglycemia Standing Ord. Last Admin: 12/08/22 03:25 Dose: 25 gm Documented By: FREYA Docusate Sodium (Docusate Sodium 100 Mg Capsule) 100 mg PO DAILY PRN PRN Reason: Constipation Fluticasone/Vilanterol (Fluticasone/Vilanterol 200/25 Blst.W.Dev) 1 puff INHALE RDAILY [facility] Last Admin: 12/27/22 07:28 Dose: Not Given Documented By: DOUG Non-Admin Reason: See Note Folic Acid (Folic Acid 1 Mg Tablet) 2 mg PO DAILY [facility] Last Admin: 12/27/22 08:12 Dose: 2 mg Documented By: OSWALDO Glucose (Glucose Gel 15 Gm Gel..Gram.) 15 gm PO Q15M PRN; Protocol PRN Reason: per Hypoglycemia Standing Ord. Insulin Human Lispro (Insulin Lispro 100 Unit/Ml 3 Ml Vial) 0 unit SUBCUT QIDACHS [facility]; Protocol Last Admin: 12/27/22 07:52 Dose: Not Given Documented By: OSWALDO Non-Admin Reason: No Insulin Coverage Comments: per sliding scale Levothyroxine Sodium (Levothyroxine Sodium 88 Mcg Tablet) 88 mcg PO DAILY@0600 [facility] Last Admin: 12/27/22 05:43 Dose: 88 mcg Documented By: RONNY Metoprolol Tartrate (Metoprolol Tartrate 25 Mg Tablet) 25 mg PO BID [facility]; Protocol Last Admin: 12/27/22 08:13 Dose: 25 mg Documented By: OSWALDO Midodrine (Midodrine Hcl 5 Mg Tablet) 5 mg PO MOWEFR PRN PRN Reason: Hypotension Last Admin: 12/25/22 08:43 Dose: 5 mg Documented By: LONAORRPerla Multivitamins/Vitamin C (Multivitamin Tablet) 1 tab PO BEDTIME [facility] Last Admin: 12/26/22 19:08 Dose: 1 tab Documented By: RONNY Omeprazole (Omeprazole/Na Bicarb Oral Susp 20 Mg/10 Ml Ud Cup) 20 mg PO BID@0630,1630 [facility] Last Admin: 12/27/22 05:43 Dose: 20 mg Documented By: RONNY Ondansetron HCl (Ondansetron Hcl 4 Mg/2 Ml Vial) 4 mg IVPUSH Q8H PRN PRN Reason: Nausea and Vomiting Pharmacy Consult (Consult Rx Perform Med Rec) 1 each MISCELLANE ONCE PRN PRN Reason: Consult order Sevelamer Carbonate (Sevelamer Carbonate Powder 800 Mg Powd.Pack) 800 mg PO BIDWM [facility] Last Admin: 12/27/22 08:12 Dose: 800 mg Documented By: OSWALDO Sodium Bicarbonate (Sodium Bicarbonate 650 Mg Tablet) 650 mg PO QID [facility] Last Admin: 12/27/22 08:12 Dose: 650 mg Documented By: OSWALDO Valproic Acid (Valproic Acid (As Sodium Salt) 250 Mg/5 Ml Solution) 750 mg PO BID [facility] Last Admin: 12/27/22 08:13 Dose: 750 mg Documented By: OSWALDO Labs 12/15/22 08:42 12/21/22 09:59 Labs: Laboratory Results - last 24 hr 12/26/22 12/26/22 12/26/22 11:19 16:10 20:25 POC Glucose 310 H 174 H 204 H 12/27/22 07:25 POC Glucose 128 H Assessment and Plan (1) Encephalopathy: Status: Acute Plan 72-year-old female with history of paroxysmal atrial fibrillation anticoagulated with Eliquis, hypertension, hyperlipidemia, insulin-dependent type 2 diabetes, asthma, VIOLA, hypothyroidism, end-stage renal disease on dialysis, newly diagnosed seizure disorder, history CVA with expressive aphasia to be observed for seizure activity. Recently diagnosed seziure disorder? [place] [facility] [place] with breakthrough SZs with supratherapeutic depakote level, 108, now 97. Continue depakote at 750 bid encephalopathy unclear etiology work up with mri and eeg unremarkable, continue to have intermittent episodes of altered mental status of unclear etiology, ? mabybe absence seizures continue to obsever, there could be compoenent of dementia as well ?paroxysmal atrial fibrillation-continue Eliquis for anticoagulation and metoprolol for rate control ?ESRD on dialysis---HD on MWF mild hyperkalemia--monitor hyponatremia ? dilutional esrd patient . added bicarb. nephrology following ?HTN --control, continue metoprolol hypothyroidism-continue Synthroid. ?insulin-dependent type 2 diabetes: flactuating -fs with Humalog on sliding scale diabetic diet pending swallow eval Thombocytopenia -etiology unclear -Trend, cbc am ?mild intermittent asthma -no acute exacerbation -albuterol p.r.n. Low folate levels :on folate replacements DVT prophylaxis- on eliquis Need for inpatient:? awaiting rehab placement, nephro following for esrd-follow bmp/depakote in am -see esrd section for details. Will need longter care once stable Time Spent With Patient Time: Total time managing care of this patient today ____ minutes. Quality Stroke Does the patient have a stroke diagnosis?: No VTE Prior VTE?: No VTE Risk Level:: Medical - moderate - high VTE Device Contraindication: Treatment Not Indicated VTE Drug Contraindication: N/A - Med Ordered
[2022-12-27 09:42] LABS: Anion Gap 22 (12-20); Blood Urea Nitrogen 61 mg/dL (9-16); Calcium 8.4 mg/dL (8.4-10.2); Carbon Dioxide 24 mmol/L (22-29); Chloride 96 mmol/L (96-108); Creatinine Clr Calc Pharmacy 8.9; Estimated Glomerular Filt Rate 6; Glucose Random 151 mg/dL (60-115); Potassium 4.7 mmol/L (3.3-5.1); Sodium 137 mmol/L (135-145)
[2022-12-27 11:25] VITALS: BP 99/65; PULSE 77; RESP 18; TEMP 36.3; O2SAT 96
[2022-12-27 11:42] LABS: Glucose, Whole Blood 180 mg/dL (60-115)
[2022-12-27] MEDS: Insulin Lispro 100 UNIT/ML 3 ML VIAL SUBCUT (11:58)
[2022-12-27 15:28] VITALS: BP 122/60; PULSE 77; RESP 20; TEMP 35.9; O2SAT 100
[2022-12-27 16:16] LABS: Glucose, Whole Blood 135 mg/dL (60-115)
[2022-12-27 19:39] VITALS: BP 125/55; PULSE 73; RESP 20; TEMP 36; O2SAT 97
[2022-12-27] MEDS: Atorvastatin Calcium 40 MG TABLET PO (20:14)
[2022-12-27] MEDS: Multivitamin TABLET 1 TAB PO (20:14)
[2022-12-27 20:38] LABS: Glucose, Whole Blood 130 mg/dL (60-115)
[2022-12-27 23:35] VITALS: BP 138/64; PULSE 78; RESP 18; TEMP 36.6; O2SAT 98
[2022-12-28] VITALS (7 sets, daily range): BP systolic 102–142; BP diastolic 46–58; PULSE 67–110; RESP 17–22; TEMP 35.6–36.6; O2SAT 93–98
[2022-12-28] MEDS: Levothyroxine Sodium 88 MCG TABLET PO (05:13)
[2022-12-28] MEDS: Omeprazole/Na Bicarb Oral Susp 20 MG/10 ML UD Cup PO ×2 (05:14→18:54)
[2022-12-28 07:30] LABS: Glucose, Whole Blood 129 mg/dL (60-115)
[2022-12-28] MEDS: Sevelamer Carbonate Powder 800 MG POWD.PACK PO ×2 (09:10→18:56)
[2022-12-28] MEDS: Sodium Bicarbonate 650 MG TABLET PO ×3 (09:10→20:30)
[2022-12-28] MEDS: Cinacalcet HCl 30 MG TABLET PO (09:10)
[2022-12-28] MEDS: Folic Acid 1 MG TABLET 2 MG PO (09:10)
[2022-12-28] MEDS: Apixaban 5 MG TABLET PO ×2 (09:10→20:30)
[2022-12-28] MEDS: Midodrine HCl 5 MG TABLET PO (09:13)
--- NOTE | 2022-12-28 09:28 | P.DS_ITS ---
DS: Providers Provider Date of Service: 12/28/22 Date of admission: 12/09/22 13:01 Primary care physician: Jevon Rice MD Consults: 12/07/22 19:05 Consult to Neurology Routine Consulting Provider: [facility] Reason for consultation: increased seizure activity 12/07/22 19:17 Consult to Nephrology Routine Consulting Provider: Ender Esqueda Reason for consultation: esrd on dialysis 12/24/22 12:49 Consult to Wound Care Routine Consulting Provider: Alejandro Acosta Reason for consultation: open skin to lower abd /coccyx DS: Diagnosis Discharge Diagnosis (1) Encephalopathy: Status: Resolved DS: Summary Hospital Course Hospital Course: Admission HPI Chief Complaint: seizures 72-year-old female with history of paroxysmal atrial fibrillation anticoagulated with Eliquis, hypertension, hyperlipidemia, insulin-dependent type 2 diabetes, asthma, VIOLA, hypothyroidism, end-stage renal disease on dialysis, newly diagnosed seizure disorder, history CVA with expressive aphasia presented to the ED for evaluation of possible stroke.? The patient lives with her son who stated that the patient is not acting like herself this morning prior to dialysis.? At the dialysis unit she appeared to be weak and there is concern of stroke so EMS was called.? She was recently diagnosed with generalized tonic-clonic seizures on 10/07 and started on Keppra and was recently admitted at [facility] with discharge in 11/20. During admission she did undergo EEG which showed seizure activity and she was started on Depakote 750 mg b.i.d. in addition to the Keppra 500 mg daily she was taking.? Discussed with the son who states she had been mentating well following discharge off until this morning.? On arrival to the ED, patient is altered, repeating her name when asked questions.? There is no leukocytosis.? Mild normocytic anemia with H/H 10.9/32.4, platelets 120.? Creatinine 8.35, BUN 46, sodium 137, potassium 3.8, chloride 91, CO2 31 hepatic function normal.? Troponin within normal limits.? Total CK 37.? Urinalysis with trace leukocytes, negative nitrites, trace blood, 3+ protein, negative urinary sediment and bacteria.? Valproic acid level 108.? Head CT showing large area of encephalomalacia in the right occipital parietal lobe most likely related to chronic/subacute stroke without evidence of acute infarction or hemorrhage.? No mass effect, midline shift, brain edema.? There is also an area of encephalomalacia in the right parietal lobe.? Ventricles and sulci are dilated with ex vacuo dilatation of the right occipital horn of lateral ventricle.? In ED, given 500 mg IV Keppra.? For ED nurses, patient noted to have what appeared to be 2 absence seizures lasting several seconds while in the ED. Hospital course This patient with ESRD on dialysis MWF was recently diagnoed with seizure at [facility] by video eeg, and started on Keppra 500 daily and additional suplement on dialysis days, Depakote 750 mg twice and presented with with breakthrough seizure and noted to have excess depakote level of 108. CT showed no acute finding. She was evaluated by Neurologist Dr. Flores with recommendation to stop Keppra and redcucing Depakote to 500 mg twice daily as toxic level is likely trigger of seizure like symptoms which is likely encephalopathy from higher doses and he furthermore does recommend MRI which came back Chronic R post parietal infarct, moderate atrophy, no acute lesion. 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 while on Valproic acid 500 bid she continued to get altered and more encephalopathic with decrease PO intake. the route was changed to IV instead and dose increased for thoughts of possible Her Valproic acid was held after icu downgrade and the patient mentation improved significantly. she was started on a lower dose Valproic acid 250 mg twice daily with a plan to repeat the level as outpatient and monitor clinical course of the patient if it needs to be increased to 500 bid. She will continue Gabapentin 100 mg tid as well. repeated EEG showed no evidence of stroke. Regarding dementia neurology recommended starting Memantin to improve memory and awarness. but given her altered mentation and encephalopathy that was held during hospital stay and can be evaluated as outpatient. The patient had multiple low BP readings during the hospital stay associated with altered mentation. her blood pressure medication have been discontinued during hospital stay but she continued to have low readings. she was planned to discharge when he BP noted to be too low with altered mentation, discharge cancelled as multiple attempts to place an IV line failed. The patient eventually transferred to ICU for central line placement, IV fluids and Pressors with good response. transferred back to [facility] on 7/26 and maintained BP in acceptable range. Noted to have lower readings on days of dialysis. Midodrine changed to be given before dialysis sessions. She was noted to have a drop in hemoglobin. tested positive for occult stool. Hb improved to 9.5 after 1 unit PRBCs. GI evaluated the patient, EGD showed 2 nonbleeding ulcers, hemorrhagic folds in antrum and duodenum. Pending biopsy results. Please Follow on H.Pylori, to treat if positive. Treated with IV Pantoprazole that was later changed to PO PPI. restarted Eliquis with no drop in Hemoglobin. Chaged to PO PPI. The patient was followed by speech therapy team. diet advanced to chopped diabetic diet. Discharge plan Follow EGD biopsy result and H.Pylori testing Discontinue Amlodipine Hold Metoprolol and check BP for 1 week before restarting it Stop taking Keppra Depkote dose has been reduced to 250 mg twice daily for encephalopathy, monitor clincally and increase the dose if develops any more seizures Continue Pantoprazol twice daily To follow with blood and Depakote levels in 1 week Follow up with dr Flores from neurology in 1-2 weeks for seizure medication dose adjustment and Dementia evaluation Physical therapy and rehablitation Time Spent with Patient Time attestation: Total time managing care of this patient today ____ minutes. Discharge coordination time: Greater than 30 minutes Quality: Safe Use of Opioids Does Pt have an Active Cancer Diagnosis on the Problem List?: No Quality: Stroke Does the patient have a stroke diagnosis?: No Physical Exam Vital Signs: Vital Signs: Last Vital Signs Temp 97.8 F 12/28/22 07:07 Pulse 73 12/28/22 07:07 Resp 18 12/28/22 07:07 BP 121/56 L 12/28/22 07:07 Pulse Ox 98 12/28/22 07:07 O2 Del Method Room Air 12/28/22 07:07 O2 Flow Rate 100 12/22/22 05:00 BMI result Body Mass Index 41.4 DS: Data Data Completed and Pending Labs on day of discharge: Laboratory Results - last 24 hr 12/27/22 12/27/22 12/27/22 09:11 11:28 16:13 Sodium 137 Potassium 4.7 Chloride 96 Carbon Dioxide 24 Anion Gap 22 H BUN 61 H Creatinine 7.08 H* Estim Creat Clear Calc 8.9 Estimated GFR 6 POC Glucose 180 H 135 H Random Glucose 151 H Calcium 8.4 12/27/22 12/28/22 20:27 07:08 Sodium Potassium Chloride Carbon Dioxide Anion Gap BUN Creatinine Estim Creat Clear Calc Estimated GFR POC Glucose 130 H 129 H Random Glucose Calcium Discharge Plan Discharge Anticipated Discharge Date/Time: 01/04/23 10:06 Patient Disposition: Xfer SNF Discharge Diagnosis: Breakthrough seizure Altered mental status Gastrointestinal bleeding Referrals: [facility] [place] [Outside] - 1 Week Jevon Rice MD [Primary Care Provider] - 1 Week Discharge Medications: New valproic acid 250 mg Capsule 250 mg PO BID Qty: 60 0RF Continued atorvastatin 40 mg tablet 40 mg PO BEDTIME levothyroxine 88 mcg tablet 88 mcg PO DAILY@0600 pantoprazole 40 mg tablet,delayed release (DR/EC) 40 mg PO BID@0630,1630 fluticasone propion-salmeterol [Advair Diskus] 500-50 mcg/dose blister with device 1 ea INHALATION BID albuterol sulfate [Ventolin HFA] 90 mcg/actuation HFA aerosol inhaler 2 puff inhalation Q4H PRN (Reason: Wheezing) Levemir U-100 Insulin 100 unit/mL solution 6 unit subcut BEDTIME sevelamer carbonate [Renvela] 800 mg tablet 800 mg PO BIDWM Eliquis 5 mg tablet 5 mg PO BID insulin aspart U-100 [Novolog FlexPen U-100 Insulin] 100 unit/mL (3 mL) insulin pen See Protocol subcut TIDAC Protocol: Insulin Correction Scale Less than or equal to 110 ---- Give (units): 0 111 to 150 Give (units): 0 151 to 200 Give (units): 2 201 to 250 Give (units): 4 251 to 300 Give (units): 6 301 to 350 Give (units): 8 Greater than 350 Give (units): 10 Call MD if Blood Glucose > : 350 cinacalcet 30 mg Tablet 30 mg PO DAILY gabapentin 100 mg capsule 100 mg PO TID Changed midodrine 5 mg tablet 5 mg PO MOWEFR Qty: 30 0RF Rx Instructions: Before dialysis Discontinued divalproex 250 mg tablet,delayed release (DR/EC) 750 mg PO BID levetiracetam 500 mg tablet 500 mg PO DAILY levetiracetam 500 mg tablet 500 mg PO MOWEFR@1645 Rx Instructions: GIVEN AFTER DIALYSIS ON DIALYSIS DAYS amlodipine 5 mg tablet 5 mg PO DAILY No Action cefuroxime axetil 250 mg tablet 250 mg PO DAILY Qty: 2 0RF Discharge Orders: Discharge Order (Routine); Ordered 01/04/23 Ordered By: Kassandra Nieves Diet: chopped solid diet Activity on Discharge: As tolerated Stand Alone Forms: Patient Portal Discharge page Other Ambulatory Orders: Complete Blood Count Auto Diff (Routine) Timeframe: 1 Week Facility: [facility] - Location: Laboratory Ordered By: Kassandra Nieves Care Plan Goals: seizure control Health Concerns: seizure Plan of Treatment: You were admitted for altered mentation. thought to be a result of seizures. evaluated by neurologist and your medication was changed to Depakote from Keppra. You developed low blood pressure and required ICU admission for IVF fluids with good response. Your mentation improved. you tolerated dialysis well. no seizures recorded while inpatient. Discontinue Amlodipine Hold Metoprolol and check BP for 1 week before restarting it Stop taking Keppra Depkote dose has been reduced to 250 mg twice daily for encephalopathy, monitor clincally and increase the dose if develops any more seizures Continue Pantoprazol twice daily To follow with blood levels in 1 week Follow up with your Doctor in a week Physical therapy and rehablitation Assessment: as above Discharge Date/Time: 01/04/23 17:59
--- NOTE | 2022-12-28 10:00 | PM.PNNEP ---
Subjective Subjective Date of Service: 12/28/22 Interval history: seen and examined he remains alert, but confused, Seen on HD Physical Exam Vital Signs: Vital Signs: Last Vital Signs Temp 97.8 F 12/28/22 07:07 Pulse 73 12/28/22 07:07 Resp 18 12/28/22 07:07 BP 121/56 L 12/28/22 07:07 Pulse Ox 98 12/28/22 07:07 O2 Del Method Room Air 12/28/22 07:07 O2 Flow Rate 100 12/22/22 05:00 BMI result Body Mass Index 41.4 Const: General: alert and awake HEENT: Head: Yes normocephalic and Yes atraumatic Neck: Neck: Yes supple Resp: Auscultation: diminished lung sounds Cardio: Heart sounds: S1 normal heart sound present and S2 normal heart sound present GI: Palpation (GI): Soft to palpation and nontender Extrem: General: Yes edema Objective Data Labs 12/15/22 08:42 12/27/22 09:11 Labs: Laboratory Results - last 24 hr 12/27/22 12/27/22 12/27/22 11:28 16:13 20:27 POC Glucose 180 H 135 H 130 H 12/28/22 07:08 POC Glucose 129 H Microbiology Microbiology Results: Microbiology 12/07/22 12:43 Blood - Venous Blood Culture - Final No growth after 5 days. 12/07/22 12:11 Blood - Venous Blood Culture - Final No growth after 5 days. Procedures Date of Service Date of Service: 12/28/22 Assessment & Plan Assessment and plan (1) End stage kidney disease: Status: Acute (2) Seizure: Status: Acute (3) Anemia: Status: Acute Plan usually has HD at [place] dialysis unit mwf new diagnosed seizure disorder with expressive aphasia hypervolemic hyponatremia REC HD today renal diet ABEBE per protocol phosphate binders Waiting for d/c Time Spent With Patient Time: Total time managing care of this patient today ____ minutes. Progress Note: Quality Stroke Does the patient have a stroke diagnosis?: No
--- NOTE | 2022-12-28 10:29 | MHC.CM.PN ---
Patient has been medically cleared for dc to SNF/STR today. Patient will dc to [facility] today at 1PM, via [facility]. IMM addressed. CM spoke with Son/Juan @ [phone], who is aware of and pleased with the dc plan. Juan is agreeable to inform Patient's other Son/Gwyn of the dc plan for today.
[2022-12-28 12:52] LABS: Glucose, Whole Blood 141 mg/dL (60-115)
--- NOTE | 2022-12-28 14:00 | MHC.SLORD ---
Speech Language Pathology Order Status: SUPERVISING BAILIFF attempted to visit pt earlier this afternoon- Pt was unavailable, away at dialysis. Pt currently on pureed diet/thin liquids. Recommend continue ST intervention for dysphagia at next level of care.
--- NOTE | 2022-12-28 14:31 | MHC.CM.PN ---
Patient's vitals were apparently not stable after HD/at time of scheduled dc; DC canceled for today. SNF and Son/Juan at listed # has been notified of the change and MD will call Son later today with clinical update. CM will follow.
[2022-12-28 16:23] LABS: Glucose, Whole Blood 160 mg/dL (60-115)
--- NOTE | 2022-12-28 16:36 | P.PNIM_ITS ---
Subjective Subjective Date of Service: 12/28/22 Interval History: Pt went to dialysis came back and was discharge, but EMS reported that while taking the patient she was less responsive, and concern that vital were unstable and so she was brought back. Her vitals are stable, she get the spells after dialysis, will monitor overnight and if ok in am discharge Physical Exam Vital Signs: Vital Signs: Last Vital Signs Temp 97.5 F 12/28/22 15:04 Pulse 97 12/28/22 15:04 Resp 18 12/28/22 07:07 BP 121/56 L 12/28/22 07:07 Pulse Ox 97 12/28/22 15:04 O2 Del Method Room Air 12/28/22 15:04 O2 Flow Rate 100 12/22/22 05:00 BMI result Body Mass Index 41.4 Objective Data Active Medications Acetaminophen (Acetaminophen 325 Mg Tablet) 650 mg PO Q6H PRN PRN Reason: Pain, Mild (Pain Scale 1-3) Last Admin: 12/23/22 04:18 Dose: 650 mg Documented By: RONNY Albuterol Sulfate (Albuterol Sulfate 90 Mcg 8 Gm Inhaler) 2 puff INHALE Q4H PRN PRN Reason: Wheezing Apixaban (Apixaban 5 Mg Tablet) 5 mg PO BID [facility] Last Admin: 12/28/22 09:10 Dose: 5 mg Documented By: ELISEO Atorvastatin Calcium (Atorvastatin Calcium 40 Mg Tablet) 40 mg PO BEDTIME [facility] Last Admin: 12/27/22 20:14 Dose: 40 mg Documented By: NOREEN Cinacalcet (Cinacalcet Hcl 30 Mg Tablet) 30 mg PO DAILY [facility] Last Admin: 12/28/22 09:10 Dose: 30 mg Documented By: ELISEO Dextrose (Dextrose 50 % 25 Gm/50 Ml Syringe) 25 gm IVPUSH Q15M PRN; Protocol PRN Reason: per Hypoglycemia Standing Ord. Last Admin: 12/08/22 03:25 Dose: 25 gm Documented By: FREYA Docusate Sodium (Docusate Sodium 100 Mg Capsule) 100 mg PO DAILY PRN PRN Reason: Constipation Fluticasone/Vilanterol (Fluticasone/Vilanterol 200/25 Blst.W.Dev) 1 puff INHALE RDAILY [facility] Last Admin: 12/28/22 07:40 Dose: Not Given Documented By: CAL Non-Admin Reason: Patient Condition Contraindication Folic Acid (Folic Acid 1 Mg Tablet) 2 mg PO DAILY [facility] Last Admin: 12/28/22 09:10 Dose: 2 mg Documented By: ELISEO Glucose (Glucose Gel 15 Gm Gel..Gram.) 15 gm PO Q15M PRN; Protocol PRN Reason: per Hypoglycemia Standing Ord. Insulin Human Lispro (Insulin Lispro 100 Unit/Ml 3 Ml Vial) 0 unit SUBCUT QIDACHS [facility]; Protocol Last Admin: 12/28/22 15:43 Dose: Not Given Documented By: LOUIS Non-Admin Reason: No Insulin Coverage Comments: poc 129 Levothyroxine Sodium (Levothyroxine Sodium 88 Mcg Tablet) 88 mcg PO DAILY@0600 [facility] Last Admin: 12/28/22 05:13 Dose: 88 mcg Documented By: NOREEN Metoprolol Tartrate (Metoprolol Tartrate 25 Mg Tablet) 25 mg PO BID [facility]; Protocol Last Admin: 12/28/22 09:11 Dose: Not Given Documented By: ELISEO Non-Admin Reason: Off unit: Dialysis Comments: BP soft in dialysis Midodrine (Midodrine Hcl 5 Mg Tablet) 5 mg PO MOWEFR PRN PRN Reason: Hypotension Last Admin: 12/28/22 09:13 Dose: 5 mg Documented By: ELISEO Multivitamins/Vitamin C (Multivitamin Tablet) 1 tab PO BEDTIME [facility] Last Admin: 12/27/22 20:14 Dose: 1 tab Documented By: NOREEN Omeprazole (Omeprazole/Na Bicarb Oral Susp 20 Mg/10 Ml Ud Cup) 20 mg PO BID@0630,1630 [facility] Last Admin: 12/28/22 05:14 Dose: 20 mg Documented By: NOREEN Ondansetron HCl (Ondansetron Hcl 4 Mg/2 Ml Vial) 4 mg IVPUSH Q8H PRN PRN Reason: Nausea and Vomiting Pharmacy Consult (Consult Rx Perform Med Rec) 1 each MISCELLANE ONCE PRN PRN Reason: Consult order Sevelamer Carbonate (Sevelamer Carbonate Powder 800 Mg Powd.Pack) 800 mg PO BIDWM [facility] Last Admin: 12/28/22 09:10 Dose: 800 mg Documented By: ELISEO Sodium Bicarbonate (Sodium Bicarbonate 650 Mg Tablet) 650 mg PO QID [facility] Last Admin: 12/28/22 09:10 Dose: 650 mg Documented By: ELISEO Valproic Acid (Valproic Acid (As Sodium Salt) 250 Mg/5 Ml Solution) 750 mg PO BID [facility] Last Admin: 12/28/22 09:11 Dose: 750 mg Documented By: ELISEO Labs 12/15/22 08:42 12/27/22 09:11 Labs: Laboratory Results - last 24 hr 12/27/22 12/28/22 12/28/22 20:27 07:08 12:49 POC Glucose 130 H 129 H 141 H 12/28/22 16:18 POC Glucose 160 H Assessment and Plan (1) Encephalopathy: Status: Acute Plan 72-year-old female with history of paroxysmal atrial fibrillation anticoagulated with Eliquis, hypertension, hyperlipidemia, insulin-dependent type 2 diabetes, asthma, VIOLA, hypothyroidism, end-stage renal disease on dialysis, newly diagnosed seizure disorder, history CVA with expressive aphasia to be observed for seizure activity. Recently diagnosed seziure disorder? with video eeg at [facility] and presented with breakthrough SZs with supratherapeutic depakote level, 108, now 97. Continue depakote at 750 bid encephalopathy unclear etiology work up with mri and eeg unremarkable, continue to have intermittent episodes of altered mental status of unclear etiology, ? mabybe absence seizures continue to obsever, there could be compoenent of dementia as well ?paroxysmal atrial fibrillation-continue Eliquis for anticoagulation and metoprolol for rate control ?ESRD on dialysis---HD on MWF mild hyperkalemia--monitor hyponatremia ? dilutional esrd patient . added bicarb. nephrology following ?HTN --control, continue metoprolol hypothyroidism-continue Synthroid. ?insulin-dependent type 2 diabetes: flactuating -fs with Humalog on sliding scale diabetic diet pending swallow eval Thombocytopenia -etiology unclear -Trend, cbc am ?mild intermittent asthma -no acute exacerbation -albuterol p.r.n. Low folate levels :on folate replacements DVT prophylaxis- on eliquis Need for inpatient:? awaiting rehab placement, nephro following for esrd-follow bmp/depakote in am -see esrd section for details. Will need longter care once stable Time Spent With Patient Time: Total time managing care of this patient today ____ minutes. Quality Stroke Does the patient have a stroke diagnosis?: No VTE Prior VTE?: No VTE Risk Level:: Medical - moderate - high VTE Device Contraindication: Treatment Not Indicated VTE Drug Contraindication: N/A - Med Ordered
[2022-12-28] MEDS: Insulin Lispro 100 UNIT/ML 3 ML VIAL SUBCUT ×2 (18:55→20:29)
[2022-12-28 19:50] LABS: Glucose, Whole Blood 199 mg/dL (60-115)
[2022-12-28] MEDS: Multivitamin TABLET 1 TAB PO (20:30)
[2022-12-28] MEDS: Atorvastatin Calcium 40 MG TABLET PO (20:30)
[2022-12-29] VITALS (27 sets, daily range): BP systolic 60–169; BP diastolic 15–147; PULSE 69–97; RESP 10–17; TEMP 36.1–36.4; O2SAT 93–100
[2022-12-29] MEDS: Levothyroxine Sodium 88 MCG TABLET PO (06:30)
[2022-12-29] MEDS: Omeprazole/Na Bicarb Oral Susp 20 MG/10 ML UD Cup PO (06:30)
[2022-12-29 07:06] LABS: Glucose, Whole Blood 197 mg/dL (60-115)
--- NOTE | 2022-12-29 08:58 | MHC.CLN ---
F/U PO INTAKE POOR DIET RX 1800DM 2GM NA LOW LOW PHOS PUREED-APPROPRIATE PT RECEIVING ENSURE CLEAR TID TO INCREASE KCALS AND PROMOTE WOUND HEALING SUPPLEMENT IS RENAL FRIENDLY AND WILL PROVIDE 720KCALS, 24G PROTEIN CONTINUE TO MONITOR AND ENCOURAGE PO INTAKE
--- NOTE | 2022-12-29 09:23 | PM.PNNEP ---
Subjective Subjective Date of Service: 12/29/22 Interval history: Pt discharge, but EMS reported that while taking the patient she was less responsive, and concern that vital were unstable and so she was brought back. Physical Exam Vital Signs: Vital Signs: Last Vital Signs Temp 97.4 F 12/29/22 08:00 Pulse 97 12/29/22 08:00 Resp 16 12/29/22 08:00 BP 78/44 L 12/29/22 08:00 Pulse Ox 95 12/29/22 08:00 O2 Del Method Room Air 12/29/22 08:00 O2 Flow Rate 100 12/22/22 05:00 BMI result Body Mass Index 41.4 Const: General: alert and awake HEENT: Head: Yes normocephalic and Yes atraumatic Neck: Neck: Yes supple Resp: Auscultation: diminished lung sounds Cardio: Heart sounds: S1 normal heart sound present and S2 normal heart sound present GI: Palpation (GI): Soft to palpation and nontender Extrem: General: Yes edema Objective Data Labs 12/15/22 08:42 12/27/22 09:11 Labs: Laboratory Results - last 24 hr 12/28/22 12/28/22 12/28/22 12:49 16:18 19:46 POC Glucose 141 H 160 H 199 H 12/29/22 06:59 POC Glucose 197 H Microbiology Microbiology Results: Microbiology 12/07/22 12:43 Blood - Venous Blood Culture - Final No growth after 5 days. 12/07/22 12:11 Blood - Venous Blood Culture - Final No growth after 5 days. Procedures Date of Service Date of Service: 12/29/22 Assessment & Plan Assessment and plan (1) End stage kidney disease: Status: Acute (2) Seizure: Status: Acute (3) Anemia: Status: Acute Plan usually has HD at [place] dialysis unit mwf new diagnosed seizure disorder with expressive aphasia hypervolemic hyponatremia REC HD in AM renal diet ABEBE per protocol phosphate binders Waiting for d/c Time Spent With Patient Time: Total time managing care of this patient today ____ minutes. Progress Note: Quality Stroke Does the patient have a stroke diagnosis?: No
--- NOTE | 2022-12-29 10:26 | MHC.SPEECHCO ---
Pt cachetic and not appropriate for re-assessment this morning. Per RN, she declined to eat breakfast today. Continue current recommendations with PUREE SOLIDS (NDD1) and THIN LIQUIDS with 1:1 Feeding Assistance. INSULATION CUTTER will continue to follow.
[2022-12-29 11:45] LABS: Glucose, Whole Blood 176 mg/dL (60-115)
[2022-12-29] MEDS: Midodrine HCl 10 MG TABLET PO (12:09)
--- NOTE | 2022-12-29 12:24 | PM.EVENT ---
Event Note Date of Service: 12/29/22 Event Note: rapid response called 1215 for low BP of 60s/40s. she had previous readings of 130/60 less than hour ago. patient looks more oriented and interactive than this morning. to get an IV line (peripheral, IR placing midline or ER\ICU placing a central line) IVF bolus Midodrine. Monitor closely for need of ICU stay Time Spent With Patient Time: Total time managing care of this patient today ____ minutes.
[2022-12-29] MEDS: 0.9 % Sodium Chloride 1,000 ML 999 ML IV ×3 (12:30→13:45)
--- NOTE | 2022-12-29 13:19 | P.PNIM_ITS ---
Subjective Subjective Date of Service: 12/29/22 Interval History: Seen and evaluated this morning Low BP readings with AMS Failed to place IV line on multiple attempts partially improved readings with Midodrine and a Bolus given through her HD fistula Discharge cancelled yesterday to SNF for similar event No other overnight events Review of Systems Review of Systems: Yes Unobtainable due to mental status Physical Exam Vital Signs: Vital Signs: Last Vital Signs Temp 97.4 F 12/29/22 08:00 Pulse 95 12/29/22 12:34 Resp 16 12/29/22 12:34 BP 60/40 L 12/29/22 12:34 Pulse Ox 95 12/29/22 08:00 O2 Del Method Room Air 12/29/22 08:00 O2 Flow Rate 100 12/22/22 05:00 BMI result Body Mass Index 41.4 Const: Other: Constitutional : difficult to arouse, not in distress Neck : Normal inspection, Supple Cardiovascular : RRR, no JVP, trace lower extremity edema Respiratory : good bilateral air entry, no crackles, wheezes or rhonchi Gastrointestinal: soft, lax, Normal bowel sounds, Non tender Skin : Warm, Dry Neurological : Alert with physical stimuli, unable to assess orientation, not following simple commands, No focal deficit noticed Objective Data Active Medications Acetaminophen (Acetaminophen 325 Mg Tablet) 650 mg PO Q6H PRN PRN Reason: Pain, Mild (Pain Scale 1-3) Last Admin: 12/23/22 04:18 Dose: 650 mg Documented By: RONNY Albuterol Sulfate (Albuterol Sulfate 90 Mcg 8 Gm Inhaler) 2 puff INHALE Q4H PRN PRN Reason: Wheezing Apixaban (Apixaban 5 Mg Tablet) 5 mg PO BID [facility] Last Admin: 12/29/22 12:07 Dose: 5 mg Documented By: SERAFIN Atorvastatin Calcium (Atorvastatin Calcium 40 Mg Tablet) 40 mg PO BEDTIME [facility] Last Admin: 12/28/22 20:30 Dose: 40 mg Documented By: BRANT Cinacalcet (Cinacalcet Hcl 30 Mg Tablet) 30 mg PO DAILY [facility] Last Admin: 12/29/22 12:07 Dose: 30 mg Documented By: SERAFIN Dextrose (Dextrose 50 % 25 Gm/50 Ml Syringe) 25 gm IVPUSH Q15M PRN; Protocol PRN Reason: per Hypoglycemia Standing Ord. Last Admin: 12/08/22 03:25 Dose: 25 gm Documented By: FREYA Docusate Sodium (Docusate Sodium 100 Mg Capsule) 100 mg PO DAILY PRN PRN Reason: Constipation Fluticasone/Vilanterol (Fluticasone/Vilanterol 200/25 Blst.W.Dev) 1 puff INHALE RDAILY [facility] Last Admin: 12/29/22 07:58 Dose: Not Given Documented By: CAL Non-Admin Reason: Patient Condition Contraindication Folic Acid (Folic Acid 1 Mg Tablet) 2 mg PO DAILY [facility] Last Admin: 12/29/22 12:07 Dose: 2 mg Documented By: SERAFIN Glucose (Glucose Gel 15 Gm Gel..Gram.) 15 gm PO Q15M PRN; Protocol PRN Reason: per Hypoglycemia Standing Ord. Insulin Human Lispro (Insulin Lispro 100 Unit/Ml 3 Ml Vial) 0 unit SUBCUT QIDACHS [facility]; Protocol Last Admin: 12/29/22 08:30 Dose: Not Given Documented By: SERAFIN Non-Admin Reason: NPO Comments: refusing to eat, notified Levothyroxine Sodium (Levothyroxine Sodium 88 Mcg Tablet) 88 mcg PO DAILY@0600 [facility] Last Admin: 12/29/22 06:30 Dose: 88 mcg Documented By: SERAFIN Metoprolol Tartrate (Metoprolol Tartrate 25 Mg Tablet) 25 mg PO BID [facility]; Protocol Last Admin: 12/29/22 08:17 Dose: Not Given Documented By: SERAFIN Non-Admin Reason: hypotensive Midodrine (Midodrine Hcl 5 Mg Tablet) 5 mg PO MOWEFR PRN PRN Reason: Hypotension Last Admin: 12/28/22 09:13 Dose: 5 mg Documented By: ELISEO Midodrine (Midodrine Hcl 5 Mg Tablet) 5 mg PO TID [facility] Multivitamins/Vitamin C (Multivitamin Tablet) 1 tab PO BEDTIME [facility] Last Admin: 12/28/22 20:30 Dose: 1 tab Documented By: BRANT Omeprazole (Omeprazole/Na Bicarb Oral Susp 20 Mg/10 Ml Ud Cup) 20 mg PO BID@0630,1630 [facility] Last Admin: 12/29/22 06:30 Dose: 20 mg Documented By: SERAFIN Ondansetron HCl (Ondansetron Hcl 4 Mg/2 Ml Vial) 4 mg IVPUSH Q8H PRN PRN Reason: Nausea and Vomiting Pharmacy Consult (Consult Rx Perform Med Rec) 1 each MISCELLANE ONCE PRN PRN Reason: Consult order Sevelamer Carbonate (Sevelamer Carbonate Powder 800 Mg Powd.Pack) 800 mg PO BIDWM [facility] Last Admin: 12/29/22 12:09 Dose: 800 mg Documented By: SERAFIN Sodium Bicarbonate (Sodium Bicarbonate 650 Mg Tablet) 650 mg PO QID [facility] Last Admin: 12/29/22 12:07 Dose: 650 mg Documented By: SERAFIN Valproic Acid (Valproic Acid (As Sodium Salt) 250 Mg/5 Ml Solution) 750 mg PO BID [facility] Last Admin: 12/29/22 12:09 Dose: 750 mg Documented By: SERAFIN Labs 12/15/22 08:42 12/27/22 09:11 Labs: Laboratory Results - last 24 hr 12/28/22 12/28/22 12/29/22 16:18 19:46 06:59 POC Glucose 160 H 199 H 197 H 12/29/22 11:41 POC Glucose 176 H Assessment and Plan (1) Encephalopathy: Status: Acute (2) Epilepsy: Status: Acute (3) Seizure: Status: Acute (4) Hypotension: Status: Acute Plan 72-year-old female with history of paroxysmal atrial fibrillation anticoagulated with Eliquis, hypertension, hyperlipidemia, insulin-dependent type 2 diabetes, asthma, VIOLA, hypothyroidism, end-stage renal disease on dialysis, newly diagnosed seizure disorder, history CVA with expressive aphasia to be observed for seizure activity. Hypotension Noticed on multiple occasions this admission Since yesterday more profound, likely related to HD? to give IVF bolus HD without ultrafiltration Add Midodrine meanwhile seizure disorder Diagnosed with video eeg at [facility] and presented with breakthrough SZs with supratherapeutic depakote level, 108, now 97. Continue depakote at 750 bid encephalopathy of unclear etiology work up with mri and eeg unremarkable, continues to have intermittent episodes of altered mental status of unclear etiology, ? questionable absence seizures? there could be component of dementia as well Neurology evaluated her on admission ?paroxysmal atrial fibrillation continue Eliquis for anticoagulation and metoprolol for rate control ?ESRD on dialysis HD on MWF hyponatremia possibly dilutional esrd patient . added bicarb. nephrology following HTN control, continue metoprolol hypothyroidism continue Synthroid. insulin-dependent type 2 diabetes: flactuating -fs with Humalog on sliding scale diabetic diet pending swallow eval Thombocytopenia etiology unclear Trend, cbc am ?mild intermittent asthma no acute exacerbation albuterol p.r.n. Low folate levels folate replacements DVT prophylaxis eliquis Need for inpatient:? awaiting rehab placement, nephro following for esrd, Hypotension and altered mentation. Time Spent With Patient Time: Total time managing care of this patient today ____ minutes. Quality Stroke Does the patient have a stroke diagnosis?: No VTE Prior VTE?: No VTE Risk Level:: Medical - moderate - high VTE Device Contraindication: Treatment Not Indicated VTE Drug Contraindication: N/A - Med Ordered
--- NOTE | 2022-12-29 14:05 | PC.NURSE ---
Upon responding to a PRINTING ROLLER HANDLER in room 460 pt noted to be unresponsive with ICU physician, ICU director, and unit nursing staff at bedside. Unable to obtain an accurate BP a + pulse noted. Unable to obtain vascular access for IV fluids despite multiple attempts. Pt placed in trendelenburg. Paged Dr. Esqueda for orders to access LUE dialysis graft for fluid administration. Orders given via [employer], hemodialysis nurse successfully accessed and IVF given as ordered, graft de-accessed direct pressure held for 20 minutes and dressing applied to site. A + bruit and thrill were noted upon completion of fluid and LUE noted to have + CMS. Pt mor responsive after fluids. Pt son present at bedside. Awaiting vascular access placement in IR.
--- NOTE | 2022-12-29 14:09 | PM.NEUROCN ---
History of Present Illness Data of Consult Service Date: 12/29/22 Primary Care Provider: Jevon Rice MD [facility] Reason for consult: Encephalopathy 72 years old woman with end-stage renal disease on dialysis and atrial fibrillation I was asked to see for ongoing encephalopathy. She was unable to provide any history while her child was on the bedside. According to him she sometime responded or noted like he understood but she was not communicating. Review of Systems Review of Systems: Could not be done with her [facility] Past Medical History Medical History (Updated 12/29/22 @ 13:30 by Kassandra Nieves MD) Asthma Epilepsy ESRD on dialysis Expressive aphasia History of CVA (cerebrovascular accident) Hypertension Insulin dependent type 2 diabetes mellitus Morbid obesity Obstructive sleep apnea Paroxysmal atrial fibrillation Tubular adenoma of colon Social History Social History Household Members: Unknown / Unable to assess Housing: Unknown / Unable to assess Unable to assess alcohol history related to: Refusing to respond Patient Tobacco Use Status: Never used Tobacco Advance Directives Date on File: 04/22/22 service: No Meds Allergies Allergy/AdvReac Type Severity Reaction Status Date / Time Penicillins Allergy Unknown Unknown Verified 04/21/22 16:53 lisinopri Allergy Unknown Unknown Uncoded 04/21/22 16:53 Active Medications: Current Medications Acetaminophen (Acetaminophen 325 Mg Tablet) 650 mg PO Q6H PRN PRN Reason: Pain, Mild (Pain Scale 1-3) Last Admin: 12/23/22 04:18 Dose: 650 mg Albuterol Sulfate (Albuterol Sulfate 90 Mcg 8 Gm Inhaler) 2 puff INHALE Q4H PRN PRN Reason: Wheezing Apixaban (Apixaban 5 Mg Tablet) 5 mg PO BID [facility] Last Admin: 12/29/22 12:07 Dose: 5 mg Atorvastatin Calcium (Atorvastatin Calcium 40 Mg Tablet) 40 mg PO BEDTIME [facility] Last Admin: 12/28/22 20:30 Dose: 40 mg Cinacalcet (Cinacalcet Hcl 30 Mg Tablet) 30 mg PO DAILY [facility] Last Admin: 12/29/22 12:07 Dose: 30 mg Dextrose (Dextrose 50 % 25 Gm/50 Ml Syringe) 25 gm IVPUSH Q15M PRN; Protocol PRN Reason: per Hypoglycemia Standing Ord. Last Admin: 12/08/22 03:25 Dose: 25 gm Docusate Sodium (Docusate Sodium 100 Mg Capsule) 100 mg PO DAILY PRN PRN Reason: Constipation Fluticasone/Vilanterol (Fluticasone/Vilanterol 200/25 Blst.W.Dev) 1 puff INHALE RDAILY [facility] Last Admin: 12/29/22 07:58 Dose: Not Given Folic Acid (Folic Acid 1 Mg Tablet) 2 mg PO DAILY [facility] Last Admin: 12/29/22 12:07 Dose: 2 mg Glucose (Glucose Gel 15 Gm Gel..Gram.) 15 gm PO Q15M PRN; Protocol PRN Reason: per Hypoglycemia Standing Ord. Insulin Human Lispro (Insulin Lispro 100 Unit/Ml 3 Ml Vial) 0 unit SUBCUT QIDACHS [facility]; Protocol Last Admin: 12/29/22 13:45 Dose: Not Given Levothyroxine Sodium (Levothyroxine Sodium 88 Mcg Tablet) 88 mcg PO DAILY@0600 [facility] Last Admin: 12/29/22 06:30 Dose: 88 mcg Metoprolol Tartrate (Metoprolol Tartrate 25 Mg Tablet) 25 mg PO BID [facility]; Protocol Last Admin: 12/29/22 08:17 Dose: Not Given Midodrine (Midodrine Hcl 5 Mg Tablet) 5 mg PO MOWEFR PRN PRN Reason: Hypotension Last Admin: 12/28/22 09:13 Dose: 5 mg Midodrine (Midodrine Hcl 5 Mg Tablet) 5 mg PO TID [facility] Multivitamins/Vitamin C (Multivitamin Tablet) 1 tab PO BEDTIME [facility] Last Admin: 12/28/22 20:30 Dose: 1 tab Omeprazole (Omeprazole/Na Bicarb Oral Susp 20 Mg/10 Ml Ud Cup) 20 mg PO BID@0630,1630 [facility] Last Admin: 12/29/22 06:30 Dose: 20 mg Ondansetron HCl (Ondansetron Hcl 4 Mg/2 Ml Vial) 4 mg IVPUSH Q8H PRN PRN Reason: Nausea and Vomiting Pharmacy Consult (Consult Rx Perform Med Rec) 1 each MISCELLANE ONCE PRN PRN Reason: Consult order Sevelamer Carbonate (Sevelamer Carbonate Powder 800 Mg Powd.Pack) 800 mg PO BIDWM [facility] Last Admin: 12/29/22 12:09 Dose: 800 mg Sodium Bicarbonate (Sodium Bicarbonate 650 Mg Tablet) 650 mg PO QID [facility] Last Admin: 12/29/22 08:28 Dose: Not Given Valproic Acid (Valproic Acid (As Sodium Salt) 250 Mg/5 Ml Solution) 750 mg PO BID [facility] Last Admin: 12/29/22 12:09 Dose: 750 mg Home Medications Medication Instructions Recorded Confirmed Last Taken Type albuterol sulfate 90 mcg/actuation 2 puff inhalation Q4H PRN Wheezing 12/07/22 12/07/22 Unknown History aerosol inhaler (Ventolin HFA) amlodipine 5 mg tablet 5 mg PO DAILY 12/07/22 12/07/22 12/07/22 History apixaban 5 mg tablet (Eliquis) 5 mg PO BID 12/07/22 12/07/22 12/07/22 History atorvastatin 40 mg tablet 40 mg PO BEDTIME 12/07/22 12/07/22 12/06/22 History cinacalcet 30 mg tablet 30 mg PO DAILY 12/07/22 12/07/22 12/07/22 History fluticasone 500 mcg-salmeterol 50 1 ea inhalation BID 12/07/22 12/07/22 12/07/22 History mcg/dose blistr powdr for inhalation (Advair Diskus) gabapentin 100 mg capsule 100 mg PO TID 12/07/22 Unknown History insulin aspart U-100 100 unit/mL 4 - 12 unit subcut TIDWM PRN 12/07/22 12/07/22 Unknown History (3 mL) subcutaneous pen (Novolog ELEVATED BLOOD SUGAR FlexPen U-100 Insulin aspart) insulin detemir U-100 100 unit/mL 6 unit subcut BEDTIME 12/07/22 12/07/22 12/06/22 History subcutaneous solution (Levemir U-100 Insulin) levothyroxine 88 mcg tablet 88 mcg PO DAILY@0600 12/07/22 12/07/22 12/07/22 History metoprolol tartrate 50 mg tablet 50 mg PO BID 12/07/22 12/07/22 12/07/22 History midodrine 5 mg tablet 5 mg PO MOWEFR PRN Hypotension 12/07/22 12/07/22 Unknown History pantoprazole 40 mg tablet,delayed 40 mg PO BID@0630,1630 12/07/22 12/07/22 12/07/22 History release sevelamer carbonate 800 mg tablet 800 mg PO BIDWM 12/07/22 12/07/22 12/07/22 History (Renvela) Physical Exam Vital Signs: Vital Signs: Last Vital Signs Temp 97.4 F 12/29/22 08:00 Pulse 95 12/29/22 12:34 Resp 16 12/29/22 12:34 BP 60/40 L 12/29/22 12:34 Pulse Ox 95 12/29/22 08:00 O2 Del Method Room Air 12/29/22 08:00 O2 Flow Rate 100 12/22/22 05:00 BMI result Body Mass Index 41.4 Neuro: Other: she was drowsy and did not respond to verbal or pain stimuli. Eyes were open but she did not make eye contact. There was mild twitching of lower lip. Mild intermittent shaking of hands was noted. Deep tendon reflexes are absent with flat plantars. Results Labs 12/15/22 08:42 12/27/22 09:11 Microbiology Microbiology Results: Microbiology 12/07/22 12:43 Blood - Venous Blood Culture - Final No growth after 5 days. 12/07/22 12:11 Blood - Venous Blood Culture - Final No growth after 5 days. Assessment and Plan (1) Encephalopathy: Status: Acute 72 years old woman with end-stage renal disease and atrial fibrillation is suffering from encephalopathy of unknown etiology with suspicion of epileptic encephalopathy. my recommendation is to do a new set of full electrolyte including liver function tests and ammonia level. Also arrange an EEG to rule out any possibility of ongoing nonconvulsive partial status epilepticus. Time Spent With Patient Time: Total time managing care of this patient today ____ minutes. Procedures Date of Service Date of Service: 12/29/22
[2022-12-29] MEDS: Apixaban 5 MG TABLET PO (14:18)
[2022-12-29] MEDS: Folic Acid 1 MG TABLET 2 MG PO (14:18)
[2022-12-29] MEDS: Sevelamer Carbonate Powder 800 MG POWD.PACK PO (14:18)
[2022-12-29] MEDS: Cinacalcet HCl 30 MG TABLET PO (14:18)
[2022-12-29] MEDS: Midodrine HCl 5 MG TABLET PO (14:20)
[2022-12-29] MEDS: Sodium Bicarbonate 650 MG TABLET PO (14:22)
[2022-12-29 16:12] LABS: Glucose, Whole Blood 145 mg/dL (60-115)
--- NOTE | 2022-12-29 17:43 | W.PM.CCHP ---
Procedures Date of Service Date of Service: 12/29/22 Central Line Placement Left IJ: Central Line Comments: After obtaining informed consent left triple-lumen central venous catheter placed under ultrasound guidance and usual sterile conditions with no immediate complications. X-ray for line position is pending.
--- NOTE | 2022-12-29 17:45 | P.PNCC_ITS ---
Critical Care Event Note Summary Date of Service: 12/29/22 Code activated: No Narrative: 72-year-old lady with underlying paroxysmal AFib previously anticoagulated, hypertension, insulin-dependent diabetes, asthma, assay, hypothyroidism, end- stage renal disease on hemodialysis Wednesday /Wednesday / Wednesday, seizure disorder, CVA with residual expressive aphasia admitted 12/09/2022 with new onset seizures and discharged on 12/28/2022, however patient readmitted this a.m. day for inability to obtain vital signs. Patient remained on telemetry service for observed I 10/24/2022 hypertension was noted and multiple attempts at peripheral IVs who unsuccessful. Av graft was accessed in patient received 3 L of IV fluid with suboptimal blood pressure response. At that time patient was transferred to intensive care unit and central venous access was placed for pressor support. Laboratory studies up pending. Patient was started on pressor support and empiric antibiotics. Critical Care Time (minutes): 0
[2022-12-29] MEDS: Norepinephrine Bitartrate/D5W 8 MG/250 ML PLAST..BAG 10.25 MG IV (17:54)
[2022-12-29 18:25] LABS: VBG Base Excess -0.1 mmol/L; VBG HCO3 25 mmol/L (22-26); VBG pCO2 43 mmHg; VBG pH 7.36 (7.32-7.43); VBG pO2 82 mmHg
[2022-12-29 18:27] LABS: Hematocrit 29.2 % (37.0-47.0); Hemoglobin 9.7 g/dl (12.0-16.0); Mean Corpuscular HGB Conc 33.2 g/dl (31.0-35.0); Mean Corpuscular Hemoglobin 31.5 pg (27.0-33.0); Mean Corpuscular Volume 94.8 fL (80.0-98.0); Mean Platelet Volume 11.8 fL (9.4-12.3); NRBC Pct Auto 0.4 /100WBC (0.0-0.2); Red Blood Count 3.08 X10*6/uL (4.20-5.50); Red Cell Distribution Width 18.7 % (11.0-16.0)
[2022-12-29 18:32] LABS: Albumin Level 2.4 g/dL (3.5-5.0)
[2022-12-29 18:34] LABS: Lactic Acid 1.5 mmol/L (0.5-2.0)
[2022-12-29 18:44] LABS: Alanine Aminotransferase 836 U/L (0-31); Albumin Level 2.4 g/dL (3.5-5.0); Alkaline Phosphatase 498 U/L (39-117); Anion Gap 17 (12-20); Aspartate Amino Transferase 814 U/L (5-31); Bilirubin Total 0.9 mg/dL (0.0-1.0); Blood Urea Nitrogen 61 mg/dL (9-16); Calcium 7.5 mg/dL (8.4-10.2); Carbon Dioxide 20 mmol/L (22-29); Chloride 103 mmol/L (96-108); Creatinine Clr Calc Pharmacy 11.1; Estimated Glomerular Filt Rate 7; Glucose Random 202 mg/dL (60-115); Potassium 4.3 mmol/L (3.3-5.1); Sodium 136 mmol/L (135-145); Total Protein 5.6 g/dL (6.5-8.0)
[2022-12-29 19:00] LABS: Venous Blood Gas Refer to POC result
[2022-12-29 19:16] LABS: Glucose, Whole Blood 180 mg/dL (60-115)
[2022-12-29] MEDS: vancomycin HCL 1,500 MG in 0.9 % Sodium Chloride 500 ML 333.33 MG IV (19:24)
[2022-12-29] MEDS: cefEPime HCl 1 GM in 0.9 % Sodium Chloride 50 ML IV (19:28)
[2022-12-29 19:41] LABS: Platelet Count 67 X10*3/uL (160-400); WBC ABN SCTR FOR CBC 1
[2022-12-29 19:43] LABS: White Blood Count 18.9 X10*3/uL (4.8-10.8)
[2022-12-29 19:52] LABS: Band Neutrophils Percent 3 % (3-5); Lymphocytes Absolute Manual 1.9 X10*3/uL (1.2-4.9); Lymphocytes Percent Manual 10 % (20-40); Metamyelocytes Absolute 1.3 X10*3/uL; Metamyelocytes Percent 7 %; Monocytes Absolute Manual 1.3 X10*3/uL (0.1-1.2); Monocytes Percent Manual 7 % (2-11); Neutrophils Absolute Manual 14.4 X10*3/uL (2.0-8.3); Neutrophils Percent Manual 73 % (45-73)
[2022-12-29 19:53] LABS: Large Platelet PRESENT; Microcytosis 1+ (5-14) /OIF; Nucleated Red Blood Cells 1 /100WBC (0-0); Platelet Estimate DECREASED (NORMAL); Platelet Morphology Comment NOTED; RBC Morphology NOTED
[2022-12-29 19:54] LABS: Acanthocytes 1+ (0-2) /OIF; Burr Cells 3+ (>5) /OIF
[2022-12-29 19:55] LABS: Toxic Vacuolation PRESENT; WBC Morphology Comment DYSMORPHIC
[2022-12-29] MEDS: Albumin Human 25 % 100 ML IV ×2 (20:04→21:44)
[2022-12-29 20:11] LABS: Lipase 62 U/L (8-78)
--- NOTE | 2022-12-29 20:14 | PC.NURSE ---
Assumed care at 07:00. Patient was initially nonverbal, communicated with in [place]an, occasional moan. Patient not following commands, does track speaker. Patient moves all extremities, resisitive to care. Patient with difficulty obtaining vital signs, temporal art temp was 95.6, refused oral temp, rectal temp 97.4. Patient refused all morning medications by clenching teeth, MD notified, these were all given later in the day about 14:18 per MD after patient more alert. Patient takes meds crushed in apple sauce. Patient BP was difficult to obtain, used doppler check for BP, obtained low numbers all day--see vitals--70's/40's--MD called to bedside, DENTISTRY TEACHER called, numerous attempts by RNs to obtain IV access also with ultrasound no access--IR was consulted and unable to place midline. Critical care MD was consulted and came to bedside. assistant health educator reached out to nephrology and obtained order for HD nurse to access HD graft in RUE, +thrill, +bruit, and 3 L normal saline adminitered per MD while BP taken Q5 minutes, trending up to 80's/50's MAP about 60, and finally 107/33. HD graft was deaccessed. Patient becoming more somnolent, snoring, SpO2 dropped to 86% on RA, started on 2 LPM, Spo2 up to 100% when awake, placed back on room air. Patient with BP 78/28 and 60/28 manually, second DENTISTRY TEACHER called, Planned to obtain IO access, but before accessing, critical care consult, and patient transferred to ICU. BM today dark brown and pasty. No urine today, patient's sons and family in, and they report she only urinates about weekly at home.
[2022-12-30] VITALS (17 sets, daily range): BP systolic 120–160; BP diastolic 22–82; PULSE 66–106; RESP 10–20; TEMP 35.9–37.2; O2SAT 94–100; BMI 37.1
[2022-12-30 00:01] LABS: Glucose, Whole Blood 196 mg/dL (60-115)
[2022-12-30 04:35] LABS: VBG Base Excess -5.1 mmol/L; VBG HCO3 18 mmol/L (22-26); VBG pCO2 29 mmHg; VBG pO2 81 mmHg
--- NOTE | 2022-12-30 04:42 | PC.NURSE ---
ASSUMED CARE OF PT AT 1900 AT WHICH TIME PT WAS RECEIVING LEVOPHED AT 0.06 MCG/KG/MIN. ABLE TO WEAN TO OFF BP WAS STABILIZED. PT REMAINS LETHARGIC AND DIFFICULT TO AROUSE BUT LESS SO AT THIS TIME THAN AT 1900. PRIOR TO NOW, PT WOULD ONLY OPEN EYES TO LIGHT PAIN OR SHAKING BUT WOULD NOT FOLLOW COMMANDS AND WOULD FALL BACK ASLEEP IMMEDIATELY. NOW SHE IS ABLE TO SAY HER NAME AND MAINTAIN EYE CONTACT BUT STILL NOT FOLLOWING COMMANDS. MOVING EXTREMITIES WITH SEVERE WEAKNESS. NO URINE OUTPUT NOTED BUT THIS IS NORMAL FOR THIS PT WITH ESRD PER MD NOTES. PT HAS CYANOTIC TOES 1-4 ON RT FOOT AND 2ND AND 3RD TOES ON LT FOOT. PEDAL PULSES NOT PALPABLE BUT HEARD LOUDLY WITH DOPPLER. NO RESP DIFFICULTIES. O2 SAT 98-100% ON ROOM AIR, SOME SHORT INTERVALS OF DECREASE TO 80'S WITH SLEEP APNEA NOTED. MONITOR SHOWS NSR, RATE 70'S, NO ECTOPY OBSERVED. PT TURNED AND REPOS Q2HR.
[2022-12-30 05:02] LABS: Hematocrit 23.3 % (37.0-47.0); Hemoglobin 7.9 g/dl (12.0-16.0); Mean Corpuscular HGB Conc 33.9 g/dl (31.0-35.0); Mean Corpuscular Hemoglobin 32.2 pg (27.0-33.0); Mean Corpuscular Volume 95.1 fL (80.0-98.0); Mean Platelet Volume 11.2 fL (9.4-12.3); NRBC Pct Auto 0.3 /100WBC (0.0-0.2); Red Blood Count 2.45 X10*6/uL (4.20-5.50); Red Cell Distribution Width 18.3 % (11.0-16.0); White Blood Count 14.8 X10*3/uL (4.8-10.8)
[2022-12-30 05:03] LABS: Platelet Count 53 X10*3/uL (160-400)
[2022-12-30 05:23] LABS: Albumin Level 2.9 g/dL (3.5-5.0); Anion Gap 18 (12-20); Band Neutrophils Percent 6 % (3-5); Blood Urea Nitrogen 66 mg/dL (9-16); Calcium 7.3 mg/dL (8.4-10.2); Carbon Dioxide 19 mmol/L (22-29); Chloride 104 mmol/L (96-108); Creatinine Clr Calc Pharmacy 9.9; Estimated Glomerular Filt Rate 6; Glucose Random 204 mg/dL (60-115); Lymphocytes Absolute Manual 0.9 X10*3/uL (1.2-4.9); Lymphocytes Percent Manual 6 % (20-40); Magnesium 1.9 mg/dL (1.6-2.6); Metamyelocytes Absolute 0.4 X10*3/uL; Metamyelocytes Percent 3 %; Monocytes Absolute Manual 0.7 X10*3/uL (0.1-1.2); Monocytes Percent Manual 5 % (2-11); Myelocytes Absolute 0.4 X10*/uL; Myelocytes Percent 3 %; Neutrophils Absolute Manual 12.3 X10*3/uL (2.0-8.3); Neutrophils Percent Manual 77 % (45-73); Nucleated Red Blood Cells 1 /100WBC (0-0); Phosphorus 3.9 mg/dL (2.7-4.5); Potassium 3.8 mmol/L (3.3-5.1); Sodium 137 mmol/L (135-145)
[2022-12-30 05:24] LABS: RBC Morphology NOTED
[2022-12-30 05:28] LABS: Burr Cells 1+ (0-2) /OIF; Microcytosis 1+ (5-14) /OIF
[2022-12-30 05:29] LABS: Large Platelet PRESENT; Platelet Estimate DECREASED (NORMAL); Platelet Morphology Comment NOTED; Target Cells 1+ (5-14) /OIF
[2022-12-30 05:30] LABS: Polychromasia 1+ (0-2) /OIF
[2022-12-30 05:46] LABS: Alanine Aminotransferase 552 U/L (0-31); Alkaline Phosphatase 360 U/L (39-117); Aspartate Amino Transferase 427 U/L (5-31); Bilirubin Direct 0.6 mg/dL (0.0-0.5); Total Protein 5.4 g/dL (6.5-8.0)
[2022-12-30] MEDS: Sodium Bicarbonate 8.4% 50 MEQ/50 ML VIAL IVPUSH (05:58)
[2022-12-30] MEDS: Insulin Lispro 100 UNIT/ML 3 ML VIAL SUBCUT (06:03)
[2022-12-30] MEDS: Lactated Ringers 500 ML 999 ML IV (06:47)
[2022-12-30 07:51] LABS: Venous Blood Gas Refer to POC result
--- NOTE | 2022-12-30 08:10 | PM.CCPN ---
Subjective Subjective Date of Service: 12/30/22 Interval History: 72-year-old lady with underlying paroxysmal AFib previously anticoagulated, hypertension, insulin-dependent diabetes, asthma, assay, hypothyroidism, end-stage renal disease on hemodialysis Wednesday /Wednesday / Wednesday, seizure disorder, CVA with residual expressive aphasia admitted 12/09/2022 with new onset seizures and discharged on 12/28/2022, however patient readmitted this a.m. day for inability to obtain vital signs. Patient remained on telemetry service for observed I 10/24/2022 hypertension was noted and multiple attempts at peripheral IVs who unsuccessful. Av graft was accessed in patient received 3 L of IV fluid with suboptimal blood pressure response. At that time patient was transferred to intensive care unit and central venous access was placed for pressor support. Laboratory studies up pending. Patient was started on pressor support and empiric antibiotics. Aunts overnight. After receiving albumin easily titrated off pressors. Critical Care Time (minutes): 0 Physical Exam Vital Signs: Vital Signs: Last Vital Signs Temp 98.1 F 12/30/22 05:00 Pulse 77 12/30/22 07:52 Resp 17 12/30/22 07:00 BP 128/26 L 12/30/22 07:52 Pulse Ox 100 12/30/22 07:00 O2 Del Method Room Air 12/30/22 07:00 O2 Flow Rate 2 12/29/22 18:00 BMI result Body Mass Index 37.1 Const: General: no acute distress and lethargic (Arousable and answers appropriately) Orientation/consciousness: lethargic (Arousable and answers appropriately) Eyes: Sclerae: sclerae normal EOM: EOMs intact bilaterally Neck: Neck: Yes no lymphadenopathy, Yes trachea midline and Yes supple Resp: Effort & Inspection: normal respiratory effort and no respiratory distress Auscultation: clear to auscultation bilaterally Cardio: Rate: regular rate Rhythm: regular rhythm Heart sounds: no gallops, no murmurs and no rubs GI: Palpation (GI): Soft to palpation and Other GI palpation findings present ( Nontender) Auscultation: normal bowel sounds Extrem: General: No clubbing, No cyanosis and Yes edema (1+ bilateral) Objective Data Labs 12/30/22 04:18 12/30/22 04:18 Labs: Laboratory Results - last 24 hr 12/29/22 12/29/22 12/29/22 11:41 15:45 18:07 WBC 18.9 H RBC 3.08 L Hgb 9.7 L D Hct 29.2 L MCV 94.8 MCH 31.5 MCHC 33.2 RDW 18.7 H Plt Count 67 L D MPV 11.8 Immature Gran % (Auto) Cancelled Neut % (Auto) Cancelled Lymph % (Auto) Cancelled [place] % (Auto) Cancelled Eos % (Auto) Cancelled Baso % (Auto) Cancelled Lymph # (Auto) Cancelled [place] # (Auto) Cancelled Eos # (Auto) Cancelled Baso # (Auto) Cancelled Abs Immat Gran (auto) Cancelled Absolute Neuts (auto) Cancelled Absolute Nucleated RBC 0.070 H Nucleated RBC % (auto) 0.4 H Neutrophils % (Manual) 73 Band Neutrophils % 3 Lymphocytes % (Manual) 10 L Monocytes % (Manual) 7 Metamyelocytes % 7 Myelocytes % Abs Neuts (Manual) 14.4 H Lymphocytes # (Manual) 1.9 Monocytes # (Manual) 1.3 H Metamyelocytes # 1.3 Myelocytes # Nucleated RBCs 1 H Toxic Vacuolation PRESENT WBC Morphology Comment DYSMORPHIC Platelet Estimate DECREASED Large Platelets PRESENT Plt Morphology Comment NOTED RBC Morphology NOTED Polychromasia Microcytosis 1+ (5-14) Target Cells Fany Cells 3+ (>5) Acanthocytes (Spur) 1+ (0-2) VBG pH VBG pCO2 VBG pO2 VBG HCO3 VBG O2 Saturation VBG Base Excess Sodium Potassium Chloride Carbon Dioxide Anion Gap BUN Creatinine Estim Creat Clear Calc Estimated GFR POC Glucose 176 H 145 H Random Glucose Lactic Acid Calcium Phosphorus Magnesium Total Bilirubin Direct Bilirubin AST ALT Alkaline Phosphatase Total Protein Albumin Lipase 12/29/22 12/29/22 12/29/22 18:07 18:07 18:07 WBC RBC Hgb Hct MCV MCH MCHC RDW Plt Count MPV Immature Gran % (Auto) Neut % (Auto) Lymph % (Auto) [place] % (Auto) Eos % (Auto) Baso % (Auto) Lymph # (Auto) [place] # (Auto) Eos # (Auto) Baso # (Auto) Abs Immat Gran (auto) Absolute Neuts (auto) Absolute Nucleated RBC Nucleated RBC % (auto) Neutrophils % (Manual) Band Neutrophils % Lymphocytes % (Manual) Monocytes % (Manual) Metamyelocytes % Myelocytes % Abs Neuts (Manual) Lymphocytes # (Manual) Monocytes # (Manual) Metamyelocytes # Myelocytes # Nucleated RBCs Toxic Vacuolation WBC Morphology Comment Platelet Estimate Large Platelets Plt Morphology Comment RBC Morphology Polychromasia Microcytosis Target Cells Fany Cells Acanthocytes (Spur) VBG pH VBG pCO2 VBG pO2 VBG HCO3 VBG O2 Saturation VBG Base Excess Sodium 136 Potassium 4.3 Chloride 103 Carbon Dioxide 20 L Anion Gap 17 BUN 61 H Creatinine 5.64 H* Estim Creat Clear Calc 11.1 Estimated GFR 7 POC Glucose Random Glucose 202 H Lactic Acid 1.5 Calcium 7.5 L D Phosphorus Magnesium Total Bilirubin 0.9 Direct Bilirubin AST 814 H ALT 836 H Alkaline Phosphatase 498 H Total Protein 5.6 L Albumin 2.4 L 2.4 L Lipase 12/29/22 12/29/22 12/29/22 18:07 18:15 19:12 WBC RBC Hgb Hct MCV MCH MCHC RDW Plt Count MPV Immature Gran % (Auto) Neut % (Auto) Lymph % (Auto) [place] % (Auto) Eos % (Auto) Baso % (Auto) Lymph # (Auto) [place] # (Auto) Eos # (Auto) Baso # (Auto) Abs Immat Gran (auto) Absolute Neuts (auto) Absolute Nucleated RBC Nucleated RBC % (auto) Neutrophils % (Manual) Band Neutrophils % Lymphocytes % (Manual) Monocytes % (Manual) Metamyelocytes % Myelocytes % Abs Neuts (Manual) Lymphocytes # (Manual) Monocytes # (Manual) Metamyelocytes # Myelocytes # Nucleated RBCs Toxic Vacuolation WBC Morphology Comment Platelet Estimate Large Platelets Plt Morphology Comment RBC Morphology Polychromasia Microcytosis Target Cells Fany Cells Acanthocytes (Spur) VBG pH 7.36 VBG pCO2 43 VBG pO2 82 VBG HCO3 25 VBG O2 Saturation 95.0 VBG Base Excess -0.1 Sodium Potassium Chloride Carbon Dioxide Anion Gap BUN Creatinine Estim Creat Clear Calc Estimated GFR POC Glucose 180 H Random Glucose Lactic Acid Calcium Phosphorus Magnesium Total Bilirubin Direct Bilirubin AST ALT Alkaline Phosphatase Total Protein Albumin Lipase 62 12/29/22 12/30/22 12/30/22 23:57 04:18 04:18 WBC 14.8 H RBC 2.45 L D Hgb 7.9 L Hct 23.3 L D MCV 95.1 MCH 32.2 MCHC 33.9 RDW 18.3 H Plt Count 53 L MPV 11.2 Immature Gran % (Auto) Cancelled Neut % (Auto) Cancelled Lymph % (Auto) Cancelled [place] % (Auto) Cancelled Eos % (Auto) Cancelled Baso % (Auto) Cancelled Lymph # (Auto) Cancelled [place] # (Auto) Cancelled Eos # (Auto) Cancelled Baso # (Auto) Cancelled Abs Immat Gran (auto) Cancelled Absolute Neuts (auto) Cancelled Absolute Nucleated RBC 0.050 H Nucleated RBC % (auto) 0.3 H Neutrophils % (Manual) 77 H Band Neutrophils % 6 H Lymphocytes % (Manual) 6 L Monocytes % (Manual) 5 Metamyelocytes % 3 Myelocytes % 3 Abs Neuts (Manual) 12.3 H Lymphocytes # (Manual) 0.9 L Monocytes # (Manual) 0.7 Metamyelocytes # 0.4 Myelocytes # 0.4 Nucleated RBCs 1 H Toxic Vacuolation WBC Morphology Comment Platelet Estimate DECREASED Large Platelets PRESENT Plt Morphology Comment NOTED RBC Morphology NOTED Polychromasia 1+ (0-2) Microcytosis 1+ (5-14) Target Cells 1+ (5-14) [place] Cells 1+ (0-2) Acanthocytes (Spur) VBG pH VBG pCO2 VBG pO2 VBG HCO3 VBG O2 Saturation VBG Base Excess Sodium 137 Potassium 3.8 Chloride 104 Carbon Dioxide 19 L Anion Gap 18 BUN 66 H Creatinine 6.35 H* Estim Creat Clear Calc 9.9 Estimated GFR 6 POC Glucose 196 H Random Glucose 204 H Lactic Acid Calcium 7.3 L Phosphorus 3.9 Magnesium 1.9 Total Bilirubin 1.0 Direct Bilirubin 0.6 H AST 427 H ALT 552 H Alkaline Phosphatase 360 H Total Protein 5.4 L Albumin 2.9 L Lipase 12/30/22 04:25 WBC RBC Hgb Hct MCV MCH MCHC RDW Plt Count MPV Immature Gran % (Auto) Neut % (Auto) Lymph % (Auto) [place] % (Auto) Eos % (Auto) Baso % (Auto) Lymph # (Auto) [place] # (Auto) Eos # (Auto) Baso # (Auto) Abs Immat Gran (auto) Absolute Neuts (auto) Absolute Nucleated RBC Nucleated RBC % (auto) Neutrophils % (Manual) Band Neutrophils % Lymphocytes % (Manual) Monocytes % (Manual) Metamyelocytes % Myelocytes % Abs Neuts (Manual) Lymphocytes # (Manual) Monocytes # (Manual) Metamyelocytes # Myelocytes # Nucleated RBCs Toxic Vacuolation WBC Morphology Comment Platelet Estimate Large Platelets Plt Morphology Comment RBC Morphology Polychromasia Microcytosis Target Cells [place] Cells Acanthocytes (Spur) VBG pH 7.40 VBG pCO2 29 VBG pO2 81 VBG HCO3 18 L VBG O2 Saturation 96.0 VBG Base Excess -5.1 Sodium Potassium Chloride Carbon Dioxide Anion Gap BUN Creatinine Estim Creat Clear Calc Estimated GFR POC Glucose Random Glucose Lactic Acid Calcium Phosphorus Magnesium Total Bilirubin Direct Bilirubin AST ALT Alkaline Phosphatase Total Protein Albumin Lipase Microbiology Microbiology Results: Microbiology 12/07/22 12:43 Blood - Venous Blood Culture - Final No growth after 5 days. 12/07/22 12:11 Blood - Venous Blood Culture - Final No growth after 5 days. Progress Note: A&P Assessment and plan (1) Hypotension: Status: Acute (2) Seizure: Status: Acute (3) History of CVA (cerebrovascular accident): Status: Acute (4) Insulin dependent type 2 diabetes mellitus: Status: Acute (5) Morbid obesity: Status: Acute (6) Paroxysmal atrial fibrillation: Status: Acute (7) ESRD on dialysis: Status: Acute Plan Assessment: 72-year-old lady discharged on readmitted on 12/29/2022 secondary to hypertension that appears to be related to intravascular volume depletion Plan: Neuro: No acute issues. Cardiac: Titrated off pressors after IV fluid albumin. Continue on midodrine t.i.d. on dialysis days. Pulmonary: No acute issues. Renal: End-stage renal disease on hemodialysis. Endo: No acute issues. GI: No acute issues. ID: Cultures pending empirically covered with broad-spectrum antibiotics. Though, sepsis is unlikely, as patient appears to have had intravascular volume depletion Heme/Onc: No acute issues. Psych: No acute issues. Miscellaneous: No acute issues. Prophylaxis: Pneumatic compression Diet: Renal Quality Stroke Does the patient have a stroke diagnosis?: No VTE Prior VTE?: No VTE Risk Level:: Medical - moderate - high VTE Device Contraindication: Treatment Not Indicated VTE Drug Contraindication: N/A - Med Ordered
--- NOTE | 2022-12-30 08:58 | PM.PNNEP ---
Subjective Subjective Date of Service: 12/30/22 Interval history: seen and examined lethargic Physical Exam Vital Signs: Vital Signs: Last Vital Signs Temp 99.0 F 12/30/22 08:00 Pulse 73 12/30/22 08:00 Resp 12 12/30/22 08:00 BP 127/53 L 12/30/22 08:00 Pulse Ox 100 12/30/22 08:00 O2 Del Method Room Air 12/30/22 08:00 O2 Flow Rate 2 12/29/22 18:00 BMI result Body Mass Index 37.1 Const: General: alert and awake HEENT: Head: Yes normocephalic and Yes atraumatic Neck: Neck: Yes supple Resp: Auscultation: diminished lung sounds Cardio: Heart sounds: S1 normal heart sound present and S2 normal heart sound present GI: Palpation (GI): Soft to palpation and nontender Extrem: General: Yes edema Objective Data Labs 12/30/22 04:18 12/30/22 04:18 Labs: Laboratory Results - last 24 hr 12/29/22 12/29/22 12/29/22 11:41 15:45 18:07 WBC 18.9 H RBC 3.08 L Hgb 9.7 L D Hct 29.2 L MCV 94.8 MCH 31.5 MCHC 33.2 RDW 18.7 H Plt Count 67 L D MPV 11.8 Immature Gran % (Auto) Cancelled Neut % (Auto) Cancelled Lymph % (Auto) Cancelled [place] % (Auto) Cancelled Eos % (Auto) Cancelled Baso % (Auto) Cancelled Lymph # (Auto) Cancelled [place] # (Auto) Cancelled Eos # (Auto) Cancelled Baso # (Auto) Cancelled Abs Immat Gran (auto) Cancelled Absolute Neuts (auto) Cancelled Absolute Nucleated RBC 0.070 H Nucleated RBC % (auto) 0.4 H Neutrophils % (Manual) 73 Band Neutrophils % 3 Lymphocytes % (Manual) 10 L Monocytes % (Manual) 7 Metamyelocytes % 7 Myelocytes % Abs Neuts (Manual) 14.4 H Lymphocytes # (Manual) 1.9 Monocytes # (Manual) 1.3 H Metamyelocytes # 1.3 Myelocytes # Nucleated RBCs 1 H Toxic Vacuolation PRESENT WBC Morphology Comment DYSMORPHIC Platelet Estimate DECREASED Large Platelets PRESENT Plt Morphology Comment NOTED RBC Morphology NOTED Polychromasia Microcytosis 1+ (5-14) Target Cells [place] Cells 3+ (>5) Acanthocytes (Spur) 1+ (0-2) VBG pH VBG pCO2 VBG pO2 VBG HCO3 VBG O2 Saturation VBG Base Excess Sodium Potassium Chloride Carbon Dioxide Anion Gap BUN Creatinine Estim Creat Clear Calc Estimated GFR POC Glucose 176 H 145 H Random Glucose Lactic Acid Calcium Phosphorus Magnesium Total Bilirubin Direct Bilirubin AST ALT Alkaline Phosphatase Total Protein Albumin Lipase 12/29/22 12/29/22 12/29/22 18:07 18:07 18:07 WBC RBC Hgb Hct MCV MCH MCHC RDW Plt Count MPV Immature Gran % (Auto) Neut % (Auto) Lymph % (Auto) [place] % (Auto) Eos % (Auto) Baso % (Auto) Lymph # (Auto) [place] # (Auto) Eos # (Auto) Baso # (Auto) Abs Immat Gran (auto) Absolute Neuts (auto) Absolute Nucleated RBC Nucleated RBC % (auto) Neutrophils % (Manual) Band Neutrophils % Lymphocytes % (Manual) Monocytes % (Manual) Metamyelocytes % Myelocytes % Abs Neuts (Manual) Lymphocytes # (Manual) Monocytes # (Manual) Metamyelocytes # Myelocytes # Nucleated RBCs Toxic Vacuolation WBC Morphology Comment Platelet Estimate Large Platelets Plt Morphology Comment RBC Morphology Polychromasia Microcytosis Target Cells [place] Cells Acanthocytes (Spur) VBG pH VBG pCO2 VBG pO2 VBG HCO3 VBG O2 Saturation VBG Base Excess Sodium 136 Potassium 4.3 Chloride 103 Carbon Dioxide 20 L Anion Gap 17 BUN 61 H Creatinine 5.64 H* Estim Creat Clear Calc 11.1 Estimated GFR 7 POC Glucose Random Glucose 202 H Lactic Acid 1.5 Calcium 7.5 L D Phosphorus Magnesium Total Bilirubin 0.9 Direct Bilirubin AST 814 H ALT 836 H Alkaline Phosphatase 498 H Total Protein 5.6 L Albumin 2.4 L 2.4 L Lipase 12/29/22 12/29/22 12/29/22 18:07 18:15 19:12 WBC RBC Hgb Hct MCV MCH MCHC RDW Plt Count MPV Immature Gran % (Auto) Neut % (Auto) Lymph % (Auto) [place] % (Auto) Eos % (Auto) Baso % (Auto) Lymph # (Auto) [place] # (Auto) Eos # (Auto) Baso # (Auto) Abs Immat Gran (auto) Absolute Neuts (auto) Absolute Nucleated RBC Nucleated RBC % (auto) Neutrophils % (Manual) Band Neutrophils % Lymphocytes % (Manual) Monocytes % (Manual) Metamyelocytes % Myelocytes % Abs Neuts (Manual) Lymphocytes # (Manual) Monocytes # (Manual) Metamyelocytes # Myelocytes # Nucleated RBCs Toxic Vacuolation WBC Morphology Comment Platelet Estimate Large Platelets Plt Morphology Comment RBC Morphology Polychromasia Microcytosis Target Cells Fany Cells Acanthocytes (Spur) VBG pH 7.36 VBG pCO2 43 VBG pO2 82 VBG HCO3 25 VBG O2 Saturation 95.0 VBG Base Excess -0.1 Sodium Potassium Chloride Carbon Dioxide Anion Gap BUN Creatinine Estim Creat Clear Calc Estimated GFR POC Glucose 180 H Random Glucose Lactic Acid Calcium Phosphorus Magnesium Total Bilirubin Direct Bilirubin AST ALT Alkaline Phosphatase Total Protein Albumin Lipase 62 12/29/22 12/30/22 12/30/22 23:57 04:18 04:18 WBC 14.8 H RBC 2.45 L D Hgb 7.9 L Hct 23.3 L D MCV 95.1 MCH 32.2 MCHC 33.9 RDW 18.3 H Plt Count 53 L MPV 11.2 Immature Gran % (Auto) Cancelled Neut % (Auto) Cancelled Lymph % (Auto) Cancelled [place] % (Auto) Cancelled Eos % (Auto) Cancelled Baso % (Auto) Cancelled Lymph # (Auto) Cancelled [place] # (Auto) Cancelled Eos # (Auto) Cancelled Baso # (Auto) Cancelled Abs Immat Gran (auto) Cancelled Absolute Neuts (auto) Cancelled Absolute Nucleated RBC 0.050 H Nucleated RBC % (auto) 0.3 H Neutrophils % (Manual) 77 H Band Neutrophils % 6 H Lymphocytes % (Manual) 6 L Monocytes % (Manual) 5 Metamyelocytes % 3 Myelocytes % 3 Abs Neuts (Manual) 12.3 H Lymphocytes # (Manual) 0.9 L Monocytes # (Manual) 0.7 Metamyelocytes # 0.4 Myelocytes # 0.4 Nucleated RBCs 1 H Toxic Vacuolation WBC Morphology Comment Platelet Estimate DECREASED Large Platelets PRESENT Plt Morphology Comment NOTED RBC Morphology NOTED Polychromasia 1+ (0-2) Microcytosis 1+ (5-14) Target Cells 1+ (5-14) [place] Cells 1+ (0-2) Acanthocytes (Spur) VBG pH VBG pCO2 VBG pO2 VBG HCO3 VBG O2 Saturation VBG Base Excess Sodium 137 Potassium 3.8 Chloride 104 Carbon Dioxide 19 L Anion Gap 18 BUN 66 H Creatinine 6.35 H* Estim Creat Clear Calc 9.9 Estimated GFR 6 POC Glucose 196 H Random Glucose 204 H Lactic Acid Calcium 7.3 L Phosphorus 3.9 Magnesium 1.9 Total Bilirubin 1.0 Direct Bilirubin 0.6 H AST 427 H ALT 552 H Alkaline Phosphatase 360 H Total Protein 5.4 L Albumin 2.9 L Lipase 12/30/22 04:25 WBC RBC Hgb Hct MCV MCH MCHC RDW Plt Count MPV Immature Gran % (Auto) Neut % (Auto) Lymph % (Auto) [place] % (Auto) Eos % (Auto) Baso % (Auto) Lymph # (Auto) [place] # (Auto) Eos # (Auto) Baso # (Auto) Abs Immat Gran (auto) Absolute Neuts (auto) Absolute Nucleated RBC Nucleated RBC % (auto) Neutrophils % (Manual) Band Neutrophils % Lymphocytes % (Manual) Monocytes % (Manual) Metamyelocytes % Myelocytes % Abs Neuts (Manual) Lymphocytes # (Manual) Monocytes # (Manual) Metamyelocytes # Myelocytes # Nucleated RBCs Toxic Vacuolation WBC Morphology Comment Platelet Estimate Large Platelets Plt Morphology Comment RBC Morphology Polychromasia Microcytosis Target Cells [place] Cells Acanthocytes (Spur) VBG pH 7.40 VBG pCO2 29 VBG pO2 81 VBG HCO3 18 L VBG O2 Saturation 96.0 VBG Base Excess -5.1 Sodium Potassium Chloride Carbon Dioxide Anion Gap BUN Creatinine Estim Creat Clear Calc Estimated GFR POC Glucose Random Glucose Lactic Acid Calcium Phosphorus Magnesium Total Bilirubin Direct Bilirubin AST ALT Alkaline Phosphatase Total Protein Albumin Lipase Microbiology Microbiology Results: Microbiology 12/07/22 12:43 Blood - Venous Blood Culture - Final No growth after 5 days. 12/07/22 12:11 Blood - Venous Blood Culture - Final No growth after 5 days. Procedures Date of Service Date of Service: 12/30/22 Assessment & Plan Assessment and plan (1) End stage kidney disease: Status: Acute (2) Seizure: Status: Acute (3) Anemia: Status: Acute Plan usually has HD at [place] dialysis unit [facility] new diagnosed seizure disorder with expressive aphasia REC HD today UF as tolerated renal diet ABEBE per protocol phosphate binders Time Spent With Patient Time: Total time managing care of this patient today ____ minutes. Progress Note: Quality Stroke Does the patient have a stroke diagnosis?: No
[2022-12-30] MEDS: cefEPime HCl 1 GM in 0.9 % Sodium Chloride 50 ML IV (09:07)
[2022-12-30] MEDS: Albumin Human 25 % 100 ML IV ×3 (09:11→20:39)
--- NOTE | 2022-12-30 09:48 | MHC.CLN ---
F/U PO INTAKE REMAINS POOR DIET RX 2200DM-WILL RESTART PUREED AND 2GM NA DIET RESTRICTIONS WILL RE-START ENSURE CLEAR TID TO INCREASE KCALS AND PROMOTE WOUND HEALING SUPPLEMENT IS RENAL FRIENDLY AND WILL PROVIDE 720KCALS, 24G PROTEIN MONITOR AND ENCOURAGE PO INTAKE
[2022-12-30 12:48] LABS: Glucose, Whole Blood 114 mg/dL (60-115)
--- NOTE | 2022-12-30 13:11 | PM.EVENT ---
Event Note Date of Service: 12/30/22 Event Note: Came back from ICU with a central line in Plan for dialysis today Metnation still waxing and waning but overall better than yesterday CBC showing likely dilutional anemia, no bleeding noticed continue broad spectrum Abx until final blood cultures Low BP likely from dehydration rather than sepsis will continue to monitor Time Spent With Patient Time: Total time managing care of this patient today ____ minutes.
[2022-12-30 16:18] LABS: Glucose, Whole Blood 80 mg/dL (60-115)
--- NOTE | 2022-12-30 17:15 | MHC.SLORD ---
Speech Language Pathology Order Status: CATALOG LIBRARY ASSISTANT attempted to see pt for f/u. Pt was sleeping, did not appear to eat any of her dinner tray yet. No PO trials given d/t lethargic state. Pt currently on pureed solids (NDD1) with thin liquids.
[2022-12-30] MEDS: Apixaban 2.5 MG TABLET PO (20:39)
--- NOTE | 2022-12-30 20:40 | PC.NURSE ---
Addendum entered by Cynthia Kingsley RN 12/31/22 02:28: 0228 Albumin 25% Lot#[id number];exp 13 may 2025, [facility]. Original Note: 2039 Albumin 25%Lot# [id number], Exp Apr administered via [facility].
[2022-12-30 21:35] LABS: Glucose, Whole Blood 136 mg/dL (60-115)
[2022-12-31] VITALS (10 sets, daily range): BP systolic 115–163; BP diastolic 57–73; PULSE 89–110; RESP 13–20; TEMP 36–37.1; O2SAT 95–100; BMI 37.1
--- NOTE | 2022-12-31 | EEG_ITS ---
INTERPRETATION: This is a 16-channel EEG with an EKG lead. The patient is reported awake, restless, confused, and drowsy during the tracing. Background EEG rhythm mostly is mixed theta/beta, low to medium amplitude with frequent lead and muscle artifacts, especially the anterior leads. Photic stimulation and hyperventilation were not performed. Cardiac lead revealed tachycardia. No definite sharp wave spikes or paroxysmal tendency noted. IMPRESSION: Generalized slowing with no evidence of seizure disorder. Metabolic toxic type of etiology is expected. MD SALENA Gallardo/LEO / [id number]
[2022-12-31] MEDS: Albumin Human 25 % 100 ML IV (02:27)
[2022-12-31] MEDS: Levothyroxine Sodium 88 MCG TABLET PO (05:03)
[2022-12-31 06:15] LABS: Glucose, Whole Blood 127 mg/dL (60-115)
[2022-12-31 07:29] LABS: Hemoglobin 7.1 g/dl (12.0-16.0); Mean Corpuscular HGB Conc 34.1 g/dl (31.0-35.0); Mean Corpuscular Hemoglobin 32.3 pg (27.0-33.0); Mean Corpuscular Volume 94.5 fL (80.0-98.0); Mean Platelet Volume 10.5 fL (9.4-12.3); NRBC Pct Auto 0.2 /100WBC (0.0-0.2); Red Cell Distribution Width 18.9 % (11.0-16.0); White Blood Count 12.9 X10*3/uL (4.8-10.8)
[2022-12-31 07:59] LABS: Hematocrit 20.8 % (37.0-47.0); Platelet Count 50 X10*3/uL (160-400)
[2022-12-31 08:13] LABS: Band Neutrophils Percent 5 % (3-5); Lymphocytes Absolute Manual 1.3 X10*3/uL (1.2-4.9); Lymphocytes Percent Manual 10 % (20-40); Metamyelocytes Absolute 0.4 X10*3/uL; Metamyelocytes Percent 3 %; Monocytes Percent Manual 8 % (2-11); Myelocytes Absolute 0.1 X10*/uL; Myelocytes Percent 1 %; Neutrophils Absolute Manual 10.1 X10*3/uL (2.0-8.3); Neutrophils Percent Manual 73 % (45-73)
[2022-12-31 08:14] LABS: Acanthocytes 1+ (0-2) /OIF; Burr Cells 1+ (0-2) /OIF; Hypochromasia 1+ (5-14) /OIF; Platelet Estimate DECREASED (NORMAL); Platelet Morphology Comment NORMAL; RBC Morphology NOTED
[2022-12-31 08:20] LABS: Albumin Level 3.9 g/dL (3.5-5.0); Anion Gap 21 (12-20); Blood Urea Nitrogen 22 mg/dL (9-16); Calcium 8.3 mg/dL (8.4-10.2); Carbon Dioxide 20 mmol/L (22-29); Chloride 98 mmol/L (96-108); Creatinine Clr Calc Pharmacy 17.9; Estimated Glomerular Filt Rate 14; Glucose Random 124 mg/dL (60-115); Magnesium 1.9 mg/dL (1.6-2.6); Phosphorus 2.2 mg/dL (2.7-4.5); Potassium 3.5 mmol/L (3.3-5.1); Sodium 135 mmol/L (135-145)
[2022-12-31 08:35] LABS: Alanine Aminotransferase 327 U/L (0-31); Alkaline Phosphatase 300 U/L (39-117); Aspartate Amino Transferase 200 U/L (5-31); Bilirubin Direct 0.9 mg/dL (0.0-0.5); Bilirubin Total 1.5 mg/dL (0.0-1.0); Iron 39 mcg/dL (30-160); Percent Iron Saturation 38 % (15-50); Total Iron Binding Capacity 102 mcg/dL (228-428); Total Protein 6.1 g/dL (6.5-8.0); Unsaturated Iron Binding 63 ug/dL
--- NOTE | 2022-12-31 09:31 | PM.PNNEP ---
Subjective Subjective Date of Service: 12/31/22 Interval history: seen and examined lethargic Physical Exam Vital Signs: Vital Signs: Last Vital Signs Temp 98.3 F 12/31/22 08:00 Pulse 110 H 12/31/22 08:00 Resp 20 12/31/22 08:00 BP 163/73 H 12/31/22 08:00 Pulse Ox 100 12/31/22 08:00 O2 Del Method Room Air 12/31/22 08:00 O2 Flow Rate 2 12/29/22 18:00 BMI result Body Mass Index 37.1 Const: General: alert and awake HEENT: Head: Yes normocephalic and Yes atraumatic Neck: Neck: Yes supple Resp: Auscultation: diminished lung sounds Cardio: Heart sounds: S1 normal heart sound present and S2 normal heart sound present GI: Palpation (GI): Soft to palpation and nontender Extrem: General: Yes edema Objective Data Labs 12/31/22 06:46 12/31/22 06:46 Labs: Laboratory Results - last 24 hr 12/30/22 12/30/22 12/30/22 12:44 16:15 21:32 WBC RBC Hgb Hct MCV MCH MCHC RDW Plt Count MPV Immature Gran % (Auto) Neut % (Auto) Lymph % (Auto) [place] % (Auto) Eos % (Auto) Baso % (Auto) Lymph # (Auto) [place] # (Auto) Eos # (Auto) Baso # (Auto) Abs Immat Gran (auto) Absolute Neuts (auto) Absolute Nucleated RBC Nucleated RBC % (auto) Neutrophils % (Manual) Band Neutrophils % Lymphocytes % (Manual) Monocytes % (Manual) Metamyelocytes % Myelocytes % Abs Neuts (Manual) Lymphocytes # (Manual) Monocytes # (Manual) Metamyelocytes # Myelocytes # Platelet Estimate Plt Morphology Comment RBC Morphology Hypochromasia [place] Cells Acanthocytes (Spur) Sodium Potassium Chloride Carbon Dioxide Anion Gap BUN Creatinine Estim Creat Clear Calc Estimated GFR POC Glucose 114 80 136 H Random Glucose Calcium Phosphorus Magnesium Iron TIBC % Saturation Unsat Iron Binding Total Bilirubin Direct Bilirubin AST ALT Alkaline Phosphatase Total Protein Albumin Blood Type Antibody Screen Crossmatch 12/31/22 12/31/22 12/31/22 06:12 06:46 06:46 WBC 12.9 H RBC 2.20 L Hgb 7.1 L Hct 20.8 L* MCV 94.5 MCH 32.3 MCHC 34.1 RDW 18.9 H Plt Count 50 L MPV 10.5 Immature Gran % (Auto) Cancelled Neut % (Auto) Cancelled Lymph % (Auto) Cancelled [place] % (Auto) Cancelled Eos % (Auto) Cancelled Baso % (Auto) Cancelled Lymph # (Auto) Cancelled [place] # (Auto) Cancelled Eos # (Auto) Cancelled Baso # (Auto) Cancelled Abs Immat Gran (auto) Cancelled Absolute Neuts (auto) Cancelled Absolute Nucleated RBC 0.030 H Nucleated RBC % (auto) 0.2 Neutrophils % (Manual) 73 Band Neutrophils % 5 Lymphocytes % (Manual) 10 L Monocytes % (Manual) 8 Metamyelocytes % 3 Myelocytes % 1 Abs Neuts (Manual) 10.1 H Lymphocytes # (Manual) 1.3 Monocytes # (Manual) 1.0 Metamyelocytes # 0.4 Myelocytes # 0.1 Platelet Estimate DECREASED Plt Morphology Comment NORMAL RBC Morphology NOTED Hypochromasia 1+ (5-14) Fany Cells 1+ (0-2) Acanthocytes (Spur) 1+ (0-2) Sodium 135 Potassium 3.5 Chloride 98 Carbon Dioxide 20 L Anion Gap 21 H BUN 22 H Creatinine 3.31 H Estim Creat Clear Calc 17.9 Estimated GFR 14 POC Glucose 127 H Random Glucose 124 H Calcium 8.3 L D Phosphorus 2.2 L Magnesium 1.9 Iron 39 TIBC 102 L % Saturation 38 Unsat Iron Binding 63 Total Bilirubin 1.5 H Direct Bilirubin 0.9 H AST 200 H ALT 327 H Alkaline Phosphatase 300 H Total Protein 6.1 L Albumin 3.9 Blood Type Antibody Screen Crossmatch 12/31/22 08:17 WBC RBC Hgb Hct MCV MCH MCHC RDW Plt Count MPV Immature Gran % (Auto) Neut % (Auto) Lymph % (Auto) [place] % (Auto) Eos % (Auto) Baso % (Auto) Lymph # (Auto) [place] # (Auto) Eos # (Auto) Baso # (Auto) Abs Immat Gran (auto) Absolute Neuts (auto) Absolute Nucleated RBC Nucleated RBC % (auto) Neutrophils % (Manual) Band Neutrophils % Lymphocytes % (Manual) Monocytes % (Manual) Metamyelocytes % Myelocytes % Abs Neuts (Manual) Lymphocytes # (Manual) Monocytes # (Manual) Metamyelocytes # Myelocytes # Platelet Estimate Plt Morphology Comment RBC Morphology Hypochromasia [place] Cells Acanthocytes (Spur) Sodium Potassium Chloride Carbon Dioxide Anion Gap BUN Creatinine Estim Creat Clear Calc Estimated GFR POC Glucose Random Glucose Calcium Phosphorus Magnesium Iron TIBC % Saturation Unsat Iron Binding Total Bilirubin Direct Bilirubin AST ALT Alkaline Phosphatase Total Protein Albumin Blood Type O Positive Antibody Screen NEGATIVE Crossmatch See Detail Microbiology Microbiology Results: Microbiology 12/29/22 18:15 Blood - Central Line Blood Culture - Preliminary No growth after 24 hours. 12/29/22 18:14 Blood - Central Line Blood Culture - Preliminary Prelim: GPC Gram Stain only 12/07/22 12:43 Blood - Venous Blood Culture - Final No growth after 5 days. 12/07/22 12:11 Blood - Venous Blood Culture - Final No growth after 5 days. Procedures Date of Service Date of Service: 12/31/22 Assessment & Plan Assessment and plan (1) End stage kidney disease: Status: Acute (2) Seizure: Status: Acute (3) Anemia: Status: Acute Plan s/p HD yesterday usually has HD at [facility] new diagnosed seizure disorder with expressive aphasia REC HD tomorrow renal diet ABEBE per protocol phosphate binders Time Spent With Patient Time: Total time managing care of this patient today ____ minutes. Progress Note: Quality Stroke Does the patient have a stroke diagnosis?: No
[2022-12-31 09:39] LABS: OBS Int Ctl Valid YES; OBS1 POSITIVE (NEGATIVE)
[2022-12-31 13:12] LABS: Glucose, Whole Blood 254 mg/dL (60-115)
[2022-12-31] MEDS: diphenhydrAMINE HCL 50 MG/ML VIAL 12.5 MG IVPUSH (13:35)
--- NOTE | 2022-12-31 13:43 | MHC.SL.SWA ---
Speech Pathologist Impression: Risk of Aspiration Due to: Lethargy Medically Fragile Neurological Condition History of Pneumonia Reduced Cognition Dysphasia Diet Status: Recommend continue w/ PUREE (NDD1) with Thin Liquids (small sips), pills crushed in puree. Patient will require 1-1 feed at this time Liquid Consistency and Strategies for Safe Swallow: Liquid Intake Recommendation: Thin Liquid Intake Strategies: Small Sips Solid Food Consistency: Dietary Recommendations: Pureed (NDD1) Additional Modifications to Solid Foods: Patient requires one to one feeding. Present food in small bites, and liquid in small controlled cup sip or controlled straw sip. Alternate liquids and solids. Monitor that patient has swallowed before presenting more food or liquid. Do not attempt if patient is lethargic or not engaged in meal. Discontinue with clinical signs of aspiration (including coughing after swallow, frequent throat clearing, upper respiratory noise) Oral Medication Intake: Crushed with Puree Please contact the pharmacy regarding appropriate crushable or liquid drug formulations that are available whenever modified delivery is recommended. Compensatory Strategies and Precautions to be Taken for Safe Swallow: Sitting Upright (90 deg) Liquids from Cup Liquids from Straw Small Bites and Sips Alternate Liquids/Solids Rate of Ingestion Change Oral Check Supervision While Eating and Drinking for Safe Swallow: Total Assistance (1:1) Foods to Avoid: Mixed consistencies (i.e., soups, cereal with milk, fruit cups, etc.) Swallowing Recommended Treatments: Compens. Strategy Educat. Recommendation for Speech: Inpatient Speech Therapy Comment: Patient seen during lunch. Per STRAIGHTENING PRESS OPERATOR HELPER, patient has not been eating much at any meal, took only a few bites at breakfast and drank only part of her nutritional drink. Patient was awake and alert today, able to engaged in simple conversation in [place] and responding to questions and one step directions. Patient was given bites of puree meal, with patient noted to strip from spoon about 1/4 tsp of presented bolus, followed by some mildly disorganized and prolonged tongue movement, delayed oral transit, timely swallow. Patient accepted 5-6 tsp amount of purees on tray, then refused additional presentations. INSURANCE AUDITOR trialed ground consistency by providing a bite of chicken salad, with patient producing a very prolonged period of masticating and manipulating the food orally, with long delay of oral transit. Patient continued with most of ground bolus in mouth, was offered sip of liquid, which cleared only part of the bolus, with patient continuing to masticate until finally initiating swallow on remainder. Patient reported that she did not like the chicken salad. Patient was also given a trial of softened ben cracker in pudding, again producing a prolonged period of mastication and orally manipulating the bolus, noticeably grimacing at the taste, and producing a swallow after a prolonged delay, with mild oral residual cleared by sip of liquid. Patient was encouraged to drink nutritional shake, with patient drinking about half of the container with no clinical signs of aspiration on thin liquids. Recommend patient continue on PUREE (NDD1) and Thin Liquids with pills crushed in puree. Patient did not evidence good toleration of more advanced consistencies trials today, however continued trials for toleration and advancement is recommended (patient's baseline is Chopped/Advanced). INSURANCE AUDITOR will continue to follow. Frequency/Duration: Date Range for Service Req: Timeline to reassess: PRN Scenario Writer Clinican/Clinical Fellow: No Supervisory Statement: I have reviewed and agree with the student/clinical fellow's documentation: N/A Speech Language Pathologist: Sondra Linares M.A., [facility]-INSURANCE AUDITOR
--- NOTE | 2022-12-31 15:31 | P.PNIM_ITS ---
Subjective Subjective Date of Service: 12/31/22 Interval History: Seen and evaluated this morning More alert and interactive Denies any pain BP better Tolerating diet Hb dropped to 7.1, no obcious source of bleeding Review of Systems Review of Systems: Yes all other systems are reviewed and are negative Physical Exam Vital Signs: Vital Signs: Last Vital Signs Temp 97.8 F 12/31/22 13:00 Pulse 106 H 12/31/22 13:00 Resp 16 12/31/22 13:00 BP 122/58 L 12/31/22 13:00 Pulse Ox 100 12/31/22 10:46 O2 Del Method Room Air 12/31/22 10:46 O2 Flow Rate 2 12/29/22 18:00 BMI result Body Mass Index 37.1 Const: Other: Constitutional : Alert, interactive but slow, not in distress Neck : Normal inspection, Supple Cardiovascular : RRR, no JVP, trace lower extremity edema Respiratory : good bilateral air entry, no crackles, wheezes or rhonchi Gastrointestinal: soft, lax, Normal bowel sounds, Non tender Skin : Warm, Dry Neurological : Alert , confused, able to follow simple commands, No focal deficit noticed Objective Data Active Medications Acetaminophen (Acetaminophen 325 Mg Tablet) 650 mg PO Q6H PRN PRN Reason: Pain, Mild (Pain Scale 1-3) Last Admin: 12/23/22 04:18 Dose: 650 mg Documented By: RONNY Apixaban (Apixaban 2.5 Mg Tablet) 2.5 mg PO BID [facility] Last Admin: 12/30/22 20:39 Dose: 2.5 mg Documented By: MARISSA Dextrose (Dextrose 50 % 25 Gm/50 Ml Syringe) 25 gm IVPUSH Q15M PRN; Protocol PRN Reason: per Hypoglycemia Standing Ord. Last Admin: 12/08/22 03:25 Dose: 25 gm Documented By: FREYA Glucose (Glucose Gel 15 Gm Gel..Gram.) 15 gm PO Q15M PRN; Protocol PRN Reason: per Hypoglycemia Standing Ord. Insulin Human Lispro (Insulin Lispro 100 Unit/Ml 3 Ml Vial) 0 unit SUBCUT QID [facility]; Protocol Last Admin: 12/31/22 11:30 Dose: Not Given Documented By: RASHAWN Non-Admin Reason: pt at EEG Levothyroxine Sodium (Levothyroxine Sodium 88 Mcg Tablet) 88 mcg PO DAILY@0600 [facility] Last Admin: 12/31/22 05:03 Dose: 88 mcg Documented By: MARISSA Ondansetron HCl (Ondansetron Hcl 4 Mg/2 Ml Vial) 4 mg IVPUSH Q8H PRN PRN Reason: Nausea and Vomiting Pharmacy Consult (Consult Rx Perform Med Rec) 1 each MISCELLANE ONCE PRN PRN Reason: Consult order Labs 12/31/22 06:46 12/31/22 06:46 Labs: Laboratory Results - last 24 hr 12/30/22 12/30/22 12/31/22 16:15 21:32 06:12 MCV MCH MCHC RDW Plt Count MPV Immature Gran % (Auto) Neut % (Auto) Lymph % (Auto) [place] % (Auto) Eos % (Auto) Baso % (Auto) Lymph # (Auto) [place] # (Auto) Eos # (Auto) Baso # (Auto) Abs Immat Gran (auto) Absolute Neuts (auto) Absolute Nucleated RBC Nucleated RBC % (auto) Neutrophils % (Manual) Band Neutrophils % Lymphocytes % (Manual) Monocytes % (Manual) Metamyelocytes % Myelocytes % Abs Neuts (Manual) Lymphocytes # (Manual) Monocytes # (Manual) Metamyelocytes # Myelocytes # Platelet Estimate Plt Morphology Comment RBC Morphology Hypochromasia [place] Cells Acanthocytes (Spur) Anion Gap Estim Creat Clear Calc Estimated GFR POC Glucose 80 136 H 127 H Random Glucose Calcium Phosphorus Magnesium Iron TIBC % Saturation Unsat Iron Binding Total Bilirubin Direct Bilirubin AST ALT Alkaline Phosphatase Total Protein Albumin Stool Occult Blood Blood Type Antibody Screen Crossmatch 12/31/22 12/31/22 12/31/22 06:46 06:46 08:17 MCV 94.5 MCH 32.3 MCHC 34.1 RDW 18.9 H Plt Count 50 L MPV 10.5 Immature Gran % (Auto) Cancelled Neut % (Auto) Cancelled Lymph % (Auto) Cancelled [place] % (Auto) Cancelled Eos % (Auto) Cancelled Baso % (Auto) Cancelled Lymph # (Auto) Cancelled [place] # (Auto) Cancelled Eos # (Auto) Cancelled Baso # (Auto) Cancelled Abs Immat Gran (auto) Cancelled Absolute Neuts (auto) Cancelled Absolute Nucleated RBC 0.030 H Nucleated RBC % (auto) 0.2 Neutrophils % (Manual) 73 Band Neutrophils % 5 Lymphocytes % (Manual) 10 L Monocytes % (Manual) 8 Metamyelocytes % 3 Myelocytes % 1 Abs Neuts (Manual) 10.1 H Lymphocytes # (Manual) 1.3 Monocytes # (Manual) 1.0 Metamyelocytes # 0.4 Myelocytes # 0.1 Platelet Estimate DECREASED Plt Morphology Comment NORMAL RBC Morphology NOTED Hypochromasia 1+ (5-14) Fany Cells 1+ (0-2) Acanthocytes (Spur) 1+ (0-2) Anion Gap 21 H Estim Creat Clear Calc 17.9 Estimated GFR 14 POC Glucose Random Glucose 124 H Calcium 8.3 L D Phosphorus 2.2 L Magnesium 1.9 Iron 39 TIBC 102 L % Saturation 38 Unsat Iron Binding 63 Total Bilirubin 1.5 H Direct Bilirubin 0.9 H AST 200 H ALT 327 H Alkaline Phosphatase 300 H Total Protein 6.1 L Albumin 3.9 Stool Occult Blood Blood Type O Positive Antibody Screen NEGATIVE Crossmatch See Detail 12/31/22 12/31/22 09:09 13:09 MCV MCH MCHC RDW Plt Count MPV Immature Gran % (Auto) Neut % (Auto) Lymph % (Auto) [place] % (Auto) Eos % (Auto) Baso % (Auto) Lymph # (Auto) [place] # (Auto) Eos # (Auto) Baso # (Auto) Abs Immat Gran (auto) Absolute Neuts (auto) Absolute Nucleated RBC Nucleated RBC % (auto) Neutrophils % (Manual) Band Neutrophils % Lymphocytes % (Manual) Monocytes % (Manual) Metamyelocytes % Myelocytes % Abs Neuts (Manual) Lymphocytes # (Manual) Monocytes # (Manual) Metamyelocytes # Myelocytes # Platelet Estimate Plt Morphology Comment RBC Morphology Hypochromasia [place] Cells Acanthocytes (Spur) Anion Gap Estim Creat Clear Calc Estimated GFR POC Glucose 254 H Random Glucose Calcium Phosphorus Magnesium Iron TIBC % Saturation Unsat Iron Binding Total Bilirubin Direct Bilirubin AST ALT Alkaline Phosphatase Total Protein Albumin Stool Occult Blood POSITIVE Blood Type Antibody Screen Crossmatch Microbiology Microbiology Results: Microbiology 12/29/22 18:14 Blood Culture - Final Blood - Central Line Coag negative Staphylococcus 12/29/22 18:15 Blood Culture - Preliminary Blood - Central Line No growth after 24 hours. Assessment and Plan (1) ESRD on dialysis: Status: Acute (2) Acute on chronic blood loss anemia: Status: Acute (3) Hypotension: Status: Acute (4) Encephalopathy: Status: Acute Plan 72-year-old female with history of paroxysmal atrial fibrillation anticoagulated with Eliquis, hypertension, hyperlipidemia, insulin-dependent type 2 diabetes, asthma, VIOLA, hypothyroidism, end-stage renal disease on dialysis, newly diagnosed seizure disorder, history CVA with expressive aphasia to be observed for seizure activity. Acute on chronic anemia Hb dropped to 7.1 Positive occult stool To give a unit of blood follow H&H GI eval Hold Eliquis for now Hypotension, resolved likely 2/2 dehydration, improved with fluids HD without much of ultrafiltration seizure disorder Diagnosed with video eeg at [facility] and presented with breakthrough SZs with supratherapeutic depakote level, 108, now 97. Continue depakote at 750 bid repeat EEG Encephalopathy of unclear etiology work up with mri and eeg unremarkable, questionable seizures by neurologist there could be component of dementia as well ?paroxysmal atrial fibrillation Hold Eliquis DC MEtoprolol ?ESRD on dialysis HD on MWF hyponatremia possibly dilutional esrd patient nephrology following HTN DC metoprolol hypothyroidism continue Synthroid. insulin-dependent type 2 diabetes: sliding scale diabetic diet Thombocytopenia etiology unclear Trend, cbc am ?mild intermittent asthma no acute exacerbation albuterol p.r.n. Low folate levels folate replacements DVT prophylaxis eliquis Need for inpatient:? awaiting rehab placement, nephro following for esrd, Hypotension and altered mentation. Time Spent With Patient Time: Total time managing care of this patient today ____ minutes. Quality Stroke Does the patient have a stroke diagnosis?: No VTE Prior VTE?: No VTE Risk Level:: Medical - moderate - high VTE Device Contraindication: Treatment Not Indicated VTE Drug Contraindication: N/A - Med Ordered
[2022-12-31 15:57] LABS: Glucose, Whole Blood 275 mg/dL (60-115)
[2022-12-31 16:11] LABS: Hematocrit 25.8 % (37.0-47.0); Hemoglobin 8.9 g/dl (12.0-16.0); Mean Corpuscular HGB Conc 34.5 g/dl (31.0-35.0); Mean Corpuscular Hemoglobin 32.5 pg (27.0-33.0); Mean Corpuscular Volume 94.2 fL (80.0-98.0); Mean Platelet Volume 10.2 fL (9.4-12.3); NRBC Pct Auto 0.3 /100WBC (0.0-0.2); Red Blood Count 2.74 X10*6/uL (4.20-5.50); Red Cell Distribution Width 17.6 % (11.0-16.0); White Blood Count 15.2 X10*3/uL (4.8-10.8)
[2022-12-31 16:12] LABS: Platelet Count 53 X10*3/uL (160-400)
--- NOTE | 2022-12-31 16:19 | PM.GICN ---
History of Present Illness Data of Consult Service Date: 12/31/22 Requesting physician: Kassandra Nieves Primary Care Provider: Jevon Rice MD [facility] Reason for consult: acute on chronic anemia 72 year old AA female with paroxysmal AF anticoagulated with Eliquis, hypertension, hyperlipidemia, IDDM, asthma, VIOLA, hypothyroidism, end-stage renal disease on dialysis, newly diagnosed seizure disorder, history CVA with expressive aphasia hospitalized on 12/07/22 for evaluation of possible stroke.? The pt was discharged on 12/28/22 and readmitted due to?inability to obtain vital signs.? Patient was transferred to intensive care unit and central venous access was placed for pressor support.? Patient was started on pressor support and empiric antibiotics. GI consulted due to a decrease in H & H to 7.1 & 20.8 (decreased from 9.7 & 19.2 on admission) Pt was transfused 1 U of PRBC today with improvement in H & H to 8.9 & 25.8 Pt reported to have a large dark brown BM last evening and stool occult blood was positive Pt is unable to give a meaningful history. Patient's son Gwyn ([phone]) was called and history was obtained from him Her son reported pt was hospitalized at [facility] 3-4 yrs ago with LGI bleeding and had blood transfusions. She was evaluated with an EGD and a colonoscopy. A bleeding source was found in the colo (? Diverticular bleed) and treated She remains mostly confused but problably at baseline at this time.? 12/30/[address] SCAN SHOWED: Indistinctness of the gallbladder wall with question of pericholecystic fat stranding, however, this may be related to motion artifact. No definite pericholecystic fluid is seen. If there is strong suggestion of possible acute cholecystitis, then a repeat ultrasound examination may be of help in further evaluation. Bilateral renal cysts. Nephrolithiasis without evidence of obstructive uropathy. ? 1.5 cm right adrenal gland nodule with Hounsfield unit measurements of greater than 20. A 1-year followup adrenal washout CT is recommended. ? Question left sacral insufficiency fracture.? Review of Systems Review of Systems: Could not be done with her Yes Unobtainable due to mental status Neurologic: Reports confusion Psychiatric: Psychiatric: Reports confusion PMFSH Past Medical History Medical History Asthma Epilepsy ESRD on dialysis Expressive aphasia History of CVA (cerebrovascular accident) Hypertension Insulin dependent type 2 diabetes mellitus Morbid obesity Obstructive sleep apnea Paroxysmal atrial fibrillation Tubular adenoma of colon Social History Social History Household Members: Unknown / Unable to assess Housing: Unknown / Unable to assess Unable to assess alcohol history related to: Unable to respond Alcohol intake: never Patient Tobacco Use Status: Tobacco use Unknown Advance Directives Date on File: 04/22/22 service: No Meds Allergies Allergy/AdvReac Type Severity Reaction Status Date / Time Penicillins Allergy Unknown Unknown Verified 01/08/23 12:51 lisinopri Allergy Unknown Unknown Uncoded 01/08/23 12:51 Active Medications: Current Medications Acetaminophen (Acetaminophen 325 Mg Tablet) 650 mg PO Q6H PRN PRN Reason: Pain, Mild (Pain Scale 1-3) Last Admin: 12/23/22 04:18 Dose: 650 mg Apixaban (Apixaban 2.5 Mg Tablet) 2.5 mg PO BID [facility] Last Admin: 12/30/22 20:39 Dose: 2.5 mg Dextrose (Dextrose 50 % 25 Gm/50 Ml Syringe) 25 gm IVPUSH Q15M PRN; Protocol PRN Reason: per Hypoglycemia Standing Ord. Last Admin: 12/08/22 03:25 Dose: 25 gm Glucose (Glucose Gel 15 Gm Gel..Gram.) 15 gm PO Q15M PRN; Protocol PRN Reason: per Hypoglycemia Standing Ord. Insulin Human Lispro (Insulin Lispro 100 Unit/Ml 3 Ml Vial) 0 unit SUBCUT QIDACHS [facility]; Protocol Last Admin: 12/31/22 11:30 Dose: Not Given Levothyroxine Sodium (Levothyroxine Sodium 88 Mcg Tablet) 88 mcg PO DAILY@0600 [facility] Last Admin: 12/31/22 05:03 Dose: 88 mcg Ondansetron HCl (Ondansetron Hcl 4 Mg/2 Ml Vial) 4 mg IVPUSH Q8H PRN PRN Reason: Nausea and Vomiting Pharmacy Consult (Consult Rx Perform Med Rec) 1 each MISCELLANE ONCE PRN PRN Reason: Consult order Home Medications Medication Instructions Recorded Confirmed Last Taken Type albuterol sulfate 90 mcg/actuation 2 puff inhalation Q4H PRN Wheezing 12/07/22 01/08/23 Unknown History aerosol inhaler (Ventolin HFA) apixaban 5 mg tablet (Eliquis) 5 mg PO BID 12/07/22 01/08/23 12/07/22 History atorvastatin 40 mg tablet 40 mg PO BEDTIME 12/07/22 01/08/23 12/06/22 History cinacalcet 30 mg tablet 30 mg PO DAILY 12/07/22 01/08/23 12/07/22 History fluticasone 500 mcg-salmeterol 50 1 ea inhalation BID 12/07/22 01/08/23 12/07/22 History mcg/dose blistr powdr for inhalation (Advair Diskus) gabapentin 100 mg capsule 100 mg PO TID 12/07/22 01/08/23 Unknown History insulin aspart U-100 100 unit/mL See Protocol subcut TIDAC 12/07/22 01/08/23 Unknown History (3 mL) subcutaneous pen (Novolog FlexPen U-100 Insulin aspart) insulin detemir U-100 100 unit/mL 6 unit subcut BEDTIME 12/07/22 01/08/23 12/06/22 History subcutaneous solution (Levemir U-100 Insulin) levothyroxine 88 mcg tablet 88 mcg PO DAILY@0600 12/07/22 01/08/23 12/07/22 History pantoprazole 40 mg tablet,delayed 40 mg PO BID@0630,1630 12/07/22 01/08/23 12/07/22 History release sevelamer carbonate 800 mg tablet 800 mg PO BIDWM 12/07/22 01/08/23 12/07/22 History (Leonela) Physical Exam Vital Signs: Vital Signs: Last Vital Signs Temp 97.5 F 12/31/22 15:47 Pulse 89 12/31/22 15:47 Resp 14 12/31/22 15:47 BP 115/60 12/31/22 15:47 Pulse Ox 99 12/31/22 15:47 O2 Del Method Room Air 12/31/22 15:47 O2 Flow Rate 2 12/29/22 18:00 BMI result Body Mass Index 37.1 Const: General: no acute distress, confusion and ill appearing (Chronically ill appearing) Nutritional Appearance: obese Orientation/consciousness: confusion Limitations: physical limitations HEENT: Head: Yes normal to inspection Ears: hearing grossly normal bilaterally Eyes: Sclerae: sclerae normal Pupils: Equal, round and reactive pupils present Neck: Neck: Yes normal visual inspection Chest: Chest palpation & inspection: normal inspection of the chest Resp: Effort & Inspection: normal respiratory effort Auscultation: clear to auscultation bilaterally Cardio: Palpation: normal PMI Rate: regular rate Rhythm: regular rhythm Heart sounds: S1 normal heart sound present, S2 normal heart sound present and no murmurs GI: Palpation (GI): Soft to palpation, nontender and No hepatosplenomegaly present Auscultation: normal bowel sounds Rectal Exam - Female: deferred Skin: General skin exam: no rashes or lesions noted Neuro: General: gait normal, moves all extremities and confusion Cranial nerves: Yes Equal, round and reactive pupils present Extrem: General: Yes pedal edema Psych: Appearance: grossly normal Mental Status: mental status grossly normal Results Labs 12/31/22 16:01 12/31/22 06:46 Labs: Short CBC 12/31/22 12/31/22 Range/Units 06:46 16:01 WBC 12.9 H 15.2 H (4.8-10.8) X10*3/uL Hgb 7.1 L 8.9 L D (12.0-16.0) g/dl Hct 20.8 L* 25.8 L D (37.0-47.0) % Plt Count 50 L 53 L (160-400) X10*3/uL BMP 12/31/22 06:46 Sodium 135 Potassium 3.5 Chloride 98 Carbon Dioxide 20 L BUN 22 H Creatinine 3.31 H Calcium 8.3 L D Liver Function 12/31/22 Range/Units 06:46 Total Bilirubin 1.5 H (0.0-1.0) mg/dL Direct Bilirubin 0.9 H (0.0-0.5) mg/dL AST 200 H (5-31) U/L ALT 327 H (0-31) U/L Alkaline Phosphatase 300 H (39-117) U/L Albumin 3.9 (3.5-5.0) g/dL Microbiology Microbiology Results: Microbiology 12/29/22 18:14 Blood - Central Line Blood Culture - Final Coag negative Staphylococcus 12/29/22 18:15 Blood - Central Line Blood Culture - Preliminary No growth after 24 hours. 12/07/22 12:43 Blood - Venous Blood Culture - Final No growth after 5 days. 12/07/22 12:11 Blood - Venous Blood Culture - Final No growth after 5 days. Assessment and Plan (1) Acute on chronic blood loss anemia: Status: Resolved Plan 72 year old AA female with paroxysmal AF anticoagulated with Eliquis, hypertension, hyperlipidemia, IDDM, asthma, VIOLA, hypothyroidism, end-stage renal disease on dialysis, newly diagnosed seizure disorder, history CVA with expressive aphasia hospitalized on 12/07/22 for evaluation of possible stroke.? The pt was discharged on 12/28/22 and readmitted due to?inability to obtain vital signs.? Patient was transferred to intensive care unit and central venous access was placed for pressor support.? Patient was started on pressor support and empiric antibiotics. GI consulted due to a decrease in H & H to 7.1 & 20.8 (decreased from 9.7 & 19.2 on admission) Pt was transfused 1 U of PRBC today with improvement in H & H to 8.9 & 25.8 Pt reported to have a large dark brown BM last evening and stool occult blood was positive Pt is unable to give a meaningful history. Patient's son Gwyn ([phone]) was called and history was obtained from him Her son reported pt was hospitalized at [facility] 3-4 yrs ago with LGI bleeding and had blood transfusions. She was evaluated with an EGD and a colonoscopy. A bleeding source was found in the colo (? Diverticular bleed) and treated She remains mostly confused but problably at baseline at this time.? Eliquis has been held since evening of 12/30/22 RECOMMENDATIONS 1. Start on IV PPI twice daily 2. Monitor H & H twice a day and transfuse prn 3. Proceed with EGD on 01/01/23 (pt discussed with Dr Grigsby (anesthesia) and decision made to proceed with EGD to determine potential bleeding source since pt needs to resume Eliquis. Time Spent With Patient Time: Total time managing care of this patient today ____ minutes. Procedures Date of Service Date of Service: 01/17/23
[2022-12-31] MEDS: Insulin Lispro 100 UNIT/ML 3 ML VIAL SUBCUT (16:52)
--- NOTE | 2022-12-31 17:39 | PC.NURSE ---
patient received full 350 mL transfusion of PRBCs. transfusion finished at 15:52. patients vitals 15 mins after transfusion are as follows: 97.5F, 89, 14, 115/60.
[2022-12-31 19:57] LABS: Glucose, Whole Blood 146 mg/dL (60-115)
[2022-12-31] MEDS: Pantoprazole Sodium 40 MG/10 ML VIAL IVPUSH (20:07)
[2023-01-01] VITALS (10 sets, daily range): BP systolic 105–149; BP diastolic 37–71; PULSE 97–120; RESP 14–20; TEMP 36.1–37.6; O2SAT 96–100; BMI 37.1
[2023-01-01] MEDS: Pantoprazole Sodium 40 MG/10 ML VIAL IVPUSH (05:41)
[2023-01-01] MEDS: Levothyroxine Sodium 88 MCG TABLET PO (05:41)
[2023-01-01 07:54] LABS: Hemoglobin 10.4 g/dl (12.0-16.0); Mean Corpuscular HGB Conc 34.7 g/dl (31.0-35.0); Mean Corpuscular Hemoglobin 32.2 pg (27.0-33.0); Mean Corpuscular Volume 92.9 fL (80.0-98.0); Mean Platelet Volume 10.9 fL (9.4-12.3); NRBC Pct Auto 0.3 /100WBC (0.0-0.2); Platelet Count 75 X10*3/uL (160-400); Red Blood Count 3.23 X10*6/uL (4.20-5.50); Red Cell Distribution Width 17.9 % (11.0-16.0); White Blood Count 17.2 X10*3/uL (4.8-10.8)
[2023-01-01 08:05] LABS: Anion Gap 20 (12-20); Blood Urea Nitrogen 18 mg/dL (9-16); Calcium 9.3 mg/dL (8.4-10.2); Carbon Dioxide 20 mmol/L (22-29); Chloride 97 mmol/L (96-108); Creatinine Clr Calc Pharmacy 24.7; Estimated Glomerular Filt Rate 20; Glucose Random 110 mg/dL (60-115); Potassium 3.4 mmol/L (3.3-5.1); Sodium 134 mmol/L (135-145)
--- NOTE | 2023-01-01 09:18 | MHC.SLORD ---
Speech Language Pathology Order Status: Per MD, pt is NPO for EGD. No PO trials given.
--- NOTE | 2023-01-01 10:32 | MHC.CM.PN ---
Per ROUNDS discussion, Patient is not yet medically cleared for dc (EGD today and may need a Colonoscopy on Wednesday); [facility]
[2023-01-01 10:59] LABS: Glucose, Whole Blood 122 mg/dL (60-115)
--- NOTE | 2023-01-01 11:23 | MHC.CLN ---
F/U CURRENTLY NPO FOR PROCEDURE. PATIENT WITH ESRD ON HEMODIALYSIS. WHEN DIET RESUMES, RECOMMEND CONTINUE SAME DIET PRIOR TO NPO: DM 2200 KCAL, 2 GRAM SODIUM, PUREE CONSISTENCY. SUPPLEMENT ENSURE CLEAR TID. PROVIDES 720 KCALS, 24 G PROTEIN. INTAKE USUALLY POOR. SKIN WITH STAGE II TO COCCYX. MONITOR AND ENCOURAGE PO INTAKE ABLE.
--- NOTE | 2023-01-01 14:22 | P.PNIM_ITS ---
Subjective Subjective Date of Service: 01/01/23 Interval History: Seen in dialysis unit alert and interactive but overall confused Hb up to 10 after 1 unit Denies any pain BP better Tolerating diet Physical Exam Vital Signs: Vital Signs: Last Vital Signs Temp 96.9 F 01/01/23 10:47 Pulse 102 H 01/01/23 10:47 Resp 18 01/01/23 10:47 BP 120/46 L 01/01/23 10:47 Pulse Ox 98 01/01/23 10:47 O2 Del Method Room Air 01/01/23 10:47 O2 Flow Rate 2 12/29/22 18:00 BMI result Body Mass Index 37.1 Const: Other: Constitutional : Alert, interactive but slow, not in distress Neck : Normal inspection, Supple Cardiovascular : RRR, no JVP, trace lower extremity edema Respiratory : good bilateral air entry, no crackles, wheezes or rhonchi Gastrointestinal: soft, lax, Normal bowel sounds, Non tender Skin : Warm, Dry, fistula clean with no erythema Neurological : Alert , confused, able to follow simple commands, No focal deficit noticed Objective Data Active Medications Acetaminophen (Acetaminophen 325 Mg Tablet) 650 mg PO Q6H PRN PRN Reason: Pain, Mild (Pain Scale 1-3) Last Admin: 12/23/22 04:18 Dose: 650 mg Documented By: RONNY Apixaban (Apixaban 2.5 Mg Tablet) 2.5 mg PO BID [facility] Last Admin: 12/30/22 20:39 Dose: 2.5 mg Documented By: MARISSA Dextrose (Dextrose 50 % 25 Gm/50 Ml Syringe) 25 gm IVPUSH Q15M PRN; Protocol PRN Reason: per Hypoglycemia Standing Ord. Last Admin: 12/08/22 03:25 Dose: 25 gm Documented By: FREYA Glucose (Glucose Gel 15 Gm Gel..Gram.) 15 gm PO Q15M PRN; Protocol PRN Reason: per Hypoglycemia Standing Ord. Insulin Human Lispro (Insulin Lispro 100 Unit/Ml 3 Ml Vial) 0 unit SUBCUT QIDACHS [facility]; Protocol Last Admin: 01/01/23 11:33 Dose: Not Given Documented By: PRATIBHA Non-Admin Reason: No Insulin Coverage Levothyroxine Sodium (Levothyroxine Sodium 88 Mcg Tablet) 88 mcg PO DAILY@0600 [facility] Last Admin: 01/01/23 05:41 Dose: 88 mcg Documented By: IJEOMA Ondansetron HCl (Ondansetron Hcl 4 Mg/2 Ml Vial) 4 mg IVPUSH Q8H PRN PRN Reason: Nausea and Vomiting Pantoprazole Sodium (Pantoprazole Sodium 40 Mg/10 Ml Vial) 40 mg IVPUSH BID@0630,1630 [facility] Last Admin: 01/01/23 05:41 Dose: 40 mg Documented By: IJEMOA Pharmacy Consult (Consult Rx Perform Med Rec) 1 each MISCELLANE ONCE PRN PRN Reason: Consult order Labs 01/01/23 07:04 01/01/23 07:04 Labs: Laboratory Results - last 24 hr 12/31/22 12/31/22 12/31/22 15:53 16:01 19:46 MCV 94.2 MCH 32.5 MCHC 34.5 RDW 17.6 H Plt Count 53 L MPV 10.2 Absolute Nucleated RBC 0.040 H Nucleated RBC % (auto) 0.3 H Anion Gap Estim Creat Clear Calc Estimated GFR POC Glucose 275 H 146 H Random Glucose Calcium 01/01/23 01/01/23 01/01/23 07:04 07:04 10:52 MCV 92.9 MCH 32.2 MCHC 34.7 RDW 17.9 H Plt Count 75 L D MPV 10.9 Absolute Nucleated RBC 0.050 H Nucleated RBC % (auto) 0.3 H Anion Gap 20 Estim Creat Clear Calc 24.7 Estimated GFR 20 POC Glucose 122 H Random Glucose 110 Calcium 9.3 D Microbiology Microbiology Results: Microbiology 12/29/22 18:15 Blood Culture - Preliminary Blood - Central Line No growth after 48 hours. 12/29/22 18:14 Blood Culture - Final Blood - Central Line Coag negative Staphylococcus Assessment and Plan (1) Acute on chronic blood loss anemia: Status: Acute (2) ESRD on dialysis: Status: Acute (3) Hypotension: Status: Acute Plan 72-year-old female with history of paroxysmal atrial fibrillation anticoagulated with Eliquis, hypertension, hyperlipidemia, insulin-dependent type 2 diabetes, asthma, VIOLA, hypothyroidism, end-stage renal disease on dialysis, newly diagnosed seizure disorder, history CVA with expressive aphasia to be observed for seizure activity. Acute on chronic anemia Hb improved to 10 after 1 unit PRBCs Positive occult stool follow H&H GI eval, EGD today and maybe colonoscopy by Wednesday Hold Eliquis for now Hypotension, resolved likely 2/2 dehydration, improved with fluids HD without much of ultrafiltration seizure disorder Diagnosed with video eeg at [facility] and presented with breakthrough SZs with supratherapeutic depakote level, 108, now 97. Continue depakote at 750 bid repeat EEG Encephalopathy of unclear etiology work up with mri and eeg unremarkable, questionable seizures by neurologist there could be component of dementia as well ?paroxysmal atrial fibrillation Hold Eliquis DC MEtoprolol ?ESRD on dialysis HD on MWF hyponatremia possibly dilutional esrd patient nephrology following HTN DC metoprolol hypothyroidism continue Synthroid. insulin-dependent type 2 diabetes: sliding scale diabetic diet Thombocytopenia etiology unclear Trend, cbc am ?mild intermittent asthma no acute exacerbation albuterol p.r.n. Low folate levels folate replacements DVT prophylaxis eliquis Need for inpatient:? awaiting rehab placement, nephro following for esrd, GIB pending furter eval and safe discharge plan Time Spent With Patient Time: Total time managing care of this patient today ____ minutes. Quality Stroke Does the patient have a stroke diagnosis?: No VTE Prior VTE?: No VTE Risk Level:: Medical - moderate - high VTE Device Contraindication: Treatment Not Indicated VTE Drug Contraindication: N/A - Med Ordered
--- NOTE | 2023-01-01 14:57 | P.CONAN_ITS ---
[facility] Active Problems Active Problems: All Active Problems (Updated 12/31/22 @ 15:41 by Kassandra Nieves MD) Acute on chronic blood loss anemia (Acute) ESRD on dialysis (Acute) Paroxysmal atrial fibrillation (Acute) Insulin dependent type 2 diabetes mellitus (Acute) Morbid obesity (Acute) History of CVA (cerebrovascular accident) (Acute) Hypotension (Acute) Anemia (Acute) Encephalopathy (Acute) Epilepsy (Acute) Acute alteration in mental status (Acute) Seizure (Acute) End stage kidney disease (Acute) Past Medical History Medical History Asthma Epilepsy ESRD on dialysis Expressive aphasia History of CVA (cerebrovascular accident) Hypertension Insulin dependent type 2 diabetes mellitus Morbid obesity Obstructive sleep apnea Paroxysmal atrial fibrillation Tubular adenoma of colon Social History Social History Household Members: Unknown / Unable to assess Housing: Unknown / Unable to assess Unable to assess alcohol history related to: Refusing to respond Patient Tobacco Use Status: Never used Tobacco Advance Directives Date on File: 04/22/22 service: No Meds Allergies Allergy/AdvReac Type Severity Reaction Status Date / Time Penicillins Allergy Unknown Unknown Verified 04/21/22 16:53 lisinopri Allergy Unknown Unknown Uncoded 04/21/22 16:53 Active Medications: Current Medications Acetaminophen (Acetaminophen 325 Mg Tablet) 650 mg PO Q6H PRN PRN Reason: Pain, Mild (Pain Scale 1-3) Last Admin: 12/23/22 04:18 Dose: 650 mg Apixaban (Apixaban 2.5 Mg Tablet) 2.5 mg PO BID [facility] Last Admin: 12/30/22 20:39 Dose: 2.5 mg Dextrose (Dextrose 50 % 25 Gm/50 Ml Syringe) 25 gm IVPUSH Q15M PRN; Protocol PRN Reason: per Hypoglycemia Standing Ord. Last Admin: 12/08/22 03:25 Dose: 25 gm Glucose (Glucose Gel 15 Gm Gel..Gram.) 15 gm PO Q15M PRN; Protocol PRN Reason: per Hypoglycemia Standing Ord. Insulin Human Lispro (Insulin Lispro 100 Unit/Ml 3 Ml Vial) 0 unit SUBCUT QIDACHS [facility]; Protocol Last Admin: 01/01/23 11:33 Dose: Not Given Levothyroxine Sodium (Levothyroxine Sodium 88 Mcg Tablet) 88 mcg PO DAILY@0600 [facility] Last Admin: 01/01/23 05:41 Dose: 88 mcg Ondansetron HCl (Ondansetron Hcl 4 Mg/2 Ml Vial) 4 mg IVPUSH Q8H PRN PRN Reason: Nausea and Vomiting Pantoprazole Sodium (Pantoprazole Sodium 40 Mg/10 Ml Vial) 40 mg IVPUSH BID@0630,1630 [facility] Last Admin: 01/01/23 05:41 Dose: 40 mg Pharmacy Consult (Consult Rx Perform Med Rec) 1 each MISCELLANE ONCE PRN PRN Reason: Consult order Home Medications Medication Instructions Recorded Confirmed Last Taken Type albuterol sulfate 90 mcg/actuation 2 puff inhalation Q4H PRN Wheezing 12/07/22 12/07/22 Unknown History aerosol inhaler (Ventolin HFA) amlodipine 5 mg tablet 5 mg PO DAILY 12/07/22 12/07/22 12/07/22 History apixaban 5 mg tablet (Eliquis) 5 mg PO BID 12/07/22 12/07/22 12/07/22 History atorvastatin 40 mg tablet 40 mg PO BEDTIME 12/07/22 12/07/22 12/06/22 History cinacalcet 30 mg tablet 30 mg PO DAILY 12/07/22 12/07/22 12/07/22 History fluticasone 500 mcg-salmeterol 50 1 ea inhalation BID 12/07/22 12/07/22 12/07/22 History mcg/dose blistr powdr for inhalation (Advair Diskus) gabapentin 100 mg capsule 100 mg PO TID 12/07/22 Unknown History insulin aspart U-100 100 unit/mL 4 - 12 unit subcut TIDWM PRN 12/07/22 12/07/22 Unknown History (3 mL) subcutaneous pen (Novolog ELEVATED BLOOD SUGAR FlexPen U-100 Insulin aspart) insulin detemir U-100 100 unit/mL 6 unit subcut BEDTIME 12/07/22 12/07/22 12/06/22 History subcutaneous solution (Levemir U-100 Insulin) levothyroxine 88 mcg tablet 88 mcg PO DAILY@0600 12/07/22 12/07/22 12/07/22 History metoprolol tartrate 50 mg tablet 50 mg PO BID 12/07/22 12/07/2223 History midodrine 5 mg tablet 5 mg PO MOWEFR PRN Hypotension 12/07/22 12/07/22 Unknown History pantoprazole 40 mg tablet,delayed 40 mg PO BID@0630,1630 12/07/22 12/07/22 12/07/22 History release sevelamer carbonate 800 mg tablet 800 mg PO BIDWM 12/07/22 12/07/22 12/07/22 History (Leonela) Exam Exam Date and Time: January 01, 2023 1457 Height,Weight and Vital Signs: Height 5 ft 4 in Weight 98.1 kg Last Vital Signs Temp 96.9 F 01/01/23 10:47 Pulse 102 H 01/01/23 10:47 Resp 18 01/01/23 10:47 BP 120/46 L 01/01/23 10:47 Pulse Ox 98 01/01/23 10:47 O2 Del Method Room Air 01/01/23 10:47 O2 Flow Rate 2 12/29/22 18:00 Pertinent Lab Results Pertinent Lab Results: Laboratory Tests 12/07/22 12/07/22 12/07/22 12:00 12:04 12:43 WBC 6.7 RBC 3.44 L Hgb 10.9 L Hct 32.4 L MCV 94.2 MCH 31.7 MCHC 33.6 RDW 16.2 H Plt Count 120 L D MPV Not Reportable Immature Gran % (Auto) 1.8 H Neut % (Auto) 60.8 Lymph % (Auto) 20.8 [place] % (Auto) 14.1 H Eos % (Auto) 1.9 Baso % (Auto) 0.6 Lymph # (Auto) 1.4 [place] # (Auto) 0.9 Eos # (Auto) 0.1 Baso # (Auto) 0.0 Abs Immat Gran (auto) 0.12 H Absolute Neuts (auto) 4.1 Absolute Nucleated RBC 0.000 Nucleated RBC % (auto) 0.0 Neutrophils % (Manual) Band Neutrophils % Lymphocytes % (Manual) Monocytes % (Manual) Metamyelocytes % Myelocytes % Abs Neuts (Manual) Lymphocytes # (Manual) Monocytes # (Manual) Metamyelocytes # Myelocytes # Nucleated RBCs Toxic Vacuolation WBC Morphology Comment Platelet Estimate Large Platelets Plt Morphology Comment RBC Morphology Polychromasia Hypochromasia Microcytosis Target Cells Sylvester Cells Acanthocytes (Spur) Smear Tech's Comments VERIFIED PT Whole Blood PT 13.2 INR Whole Blood INR 1.1 APTT VBG pH VBG pCO2 VBG pO2 VBG HCO3 VBG O2 Saturation VBG Base Excess Sodium Potassium Chloride Carbon Dioxide Anion Gap BUN Creatinine Estim Creat Clear Calc Estimated GFR POC Glucose 126 H Random Glucose Lactic Acid Calcium Phosphorus Magnesium Iron TIBC % Saturation Unsat Iron Binding Total Bilirubin Direct Bilirubin AST ALT Alkaline Phosphatase Ammonia Total Creatine Kinase Troponin I High Sens Total Protein Albumin Lipase Vitamin B12 Folate TSH PTH Intact Calcium (PTH Intact) Urine Color Urine Appearance Urine pH Ur Specific [place] Urine Protein Urine Glucose (UA) Urine Ketones Urine Blood Urine Nitrite Ur Leukocyte Esterase Urine RBC Urine WBC Ur Squamous Epith Cells Urine Bacteria Hyaline Casts Stool Occult Blood Valproic Acid Blood Type Antibody Screen Crossmatch 12/07/22 12/07/22 12/07/22 12:43 12:43 14:44 WBC RBC Hgb Hct MCV MCH MCHC RDW Plt Count MPV Immature Gran % (Auto) Neut % (Auto) Lymph % (Auto) [place] % (Auto) Eos % (Auto) Baso % (Auto) Lymph # (Auto) [place] # (Auto) Eos # (Auto) Baso # (Auto) Abs Immat Gran (auto) Absolute Neuts (auto) Absolute Nucleated RBC Nucleated RBC % (auto) Neutrophils % (Manual) Band Neutrophils % Lymphocytes % (Manual) Monocytes % (Manual) Metamyelocytes % Myelocytes % Abs Neuts (Manual) Lymphocytes # (Manual) Monocytes # (Manual) Metamyelocytes # Myelocytes # Nucleated RBCs Toxic Vacuolation WBC Morphology Comment Platelet Estimate Large Platelets Plt Morphology Comment RBC Morphology Polychromasia Hypochromasia Microcytosis Target Cells Fany Cells Acanthocytes (Spur) Smear Tech's Comments PT 10.7 Whole Blood PT INR 0.9 Whole Blood INR APTT 31.8 VBG pH VBG pCO2 VBG pO2 VBG HCO3 VBG O2 Saturation VBG Base Excess Sodium Potassium Chloride Carbon Dioxide Anion Gap BUN Creatinine Estim Creat Clear Calc Estimated GFR POC Glucose Random Glucose Lactic Acid Calcium Phosphorus Magnesium Iron TIBC % Saturation Unsat Iron Binding Total Bilirubin Direct Bilirubin AST ALT Alkaline Phosphatase Ammonia Total Creatine Kinase Troponin I High Sens 8.3 Total Protein Albumin Lipase Vitamin B12 Folate TSH PTH Intact Calcium (PTH Intact) Urine Color Yellow Urine Appearance Clear Urine pH 8.5 Ur Specific [place] <= 1.005 Urine Protein 300 (3+) H Urine Glucose (UA) Negative Urine Ketones Negative Urine Blood Trace H Urine Nitrite Negative Ur Leukocyte Esterase Trace H Urine RBC 3-5 H Urine WBC 0-5 Ur Squamous Epith Cells 0-2 Urine Bacteria None Seen Hyaline Casts 0-2 Stool Occult Blood Valproic Acid Blood Type Antibody Screen Crossmatch 12/07/22 12/07/22 12/07/22 16:17 16:17 16:17 WBC RBC Hgb Hct MCV MCH MCHC RDW Plt Count MPV Immature Gran % (Auto) Neut % (Auto) Lymph % (Auto) [place] % (Auto) Eos % (Auto) Baso % (Auto) Lymph # (Auto) [place] # (Auto) Eos # (Auto) Baso # (Auto) Abs Immat Gran (auto) Absolute Neuts (auto) Absolute Nucleated RBC Nucleated RBC % (auto) Neutrophils % (Manual) Band Neutrophils % Lymphocytes % (Manual) Monocytes % (Manual) Metamyelocytes % Myelocytes % Abs Neuts (Manual) Lymphocytes # (Manual) Monocytes # (Manual) Metamyelocytes # Myelocytes # Nucleated RBCs Toxic Vacuolation WBC Morphology Comment Platelet Estimate Large Platelets Plt Morphology Comment RBC Morphology Polychromasia Hypochromasia Microcytosis Target Cells Fany Cells Acanthocytes (Spur) Smear Tech's Comments PT Whole Blood PT INR Whole Blood INR APTT VBG pH VBG pCO2 VBG pO2 VBG HCO3 VBG O2 Saturation VBG Base Excess Sodium 137 Potassium 3.8 Chloride 91 L Carbon Dioxide 31 H Anion Gap 19 BUN 46 H Creatinine 8.35 H* Estim Creat Clear Calc 7.6 Estimated GFR 5 POC Glucose Random Glucose 79 Lactic Acid 1.5 Calcium 9.2 Phosphorus Magnesium 1.7 Iron TIBC % Saturation Unsat Iron Binding Total Bilirubin 0.6 Direct Bilirubin 0.2 AST 15 ALT < 5 Alkaline Phosphatase 353 H Ammonia Total Creatine Kinase 37 Troponin I High Sens Total Protein 6.5 Albumin 3.5 Lipase Vitamin B12 Folate TSH PTH Intact Calcium (PTH Intact) Urine Color Urine Appearance Urine pH Ur Specific [place] Urine Protein Urine Glucose (UA) Urine Ketones Urine Blood Urine Nitrite Ur Leukocyte Esterase Urine RBC Urine WBC Ur Squamous Epith Cells Urine Bacteria Hyaline Casts Stool Occult Blood Valproic Acid 108.6 H Blood Type Antibody Screen Crossmatch 12/07/22 12/07/22 12/08/22 21:50 23:53 03:21 WBC RBC Hgb Hct MCV MCH MCHC RDW Plt Count MPV Immature Gran % (Auto) Neut % (Auto) Lymph % (Auto) [place] % (Auto) Eos % (Auto) Baso % (Auto) Lymph # (Auto) [place] # (Auto) Eos # (Auto) Baso # (Auto) Abs Immat Gran (auto) Absolute Neuts (auto) Absolute Nucleated RBC Nucleated RBC % (auto) Neutrophils % (Manual) Band Neutrophils % Lymphocytes % (Manual) Monocytes % (Manual) Metamyelocytes % Myelocytes % Abs Neuts (Manual) Lymphocytes # (Manual) Monocytes # (Manual) Metamyelocytes # Myelocytes # Nucleated RBCs Toxic Vacuolation WBC Morphology Comment Platelet Estimate Large Platelets Plt Morphology Comment RBC Morphology Polychromasia Hypochromasia Microcytosis Target Cells Sylvester Cells Acanthocytes (Spur) Smear Tech's Comments PT Whole Blood PT INR Whole Blood INR APTT VBG pH VBG pCO2 VBG pO2 VBG HCO3 VBG O2 Saturation VBG Base Excess Sodium Potassium Chloride Carbon Dioxide Anion Gap BUN Creatinine Estim Creat Clear Calc Estimated GFR POC Glucose 62 133 H 56 L* Random Glucose Lactic Acid Calcium Phosphorus Magnesium Iron TIBC % Saturation Unsat Iron Binding Total Bilirubin Direct Bilirubin AST ALT Alkaline Phosphatase Ammonia Total Creatine Kinase Troponin I High Sens Total Protein Albumin Lipase Vitamin B12 Folate TSH PTH Intact Calcium (PTH Intact) Urine Color Urine Appearance Urine pH Ur Specific [place] Urine Protein Urine Glucose (UA) Urine Ketones Urine Blood Urine Nitrite Ur Leukocyte Esterase Urine RBC Urine WBC Ur Squamous Epith Cells Urine Bacteria Hyaline Casts Stool Occult Blood Valproic Acid Blood Type Antibody Screen Crossmatch 12/08/22 12/08/22 12/08/22 04:41 06:21 06:21 WBC 6.7 RBC 3.24 L Hgb 10.3 L Hct 30.3 L MCV 93.5 MCH 31.8 MCHC 34.0 RDW 15.9 Plt Count 104 L MPV 10.7 Immature Gran % (Auto) 1.2 H Neut % (Auto) 58.7 Lymph % (Auto) 21.0 [place] % (Auto) 16.2 H Eos % (Auto) 2.2 Baso % (Auto) 0.7 Lymph # (Auto) 1.4 [place] # (Auto) 1.1 Eos # (Auto) 0.2 Baso # (Auto) 0.1 Abs Immat Gran (auto) 0.08 H Absolute Neuts (auto) 4.0 Absolute Nucleated RBC 0.000 Nucleated RBC % (auto) 0.0 Neutrophils % (Manual) Band Neutrophils % Lymphocytes % (Manual) Monocytes % (Manual) Metamyelocytes % Myelocytes % Abs Neuts (Manual) Lymphocytes # (Manual) Monocytes # (Manual) Metamyelocytes # Myelocytes # Nucleated RBCs Toxic Vacuolation WBC Morphology Comment Platelet Estimate Large Platelets Plt Morphology Comment RBC Morphology Polychromasia Hypochromasia Microcytosis Target Cells Sylvester Cells Acanthocytes (Spur) Smear Tech's Comments PT Whole Blood PT INR Whole Blood INR APTT VBG pH VBG pCO2 VBG pO2 VBG HCO3 VBG O2 Saturation VBG Base Excess Sodium 136 Potassium 4.1 Chloride 93 L Carbon Dioxide 26 Anion Gap 21 H BUN 53 H Creatinine 9.04 H* Estim Creat Clear Calc 7.0 Estimated GFR 4 POC Glucose 117 H Random Glucose 88 Lactic Acid Calcium 8.9 Phosphorus Magnesium Iron TIBC % Saturation Unsat Iron Binding Total Bilirubin Direct Bilirubin AST ALT Alkaline Phosphatase Ammonia Total Creatine Kinase Troponin I High Sens Total Protein Albumin Lipase Vitamin B12 Folate TSH PTH Intact Calcium (PTH Intact) Urine Color Urine Appearance Urine pH Ur Specific [place] Urine Protein Urine Glucose (UA) Urine Ketones Urine Blood Urine Nitrite Ur Leukocyte Esterase Urine RBC Urine WBC Ur Squamous Epith Cells Urine Bacteria Hyaline Casts Stool Occult Blood Valproic Acid Blood Type Antibody Screen Crossmatch 12/08/22 12/08/22 12/08/22 06:41 07:51 10:14 WBC RBC Hgb Hct MCV MCH MCHC RDW Plt Count MPV Immature Gran % (Auto) Neut % (Auto) Lymph % (Auto) [place] % (Auto) Eos % (Auto) Baso % (Auto) Lymph # (Auto) [place] # (Auto) Eos # (Auto) Baso # (Auto) Abs Immat Gran (auto) Absolute Neuts (auto) Absolute Nucleated RBC Nucleated RBC % (auto) Neutrophils % (Manual) Band Neutrophils % Lymphocytes % (Manual) Monocytes % (Manual) Metamyelocytes % Myelocytes % Abs Neuts (Manual) Lymphocytes # (Manual) Monocytes # (Manual) Metamyelocytes # Myelocytes # Nucleated RBCs Toxic Vacuolation WBC Morphology Comment Platelet Estimate Large Platelets Plt Morphology Comment RBC Morphology Polychromasia Hypochromasia Microcytosis Target Cells Fany Cells Acanthocytes (Spur) Smear Tech's Comments PT Whole Blood PT INR Whole Blood INR APTT VBG pH VBG pCO2 VBG pO2 VBG HCO3 VBG O2 Saturation VBG Base Excess Sodium Potassium Chloride Carbon Dioxide Anion Gap BUN Creatinine Estim Creat Clear Calc Estimated GFR POC Glucose 70 75 70 Random Glucose Lactic Acid Calcium Phosphorus Magnesium Iron TIBC % Saturation Unsat Iron Binding Total Bilirubin Direct Bilirubin AST ALT Alkaline Phosphatase Ammonia Total Creatine Kinase Troponin I High Sens Total Protein Albumin Lipase Vitamin B12 Folate TSH PTH Intact Calcium (PTH Intact) Urine Color Urine Appearance Urine pH Ur Specific [place] Urine Protein Urine Glucose (UA) Urine Ketones Urine Blood Urine Nitrite Ur Leukocyte Esterase Urine RBC Urine WBC Ur Squamous Epith Cells Urine Bacteria Hyaline Casts Stool Occult Blood Valproic Acid Blood Type Antibody Screen Crossmatch 12/08/22 12/08/22 12/08/22 11:08 11:56 15:35 WBC RBC Hgb Hct MCV MCH MCHC RDW Plt Count MPV Immature Gran % (Auto) Neut % (Auto) Lymph % (Auto) [place] % (Auto) Eos % (Auto) Baso % (Auto) Lymph # (Auto) [place] # (Auto) Eos # (Auto) Baso # (Auto) Abs Immat Gran (auto) Absolute Neuts (auto) Absolute Nucleated RBC Nucleated RBC % (auto) Neutrophils % (Manual) Band Neutrophils % Lymphocytes % (Manual) Monocytes % (Manual) Metamyelocytes % Myelocytes % Abs Neuts (Manual) Lymphocytes # (Manual) Monocytes # (Manual) Metamyelocytes # Myelocytes # Nucleated RBCs Toxic Vacuolation WBC Morphology Comment Platelet Estimate Large Platelets Plt Morphology Comment RBC Morphology Polychromasia Hypochromasia Microcytosis Target Cells Sylvester Cells Acanthocytes (Spur) Smear Tech's Comments PT Whole Blood PT INR Whole Blood INR APTT VBG pH VBG pCO2 VBG pO2 VBG HCO3 VBG O2 Saturation VBG Base Excess Sodium Potassium Chloride Carbon Dioxide Anion Gap BUN Creatinine Estim Creat Clear Calc Estimated GFR POC Glucose 66 88 114 Random Glucose Lactic Acid Calcium Phosphorus Magnesium Iron TIBC % Saturation Unsat Iron Binding Total Bilirubin Direct Bilirubin AST ALT Alkaline Phosphatase Ammonia Total Creatine Kinase Troponin I High Sens Total Protein Albumin Lipase Vitamin B12 Folate TSH PTH Intact Calcium (PTH Intact) Urine Color Urine Appearance Urine pH Ur Specific [place] Urine Protein Urine Glucose (UA) Urine Ketones Urine Blood Urine Nitrite Ur Leukocyte Esterase Urine RBC Urine WBC Ur Squamous Epith Cells Urine Bacteria Hyaline Casts Stool Occult Blood Valproic Acid Blood Type Antibody Screen Crossmatch 12/08/22 12/08/2223 19:35 22:31 02:01 WBC RBC Hgb Hct MCV MCH MCHC RDW Plt Count MPV Immature Gran % (Auto) Neut % (Auto) Lymph % (Auto) [place] % (Auto) Eos % (Auto) Baso % (Auto) Lymph # (Auto) [place] # (Auto) Eos # (Auto) Baso # (Auto) Abs Immat Gran (auto) Absolute Neuts (auto) Absolute Nucleated RBC Nucleated RBC % (auto) Neutrophils % (Manual) Band Neutrophils % Lymphocytes % (Manual) Monocytes % (Manual) Metamyelocytes % Myelocytes % Abs Neuts (Manual) Lymphocytes # (Manual) Monocytes # (Manual) Metamyelocytes # Myelocytes # Nucleated RBCs Toxic Vacuolation WBC Morphology Comment Platelet Estimate Large Platelets Plt Morphology Comment RBC Morphology Polychromasia Hypochromasia Microcytosis Target Cells Fany Cells Acanthocytes (Spur) Smear Tech's Comments PT Whole Blood PT INR Whole Blood INR APTT VBG pH VBG pCO2 VBG pO2 VBG HCO3 VBG O2 Saturation VBG Base Excess Sodium Potassium Chloride Carbon Dioxide Anion Gap BUN Creatinine Estim Creat Clear Calc Estimated GFR POC Glucose 119 H 108 80 Random Glucose Lactic Acid Calcium Phosphorus Magnesium Iron TIBC % Saturation Unsat Iron Binding Total Bilirubin Direct Bilirubin AST ALT Alkaline Phosphatase Ammonia Total Creatine Kinase Troponin I High Sens Total Protein Albumin Lipase Vitamin B12 Folate TSH PTH Intact Calcium (PTH Intact) Urine Color Urine Appearance Urine pH Ur Specific [place] Urine Protein Urine Glucose (UA) Urine Ketones Urine Blood Urine Nitrite Ur Leukocyte Esterase Urine RBC Urine WBC Ur Squamous Epith Cells Urine Bacteria Hyaline Casts Stool Occult Blood Valproic Acid Blood Type Antibody Screen Crossmatch 12/09/22 12/09/22 12/09/22 05:59 11:27 15:51 WBC RBC Hgb Hct MCV MCH MCHC RDW Plt Count MPV Immature Gran % (Auto) Neut % (Auto) Lymph % (Auto) [place] % (Auto) Eos % (Auto) Baso % (Auto) Lymph # (Auto) [place] # (Auto) Eos # (Auto) Baso # (Auto) Abs Immat Gran (auto) Absolute Neuts (auto) Absolute Nucleated RBC Nucleated RBC % (auto) Neutrophils % (Manual) Band Neutrophils % Lymphocytes % (Manual) Monocytes % (Manual) Metamyelocytes % Myelocytes % Abs Neuts (Manual) Lymphocytes # (Manual) Monocytes # (Manual) Metamyelocytes # Myelocytes # Nucleated RBCs Toxic Vacuolation WBC Morphology Comment Platelet Estimate Large Platelets Plt Morphology Comment RBC Morphology Polychromasia Hypochromasia Microcytosis Target Cells Sylvester Cells Acanthocytes (Spur) Smear Tech's Comments PT Whole Blood PT INR Whole Blood INR APTT VBG pH VBG pCO2 VBG pO2 VBG HCO3 VBG O2 Saturation VBG Base Excess Sodium Potassium Chloride Carbon Dioxide Anion Gap BUN Creatinine Estim Creat Clear Calc Estimated GFR POC Glucose 93 123 H 116 H Random Glucose Lactic Acid Calcium Phosphorus Magnesium Iron TIBC % Saturation Unsat Iron Binding Total Bilirubin Direct Bilirubin AST ALT Alkaline Phosphatase Ammonia Total Creatine Kinase Troponin I High Sens Total Protein Albumin Lipase Vitamin B12 Folate TSH PTH Intact Calcium (PTH Intact) Urine Color Urine Appearance Urine pH Ur Specific [place] Urine Protein Urine Glucose (UA) Urine Ketones Urine Blood Urine Nitrite Ur Leukocyte Esterase Urine RBC Urine WBC Ur Squamous Epith Cells Urine Bacteria Hyaline Casts Stool Occult Blood Valproic Acid Blood Type Antibody Screen Crossmatch 12/09/22 12/10/22 12/10/22 20:22 07:09 11:00 WBC RBC Hgb Hct MCV MCH MCHC RDW Plt Count MPV Immature Gran % (Auto) Neut % (Auto) Lymph % (Auto) [place] % (Auto) Eos % (Auto) Baso % (Auto) Lymph # (Auto) [place] # (Auto) Eos # (Auto) Baso # (Auto) Abs Immat Gran (auto) Absolute Neuts (auto) Absolute Nucleated RBC Nucleated RBC % (auto) Neutrophils % (Manual) Band Neutrophils % Lymphocytes % (Manual) Monocytes % (Manual) Metamyelocytes % Myelocytes % Abs Neuts (Manual) Lymphocytes # (Manual) Monocytes # (Manual) Metamyelocytes # Myelocytes # Nucleated RBCs Toxic Vacuolation WBC Morphology Comment Platelet Estimate Large Platelets Plt Morphology Comment RBC Morphology Polychromasia Hypochromasia Microcytosis Target Cells Sylvester Cells Acanthocytes (Spur) Smear Tech's Comments PT Whole Blood PT INR Whole Blood INR APTT VBG pH VBG pCO2 VBG pO2 VBG HCO3 VBG O2 Saturation VBG Base Excess Sodium Potassium Chloride Carbon Dioxide Anion Gap BUN Creatinine Estim Creat Clear Calc Estimated GFR POC Glucose 132 H 94 146 H Random Glucose Lactic Acid Calcium Phosphorus Magnesium Iron TIBC % Saturation Unsat Iron Binding Total Bilirubin Direct Bilirubin AST ALT Alkaline Phosphatase Ammonia Total Creatine Kinase Troponin I High Sens Total Protein Albumin Lipase Vitamin B12 Folate TSH PTH Intact Calcium (PTH Intact) Urine Color Urine Appearance Urine pH Ur Specific [place] Urine Protein Urine Glucose (UA) Urine Ketones Urine Blood Urine Nitrite Ur Leukocyte Esterase Urine RBC Urine WBC Ur Squamous Epith Cells Urine Bacteria Hyaline Casts Stool Occult Blood Valproic Acid Blood Type Antibody Screen Crossmatch 12/10/22 12/10/22 12/11/22 16:11 20:22 07:04 WBC RBC Hgb Hct MCV MCH MCHC RDW Plt Count MPV Immature Gran % (Auto) Neut % (Auto) Lymph % (Auto) [place] % (Auto) Eos % (Auto) Baso % (Auto) Lymph # (Auto) [place] # (Auto) Eos # (Auto) Baso # (Auto) Abs Immat Gran (auto) Absolute Neuts (auto) Absolute Nucleated RBC Nucleated RBC % (auto) Neutrophils % (Manual) Band Neutrophils % Lymphocytes % (Manual) Monocytes % (Manual) Metamyelocytes % Myelocytes % Abs Neuts (Manual) Lymphocytes # (Manual) Monocytes # (Manual) Metamyelocytes # Myelocytes # Nucleated RBCs Toxic Vacuolation WBC Morphology Comment Platelet Estimate Large Platelets Plt Morphology Comment RBC Morphology Polychromasia Hypochromasia Microcytosis Target Cells Sylvester Cells Acanthocytes (Spur) Smear Tech's Comments PT Whole Blood PT INR Whole Blood INR APTT VBG pH VBG pCO2 VBG pO2 VBG HCO3 VBG O2 Saturation VBG Base Excess Sodium Potassium Chloride Carbon Dioxide Anion Gap BUN Creatinine Estim Creat Clear Calc Estimated GFR POC Glucose 123 H 163 H 104 Random Glucose Lactic Acid Calcium Phosphorus Magnesium Iron TIBC % Saturation Unsat Iron Binding Total Bilirubin Direct Bilirubin AST ALT Alkaline Phosphatase Ammonia Total Creatine Kinase Troponin I High Sens Total Protein Albumin Lipase Vitamin B12 Folate TSH PTH Intact Calcium (PTH Intact) Urine Color Urine Appearance Urine pH Ur Specific [place] Urine Protein Urine Glucose (UA) Urine Ketones Urine Blood Urine Nitrite Ur Leukocyte Esterase Urine RBC Urine WBC Ur Squamous Epith Cells Urine Bacteria Hyaline Casts Stool Occult Blood Valproic Acid Blood Type Antibody Screen Crossmatch 12/11/22 12/11/22 12/11/22 09:29 10:53 16:19 WBC RBC Hgb Hct MCV MCH MCHC RDW Plt Count MPV Immature Gran % (Auto) Neut % (Auto) Lymph % (Auto) [place] % (Auto) Eos % (Auto) Baso % (Auto) Lymph # (Auto) [place] # (Auto) Eos # (Auto) Baso # (Auto) Abs Immat Gran (auto) Absolute Neuts (auto) Absolute Nucleated RBC Nucleated RBC % (auto) Neutrophils % (Manual) Band Neutrophils % Lymphocytes % (Manual) Monocytes % (Manual) Metamyelocytes % Myelocytes % Abs Neuts (Manual) Lymphocytes # (Manual) Monocytes # (Manual) Metamyelocytes # Myelocytes # Nucleated RBCs Toxic Vacuolation WBC Morphology Comment Platelet Estimate Large Platelets Plt Morphology Comment RBC Morphology Polychromasia Hypochromasia Microcytosis Target Cells Fany Cells Acanthocytes (Spur) Smear Tech's Comments PT Whole Blood PT INR Whole Blood INR APTT VBG pH VBG pCO2 VBG pO2 VBG HCO3 VBG O2 Saturation VBG Base Excess Sodium Potassium Chloride Carbon Dioxide Anion Gap BUN Creatinine Estim Creat Clear Calc Estimated GFR POC Glucose 140 H 109 Random Glucose Lactic Acid Calcium Phosphorus Magnesium Iron TIBC % Saturation Unsat Iron Binding Total Bilirubin Direct Bilirubin AST ALT Alkaline Phosphatase Ammonia Total Creatine Kinase Troponin I High Sens Total Protein Albumin Lipase Vitamin B12 Folate TSH PTH Intact Calcium (PTH Intact) Urine Color Urine Appearance Urine pH Ur Specific [place] Urine Protein Urine Glucose (UA) Urine Ketones Urine Blood Urine Nitrite Ur Leukocyte Esterase Urine RBC Urine WBC Ur Squamous Epith Cells Urine Bacteria Hyaline Casts Stool Occult Blood Valproic Acid 63.6 Blood Type Antibody Screen Crossmatch 12/11/22 12/12/22 12/12/22 19:57 07:32 11:16 WBC RBC Hgb Hct MCV MCH MCHC RDW Plt Count MPV Immature Gran % (Auto) Neut % (Auto) Lymph % (Auto) [place] % (Auto) Eos % (Auto) Baso % (Auto) Lymph # (Auto) [place] # (Auto) Eos # (Auto) Baso # (Auto) Abs Immat Gran (auto) Absolute Neuts (auto) Absolute Nucleated RBC Nucleated RBC % (auto) Neutrophils % (Manual) Band Neutrophils % Lymphocytes % (Manual) Monocytes % (Manual) Metamyelocytes % Myelocytes % Abs Neuts (Manual) Lymphocytes # (Manual) Monocytes # (Manual) Metamyelocytes # Myelocytes # Nucleated RBCs Toxic Vacuolation WBC Morphology Comment Platelet Estimate Large Platelets Plt Morphology Comment RBC Morphology Polychromasia Hypochromasia Microcytosis Target Cells Fany Cells Acanthocytes (Spur) Smear Tech's Comments PT Whole Blood PT INR Whole Blood INR APTT VBG pH VBG pCO2 VBG pO2 VBG HCO3 VBG O2 Saturation VBG Base Excess Sodium Potassium Chloride Carbon Dioxide Anion Gap BUN Creatinine Estim Creat Clear Calc Estimated GFR POC Glucose 134 H 86 122 H Random Glucose Lactic Acid Calcium Phosphorus Magnesium Iron TIBC % Saturation Unsat Iron Binding Total Bilirubin Direct Bilirubin AST ALT Alkaline Phosphatase Ammonia Total Creatine Kinase Troponin I High Sens Total Protein Albumin Lipase Vitamin B12 Folate TSH PTH Intact Calcium (PTH Intact) Urine Color Urine Appearance Urine pH Ur Specific [place] Urine Protein Urine Glucose (UA) Urine Ketones Urine Blood Urine Nitrite Ur Leukocyte Esterase Urine RBC Urine WBC Ur Squamous Epith Cells Urine Bacteria Hyaline Casts Stool Occult Blood Valproic Acid Blood Type Antibody Screen Crossmatch 12/12/22 12/12/22 12/13/22 15:55 19:26 07:16 WBC RBC Hgb Hct MCV MCH MCHC RDW Plt Count MPV Immature Gran % (Auto) Neut % (Auto) Lymph % (Auto) [place] % (Auto) Eos % (Auto) Baso % (Auto) Lymph # (Auto) [place] # (Auto) Eos # (Auto) Baso # (Auto) Abs Immat Gran (auto) Absolute Neuts (auto) Absolute Nucleated RBC Nucleated RBC % (auto) Neutrophils % (Manual) Band Neutrophils % Lymphocytes % (Manual) Monocytes % (Manual) Metamyelocytes % Myelocytes % Abs Neuts (Manual) Lymphocytes # (Manual) Monocytes # (Manual) Metamyelocytes # Myelocytes # Nucleated RBCs Toxic Vacuolation WBC Morphology Comment Platelet Estimate Large Platelets Plt Morphology Comment RBC Morphology Polychromasia Hypochromasia Microcytosis Target Cells Sylvester Cells Acanthocytes (Spur) Smear Tech's Comments PT Whole Blood PT INR Whole Blood INR APTT VBG pH VBG pCO2 VBG pO2 VBG HCO3 VBG O2 Saturation VBG Base Excess Sodium Potassium Chloride Carbon Dioxide Anion Gap BUN Creatinine Estim Creat Clear Calc Estimated GFR POC Glucose 122 H 145 H 92 Random Glucose Lactic Acid Calcium Phosphorus Magnesium Iron TIBC % Saturation Unsat Iron Binding Total Bilirubin Direct Bilirubin AST ALT Alkaline Phosphatase Ammonia Total Creatine Kinase Troponin I High Sens Total Protein Albumin Lipase Vitamin B12 Folate TSH PTH Intact Calcium (PTH Intact) Urine Color Urine Appearance Urine pH Ur Specific [place] Urine Protein Urine Glucose (UA) Urine Ketones Urine Blood Urine Nitrite Ur Leukocyte Esterase Urine RBC Urine WBC Ur Squamous Epith Cells Urine Bacteria Hyaline Casts Stool Occult Blood Valproic Acid Blood Type Antibody Screen Crossmatch 12/13/22 12/13/22 12/13/22 11:09 15:18 18:57 WBC RBC Hgb Hct MCV MCH MCHC RDW Plt Count MPV Immature Gran % (Auto) Neut % (Auto) Lymph % (Auto) [place] % (Auto) Eos % (Auto) Baso % (Auto) Lymph # (Auto) [place] # (Auto) Eos # (Auto) Baso # (Auto) Abs Immat Gran (auto) Absolute Neuts (auto) Absolute Nucleated RBC Nucleated RBC % (auto) Neutrophils % (Manual) Band Neutrophils % Lymphocytes % (Manual) Monocytes % (Manual) Metamyelocytes % Myelocytes % Abs Neuts (Manual) Lymphocytes # (Manual) Monocytes # (Manual) Metamyelocytes # Myelocytes # Nucleated RBCs Toxic Vacuolation WBC Morphology Comment Platelet Estimate Large Platelets Plt Morphology Comment RBC Morphology Polychromasia Hypochromasia Microcytosis Target Cells Fany Cells Acanthocytes (Spur) Smear Tech's Comments PT Whole Blood PT INR Whole Blood INR APTT VBG pH VBG pCO2 VBG pO2 VBG HCO3 VBG O2 Saturation VBG Base Excess Sodium Potassium Chloride Carbon Dioxide Anion Gap BUN Creatinine Estim Creat Clear Calc Estimated GFR POC Glucose 138 H 153 H 135 H Random Glucose Lactic Acid Calcium Phosphorus Magnesium Iron TIBC % Saturation Unsat Iron Binding Total Bilirubin Direct Bilirubin AST ALT Alkaline Phosphatase Ammonia Total Creatine Kinase Troponin I High Sens Total Protein Albumin Lipase Vitamin B12 Folate TSH PTH Intact Calcium (PTH Intact) Urine Color Urine Appearance Urine pH Ur Specific [place] Urine Protein Urine Glucose (UA) Urine Ketones Urine Blood Urine Nitrite Ur Leukocyte Esterase Urine RBC Urine WBC Ur Squamous Epith Cells Urine Bacteria Hyaline Casts Stool Occult Blood Valproic Acid Blood Type Antibody Screen Crossmatch 12/14/22 12/14/22 12/14/22 07:41 13:05 16:02 WBC RBC Hgb Hct MCV MCH MCHC RDW Plt Count MPV Immature Gran % (Auto) Neut % (Auto) Lymph % (Auto) [place] % (Auto) Eos % (Auto) Baso % (Auto) Lymph # (Auto) [place] # (Auto) Eos # (Auto) Baso # (Auto) Abs Immat Gran (auto) Absolute Neuts (auto) Absolute Nucleated RBC Nucleated RBC % (auto) Neutrophils % (Manual) Band Neutrophils % Lymphocytes % (Manual) Monocytes % (Manual) Metamyelocytes % Myelocytes % Abs Neuts (Manual) Lymphocytes # (Manual) Monocytes # (Manual) Metamyelocytes # Myelocytes # Nucleated RBCs Toxic Vacuolation WBC Morphology Comment Platelet Estimate Large Platelets Plt Morphology Comment RBC Morphology Polychromasia Hypochromasia Microcytosis Target Cells Sylvester Cells Acanthocytes (Spur) Smear Tech's Comments PT Whole Blood PT INR Whole Blood INR APTT VBG pH VBG pCO2 VBG pO2 VBG HCO3 VBG O2 Saturation VBG Base Excess Sodium Potassium Chloride Carbon Dioxide Anion Gap BUN Creatinine Estim Creat Clear Calc Estimated GFR POC Glucose 102 111 142 H Random Glucose Lactic Acid Calcium Phosphorus Magnesium Iron TIBC % Saturation Unsat Iron Binding Total Bilirubin Direct Bilirubin AST ALT Alkaline Phosphatase Ammonia Total Creatine Kinase Troponin I High Sens Total Protein Albumin Lipase Vitamin B12 Folate TSH PTH Intact Calcium (PTH Intact) Urine Color Urine Appearance Urine pH Ur Specific [place] Urine Protein Urine Glucose (UA) Urine Ketones Urine Blood Urine Nitrite Ur Leukocyte Esterase Urine RBC Urine WBC Ur Squamous Epith Cells Urine Bacteria Hyaline Casts Stool Occult Blood Valproic Acid Blood Type Antibody Screen Crossmatch 12/14/22 12/15/22 12/15/22 19:17 05:23 05:23 WBC RBC Hgb Hct MCV MCH MCHC RDW Plt Count MPV Immature Gran % (Auto) Neut % (Auto) Lymph % (Auto) [place] % (Auto) Eos % (Auto) Baso % (Auto) Lymph # (Auto) [place] # (Auto) Eos # (Auto) Baso # (Auto) Abs Immat Gran (auto) Absolute Neuts (auto) Absolute Nucleated RBC Nucleated RBC % (auto) Neutrophils % (Manual) Band Neutrophils % Lymphocytes % (Manual) Monocytes % (Manual) Metamyelocytes % Myelocytes % Abs Neuts (Manual) Lymphocytes # (Manual) Monocytes # (Manual) Metamyelocytes # Myelocytes # Nucleated RBCs Toxic Vacuolation WBC Morphology Comment Platelet Estimate Large Platelets Plt Morphology Comment RBC Morphology Polychromasia Hypochromasia Microcytosis Target Cells Fany Cells Acanthocytes (Spur) Smear Tech's Comments PT Whole Blood PT INR Whole Blood INR APTT VBG pH VBG pCO2 VBG pO2 VBG HCO3 VBG O2 Saturation VBG Base Excess Sodium Potassium Chloride Carbon Dioxide Anion Gap BUN Creatinine Estim Creat Clear Calc Estimated GFR POC Glucose 194 H Random Glucose Lactic Acid Calcium Phosphorus 4.7 H Magnesium Iron TIBC % Saturation Unsat Iron Binding Total Bilirubin Direct Bilirubin AST ALT Alkaline Phosphatase Ammonia Total Creatine Kinase Troponin I High Sens Total Protein Albumin Lipase Vitamin B12 Folate TSH PTH Intact 1585 H Calcium (PTH Intact) 9.0 Urine Color Urine Appearance Urine pH Ur Specific [place] Urine Protein Urine Glucose (UA) Urine Ketones Urine Blood Urine Nitrite Ur Leukocyte Esterase Urine RBC Urine WBC Ur Squamous Epith Cells Urine Bacteria Hyaline Casts Stool Occult Blood Valproic Acid Blood Type Antibody Screen Crossmatch 12/15/22 12/15/22 12/15/22 07:26 08:42 10:27 WBC 12.3 H RBC 3.85 L Hgb 12.2 Hct 36.0 L MCV 93.2 MCH 31.9 MCHC 34.3 RDW 16.4 H Plt Count 206 D MPV 11.3 Immature Gran % (Auto) 0.7 H Neut % (Auto) 67.7 Lymph % (Auto) 12.7 L [place] % (Auto) 17.4 H Eos % (Auto) 0.8 Baso % (Auto) 0.7 Lymph # (Auto) 1.6 [place] # (Auto) 2.1 H Eos # (Auto) 0.1 Baso # (Auto) 0.1 Abs Immat Gran (auto) 0.08 H Absolute Neuts (auto) 8.3 Absolute Nucleated RBC 0.000 Nucleated RBC % (auto) 0.0 Neutrophils % (Manual) Band Neutrophils % Lymphocytes % (Manual) Monocytes % (Manual) Metamyelocytes % Myelocytes % Abs Neuts (Manual) Lymphocytes # (Manual) Monocytes # (Manual) Metamyelocytes # Myelocytes # Nucleated RBCs Toxic Vacuolation WBC Morphology Comment Platelet Estimate Large Platelets Plt Morphology Comment RBC Morphology Polychromasia Hypochromasia Microcytosis Target Cells Fany Cells Acanthocytes (Spur) Smear Tech's Comments VERIFIED PT Whole Blood PT INR Whole Blood INR APTT VBG pH VBG pCO2 VBG pO2 VBG HCO3 VBG O2 Saturation VBG Base Excess Sodium 129 L Potassium 4.5 Chloride 95 L Carbon Dioxide 20 L Anion Gap 19 BUN 48 H Creatinine 7.12 H* Estim Creat Clear Calc 8.8 Estimated GFR 6 POC Glucose 107 Random Glucose 144 H Lactic Acid Calcium 9.8 D Phosphorus Magnesium Iron TIBC % Saturation Unsat Iron Binding Total Bilirubin Direct Bilirubin AST ALT Alkaline Phosphatase Ammonia Total Creatine Kinase Troponin I High Sens Total Protein Albumin Lipase Vitamin B12 Folate TSH PTH Intact Calcium (PTH Intact) Urine Color Urine Appearance Urine pH Ur Specific [place] Urine Protein Urine Glucose (UA) Urine Ketones Urine Blood Urine Nitrite Ur Leukocyte Esterase Urine RBC Urine WBC Ur Squamous Epith Cells Urine Bacteria Hyaline Casts Stool Occult Blood Valproic Acid Blood Type Antibody Screen Crossmatch 12/15/22 12/15/22 12/15/22 10:27 11:15 16:44 WBC RBC Hgb Hct MCV MCH MCHC RDW Plt Count MPV Immature Gran % (Auto) Neut % (Auto) Lymph % (Auto) [place] % (Auto) Eos % (Auto) Baso % (Auto) Lymph # (Auto) [place] # (Auto) Eos # (Auto) Baso # (Auto) Abs Immat Gran (auto) Absolute Neuts (auto) Absolute Nucleated RBC Nucleated RBC % (auto) Neutrophils % (Manual) Band Neutrophils % Lymphocytes % (Manual) Monocytes % (Manual) Metamyelocytes % Myelocytes % Abs Neuts (Manual) Lymphocytes # (Manual) Monocytes # (Manual) Metamyelocytes # Myelocytes # Nucleated RBCs Toxic Vacuolation WBC Morphology Comment Platelet Estimate Large Platelets Plt Morphology Comment RBC Morphology Polychromasia Hypochromasia Microcytosis Target Cells Fany Cells Acanthocytes (Spur) Smear Tech's Comments PT Whole Blood PT INR Whole Blood INR APTT VBG pH VBG pCO2 VBG pO2 VBG HCO3 VBG O2 Saturation VBG Base Excess Sodium Potassium Chloride Carbon Dioxide Anion Gap BUN Creatinine Estim Creat Clear Calc Estimated GFR POC Glucose 137 H 114 Random Glucose Lactic Acid Calcium Phosphorus Magnesium Iron TIBC % Saturation Unsat Iron Binding Total Bilirubin Direct Bilirubin AST ALT Alkaline Phosphatase Ammonia 41 Total Creatine Kinase Troponin I High Sens Total Protein Albumin Lipase Vitamin B12 Folate TSH PTH Intact Calcium (PTH Intact) Urine Color Urine Appearance Urine pH Ur Specific [place] Urine Protein Urine Glucose (UA) Urine Ketones Urine Blood Urine Nitrite Ur Leukocyte Esterase Urine RBC Urine WBC Ur Squamous Epith Cells Urine Bacteria Hyaline Casts Stool Occult Blood Valproic Acid Blood Type Antibody Screen Crossmatch 12/15/22 12/16/22 12/16/22 20:19 10:00 10:50 WBC RBC Hgb Hct MCV MCH MCHC RDW Plt Count MPV Immature Gran % (Auto) Neut % (Auto) Lymph % (Auto) [place] % (Auto) Eos % (Auto) Baso % (Auto) Lymph # (Auto) [place] # (Auto) Eos # (Auto) Baso # (Auto) Abs Immat Gran (auto) Absolute Neuts (auto) Absolute Nucleated RBC Nucleated RBC % (auto) Neutrophils % (Manual) Band Neutrophils % Lymphocytes % (Manual) Monocytes % (Manual) Metamyelocytes % Myelocytes % Abs Neuts (Manual) Lymphocytes # (Manual) Monocytes # (Manual) Metamyelocytes # Myelocytes # Nucleated RBCs Toxic Vacuolation WBC Morphology Comment Platelet Estimate Large Platelets Plt Morphology Comment RBC Morphology Polychromasia Hypochromasia Microcytosis Target Cells Sylvester Cells Acanthocytes (Spur) Smear Tech's Comments PT Whole Blood PT INR Whole Blood INR APTT VBG pH VBG pCO2 VBG pO2 VBG HCO3 VBG O2 Saturation VBG Base Excess Sodium 132 L Potassium 2.7 L D Chloride 99 Carbon Dioxide 20 L Anion Gap 16 BUN 11 Creatinine 1.88 H Estim Creat Clear Calc 33.6 Estimated GFR 26 POC Glucose 144 H 91 Random Glucose 104 Lactic Acid Calcium 9.9 Phosphorus Magnesium Iron TIBC % Saturation Unsat Iron Binding Total Bilirubin Direct Bilirubin AST ALT Alkaline Phosphatase Ammonia Total Creatine Kinase Troponin I High Sens Total Protein Albumin Lipase Vitamin B12 Folate TSH PTH Intact Calcium (PTH Intact) Urine Color Urine Appearance Urine pH Ur Specific [place] Urine Protein Urine Glucose (UA) Urine Ketones Urine Blood Urine Nitrite Ur Leukocyte Esterase Urine RBC Urine WBC Ur Squamous Epith Cells Urine Bacteria Hyaline Casts Stool Occult Blood Valproic Acid Blood Type Antibody Screen Crossmatch 12/16/22 12/16/22 12/17/22 15:20 19:39 06:31 WBC RBC Hgb Hct MCV MCH MCHC RDW Plt Count MPV Immature Gran % (Auto) Neut % (Auto) Lymph % (Auto) [place] % (Auto) Eos % (Auto) Baso % (Auto) Lymph # (Auto) [place] # (Auto) Eos # (Auto) Baso # (Auto) Abs Immat Gran (auto) Absolute Neuts (auto) Absolute Nucleated RBC Nucleated RBC % (auto) Neutrophils % (Manual) Band Neutrophils % Lymphocytes % (Manual) Monocytes % (Manual) Metamyelocytes % Myelocytes % Abs Neuts (Manual) Lymphocytes # (Manual) Monocytes # (Manual) Metamyelocytes # Myelocytes # Nucleated RBCs Toxic Vacuolation WBC Morphology Comment Platelet Estimate Large Platelets Plt Morphology Comment RBC Morphology Polychromasia Hypochromasia Microcytosis Target Cells Fany Cells Acanthocytes (Spur) Smear Tech's Comments PT Whole Blood PT INR Whole Blood INR APTT VBG pH VBG pCO2 VBG pO2 VBG HCO3 VBG O2 Saturation VBG Base Excess Sodium Potassium Chloride Carbon Dioxide Anion Gap BUN Creatinine Estim Creat Clear Calc Estimated GFR POC Glucose 140 H 177 H Random Glucose Lactic Acid Calcium Phosphorus Magnesium Iron TIBC % Saturation Unsat Iron Binding Total Bilirubin Direct Bilirubin AST ALT Alkaline Phosphatase Ammonia Total Creatine Kinase Troponin I High Sens Total Protein Albumin Lipase Vitamin B12 675 Folate 3.8 L TSH PTH Intact Calcium (PTH Intact) Urine Color Urine Appearance Urine pH Ur Specific [place] Urine Protein Urine Glucose (UA) Urine Ketones Urine Blood Urine Nitrite Ur Leukocyte Esterase Urine RBC Urine WBC Ur Squamous Epith Cells Urine Bacteria Hyaline Casts Stool Occult Blood Valproic Acid Blood Type Antibody Screen Crossmatch 12/17/22 12/17/22 12/17/22 06:31 07:18 10:53 WBC RBC Hgb Hct MCV MCH MCHC RDW Plt Count MPV Immature Gran % (Auto) Neut % (Auto) Lymph % (Auto) [place] % (Auto) Eos % (Auto) Baso % (Auto) Lymph # (Auto) [place] # (Auto) Eos # (Auto) Baso # (Auto) Abs Immat Gran (auto) Absolute Neuts (auto) Absolute Nucleated RBC Nucleated RBC % (auto) Neutrophils % (Manual) Band Neutrophils % Lymphocytes % (Manual) Monocytes % (Manual) Metamyelocytes % Myelocytes % Abs Neuts (Manual) Lymphocytes # (Manual) Monocytes # (Manual) Metamyelocytes # Myelocytes # Nucleated RBCs Toxic Vacuolation WBC Morphology Comment Platelet Estimate Large Platelets Plt Morphology Comment RBC Morphology Polychromasia Hypochromasia Microcytosis Target Cells Fany Cells Acanthocytes (Spur) Smear Tech's Comments PT Whole Blood PT INR Whole Blood INR APTT VBG pH VBG pCO2 VBG pO2 VBG HCO3 VBG O2 Saturation VBG Base Excess Sodium Potassium Chloride Carbon Dioxide Anion Gap BUN Creatinine Estim Creat Clear Calc Estimated GFR POC Glucose 66 109 Random Glucose Lactic Acid Calcium Phosphorus Magnesium Iron TIBC % Saturation Unsat Iron Binding Total Bilirubin Direct Bilirubin AST ALT Alkaline Phosphatase Ammonia Total Creatine Kinase Troponin I High Sens Total Protein Albumin Lipase Vitamin B12 Folate TSH 2.73 PTH Intact Calcium (PTH Intact) Urine Color Urine Appearance Urine pH Ur Specific [place] Urine Protein Urine Glucose (UA) Urine Ketones Urine Blood Urine Nitrite Ur Leukocyte Esterase Urine RBC Urine WBC Ur Squamous Epith Cells Urine Bacteria Hyaline Casts Stool Occult Blood Valproic Acid Blood Type Antibody Screen Crossmatch 12/17/22 12/17/22 12/18/22 15:39 19:46 11:42 WBC RBC Hgb Hct MCV MCH MCHC RDW Plt Count MPV Immature Gran % (Auto) Neut % (Auto) Lymph % (Auto) [place] % (Auto) Eos % (Auto) Baso % (Auto) Lymph # (Auto) [place] # (Auto) Eos # (Auto) Baso # (Auto) Abs Immat Gran (auto) Absolute Neuts (auto) Absolute Nucleated RBC Nucleated RBC % (auto) Neutrophils % (Manual) Band Neutrophils % Lymphocytes % (Manual) Monocytes % (Manual) Metamyelocytes % Myelocytes % Abs Neuts (Manual) Lymphocytes # (Manual) Monocytes # (Manual) Metamyelocytes # Myelocytes # Nucleated RBCs Toxic Vacuolation WBC Morphology Comment Platelet Estimate Large Platelets Plt Morphology Comment RBC Morphology Polychromasia Hypochromasia Microcytosis Target Cells Sylvester Cells Acanthocytes (Spur) Smear Tech's Comments PT Whole Blood PT INR Whole Blood INR APTT VBG pH VBG pCO2 VBG pO2 VBG HCO3 VBG O2 Saturation VBG Base Excess Sodium Potassium Chloride Carbon Dioxide Anion Gap BUN Creatinine Estim Creat Clear Calc Estimated GFR POC Glucose 137 H 164 H 101 Random Glucose Lactic Acid Calcium Phosphorus Magnesium Iron TIBC % Saturation Unsat Iron Binding Total Bilirubin Direct Bilirubin AST ALT Alkaline Phosphatase Ammonia Total Creatine Kinase Troponin I High Sens Total Protein Albumin Lipase Vitamin B12 Folate TSH PTH Intact Calcium (PTH Intact) Urine Color Urine Appearance Urine pH Ur Specific [place] Urine Protein Urine Glucose (UA) Urine Ketones Urine Blood Urine Nitrite Ur Leukocyte Esterase Urine RBC Urine WBC Ur Squamous Epith Cells Urine Bacteria Hyaline Casts Stool Occult Blood Valproic Acid Blood Type Antibody Screen Crossmatch 12/18/22 12/18/22 12/18/22 15:32 16:29 20:07 WBC RBC Hgb Hct MCV MCH MCHC RDW Plt Count MPV Immature Gran % (Auto) Neut % (Auto) Lymph % (Auto) [place] % (Auto) Eos % (Auto) Baso % (Auto) Lymph # (Auto) [place] # (Auto) Eos # (Auto) Baso # (Auto) Abs Immat Gran (auto) Absolute Neuts (auto) Absolute Nucleated RBC Nucleated RBC % (auto) Neutrophils % (Manual) Band Neutrophils % Lymphocytes % (Manual) Monocytes % (Manual) Metamyelocytes % Myelocytes % Abs Neuts (Manual) Lymphocytes # (Manual) Monocytes # (Manual) Metamyelocytes # Myelocytes # Nucleated RBCs Toxic Vacuolation WBC Morphology Comment Platelet Estimate Large Platelets Plt Morphology Comment RBC Morphology Polychromasia Hypochromasia Microcytosis Target Cells Fany Cells Acanthocytes (Spur) Smear Tech's Comments PT Whole Blood PT INR Whole Blood INR APTT VBG pH VBG pCO2 VBG pO2 VBG HCO3 VBG O2 Saturation VBG Base Excess Sodium Potassium Chloride Carbon Dioxide Anion Gap BUN Creatinine Estim Creat Clear Calc Estimated GFR POC Glucose 67 133 H 164 H Random Glucose Lactic Acid Calcium Phosphorus Magnesium Iron TIBC % Saturation Unsat Iron Binding Total Bilirubin Direct Bilirubin AST ALT Alkaline Phosphatase Ammonia Total Creatine Kinase Troponin I High Sens Total Protein Albumin Lipase Vitamin B12 Folate TSH PTH Intact Calcium (PTH Intact) Urine Color Urine Appearance Urine pH Ur Specific [place] Urine Protein Urine Glucose (UA) Urine Ketones Urine Blood Urine Nitrite Ur Leukocyte Esterase Urine RBC Urine WBC Ur Squamous Epith Cells Urine Bacteria Hyaline Casts Stool Occult Blood Valproic Acid Blood Type Antibody Screen Crossmatch 12/19/22 12/19/22 12/19/22 07:21 11:06 16:18 WBC RBC Hgb Hct MCV MCH MCHC RDW Plt Count MPV Immature Gran % (Auto) Neut % (Auto) Lymph % (Auto) [place] % (Auto) Eos % (Auto) Baso % (Auto) Lymph # (Auto) [place] # (Auto) Eos # (Auto) Baso # (Auto) Abs Immat Gran (auto) Absolute Neuts (auto) Absolute Nucleated RBC Nucleated RBC % (auto) Neutrophils % (Manual) Band Neutrophils % Lymphocytes % (Manual) Monocytes % (Manual) Metamyelocytes % Myelocytes % Abs Neuts (Manual) Lymphocytes # (Manual) Monocytes # (Manual) Metamyelocytes # Myelocytes # Nucleated RBCs Toxic Vacuolation WBC Morphology Comment Platelet Estimate Large Platelets Plt Morphology Comment RBC Morphology Polychromasia Hypochromasia Microcytosis Target Cells Fany Cells Acanthocytes (Spur) Smear Tech's Comments PT Whole Blood PT INR Whole Blood INR APTT VBG pH VBG pCO2 VBG pO2 VBG HCO3 VBG O2 Saturation VBG Base Excess Sodium Potassium Chloride Carbon Dioxide Anion Gap BUN Creatinine Estim Creat Clear Calc Estimated GFR POC Glucose 142 H 182 H 160 H Random Glucose Lactic Acid Calcium Phosphorus Magnesium Iron TIBC % Saturation Unsat Iron Binding Total Bilirubin Direct Bilirubin AST ALT Alkaline Phosphatase Ammonia Total Creatine Kinase Troponin I High Sens Total Protein Albumin Lipase Vitamin B12 Folate TSH PTH Intact Calcium (PTH Intact) Urine Color Urine Appearance Urine pH Ur Specific [place] Urine Protein Urine Glucose (UA) Urine Ketones Urine Blood Urine Nitrite Ur Leukocyte Esterase Urine RBC Urine WBC Ur Squamous Epith Cells Urine Bacteria Hyaline Casts Stool Occult Blood Valproic Acid Blood Type Antibody Screen Crossmatch 12/19/22 12/20/22 12/20/22 19:47 07:30 08:07 WBC RBC Hgb Hct MCV MCH MCHC RDW Plt Count MPV Immature Gran % (Auto) Neut % (Auto) Lymph % (Auto) [place] % (Auto) Eos % (Auto) Baso % (Auto) Lymph # (Auto) [place] # (Auto) Eos # (Auto) Baso # (Auto) Abs Immat Gran (auto) Absolute Neuts (auto) Absolute Nucleated RBC Nucleated RBC % (auto) Neutrophils % (Manual) Band Neutrophils % Lymphocytes % (Manual) Monocytes % (Manual) Metamyelocytes % Myelocytes % Abs Neuts (Manual) Lymphocytes # (Manual) Monocytes # (Manual) Metamyelocytes # Myelocytes # Nucleated RBCs Toxic Vacuolation WBC Morphology Comment Platelet Estimate Large Platelets Plt Morphology Comment RBC Morphology Polychromasia Hypochromasia Microcytosis Target Cells Sylvester Cells Acanthocytes (Spur) Smear Tech's Comments PT Whole Blood PT INR Whole Blood INR APTT VBG pH VBG pCO2 VBG pO2 VBG HCO3 VBG O2 Saturation VBG Base Excess Sodium 129 L Potassium 5.1 D Chloride 95 L Carbon Dioxide 16 L Anion Gap 23 H BUN 50 H Creatinine 7.04 H* Estim Creat Clear Calc 8.9 Estimated GFR 6 POC Glucose 137 H 131 H Random Glucose 118 H Lactic Acid Calcium 8.3 L D Phosphorus Magnesium Iron TIBC % Saturation Unsat Iron Binding Total Bilirubin Direct Bilirubin AST ALT Alkaline Phosphatase Ammonia Total Creatine Kinase Troponin I High Sens Total Protein Albumin Lipase Vitamin B12 Folate TSH PTH Intact Calcium (PTH Intact) Urine Color Urine Appearance Urine pH Ur Specific [place] Urine Protein Urine Glucose (UA) Urine Ketones Urine Blood Urine Nitrite Ur Leukocyte Esterase Urine RBC Urine WBC Ur Squamous Epith Cells Urine Bacteria Hyaline Casts Stool Occult Blood Valproic Acid Blood Type Antibody Screen Crossmatch 12/20/22 12/20/22 12/20/22 09:33 11:23 16:15 WBC RBC Hgb Hct MCV MCH MCHC RDW Plt Count MPV Immature Gran % (Auto) Neut % (Auto) Lymph % (Auto) [place] % (Auto) Eos % (Auto) Baso % (Auto) Lymph # (Auto) [place] # (Auto) Eos # (Auto) Baso # (Auto) Abs Immat Gran (auto) Absolute Neuts (auto) Absolute Nucleated RBC Nucleated RBC % (auto) Neutrophils % (Manual) Band Neutrophils % Lymphocytes % (Manual) Monocytes % (Manual) Metamyelocytes % Myelocytes % Abs Neuts (Manual) Lymphocytes # (Manual) Monocytes # (Manual) Metamyelocytes # Myelocytes # Nucleated RBCs Toxic Vacuolation WBC Morphology Comment Platelet Estimate Large Platelets Plt Morphology Comment RBC Morphology Polychromasia Hypochromasia Microcytosis Target Cells Fany Cells Acanthocytes (Spur) Smear Tech's Comments PT Whole Blood PT INR Whole Blood INR APTT VBG pH 7.38 VBG pCO2 31 VBG pO2 78 VBG HCO3 19 L VBG O2 Saturation 94.0 VBG Base Excess -4.9 Sodium Potassium Chloride Carbon Dioxide Anion Gap BUN Creatinine Estim Creat Clear Calc Estimated GFR POC Glucose 188 H 176 H Random Glucose Lactic Acid Calcium Phosphorus Magnesium Iron TIBC % Saturation Unsat Iron Binding Total Bilirubin Direct Bilirubin AST ALT Alkaline Phosphatase Ammonia Total Creatine Kinase Troponin I High Sens Total Protein Albumin Lipase Vitamin B12 Folate TSH PTH Intact Calcium (PTH Intact) Urine Color Urine Appearance Urine pH Ur Specific [place] Urine Protein Urine Glucose (UA) Urine Ketones Urine Blood Urine Nitrite Ur Leukocyte Esterase Urine RBC Urine WBC Ur Squamous Epith Cells Urine Bacteria Hyaline Casts Stool Occult Blood Valproic Acid Blood Type Antibody Screen Crossmatch 12/20/22 12/21/22 12/21/22 19:55 07:27 09:59 WBC RBC Hgb Hct MCV MCH MCHC RDW Plt Count MPV Immature Gran % (Auto) Neut % (Auto) Lymph % (Auto) [place] % (Auto) Eos % (Auto) Baso % (Auto) Lymph # (Auto) [place] # (Auto) Eos # (Auto) Baso # (Auto) Abs Immat Gran (auto) Absolute Neuts (auto) Absolute Nucleated RBC Nucleated RBC % (auto) Neutrophils % (Manual) Band Neutrophils % Lymphocytes % (Manual) Monocytes % (Manual) Metamyelocytes % Myelocytes % Abs Neuts (Manual) Lymphocytes # (Manual) Monocytes # (Manual) Metamyelocytes # Myelocytes # Nucleated RBCs Toxic Vacuolation WBC Morphology Comment Platelet Estimate Large Platelets Plt Morphology Comment RBC Morphology Polychromasia Hypochromasia Microcytosis Target Cells Fany Cells Acanthocytes (Spur) Smear Tech's Comments PT Whole Blood PT INR Whole Blood INR APTT VBG pH VBG pCO2 VBG pO2 VBG HCO3 VBG O2 Saturation VBG Base Excess Sodium 131 L Potassium 5.2 H Chloride 91 L Carbon Dioxide 20 L Anion Gap 25 H BUN 70 H Creatinine 8.86 H* Estim Creat Clear Calc 7.1 Estimated GFR 4 POC Glucose 131 H 99 Random Glucose 116 H Lactic Acid Calcium 8.2 L Phosphorus Magnesium Iron TIBC % Saturation Unsat Iron Binding Total Bilirubin Direct Bilirubin AST ALT Alkaline Phosphatase Ammonia Total Creatine Kinase Troponin I High Sens Total Protein Albumin Lipase Vitamin B12 Folate TSH PTH Intact Calcium (PTH Intact) Urine Color Urine Appearance Urine pH Ur Specific [place] Urine Protein Urine Glucose (UA) Urine Ketones Urine Blood Urine Nitrite Ur Leukocyte Esterase Urine RBC Urine WBC Ur Squamous Epith Cells Urine Bacteria Hyaline Casts Stool Occult Blood Valproic Acid Blood Type Antibody Screen Crossmatch 12/21/22 12/21/22 12/21/22 11:02 16:46 20:09 WBC RBC Hgb Hct MCV MCH MCHC RDW Plt Count MPV Immature Gran % (Auto) Neut % (Auto) Lymph % (Auto) [place] % (Auto) Eos % (Auto) Baso % (Auto) Lymph # (Auto) [place] # (Auto) Eos # (Auto) Baso # (Auto) Abs Immat Gran (auto) Absolute Neuts (auto) Absolute Nucleated RBC Nucleated RBC % (auto) Neutrophils % (Manual) Band Neutrophils % Lymphocytes % (Manual) Monocytes % (Manual) Metamyelocytes % Myelocytes % Abs Neuts (Manual) Lymphocytes # (Manual) Monocytes # (Manual) Metamyelocytes # Myelocytes # Nucleated RBCs Toxic Vacuolation WBC Morphology Comment Platelet Estimate Large Platelets Plt Morphology Comment RBC Morphology Polychromasia Hypochromasia Microcytosis Target Cells Fany Cells Acanthocytes (Spur) Smear Tech's Comments PT Whole Blood PT INR Whole Blood INR APTT VBG pH VBG pCO2 VBG pO2 VBG HCO3 VBG O2 Saturation VBG Base Excess Sodium Potassium Chloride Carbon Dioxide Anion Gap BUN Creatinine Estim Creat Clear Calc Estimated GFR POC Glucose 111 133 H 183 H Random Glucose Lactic Acid Calcium Phosphorus Magnesium Iron TIBC % Saturation Unsat Iron Binding Total Bilirubin Direct Bilirubin AST ALT Alkaline Phosphatase Ammonia Total Creatine Kinase Troponin I High Sens Total Protein Albumin Lipase Vitamin B12 Folate TSH PTH Intact Calcium (PTH Intact) Urine Color Urine Appearance Urine pH Ur Specific [place] Urine Protein Urine Glucose (UA) Urine Ketones Urine Blood Urine Nitrite Ur Leukocyte Esterase Urine RBC Urine WBC Ur Squamous Epith Cells Urine Bacteria Hyaline Casts Stool Occult Blood Valproic Acid Blood Type Antibody Screen Crossmatch 12/22/22 12/22/22 12/22/22 03:44 04:54 04:54 WBC RBC Hgb Hct MCV MCH MCHC RDW Plt Count MPV Immature Gran % (Auto) Neut % (Auto) Lymph % (Auto) [place] % (Auto) Eos % (Auto) Baso % (Auto) Lymph # (Auto) [place] # (Auto) Eos # (Auto) Baso # (Auto) Abs Immat Gran (auto) Absolute Neuts (auto) Absolute Nucleated RBC Nucleated RBC % (auto) Neutrophils % (Manual) Band Neutrophils % Lymphocytes % (Manual) Monocytes % (Manual) Metamyelocytes % Myelocytes % Abs Neuts (Manual) Lymphocytes # (Manual) Monocytes # (Manual) Metamyelocytes # Myelocytes # Nucleated RBCs Toxic Vacuolation WBC Morphology Comment Platelet Estimate Large Platelets Plt Morphology Comment RBC Morphology Polychromasia Hypochromasia Microcytosis Target Cells Fany Cells Acanthocytes (Spur) Smear Tech's Comments PT Whole Blood PT INR Whole Blood INR APTT VBG pH VBG pCO2 VBG pO2 VBG HCO3 VBG O2 Saturation VBG Base Excess Sodium Cancelled Potassium Cancelled Chloride Cancelled Carbon Dioxide Cancelled Anion Gap Cancelled BUN Cancelled Creatinine Cancelled Estim Creat Clear Calc Cancelled Estimated GFR Cancelled POC Glucose 139 H Random Glucose Cancelled Lactic Acid Calcium Cancelled Phosphorus Magnesium Iron TIBC % Saturation Unsat Iron Binding Total Bilirubin Direct Bilirubin AST ALT Alkaline Phosphatase Ammonia Total Creatine Kinase Troponin I High Sens Cancelled Total Protein Albumin Lipase Vitamin B12 Folate TSH PTH Intact Calcium (PTH Intact) Urine Color Urine Appearance Urine pH Ur Specific [place] Urine Protein Urine Glucose (UA) Urine Ketones Urine Blood Urine Nitrite Ur Leukocyte Esterase Urine RBC Urine WBC Ur Squamous Epith Cells Urine Bacteria Hyaline Casts Stool Occult Blood Valproic Acid Blood Type Antibody Screen Crossmatch 12/22/22 12/22/22 12/22/22 06:27 07:31 11:26 WBC RBC Hgb Hct MCV MCH MCHC RDW Plt Count MPV Immature Gran % (Auto) Neut % (Auto) Lymph % (Auto) [place] % (Auto) Eos % (Auto) Baso % (Auto) Lymph # (Auto) [place] # (Auto) Eos # (Auto) Baso # (Auto) Abs Immat Gran (auto) Absolute Neuts (auto) Absolute Nucleated RBC Nucleated RBC % (auto) Neutrophils % (Manual) Band Neutrophils % Lymphocytes % (Manual) Monocytes % (Manual) Metamyelocytes % Myelocytes % Abs Neuts (Manual) Lymphocytes # (Manual) Monocytes # (Manual) Metamyelocytes # Myelocytes # Nucleated RBCs Toxic Vacuolation WBC Morphology Comment Platelet Estimate Large Platelets Plt Morphology Comment RBC Morphology Polychromasia Hypochromasia Microcytosis Target Cells Sylvester Cells Acanthocytes (Spur) Smear Tech's Comments PT Whole Blood PT INR Whole Blood INR APTT VBG pH VBG pCO2 VBG pO2 VBG HCO3 VBG O2 Saturation VBG Base Excess Sodium Potassium Chloride Carbon Dioxide Anion Gap BUN Creatinine Estim Creat Clear Calc Estimated GFR POC Glucose 99 182 H Random Glucose Lactic Acid Calcium Phosphorus Magnesium Iron TIBC % Saturation Unsat Iron Binding Total Bilirubin Direct Bilirubin AST ALT Alkaline Phosphatase Ammonia Total Creatine Kinase Troponin I High Sens Total Protein Albumin Lipase Vitamin B12 Folate TSH PTH Intact Calcium (PTH Intact) Urine Color Urine Appearance Urine pH Ur Specific [place] Urine Protein Urine Glucose (UA) Urine Ketones Urine Blood Urine Nitrite Ur Leukocyte Esterase Urine RBC Urine WBC Ur Squamous Epith Cells Urine Bacteria Hyaline Casts Stool Occult Blood Valproic Acid 97.0 Blood Type Antibody Screen Crossmatch 12/22/22 12/22/22 12/23/22 16:16 19:49 07:08 WBC RBC Hgb Hct MCV MCH MCHC RDW Plt Count MPV Immature Gran % (Auto) Neut % (Auto) Lymph % (Auto) [place] % (Auto) Eos % (Auto) Baso % (Auto) Lymph # (Auto) [place] # (Auto) Eos # (Auto) Baso # (Auto) Abs Immat Gran (auto) Absolute Neuts (auto) Absolute Nucleated RBC Nucleated RBC % (auto) Neutrophils % (Manual) Band Neutrophils % Lymphocytes % (Manual) Monocytes % (Manual) Metamyelocytes % Myelocytes % Abs Neuts (Manual) Lymphocytes # (Manual) Monocytes # (Manual) Metamyelocytes # Myelocytes # Nucleated RBCs Toxic Vacuolation WBC Morphology Comment Platelet Estimate Large Platelets Plt Morphology Comment RBC Morphology Polychromasia Hypochromasia Microcytosis Target Cells Sylvester Cells Acanthocytes (Spur) Smear Tech's Comments PT Whole Blood PT INR Whole Blood INR APTT VBG pH VBG pCO2 VBG pO2 VBG HCO3 VBG O2 Saturation VBG Base Excess Sodium Potassium Chloride Carbon Dioxide Anion Gap BUN Creatinine Estim Creat Clear Calc Estimated GFR POC Glucose 136 H 174 H 128 H Random Glucose Lactic Acid Calcium Phosphorus Magnesium Iron TIBC % Saturation Unsat Iron Binding Total Bilirubin Direct Bilirubin AST ALT Alkaline Phosphatase Ammonia Total Creatine Kinase Troponin I High Sens Total Protein Albumin Lipase Vitamin B12 Folate TSH PTH Intact Calcium (PTH Intact) Urine Color Urine Appearance Urine pH Ur Specific [place] Urine Protein Urine Glucose (UA) Urine Ketones Urine Blood Urine Nitrite Ur Leukocyte Esterase Urine RBC Urine WBC Ur Squamous Epith Cells Urine Bacteria Hyaline Casts Stool Occult Blood Valproic Acid Blood Type Antibody Screen Crossmatch 12/23/22 12/23/22 12/23/22 14:22 15:54 16:22 WBC RBC Hgb Hct MCV MCH MCHC RDW Plt Count MPV Immature Gran % (Auto) Neut % (Auto) Lymph % (Auto) [place] % (Auto) Eos % (Auto) Baso % (Auto) Lymph # (Auto) [place] # (Auto) Eos # (Auto) Baso # (Auto) Abs Immat Gran (auto) Absolute Neuts (auto) Absolute Nucleated RBC Nucleated RBC % (auto) Neutrophils % (Manual) Band Neutrophils % Lymphocytes % (Manual) Monocytes % (Manual) Metamyelocytes % Myelocytes % Abs Neuts (Manual) Lymphocytes # (Manual) Monocytes # (Manual) Metamyelocytes # Myelocytes # Nucleated RBCs Toxic Vacuolation WBC Morphology Comment Platelet Estimate Large Platelets Plt Morphology Comment RBC Morphology Polychromasia Hypochromasia Microcytosis Target Cells Sylvester Cells Acanthocytes (Spur) Smear Tech's Comments PT Whole Blood PT INR Whole Blood INR APTT VBG pH VBG pCO2 VBG pO2 VBG HCO3 VBG O2 Saturation VBG Base Excess Sodium Potassium Chloride Carbon Dioxide Anion Gap BUN Creatinine Estim Creat Clear Calc Estimated GFR POC Glucose 122 H 140 H 152 H Random Glucose Lactic Acid Calcium Phosphorus Magnesium Iron TIBC % Saturation Unsat Iron Binding Total Bilirubin Direct Bilirubin AST ALT Alkaline Phosphatase Ammonia Total Creatine Kinase Troponin I High Sens Total Protein Albumin Lipase Vitamin B12 Folate TSH PTH Intact Calcium (PTH Intact) Urine Color Urine Appearance Urine pH Ur Specific [place] Urine Protein Urine Glucose (UA) Urine Ketones Urine Blood Urine Nitrite Ur Leukocyte Esterase Urine RBC Urine WBC Ur Squamous Epith Cells Urine Bacteria Hyaline Casts Stool Occult Blood Valproic Acid Blood Type Antibody Screen Crossmatch 12/23/22 12/24/22 12/24/22 20:15 07:31 11:10 WBC RBC Hgb Hct MCV MCH MCHC RDW Plt Count MPV Immature Gran % (Auto) Neut % (Auto) Lymph % (Auto) [place] % (Auto) Eos % (Auto) Baso % (Auto) Lymph # (Auto) [place] # (Auto) Eos # (Auto) Baso # (Auto) Abs Immat Gran (auto) Absolute Neuts (auto) Absolute Nucleated RBC Nucleated RBC % (auto) Neutrophils % (Manual) Band Neutrophils % Lymphocytes % (Manual) Monocytes % (Manual) Metamyelocytes % Myelocytes % Abs Neuts (Manual) Lymphocytes # (Manual) Monocytes # (Manual) Metamyelocytes # Myelocytes # Nucleated RBCs Toxic Vacuolation WBC Morphology Comment Platelet Estimate Large Platelets Plt Morphology Comment RBC Morphology Polychromasia Hypochromasia Microcytosis Target Cells Sylvester Cells Acanthocytes (Spur) Smear Tech's Comments PT Whole Blood PT INR Whole Blood INR APTT VBG pH VBG pCO2 VBG pO2 VBG HCO3 VBG O2 Saturation VBG Base Excess Sodium Potassium Chloride Carbon Dioxide Anion Gap BUN Creatinine Estim Creat Clear Calc Estimated GFR POC Glucose 223 H 146 H 276 H Random Glucose Lactic Acid Calcium Phosphorus Magnesium Iron TIBC % Saturation Unsat Iron Binding Total Bilirubin Direct Bilirubin AST ALT Alkaline Phosphatase Ammonia Total Creatine Kinase Troponin I High Sens Total Protein Albumin Lipase Vitamin B12 Folate TSH PTH Intact Calcium (PTH Intact) Urine Color Urine Appearance Urine pH Ur Specific [place] Urine Protein Urine Glucose (UA) Urine Ketones Urine Blood Urine Nitrite Ur Leukocyte Esterase Urine RBC Urine WBC Ur Squamous Epith Cells Urine Bacteria Hyaline Casts Stool Occult Blood Valproic Acid Blood Type Antibody Screen Crossmatch 12/24/22 12/24/22 12/25/22 16:46 22:16 07:22 WBC RBC Hgb Hct MCV MCH MCHC RDW Plt Count MPV Immature Gran % (Auto) Neut % (Auto) Lymph % (Auto) [place] % (Auto) Eos % (Auto) Baso % (Auto) Lymph # (Auto) [place] # (Auto) Eos # (Auto) Baso # (Auto) Abs Immat Gran (auto) Absolute Neuts (auto) Absolute Nucleated RBC Nucleated RBC % (auto) Neutrophils % (Manual) Band Neutrophils % Lymphocytes % (Manual) Monocytes % (Manual) Metamyelocytes % Myelocytes % Abs Neuts (Manual) Lymphocytes # (Manual) Monocytes # (Manual) Metamyelocytes # Myelocytes # Nucleated RBCs Toxic Vacuolation WBC Morphology Comment Platelet Estimate Large Platelets Plt Morphology Comment RBC Morphology Polychromasia Hypochromasia Microcytosis Target Cells Fany Cells Acanthocytes (Spur) Smear Tech's Comments PT Whole Blood PT INR Whole Blood INR APTT VBG pH VBG pCO2 VBG pO2 VBG HCO3 VBG O2 Saturation VBG Base Excess Sodium Potassium Chloride Carbon Dioxide Anion Gap BUN Creatinine Estim Creat Clear Calc Estimated GFR POC Glucose 280 H 155 H 155 H Random Glucose Lactic Acid Calcium Phosphorus Magnesium Iron TIBC % Saturation Unsat Iron Binding Total Bilirubin Direct Bilirubin AST ALT Alkaline Phosphatase Ammonia Total Creatine Kinase Troponin I High Sens Total Protein Albumin Lipase Vitamin B12 Folate TSH PTH Intact Calcium (PTH Intact) Urine Color Urine Appearance Urine pH Ur Specific [place] Urine Protein Urine Glucose (UA) Urine Ketones Urine Blood Urine Nitrite Ur Leukocyte Esterase Urine RBC Urine WBC Ur Squamous Epith Cells Urine Bacteria Hyaline Casts Stool Occult Blood Valproic Acid Blood Type Antibody Screen Crossmatch 12/25/22 12/25/22 12/25/22 14:00 16:07 20:24 WBC RBC Hgb Hct MCV MCH MCHC RDW Plt Count MPV Immature Gran % (Auto) Neut % (Auto) Lymph % (Auto) [place] % (Auto) Eos % (Auto) Baso % (Auto) Lymph # (Auto) [place] # (Auto) Eos # (Auto) Baso # (Auto) Abs Immat Gran (auto) Absolute Neuts (auto) Absolute Nucleated RBC Nucleated RBC % (auto) Neutrophils % (Manual) Band Neutrophils % Lymphocytes % (Manual) Monocytes % (Manual) Metamyelocytes % Myelocytes % Abs Neuts (Manual) Lymphocytes # (Manual) Monocytes # (Manual) Metamyelocytes # Myelocytes # Nucleated RBCs Toxic Vacuolation WBC Morphology Comment Platelet Estimate Large Platelets Plt Morphology Comment RBC Morphology Polychromasia Hypochromasia Microcytosis Target Cells Sylvester Cells Acanthocytes (Spur) Smear Tech's Comments PT Whole Blood PT INR Whole Blood INR APTT VBG pH VBG pCO2 VBG pO2 VBG HCO3 VBG O2 Saturation VBG Base Excess Sodium Potassium Chloride Carbon Dioxide Anion Gap BUN Creatinine Estim Creat Clear Calc Estimated GFR POC Glucose 171 H 234 H 259 H Random Glucose Lactic Acid Calcium Phosphorus Magnesium Iron TIBC % Saturation Unsat Iron Binding Total Bilirubin Direct Bilirubin AST ALT Alkaline Phosphatase Ammonia Total Creatine Kinase Troponin I High Sens Total Protein Albumin Lipase Vitamin B12 Folate TSH PTH Intact Calcium (PTH Intact) Urine Color Urine Appearance Urine pH Ur Specific [place] Urine Protein Urine Glucose (UA) Urine Ketones Urine Blood Urine Nitrite Ur Leukocyte Esterase Urine RBC Urine WBC Ur Squamous Epith Cells Urine Bacteria Hyaline Casts Stool Occult Blood Valproic Acid Blood Type Antibody Screen Crossmatch 12/26/22 12/26/22 12/26/22 07:33 11:19 16:10 WBC RBC Hgb Hct MCV MCH MCHC RDW Plt Count MPV Immature Gran % (Auto) Neut % (Auto) Lymph % (Auto) [place] % (Auto) Eos % (Auto) Baso % (Auto) Lymph # (Auto) [place] # (Auto) Eos # (Auto) Baso # (Auto) Abs Immat Gran (auto) Absolute Neuts (auto) Absolute Nucleated RBC Nucleated RBC % (auto) Neutrophils % (Manual) Band Neutrophils % Lymphocytes % (Manual) Monocytes % (Manual) Metamyelocytes % Myelocytes % Abs Neuts (Manual) Lymphocytes # (Manual) Monocytes # (Manual) Metamyelocytes # Myelocytes # Nucleated RBCs Toxic Vacuolation WBC Morphology Comment Platelet Estimate Large Platelets Plt Morphology Comment RBC Morphology Polychromasia Hypochromasia Microcytosis Target Cells Fany Cells Acanthocytes (Spur) Smear Tech's Comments PT Whole Blood PT INR Whole Blood INR APTT VBG pH VBG pCO2 VBG pO2 VBG HCO3 VBG O2 Saturation VBG Base Excess Sodium Potassium Chloride Carbon Dioxide Anion Gap BUN Creatinine Estim Creat Clear Calc Estimated GFR POC Glucose 178 H 310 H 174 H Random Glucose Lactic Acid Calcium Phosphorus Magnesium Iron TIBC % Saturation Unsat Iron Binding Total Bilirubin Direct Bilirubin AST ALT Alkaline Phosphatase Ammonia Total Creatine Kinase Troponin I High Sens Total Protein Albumin Lipase Vitamin B12 Folate TSH PTH Intact Calcium (PTH Intact) Urine Color Urine Appearance Urine pH Ur Specific [place] Urine Protein Urine Glucose (UA) Urine Ketones Urine Blood Urine Nitrite Ur Leukocyte Esterase Urine RBC Urine WBC Ur Squamous Epith Cells Urine Bacteria Hyaline Casts Stool Occult Blood Valproic Acid Blood Type Antibody Screen Crossmatch 12/26/22 12/27/22 12/27/22 20:25 07:25 09:11 WBC RBC Hgb Hct MCV MCH MCHC RDW Plt Count MPV Immature Gran % (Auto) Neut % (Auto) Lymph % (Auto) [place] % (Auto) Eos % (Auto) Baso % (Auto) Lymph # (Auto) [place] # (Auto) Eos # (Auto) Baso # (Auto) Abs Immat Gran (auto) Absolute Neuts (auto) Absolute Nucleated RBC Nucleated RBC % (auto) Neutrophils % (Manual) Band Neutrophils % Lymphocytes % (Manual) Monocytes % (Manual) Metamyelocytes % Myelocytes % Abs Neuts (Manual) Lymphocytes # (Manual) Monocytes # (Manual) Metamyelocytes # Myelocytes # Nucleated RBCs Toxic Vacuolation WBC Morphology Comment Platelet Estimate Large Platelets Plt Morphology Comment RBC Morphology Polychromasia Hypochromasia Microcytosis Target Cells Sylvester Cells Acanthocytes (Spur) Smear Tech's Comments PT Whole Blood PT INR Whole Blood INR APTT VBG pH VBG pCO2 VBG pO2 VBG HCO3 VBG O2 Saturation VBG Base Excess Sodium 137 Potassium 4.7 Chloride 96 Carbon Dioxide 24 Anion Gap 22 H BUN 61 H Creatinine 7.08 H* Estim Creat Clear Calc 8.9 Estimated GFR 6 POC Glucose 204 H 128 H Random Glucose 151 H Lactic Acid Calcium 8.4 Phosphorus Magnesium Iron TIBC % Saturation Unsat Iron Binding Total Bilirubin Direct Bilirubin AST ALT Alkaline Phosphatase Ammonia Total Creatine Kinase Troponin I High Sens Total Protein Albumin Lipase Vitamin B12 Folate TSH PTH Intact Calcium (PTH Intact) Urine Color Urine Appearance Urine pH Ur Specific [place] Urine Protein Urine Glucose (UA) Urine Ketones Urine Blood Urine Nitrite Ur Leukocyte Esterase Urine RBC Urine WBC Ur Squamous Epith Cells Urine Bacteria Hyaline Casts Stool Occult Blood Valproic Acid Blood Type Antibody Screen Crossmatch 12/27/22 12/27/22 12/27/22 11:28 16:13 20:27 WBC RBC Hgb Hct MCV MCH MCHC RDW Plt Count MPV Immature Gran % (Auto) Neut % (Auto) Lymph % (Auto) [place] % (Auto) Eos % (Auto) Baso % (Auto) Lymph # (Auto) [place] # (Auto) Eos # (Auto) Baso # (Auto) Abs Immat Gran (auto) Absolute Neuts (auto) Absolute Nucleated RBC Nucleated RBC % (auto) Neutrophils % (Manual) Band Neutrophils % Lymphocytes % (Manual) Monocytes % (Manual) Metamyelocytes % Myelocytes % Abs Neuts (Manual) Lymphocytes # (Manual) Monocytes # (Manual) Metamyelocytes # Myelocytes # Nucleated RBCs Toxic Vacuolation WBC Morphology Comment Platelet Estimate Large Platelets Plt Morphology Comment RBC Morphology Polychromasia Hypochromasia Microcytosis Target Cells Fany Cells Acanthocytes (Spur) Smear Tech's Comments PT Whole Blood PT INR Whole Blood INR APTT VBG pH VBG pCO2 VBG pO2 VBG HCO3 VBG O2 Saturation VBG Base Excess Sodium Potassium Chloride Carbon Dioxide Anion Gap BUN Creatinine Estim Creat Clear Calc Estimated GFR POC Glucose 180 H 135 H 130 H Random Glucose Lactic Acid Calcium Phosphorus Magnesium Iron TIBC % Saturation Unsat Iron Binding Total Bilirubin Direct Bilirubin AST ALT Alkaline Phosphatase Ammonia Total Creatine Kinase Troponin I High Sens Total Protein Albumin Lipase Vitamin B12 Folate TSH PTH Intact Calcium (PTH Intact) Urine Color Urine Appearance Urine pH Ur Specific [place] Urine Protein Urine Glucose (UA) Urine Ketones Urine Blood Urine Nitrite Ur Leukocyte Esterase Urine RBC Urine WBC Ur Squamous Epith Cells Urine Bacteria Hyaline Casts Stool Occult Blood Valproic Acid Blood Type Antibody Screen Crossmatch 12/28/22 12/28/22 12/28/22 07:08 12:49 16:18 WBC RBC Hgb Hct MCV MCH MCHC RDW Plt Count MPV Immature Gran % (Auto) Neut % (Auto) Lymph % (Auto) [place] % (Auto) Eos % (Auto) Baso % (Auto) Lymph # (Auto) [place] # (Auto) Eos # (Auto) Baso # (Auto) Abs Immat Gran (auto) Absolute Neuts (auto) Absolute Nucleated RBC Nucleated RBC % (auto) Neutrophils % (Manual) Band Neutrophils % Lymphocytes % (Manual) Monocytes % (Manual) Metamyelocytes % Myelocytes % Abs Neuts (Manual) Lymphocytes # (Manual) Monocytes # (Manual) Metamyelocytes # Myelocytes # Nucleated RBCs Toxic Vacuolation WBC Morphology Comment Platelet Estimate Large Platelets Plt Morphology Comment RBC Morphology Polychromasia Hypochromasia Microcytosis Target Cells Sylvester Cells Acanthocytes (Spur) Smear Tech's Comments PT Whole Blood PT INR Whole Blood INR APTT VBG pH VBG pCO2 VBG pO2 VBG HCO3 VBG O2 Saturation VBG Base Excess Sodium Potassium Chloride Carbon Dioxide Anion Gap BUN Creatinine Estim Creat Clear Calc Estimated GFR POC Glucose 129 H 141 H 160 H Random Glucose Lactic Acid Calcium Phosphorus Magnesium Iron TIBC % Saturation Unsat Iron Binding Total Bilirubin Direct Bilirubin AST ALT Alkaline Phosphatase Ammonia Total Creatine Kinase Troponin I High Sens Total Protein Albumin Lipase Vitamin B12 Folate TSH PTH Intact Calcium (PTH Intact) Urine Color Urine Appearance Urine pH Ur Specific [place] Urine Protein Urine Glucose (UA) Urine Ketones Urine Blood Urine Nitrite Ur Leukocyte Esterase Urine RBC Urine WBC Ur Squamous Epith Cells Urine Bacteria Hyaline Casts Stool Occult Blood Valproic Acid Blood Type Antibody Screen Crossmatch 12/28/22 12/29/22 12/29/22 19:46 06:59 11:41 WBC RBC Hgb Hct MCV MCH MCHC RDW Plt Count MPV Immature Gran % (Auto) Neut % (Auto) Lymph % (Auto) [place] % (Auto) Eos % (Auto) Baso % (Auto) Lymph # (Auto) [place] # (Auto) Eos # (Auto) Baso # (Auto) Abs Immat Gran (auto) Absolute Neuts (auto) Absolute Nucleated RBC Nucleated RBC % (auto) Neutrophils % (Manual) Band Neutrophils % Lymphocytes % (Manual) Monocytes % (Manual) Metamyelocytes % Myelocytes % Abs Neuts (Manual) Lymphocytes # (Manual) Monocytes # (Manual) Metamyelocytes # Myelocytes # Nucleated RBCs Toxic Vacuolation WBC Morphology Comment Platelet Estimate Large Platelets Plt Morphology Comment RBC Morphology Polychromasia Hypochromasia Microcytosis Target Cells Sylvester Cells Acanthocytes (Spur) Smear Tech's Comments PT Whole Blood PT INR Whole Blood INR APTT VBG pH VBG pCO2 VBG pO2 VBG HCO3 VBG O2 Saturation VBG Base Excess Sodium Potassium Chloride Carbon Dioxide Anion Gap BUN Creatinine Estim Creat Clear Calc Estimated GFR POC Glucose 199 H 197 H 176 H Random Glucose Lactic Acid Calcium Phosphorus Magnesium Iron TIBC % Saturation Unsat Iron Binding Total Bilirubin Direct Bilirubin AST ALT Alkaline Phosphatase Ammonia Total Creatine Kinase Troponin I High Sens Total Protein Albumin Lipase Vitamin B12 Folate TSH PTH Intact Calcium (PTH Intact) Urine Color Urine Appearance Urine pH Ur Specific [place] Urine Protein Urine Glucose (UA) Urine Ketones Urine Blood Urine Nitrite Ur Leukocyte Esterase Urine RBC Urine WBC Ur Squamous Epith Cells Urine Bacteria Hyaline Casts Stool Occult Blood Valproic Acid Blood Type Antibody Screen Crossmatch 12/29/22 12/29/22 12/29/22 15:45 18:07 18:07 WBC 18.9 H RBC 3.08 L Hgb 9.7 L D Hct 29.2 L MCV 94.8 MCH 31.5 MCHC 33.2 RDW 18.7 H Plt Count 67 L D MPV 11.8 Immature Gran % (Auto) Cancelled Neut % (Auto) Cancelled Lymph % (Auto) Cancelled [place] % (Auto) Cancelled Eos % (Auto) Cancelled Baso % (Auto) Cancelled Lymph # (Auto) Cancelled [place] # (Auto) Cancelled Eos # (Auto) Cancelled Baso # (Auto) Cancelled Abs Immat Gran (auto) Cancelled Absolute Neuts (auto) Cancelled Absolute Nucleated RBC 0.070 H Nucleated RBC % (auto) 0.4 H Neutrophils % (Manual) 73 Band Neutrophils % 3 Lymphocytes % (Manual) 10 L Monocytes % (Manual) 7 Metamyelocytes % 7 Myelocytes % Abs Neuts (Manual) 14.4 H Lymphocytes # (Manual) 1.9 Monocytes # (Manual) 1.3 H Metamyelocytes # 1.3 Myelocytes # Nucleated RBCs 1 H Toxic Vacuolation PRESENT WBC Morphology Comment DYSMORPHIC Platelet Estimate DECREASED Large Platelets PRESENT Plt Morphology Comment NOTED RBC Morphology NOTED Polychromasia Hypochromasia Microcytosis 1+ (5-14) Target Cells Sylvester Cells 3+ (>5) Acanthocytes (Spur) 1+ (0-2) Smear Tech's Comments PT Whole Blood PT INR Whole Blood INR APTT VBG pH VBG pCO2 VBG pO2 VBG HCO3 VBG O2 Saturation VBG Base Excess Sodium 136 Potassium 4.3 Chloride 103 Carbon Dioxide 20 L Anion Gap 17 BUN 61 H Creatinine 5.64 H* Estim Creat Clear Calc 11.1 Estimated GFR 7 POC Glucose 145 H Random Glucose 202 H Lactic Acid Calcium 7.5 L D Phosphorus Magnesium Iron TIBC % Saturation Unsat Iron Binding Total Bilirubin 0.9 Direct Bilirubin AST 814 H ALT 836 H Alkaline Phosphatase 498 H Ammonia Total Creatine Kinase Troponin I High Sens Total Protein 5.6 L Albumin 2.4 L Lipase Vitamin B12 Folate TSH PTH Intact Calcium (PTH Intact) Urine Color Urine Appearance Urine pH Ur Specific [place] Urine Protein Urine Glucose (UA) Urine Ketones Urine Blood Urine Nitrite Ur Leukocyte Esterase Urine RBC Urine WBC Ur Squamous Epith Cells Urine Bacteria Hyaline Casts Stool Occult Blood Valproic Acid Blood Type Antibody Screen Crossmatch 12/29/22 12/29/22 12/29/22 18:07 18:07 18:07 WBC RBC Hgb Hct MCV MCH MCHC RDW Plt Count MPV Immature Gran % (Auto) Neut % (Auto) Lymph % (Auto) [place] % (Auto) Eos % (Auto) Baso % (Auto) Lymph # (Auto) [place] # (Auto) Eos # (Auto) Baso # (Auto) Abs Immat Gran (auto) Absolute Neuts (auto) Absolute Nucleated RBC Nucleated RBC % (auto) Neutrophils % (Manual) Band Neutrophils % Lymphocytes % (Manual) Monocytes % (Manual) Metamyelocytes % Myelocytes % Abs Neuts (Manual) Lymphocytes # (Manual) Monocytes # (Manual) Metamyelocytes # Myelocytes # Nucleated RBCs Toxic Vacuolation WBC Morphology Comment Platelet Estimate Large Platelets Plt Morphology Comment RBC Morphology Polychromasia Hypochromasia Microcytosis Target Cells Fany Cells Acanthocytes (Spur) Smear Tech's Comments PT Whole Blood PT INR Whole Blood INR APTT VBG pH VBG pCO2 VBG pO2 VBG HCO3 VBG O2 Saturation VBG Base Excess Sodium Potassium Chloride Carbon Dioxide Anion Gap BUN Creatinine Estim Creat Clear Calc Estimated GFR POC Glucose Random Glucose Lactic Acid 1.5 Calcium Phosphorus Magnesium Iron TIBC % Saturation Unsat Iron Binding Total Bilirubin Direct Bilirubin AST ALT Alkaline Phosphatase Ammonia Total Creatine Kinase Troponin I High Sens Total Protein Albumin 2.4 L Lipase 62 Vitamin B12 Folate TSH PTH Intact Calcium (PTH Intact) Urine Color Urine Appearance Urine pH Ur Specific [place] Urine Protein Urine Glucose (UA) Urine Ketones Urine Blood Urine Nitrite Ur Leukocyte Esterase Urine RBC Urine WBC Ur Squamous Epith Cells Urine Bacteria Hyaline Casts Stool Occult Blood Valproic Acid Blood Type Antibody Screen Crossmatch 12/29/22 12/29/22 12/29/22 18:15 19:12 23:57 WBC RBC Hgb Hct MCV MCH MCHC RDW Plt Count MPV Immature Gran % (Auto) Neut % (Auto) Lymph % (Auto) [place] % (Auto) Eos % (Auto) Baso % (Auto) Lymph # (Auto) [place] # (Auto) Eos # (Auto) Baso # (Auto) Abs Immat Gran (auto) Absolute Neuts (auto) Absolute Nucleated RBC Nucleated RBC % (auto) Neutrophils % (Manual) Band Neutrophils % Lymphocytes % (Manual) Monocytes % (Manual) Metamyelocytes % Myelocytes % Abs Neuts (Manual) Lymphocytes # (Manual) Monocytes # (Manual) Metamyelocytes # Myelocytes # Nucleated RBCs Toxic Vacuolation WBC Morphology Comment Platelet Estimate Large Platelets Plt Morphology Comment RBC Morphology Polychromasia Hypochromasia Microcytosis Target Cells Fany Cells Acanthocytes (Spur) Smear Tech's Comments PT Whole Blood PT INR Whole Blood INR APTT VBG pH 7.36 VBG pCO2 43 VBG pO2 82 VBG HCO3 25 VBG O2 Saturation 95.0 VBG Base Excess -0.1 Sodium Potassium Chloride Carbon Dioxide Anion Gap BUN Creatinine Estim Creat Clear Calc Estimated GFR POC Glucose 180 H 196 H Random Glucose Lactic Acid Calcium Phosphorus Magnesium Iron TIBC % Saturation Unsat Iron Binding Total Bilirubin Direct Bilirubin AST ALT Alkaline Phosphatase Ammonia Total Creatine Kinase Troponin I High Sens Total Protein Albumin Lipase Vitamin B12 Folate TSH PTH Intact Calcium (PTH Intact) Urine Color Urine Appearance Urine pH Ur Specific [place] Urine Protein Urine Glucose (UA) Urine Ketones Urine Blood Urine Nitrite Ur Leukocyte Esterase Urine RBC Urine WBC Ur Squamous Epith Cells Urine Bacteria Hyaline Casts Stool Occult Blood Valproic Acid Blood Type Antibody Screen Crossmatch 12/30/22 12/30/22 12/30/22 04:18 04:18 04:25 WBC 14.8 H RBC 2.45 L D Hgb 7.9 L Hct 23.3 L D MCV 95.1 MCH 32.2 MCHC 33.9 RDW 18.3 H Plt Count 53 L MPV 11.2 Immature Gran % (Auto) Cancelled Neut % (Auto) Cancelled Lymph % (Auto) Cancelled [place] % (Auto) Cancelled Eos % (Auto) Cancelled Baso % (Auto) Cancelled Lymph # (Auto) Cancelled [place] # (Auto) Cancelled Eos # (Auto) Cancelled Baso # (Auto) Cancelled Abs Immat Gran (auto) Cancelled Absolute Neuts (auto) Cancelled Absolute Nucleated RBC 0.050 H Nucleated RBC % (auto) 0.3 H Neutrophils % (Manual) 77 H Band Neutrophils % 6 H Lymphocytes % (Manual) 6 L Monocytes % (Manual) 5 Metamyelocytes % 3 Myelocytes % 3 Abs Neuts (Manual) 12.3 H Lymphocytes # (Manual) 0.9 L Monocytes # (Manual) 0.7 Metamyelocytes # 0.4 Myelocytes # 0.4 Nucleated RBCs 1 H Toxic Vacuolation WBC Morphology Comment Platelet Estimate DECREASED Large Platelets PRESENT Plt Morphology Comment NOTED RBC Morphology NOTED Polychromasia 1+ (0-2) Hypochromasia Microcytosis 1+ (5-14) Target Cells 1+ (5-14) Sylvester Cells 1+ (0-2) Acanthocytes (Spur) Smear Tech's Comments PT Whole Blood PT INR Whole Blood INR APTT VBG pH 7.40 VBG pCO2 29 VBG pO2 81 VBG HCO3 18 L VBG O2 Saturation 96.0 VBG Base Excess -5.1 Sodium 137 Potassium 3.8 Chloride 104 Carbon Dioxide 19 L Anion Gap 18 BUN 66 H Creatinine 6.35 H* Estim Creat Clear Calc 9.9 Estimated GFR 6 POC Glucose Random Glucose 204 H Lactic Acid Calcium 7.3 L Phosphorus 3.9 Magnesium 1.9 Iron TIBC % Saturation Unsat Iron Binding Total Bilirubin 1.0 Direct Bilirubin 0.6 H AST 427 H ALT 552 H Alkaline Phosphatase 360 H Ammonia Total Creatine Kinase Troponin I High Sens Total Protein 5.4 L Albumin 2.9 L Lipase Vitamin B12 Folate TSH PTH Intact Calcium (PTH Intact) Urine Color Urine Appearance Urine pH Ur Specific [place] Urine Protein Urine Glucose (UA) Urine Ketones Urine Blood Urine Nitrite Ur Leukocyte Esterase Urine RBC Urine WBC Ur Squamous Epith Cells Urine Bacteria Hyaline Casts Stool Occult Blood Valproic Acid Blood Type Antibody Screen Crossmatch 12/30/22 12/30/22 12/30/22 12:44 16:15 21:32 WBC RBC Hgb Hct MCV MCH MCHC RDW Plt Count MPV Immature Gran % (Auto) Neut % (Auto) Lymph % (Auto) [place] % (Auto) Eos % (Auto) Baso % (Auto) Lymph # (Auto) [place] # (Auto) Eos # (Auto) Baso # (Auto) Abs Immat Gran (auto) Absolute Neuts (auto) Absolute Nucleated RBC Nucleated RBC % (auto) Neutrophils % (Manual) Band Neutrophils % Lymphocytes % (Manual) Monocytes % (Manual) Metamyelocytes % Myelocytes % Abs Neuts (Manual) Lymphocytes # (Manual) Monocytes # (Manual) Metamyelocytes # Myelocytes # Nucleated RBCs Toxic Vacuolation WBC Morphology Comment Platelet Estimate Large Platelets Plt Morphology Comment RBC Morphology Polychromasia Hypochromasia Microcytosis Target Cells Sylvester Cells Acanthocytes (Spur) Smear Tech's Comments PT Whole Blood PT INR Whole Blood INR APTT VBG pH VBG pCO2 VBG pO2 VBG HCO3 VBG O2 Saturation VBG Base Excess Sodium Potassium Chloride Carbon Dioxide Anion Gap BUN Creatinine Estim Creat Clear Calc Estimated GFR POC Glucose 114 80 136 H Random Glucose Lactic Acid Calcium Phosphorus Magnesium Iron TIBC % Saturation Unsat Iron Binding Total Bilirubin Direct Bilirubin AST ALT Alkaline Phosphatase Ammonia Total Creatine Kinase Troponin I High Sens Total Protein Albumin Lipase Vitamin B12 Folate TSH PTH Intact Calcium (PTH Intact) Urine Color Urine Appearance Urine pH Ur Specific [place] Urine Protein Urine Glucose (UA) Urine Ketones Urine Blood Urine Nitrite Ur Leukocyte Esterase Urine RBC Urine WBC Ur Squamous Epith Cells Urine Bacteria Hyaline Casts Stool Occult Blood Valproic Acid Blood Type Antibody Screen Crossmatch 12/31/22 12/31/22 12/31/22 06:12 06:46 06:46 WBC 12.9 H RBC 2.20 L Hgb 7.1 L Hct 20.8 L* MCV 94.5 MCH 32.3 MCHC 34.1 RDW 18.9 H Plt Count 50 L MPV 10.5 Immature Gran % (Auto) Cancelled Neut % (Auto) Cancelled Lymph % (Auto) Cancelled [place] % (Auto) Cancelled Eos % (Auto) Cancelled Baso % (Auto) Cancelled Lymph # (Auto) Cancelled [place] # (Auto) Cancelled Eos # (Auto) Cancelled Baso # (Auto) Cancelled Abs Immat Gran (auto) Cancelled Absolute Neuts (auto) Cancelled Absolute Nucleated RBC 0.030 H Nucleated RBC % (auto) 0.2 Neutrophils % (Manual) 73 Band Neutrophils % 5 Lymphocytes % (Manual) 10 L Monocytes % (Manual) 8 Metamyelocytes % 3 Myelocytes % 1 Abs Neuts (Manual) 10.1 H Lymphocytes # (Manual) 1.3 Monocytes # (Manual) 1.0 Metamyelocytes # 0.4 Myelocytes # 0.1 Nucleated RBCs Toxic Vacuolation WBC Morphology Comment Platelet Estimate DECREASED Large Platelets Plt Morphology Comment NORMAL RBC Morphology NOTED Polychromasia Hypochromasia 1+ (5-14) Microcytosis Target Cells Fany Cells 1+ (0-2) Acanthocytes (Spur) 1+ (0-2) Smear Tech's Comments PT Whole Blood PT INR Whole Blood INR APTT VBG pH VBG pCO2 VBG pO2 VBG HCO3 VBG O2 Saturation VBG Base Excess Sodium 135 Potassium 3.5 Chloride 98 Carbon Dioxide 20 L Anion Gap 21 H BUN 22 H Creatinine 3.31 H Estim Creat Clear Calc 17.9 Estimated GFR 14 POC Glucose 127 H Random Glucose 124 H Lactic Acid Calcium 8.3 L D Phosphorus 2.2 L Magnesium 1.9 Iron 39 TIBC 102 L % Saturation 38 Unsat Iron Binding 63 Total Bilirubin 1.5 H Direct Bilirubin 0.9 H AST 200 H ALT 327 H Alkaline Phosphatase 300 H Ammonia Total Creatine Kinase Troponin I High Sens Total Protein 6.1 L Albumin 3.9 Lipase Vitamin B12 Folate TSH PTH Intact Calcium (PTH Intact) Urine Color Urine Appearance Urine pH Ur Specific [place] Urine Protein Urine Glucose (UA) Urine Ketones Urine Blood Urine Nitrite Ur Leukocyte Esterase Urine RBC Urine WBC Ur Squamous Epith Cells Urine Bacteria Hyaline Casts Stool Occult Blood Valproic Acid Blood Type Antibody Screen Crossmatch 12/31/22 12/31/22 12/31/22 08:17 09:09 13:09 WBC RBC Hgb Hct MCV MCH MCHC RDW Plt Count MPV Immature Gran % (Auto) Neut % (Auto) Lymph % (Auto) [place] % (Auto) Eos % (Auto) Baso % (Auto) Lymph # (Auto) [place] # (Auto) Eos # (Auto) Baso # (Auto) Abs Immat Gran (auto) Absolute Neuts (auto) Absolute Nucleated RBC Nucleated RBC % (auto) Neutrophils % (Manual) Band Neutrophils % Lymphocytes % (Manual) Monocytes % (Manual) Metamyelocytes % Myelocytes % Abs Neuts (Manual) Lymphocytes # (Manual) Monocytes # (Manual) Metamyelocytes # Myelocytes # Nucleated RBCs Toxic Vacuolation WBC Morphology Comment Platelet Estimate Large Platelets Plt Morphology Comment RBC Morphology Polychromasia Hypochromasia Microcytosis Target Cells Fany Cells Acanthocytes (Spur) Smear Tech's Comments PT Whole Blood PT INR Whole Blood INR APTT VBG pH VBG pCO2 VBG pO2 VBG HCO3 VBG O2 Saturation VBG Base Excess Sodium Potassium Chloride Carbon Dioxide Anion Gap BUN Creatinine Estim Creat Clear Calc Estimated GFR POC Glucose 254 H Random Glucose Lactic Acid Calcium Phosphorus Magnesium Iron TIBC % Saturation Unsat Iron Binding Total Bilirubin Direct Bilirubin AST ALT Alkaline Phosphatase Ammonia Total Creatine Kinase Troponin I High Sens Total Protein Albumin Lipase Vitamin B12 Folate TSH PTH Intact Calcium (PTH Intact) Urine Color Urine Appearance Urine pH Ur Specific [place] Urine Protein Urine Glucose (UA) Urine Ketones Urine Blood Urine Nitrite Ur Leukocyte Esterase Urine RBC Urine WBC Ur Squamous Epith Cells Urine Bacteria Hyaline Casts Stool Occult Blood POSITIVE Valproic Acid Blood Type O Positive Antibody Screen NEGATIVE Crossmatch See Detail 12/31/22 12/31/22 12/31/22 15:53 16:01 19:46 WBC 15.2 H RBC 2.74 L D Hgb 8.9 L D Hct 25.8 L D MCV 94.2 MCH 32.5 MCHC 34.5 RDW 17.6 H Plt Count 53 L MPV 10.2 Immature Gran % (Auto) Neut % (Auto) Lymph % (Auto) [place] % (Auto) Eos % (Auto) Baso % (Auto) Lymph # (Auto) [place] # (Auto) Eos # (Auto) Baso # (Auto) Abs Immat Gran (auto) Absolute Neuts (auto) Absolute Nucleated RBC 0.040 H Nucleated RBC % (auto) 0.3 H Neutrophils % (Manual) Band Neutrophils % Lymphocytes % (Manual) Monocytes % (Manual) Metamyelocytes % Myelocytes % Abs Neuts (Manual) Lymphocytes # (Manual) Monocytes # (Manual) Metamyelocytes # Myelocytes # Nucleated RBCs Toxic Vacuolation WBC Morphology Comment Platelet Estimate Large Platelets Plt Morphology Comment RBC Morphology Polychromasia Hypochromasia Microcytosis Target Cells Fany Cells Acanthocytes (Spur) Smear Tech's Comments PT Whole Blood PT INR Whole Blood INR APTT VBG pH VBG pCO2 VBG pO2 VBG HCO3 VBG O2 Saturation VBG Base Excess Sodium Potassium Chloride Carbon Dioxide Anion Gap BUN Creatinine Estim Creat Clear Calc Estimated GFR POC Glucose 275 H 146 H Random Glucose Lactic Acid Calcium Phosphorus Magnesium Iron TIBC % Saturation Unsat Iron Binding Total Bilirubin Direct Bilirubin AST ALT Alkaline Phosphatase Ammonia Total Creatine Kinase Troponin I High Sens Total Protein Albumin Lipase Vitamin B12 Folate TSH PTH Intact Calcium (PTH Intact) Urine Color Urine Appearance Urine pH Ur Specific [place] Urine Protein Urine Glucose (UA) Urine Ketones Urine Blood Urine Nitrite Ur Leukocyte Esterase Urine RBC Urine WBC Ur Squamous Epith Cells Urine Bacteria Hyaline Casts Stool Occult Blood Valproic Acid Blood Type Antibody Screen Crossmatch 01/01/23 01/01/23 01/01/23 07:04 07:04 10:52 WBC 17.2 H RBC 3.23 L Hgb 10.4 L Hct 30.0 L MCV 92.9 MCH 32.2 MCHC 34.7 RDW 17.9 H Plt Count 75 L D MPV 10.9 Immature Gran % (Auto) Neut % (Auto) Lymph % (Auto) [place] % (Auto) Eos % (Auto) Baso % (Auto) Lymph # (Auto) [place] # (Auto) Eos # (Auto) Baso # (Auto) Abs Immat Gran (auto) Absolute Neuts (auto) Absolute Nucleated RBC 0.050 H Nucleated RBC % (auto) 0.3 H Neutrophils % (Manual) Band Neutrophils % Lymphocytes % (Manual) Monocytes % (Manual) Metamyelocytes % Myelocytes % Abs Neuts (Manual) Lymphocytes # (Manual) Monocytes # (Manual) Metamyelocytes # Myelocytes # Nucleated RBCs Toxic Vacuolation WBC Morphology Comment Platelet Estimate Large Platelets Plt Morphology Comment RBC Morphology Polychromasia Hypochromasia Microcytosis Target Cells Sylvester Cells Acanthocytes (Spur) Smear Tech's Comments PT Whole Blood PT INR Whole Blood INR APTT VBG pH VBG pCO2 VBG pO2 VBG HCO3 VBG O2 Saturation VBG Base Excess Sodium 134 L Potassium 3.4 Chloride 97 Carbon Dioxide 20 L Anion Gap 20 BUN 18 H Creatinine 2.40 H Estim Creat Clear Calc 24.7 Estimated GFR 20 POC Glucose 122 H Random Glucose 110 Lactic Acid Calcium 9.3 D Phosphorus Magnesium Iron TIBC % Saturation Unsat Iron Binding Total Bilirubin Direct Bilirubin AST ALT Alkaline Phosphatase Ammonia Total Creatine Kinase Troponin I High Sens Total Protein Albumin Lipase Vitamin B12 Folate TSH PTH Intact Calcium (PTH Intact) Urine Color Urine Appearance Urine pH Ur Specific [place] Urine Protein Urine Glucose (UA) Urine Ketones Urine Blood Urine Nitrite Ur Leukocyte Esterase Urine RBC Urine WBC Ur Squamous Epith Cells Urine Bacteria Hyaline Casts Stool Occult Blood Valproic Acid Blood Type Antibody Screen Crossmatch Airway Mallampati Class: Patient Non-Cooperative (protruding upper central incisors noted) TM Dist: >3cm Neck ROM: Limited Loose/Missing/Broken Teeth: Yes Heart: tachy, reg rhythm Lungs: CTA Assessment and Plan Assessment Anesthesia Assessment: Chart Reviewed Final Anesthetic Review NPO: Yes ASA Class: IV Final Preanesthetic Review: Consent Obtained/Reviewed Patient Risk: High Procedure Risk: Intermediate Anesthetic Plan Anesthetic Plan: MAC: Disposition: Standard PACU
[2023-01-01 15:05] LABS: Hemoglobin 10.5 g/dl (12.0-16.0); NRBC Pct Auto 0.3 /100WBC (0.0-0.2); PLT CLUMP 1
[2023-01-01 15:07] LABS: Hematocrit 30.9 % (37.0-47.0); Mean Corpuscular Hemoglobin 32.1 pg (27.0-33.0); Mean Corpuscular Volume 94.5 fL (80.0-98.0); Mean Platelet Volume 10.8 fL (9.4-12.3); Red Blood Count 3.27 X10*6/uL (4.20-5.50); Red Cell Distribution Width 18.5 % (11.0-16.0)
[2023-01-01 15:11] LABS: Platelet Count 92 X10*3/uL (160-400); White Blood Count 23.1 X10*3/uL (4.8-10.8)
--- NOTE | 2023-01-01 15:59 | W.PM.OPN ---
Operative Note Operative Note Date of Service: 01/01/23 Narrative: FLEXIBLE TRANSORAL UPPER GASTROINTESTINAL ENDOSCOPY WITH BIOPSIES Pre-op diagnosis: GI bleeding Post-op diagnosis: Gastric ulcers, gastritis and duodenitis Endoscopist:? Hanh Marquez MD Anesthesia:?MAC Consent: Indications for the procedure and potential complications of bleeding, perforation, reaction to medications and missed diagnosis were discussed with the patient and informed consent was obtained. Instrument: Olympus GIF H 190 mid size upper endoscope Monitoring: Vital signs and clinical assessment, continuous EKG monitoring, Pulse oximetry, Carbon Dioxide monitoring and blood pressure monitoring were done throughout the procedure. Procedure: The patient was placed in the left lateral decubitis position and pre-procedure medications were administered and a bite block was placed. The endoscope was inserted into the mouth and advanced under direct vision to the third part of duodenum. A careful inspection was made as the upper endoscope was withdrawn including a retroflexed examination of the proximal stomach; Findings and interventions are described below. Findings: Larynx: Normal Esophagus: GE junction at 40 cms. No esophagitis or Carranza's. Stomach: Moderate gastric erythema. Two non bleeding 10 -12 mm ulcers in the gastric body along the greater curvature without high risk stigmata for bleeding. Enlarged and hemrrhagic appearing folds in the gastric antrum/pre-pyloric area - Biopsies were obtained. Grade 2 flap valve on retroflexed examination of the cardia. Duodenum: Edematous and hemorrhagic appearing folds at the apex of the bulb - biopsied. Normal descending duodenum Intervention: Biopsies as noted above Impression and Post Procedure Diagnosis: Endoscopy Findings: STOMACH: Two non bleeding 10 -12 mm ulcers in the gastric body along the greater curvature without high risk stigmata for bleeding. Enlarged and hemrrhagic appearing folds in the gastric antrum/pre-pyloric area - Biopsies were obtained. DUODENUM: Edematous and hemorrhagic appearing folds at the apex of the bulb - biopsied. No blood or active bleeding seen in the UGI tract during EGD. Recent episode of bleeding likely from gastric ulcers Plan: Await pathology results. If gastric biopsies are positive for H Pylori, advise treatment with triple therapy. Continue IV PPI x 48 hours, then switch to PO PPI twice daily. Above findings were reviewed with the patient with the patient's son, Gwyn. BIOPSIES SHOWED: A.? Duodenum, bulb, biopsy:? Chronic inactive duodenitis. B.? Stomach, antrum, biopsy:? Antral-type mucosa with mild chronic inactive inflammation; no Helicobacter organisms seen.
--- NOTE | 2023-01-01 16:05 | HO.WOUND ---
Wound Care Consult Reason for consult: New open area on the left hip Patient was seen last week for an abdominal wound and coccyx wound. Reconsulted on a new area on the left hip. Large blistered area with an opening in the middle. Foam border was in place on the time of visit. The area was to large for the foam border that was in place and was sticking to the blistered skin. Removed very carefully. Large serous drainage expressed from the opening. The skin was still intact for most of the blistered area. The opening wound bed appearance was large pale pink. Partial thickness wound. Area measured 10cm x 19cm x0.1cm. Cleaned area with gauze. Xeroform was applied. Skin prepped the periwound. Covered with ABD pad and tape to secure. Recommendation: Cleanse wound with normal saline or sea clens wound cleanser. Apply xeroform to the blistered area. Skin prep the periwound and cover with ABD pad. Secure with tape. Change dressing every daily. If drainage decreases may change every other day. If able, reposition patient frequently and make sure patients nutritional status is being addressed to increase protein intake for wound healing. If there are any changes with the wound or questions please free and reconsult wound care.
--- NOTE | 2023-01-01 17:48 | PC.NURSE ---
pt arrived back on unit at 1700 from PACU after having EGD done. Patient alert to self which is baseline. She denies any pain and current vital signs are as follows.: 105, 97.6F 141/56, 14,96% on room air
--- NOTE | 2023-01-01 18:11 | PM.PNNEP ---
Subjective Subjective Date of Service: 01/01/23 Interval history: Seen and examned, events noted Physical Exam Vital Signs: Vital Signs: Last Vital Signs Temp 97.6 F 01/01/23 17:19 Pulse 105 H 01/01/23 17:19 Resp 14 01/01/23 17:19 BP 141/56 H 01/01/23 17:19 Pulse Ox 96 01/01/23 17:19 O2 Del Method Room Air 01/01/23 17:19 O2 Flow Rate 3 01/01/23 16:55 BMI result Body Mass Index 37.1 Const: Other: General: confused Resp: CTA bilateral CVS: S1,S2,RRR GI: +BS, NT, no distention Skin: No rash Neuro: motor grossly intact Psych: flat General: alert and awake HEENT: Head: Yes normocephalic and Yes atraumatic Neck: Neck: Yes supple Resp: Auscultation: diminished lung sounds Cardio: Heart sounds: S1 normal heart sound present and S2 normal heart sound present GI: Palpation (GI): Soft to palpation and nontender Extrem: General: Yes edema Objective Data Labs 01/01/23 15:00 01/01/23 07:04 Labs: Laboratory Results - last 24 hr 12/31/22 01/01/23 01/01/23 19:46 07:04 07:04 WBC 17.2 H RBC 3.23 L Hgb 10.4 L Hct 30.0 L MCV 92.9 MCH 32.2 MCHC 34.7 RDW 17.9 H Plt Count 75 L D MPV 10.9 Absolute Nucleated RBC 0.050 H Nucleated RBC % (auto) 0.3 H Sodium 134 L Potassium 3.4 Chloride 97 Carbon Dioxide 20 L Anion Gap 20 BUN 18 H Creatinine 2.40 H Estim Creat Clear Calc 24.7 Estimated GFR 20 POC Glucose 146 H Random Glucose 110 Calcium 9.3 D 01/01/23 01/01/23 10:52 15:00 WBC 23.1 H RBC 3.27 L Hgb 10.5 L Hct 30.9 L MCV 94.5 MCH 32.1 MCHC 34.0 RDW 18.5 H Plt Count 92 L MPV 10.8 Absolute Nucleated RBC 0.070 H Nucleated RBC % (auto) 0.3 H Sodium Potassium Chloride Carbon Dioxide Anion Gap BUN Creatinine Estim Creat Clear Calc Estimated GFR POC Glucose 122 H Random Glucose Calcium Microbiology Microbiology Results: Microbiology 12/29/22 18:15 Blood - Central Line Blood Culture - Preliminary No growth after 48 hours. 12/29/22 18:14 Blood - Central Line Blood Culture - Final Coag negative Staphylococcus 12/07/22 12:43 Blood - Venous Blood Culture - Final No growth after 5 days. 12/07/22 12:11 Blood - Venous Blood Culture - Final No growth after 5 days. 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 Progress Note: Quality Stroke Does the patient have a stroke diagnosis?: No
[2023-01-01 20:36] LABS: Glucose, Whole Blood 185 mg/dL (60-115)
[2023-01-01] MEDS: Insulin Lispro 100 UNIT/ML 3 ML VIAL SUBCUT (20:56)
[2023-01-02] VITALS (7 sets, daily range): BP systolic 119–170; BP diastolic 49–96; PULSE 91–100; RESP 16–20; TEMP 36.1–37.4; O2SAT 97–100; BMI 36.9
[2023-01-02] MEDS: Pantoprazole Sodium 40 MG/10 ML VIAL IVPUSH ×2 (06:31→16:16)
[2023-01-02 07:08] LABS: Hematocrit 28.7 % (37.0-47.0); Hemoglobin 9.6 g/dl (12.0-16.0); Mean Corpuscular HGB Conc 33.4 g/dl (31.0-35.0); Mean Corpuscular Volume 95.7 fL (80.0-98.0); Mean Platelet Volume 10.6 fL (9.4-12.3); NRBC Pct Auto 0.1 /100WBC (0.0-0.2); Platelet Count 108 X10*3/uL (160-400); Red Cell Distribution Width 18.3 % (11.0-16.0); White Blood Count 19.3 X10*3/uL (4.8-10.8)
[2023-01-02 07:09] LABS: Glucose, Whole Blood 174 mg/dL (60-115)
[2023-01-02 11:03] LABS: Glucose, Whole Blood 154 mg/dL (60-115)
--- NOTE | 2023-01-02 11:39 | HO.PM.IMPN ---
Subjective Subjective Date of Service: 01/02/23 Interval History: Seen this morning alert and interactive much better than before but still overall confused Hb 9.6 Denies any pain BP better Tolerating diet Physical Exam Vital Signs: Vital Signs: Last Vital Signs Temp 99.3 F 01/02/23 11:07 Pulse 91 01/02/23 11:07 Resp 20 01/02/23 11:07 BP 121/59 L 01/02/23 11:07 Pulse Ox 97 01/02/23 11:07 O2 Del Method Room Air 01/02/23 11:07 O2 Flow Rate 3 01/01/23 16:55 BMI result Body Mass Index 36.9 Const: Other: Constitutional : Alert, interactive but slow, not in distress Neck : Normal inspection, Supple Cardiovascular : RRR, no JVP, trace lower extremity edema Respiratory : good bilateral air entry, no crackles, wheezes or rhonchi Gastrointestinal: soft, lax, Normal bowel sounds, Non tender Skin : Warm, Dry, fistula clean with no erythema Neurological : Alert , confused, able to follow simple commands, No focal deficit noticed Objective Data Active Medications Acetaminophen (Acetaminophen 325 Mg Tablet) 650 mg PO Q6H PRN PRN Reason: Pain, Mild (Pain Scale 1-3) Last Admin: 12/23/22 04:18 Dose: 650 mg Documented By: RONNY Dextrose (Dextrose 50 % 25 Gm/50 Ml Syringe) 25 gm IVPUSH Q15M PRN; Protocol PRN Reason: per Hypoglycemia Standing Ord. Last Admin: 12/08/22 03:25 Dose: 25 gm Documented By: FREYA Glucose (Glucose Gel 15 Gm Gel..Gram.) 15 gm PO Q15M PRN; Protocol PRN Reason: per Hypoglycemia Standing Ord. Insulin Human Lispro (Insulin Lispro 100 Unit/Ml 3 Ml Vial) 0 unit SUBCUT QIDACHS [facility]; Protocol Last Admin: 01/02/23 09:09 Dose: Not Given Documented By: RAPHAEL Non-Admin Reason: patient refused breakfast Levothyroxine Sodium (Levothyroxine Sodium 88 Mcg Tablet) 88 mcg PO DAILY@0600 [facility] Last Admin: 01/02/23 06:35 Dose: Not Given Documented By: ANTOIC Non-Admin Reason: Patient Asleep Ondansetron HCl (Ondansetron Hcl 4 Mg/2 Ml Vial) 4 mg IVPUSH Q8H PRN PRN Reason: Nausea and Vomiting Pantoprazole Sodium (Pantoprazole Sodium 40 Mg/10 Ml Vial) 40 mg IVPUSH BID@0630,1630 PB Last Admin: 01/02/23 06:31 Dose: 40 mg Documented By: ANTOIC Pharmacy Consult (Consult Rx Perform Med Rec) 1 each MISCELLANE ONCE PRN PRN Reason: Consult order Labs 01/02/23 06:30 01/01/23 07:04 Labs: Laboratory Results - last 24 hr 01/01/23 01/01/23 01/02/23 15:00 20:31 06:30 MCV 94.5 95.7 MCH 32.1 32.0 MCHC 34.0 33.4 RDW 18.5 H 18.3 H Plt Count 92 L 108 L MPV 10.8 10.6 Absolute Nucleated RBC 0.070 H 0.020 H Nucleated RBC % (auto) 0.3 H 0.1 POC Glucose 185 H 01/02/23 01/02/23 07:05 10:59 MCV MCH MCHC RDW Plt Count MPV Absolute Nucleated RBC Nucleated RBC % (auto) POC Glucose 174 H 154 H Assessment and Plan (1) Acute on chronic blood loss anemia: Status: Acute (2) ESRD on dialysis: Status: Acute (3) GIB (gastrointestinal bleeding): Status: Acute Plan 72-year-old female with history of paroxysmal atrial fibrillation anticoagulated with Eliquis, hypertension, hyperlipidemia, insulin-dependent type 2 diabetes, asthma, VIOLA, hypothyroidism, end-stage renal disease on dialysis, newly diagnosed seizure disorder, history CVA with expressive aphasia to be observed for seizure activity. Acute on chronic anemia Hb improved to 9.6 after 1 unit PRBCs Positive occult stool follow H&H GI eval, EGD showed 2 nonbleeding ulcers, hemorrhagic folds in antrum and duodenum. Pending biopsy results Follow on H.Pylori, to treat if positive Hold Eliquis for now Hypotension, resolved likely 2/2 dehydration, improved with fluids HD without much of ultrafiltration seizure disorder Diagnosed with video eeg at [facility] [place] and presented with breakthrough SZs with supratherapeutic depakote level, 108, now 97. Continue depakote at 750 bid repeat EEG Encephalopathy of unclear etiology work up with mri and eeg unremarkable, questionable seizures by neurologist there could be component of dementia as well ?paroxysmal atrial fibrillation Hold Eliquis DC MEtoprolol ?ESRD on dialysis HD on MWF hyponatremia possibly dilutional esrd patient nephrology following HTN DC metoprolol hypothyroidism continue Synthroid. insulin-dependent type 2 diabetes: sliding scale diabetic diet Thombocytopenia etiology unclear Trend, cbc am ?mild intermittent asthma no acute exacerbation albuterol p.r.n. Low folate levels folate replacements DVT prophylaxis eliquis Need for inpatient:? awaiting rehab placement, nephro following for esrd, GIB pending furter eval and safe discharge plan Time Spent With Patient Time: Total time managing care of this patient today ____ minutes. Quality Stroke Does the patient have a stroke diagnosis?: No VTE Prior VTE?: No VTE Risk Level:: Medical - moderate - high VTE Device Contraindication: Treatment Not Indicated VTE Drug Contraindication: N/A - Med Ordered
--- NOTE | 2023-01-02 12:24 | HO.POSTANES ---
Post Anesthesia Evaluation Post Anesthesia Evaluation Date of Service: 01/02/23 Vital Signs: Vital Signs Temp Pulse Resp BP Pulse Ox O2 Del Method 01/02/23 11:07 99.3 F 91 20 121/59 L 97 Room Air 01/02/23 07:25 97.2 F 97 20 119/49 L 100 Room Air 01/02/23 03:24 98 F 97 18 121/68 98 Room Air Anesthesia: Monitored Mental Status: Awake Pain Control: Satisfactory Nausea/Vomiting: None Hydration: Adequate Anesthesia-Related Issues: No Anes. Related Issues
[2023-01-02] MEDS: Insulin Lispro 100 UNIT/ML 3 ML VIAL SUBCUT ×3 (12:28→21:58)
[2023-01-02 16:34] LABS: Glucose, Whole Blood 156 mg/dL (60-115)
--- NOTE | 2023-01-02 17:22 | PM.PNNEP ---
Subjective Subjective Date of Service: 01/02/23 Interval history: Seen and examied, events noted Physical Exam Vital Signs: Vital Signs: Last Vital Signs Temp 96.9 F 01/02/23 16:00 Pulse 100 01/02/23 16:00 Resp 16 01/02/23 16:00 BP 170/96 H 01/02/23 16:00 Pulse Ox 100 01/02/23 16:19 O2 Del Method Room Air 01/02/23 16:19 O2 Flow Rate 3 01/01/23 16:55 BMI result Body Mass Index 36.9 Const: Other: General: confused Resp: CTA bilateral CVS: S1,S2,RRR GI: +BS, NT, no distention Skin: No rash Neuro: motor grossly intact Psych: flat General: alert and awake HEENT: Head: Yes normocephalic and Yes atraumatic Neck: Neck: Yes supple Resp: Auscultation: diminished lung sounds Cardio: Heart sounds: S1 normal heart sound present and S2 normal heart sound present GI: Palpation (GI): Soft to palpation and nontender Extrem: General: Yes edema Objective Data Labs 01/02/23 06:30 01/01/23 07:04 Labs: Laboratory Results - last 24 hr 01/01/23 01/02/23 01/02/23 20:31 06:30 07:05 WBC 19.3 H RBC 3.00 L Hgb 9.6 L Hct 28.7 L MCV 95.7 MCH 32.0 MCHC 33.4 RDW 18.3 H Plt Count 108 L MPV 10.6 Absolute Nucleated RBC 0.020 H Nucleated RBC % (auto) 0.1 POC Glucose 185 H 174 H 01/02/23 01/02/23 10:59 16:29 WBC RBC Hgb Hct MCV MCH MCHC RDW Plt Count MPV Absolute Nucleated RBC Nucleated RBC % (auto) POC Glucose 154 H 156 H Microbiology Microbiology Results: Microbiology 12/29/22 18:15 Blood - Central Line Blood Culture - Preliminary No growth after 48 hours. 12/29/22 18:14 Blood - Central Line Blood Culture - Final Coag negative Staphylococcus 12/07/22 12:43 Blood - Venous Blood Culture - Final No growth after 5 days. 12/07/22 12:11 Blood - Venous Blood Culture - Final No growth after 5 days. Procedures Date of Service Date of Service: 01/02/23 Assessment & Plan Assessment and plan (1) End stage kidney disease: Status: Acute (2) Seizure: Status: Acute (3) Anemia: Status: Acute Plan ESRD: mwf Neuro with SZ and expaphasia: w/u as noted H/O Calciphylaxis --was on STS in past REC: no new recs cont HD 3x/wk; renal diet ABEBE per protocol phosphate binders will follow w team Time Spent With Patient Time: Total time managing care of this patient today ____ minutes. Progress Note: Quality Stroke Does the patient have a stroke diagnosis?: No
[2023-01-03 03:24] VITALS: BP 134/61; PULSE 91; RESP 18; TEMP 36.2; O2SAT 99
[2023-01-03] MEDS: Pantoprazole Sodium 40 MG/10 ML VIAL IVPUSH (05:12)
[2023-01-03] MEDS: Levothyroxine Sodium 88 MCG TABLET PO (05:15)
[2023-01-03 05:41] VITALS: BMI 36.8
[2023-01-03 06:18] LABS: Hemoglobin 9.5 g/dl (12.0-16.0); Mean Corpuscular HGB Conc 33.9 g/dl (31.0-35.0); Mean Corpuscular Hemoglobin 32.8 pg (27.0-33.0); Mean Corpuscular Volume 96.6 fL (80.0-98.0); Mean Platelet Volume 10.9 fL (9.4-12.3); Platelet Count 126 X10*3/uL (160-400); Red Cell Distribution Width 18.4 % (11.0-16.0); White Blood Count 17.6 X10*3/uL (4.8-10.8)
[2023-01-03 06:59] LABS: Glucose, Whole Blood 152 mg/dL (60-115)
[2023-01-03 07:03] VITALS: BP 117/68; PULSE 84; RESP 20; TEMP 36.3; O2SAT 98
[2023-01-03] MEDS: Apixaban 5 MG TABLET PO ×2 (09:11→20:56)
[2023-01-03] MEDS: Insulin Lispro 100 UNIT/ML 3 ML VIAL SUBCUT ×4 (09:11→20:56)
[2023-01-03 11:01] LABS: Glucose, Whole Blood 178 mg/dL (60-115)
[2023-01-03 11:10] VITALS: BP 137/43; PULSE 80; RESP 20; TEMP 36.1; O2SAT 95
[2023-01-03] MEDS: Acetaminophen 325 MG TABLET 650 MG PO (11:34)
--- NOTE | 2023-01-03 13:08 | HO.PM.IMPN ---
Subjective Subjective Date of Service: 01/03/23 Interval History: Seen this morning alert and interactive much better than before but still overall confused Hb stable Denies any pain BP better Tolerating diet Physical Exam Vital Signs: Vital Signs: Last Vital Signs Temp 96.9 F 01/03/23 11:10 Pulse 80 01/03/23 11:10 Resp 20 01/03/23 11:10 BP 137/43 L 01/03/23 11:10 Pulse Ox 95 01/03/23 11:10 O2 Del Method Room Air 01/03/23 11:10 O2 Flow Rate 3 01/01/23 16:55 BMI result Body Mass Index 36.8 Const: Other: Constitutional : Alert, interactive but slow, not in distress Neck : Normal inspection, Supple Cardiovascular : RRR, no JVP, trace lower extremity edema Respiratory : good bilateral air entry, no crackles, wheezes or rhonchi Gastrointestinal: soft, lax, Normal bowel sounds, Non tender Skin : Warm, Dry, fistula clean with no erythema Neurological : Alert , confused, able to follow simple commands, No focal deficit noticed Objective Data Active Medications Acetaminophen (Acetaminophen 325 Mg Tablet) 650 mg PO Q6H PRN PRN Reason: Pain, Mild (Pain Scale 1-3) Last Admin: 01/03/23 11:34 Dose: 650 mg Documented By: RAPHAEL Apixaban (Apixaban 5 Mg Tablet) 5 mg PO BID [facility] Last Admin: 01/03/23 09:11 Dose: 5 mg Documented By: RAPHAEL Dextrose (Dextrose 50 % 25 Gm/50 Ml Syringe) 25 gm IVPUSH Q15M PRN; Protocol PRN Reason: per Hypoglycemia Standing Ord. Last Admin: 12/08/22 03:25 Dose: 25 gm Documented By: FREYA Glucose (Glucose Gel 15 Gm Gel..Gram.) 15 gm PO Q15M PRN; Protocol PRN Reason: per Hypoglycemia Standing Ord. Insulin Human Lispro (Insulin Lispro 100 Unit/Ml 3 Ml Vial) 0 unit SUBCUT QIDACHS [facility]; Protocol Last Admin: 01/03/23 12:11 Dose: 2 unit Documented By: RAPHAEL Levothyroxine Sodium (Levothyroxine Sodium 88 Mcg Tablet) 88 mcg PO DAILY@0600 [facility] Last Admin: 01/03/23 05:15 Dose: 88 mcg Documented By: HO.ANTOIC Omeprazole (Omeprazole 40 Mg Capsule.) 40 mg PO BID@0630,1630 PB Ondansetron HCl (Ondansetron Hcl 4 Mg/2 Ml Vial) 4 mg IVPUSH Q8H PRN PRN Reason: Nausea and Vomiting Pharmacy Consult (Consult Rx Perform Med Rec) 1 each MISCELLANE ONCE PRN PRN Reason: Consult order Labs 01/03/23 05:38 01/01/23 07:04 Labs: Laboratory Results - last 24 hr 01/02/23 01/03/23 01/03/23 16:29 05:38 06:55 MCV 96.6 MCH 32.8 MCHC 33.9 RDW 18.4 H Plt Count 126 L MPV 10.9 Absolute Nucleated RBC 0.000 Nucleated RBC % (auto) 0.0 POC Glucose 156 H 152 H 01/03/23 10:57 MCV MCH MCHC RDW Plt Count MPV Absolute Nucleated RBC Nucleated RBC % (auto) POC Glucose 178 H Assessment and Plan (1) GIB (gastrointestinal bleeding): Status: Acute (2) Acute on chronic blood loss anemia: Status: Acute (3) ESRD on dialysis: Status: Acute (4) Paroxysmal atrial fibrillation: Status: Acute Plan 72-year-old female with history of paroxysmal atrial fibrillation anticoagulated with Eliquis, hypertension, hyperlipidemia, insulin-dependent type 2 diabetes, asthma, VIOLA, hypothyroidism, end-stage renal disease on dialysis, newly diagnosed seizure disorder, history CVA with expressive aphasia to be observed for seizure activity. Acute on chronic anemia Hb improved to 9.5 after 1 unit PRBCs follow H&H GI eval, EGD showed 2 nonbleeding ulcers, hemorrhagic folds in antrum and duodenum. Pending biopsy results Follow on H.Pylori, to treat if positive restart Eliquis for now and mornitor blood levels Chage to PO PPI Hypotension, resolved likely 2/2 dehydration, improved with fluids HD without much of ultrafiltration seizure disorder Diagnosed with video eeg at [facility] [place] and presented with breakthrough SZs with supratherapeutic depakote level, last 97. Continue depakote at 750 bid Encephalopathy of unclear etiology work up with mri and eeg unremarkable, questionable seizures by neurologist there could be component of dementia as well ?paroxysmal atrial fibrillation restart Eliquis DC MEtoprolol ?ESRD on dialysis HD on MWF hyponatremia possibly dilutional esrd patient nephrology following HTN DC metoprolol hypothyroidism continue Synthroid. insulin-dependent type 2 diabetes: sliding scale diabetic diet Thombocytopenia etiology unclear Trend, cbc am ?mild intermittent asthma no acute exacerbation albuterol p.r.n. Low folate levels folate replacements DVT prophylaxis eliquis Need for inpatient:? awaiting rehab placement, nephro following for esrd, GIB pending safe discharge plan Time Spent With Patient Time: Total time managing care of this patient today ____ minutes. Quality Stroke Does the patient have a stroke diagnosis?: No VTE Prior VTE?: No VTE Risk Level:: Medical - moderate - high VTE Device Contraindication: Treatment Not Indicated VTE Drug Contraindication: N/A - Med Ordered
--- NOTE | 2023-01-03 13:24 | PM.PNNEP ---
Subjective Subjective Date of Service: 01/03/23 Interval history: Seen and examined, events noted Physical Exam Vital Signs: Vital Signs: Last Vital Signs Temp 96.9 F 01/03/23 11:10 Pulse 80 01/03/23 11:10 Resp 20 01/03/23 11:10 BP 137/43 L 01/03/23 11:10 Pulse Ox 95 01/03/23 11:10 O2 Del Method Room Air 01/03/23 11:10 O2 Flow Rate 3 01/01/23 16:55 BMI result Body Mass Index 36.8 Const: Other: General: confused Resp: CTA bilateral CVS: S1,S2,RRR GI: +BS, NT, no distention Skin: No rash Neuro: motor grossly intact Psych: flat General: alert and awake HEENT: Head: Yes normocephalic and Yes atraumatic Neck: Neck: Yes supple Resp: Auscultation: diminished lung sounds Cardio: Heart sounds: S1 normal heart sound present and S2 normal heart sound present GI: Palpation (GI): Soft to palpation and nontender Extrem: General: Yes edema Objective Data Labs 01/03/23 05:38 01/01/23 07:04 Labs: Laboratory Results - last 24 hr 01/02/23 01/03/23 01/03/23 16:29 05:38 06:55 WBC 17.6 H RBC 2.90 L Hgb 9.5 L Hct 28.0 L MCV 96.6 MCH 32.8 MCHC 33.9 RDW 18.4 H Plt Count 126 L MPV 10.9 Absolute Nucleated RBC 0.000 Nucleated RBC % (auto) 0.0 POC Glucose 156 H 152 H 01/03/23 10:57 WBC RBC Hgb Hct MCV MCH MCHC RDW Plt Count MPV Absolute Nucleated RBC Nucleated RBC % (auto) POC Glucose 178 H Microbiology Microbiology Results: Microbiology 12/29/22 18:15 Blood - Central Line Blood Culture - Preliminary No growth after 48 hours. 12/29/22 18:14 Blood - Central Line Blood Culture - Final Coag negative Staphylococcus 12/07/22 12:43 Blood - Venous Blood Culture - Final No growth after 5 days. 12/07/22 12:11 Blood - Venous Blood Culture - Final No growth after 5 days. Procedures Date of Service Date of Service: 01/03/23 Assessment & Plan Assessment and plan (1) End stage kidney disease: Status: Acute (2) Seizure: Status: Acute (3) Anemia: Status: Acute Plan ESRD: mwf Neuro with SZ and expaphasia: w/u as noted H/O Calciphylaxis --was on STS in past REC: cont HD 3x/wk; renal diet ABEBE per protocol phosphate binders will follow w team Time Spent With Patient Time: Total time managing care of this patient today ____ minutes. Progress Note: Quality Stroke Does the patient have a stroke diagnosis?: No
[2023-01-03 16:00] VITALS: BP 125/56; PULSE 89; RESP 18; TEMP 35.8; O2SAT 100
[2023-01-03 16:42] LABS: Glucose, Whole Blood 175 mg/dL (60-115)
[2023-01-03] MEDS: Omeprazole 40 MG CAPSULE.DR PO (17:22)
[2023-01-03 18:57] VITALS: BP 143/53; PULSE 89; RESP 20; TEMP 36; O2SAT 100
[2023-01-03 20:28] LABS: Glucose, Whole Blood 188 mg/dL (60-115)
[2023-01-04] VITALS: BP 128/63; PULSE 80; RESP 20; TEMP 36.1
[2023-01-04 03:29] VITALS: BP 126/58; PULSE 75; RESP 20; TEMP 36.1; O2SAT 100
[2023-01-04 06:00] VITALS: BMI 36.3
[2023-01-04] MEDS: Omeprazole 40 MG CAPSULE.DR PO (06:21)
[2023-01-04] MEDS: Levothyroxine Sodium 88 MCG TABLET PO (06:21)
[2023-01-04 07:32] LABS: Glucose, Whole Blood 109 mg/dL (60-115)
[2023-01-04 07:39] VITALS: BP 126/66; PULSE 81; RESP 18; TEMP 36.3; O2SAT 92
--- NOTE | 2023-01-04 10:32 | P.DS_ITS ---
DS: Providers Provider Date of Service: 01/04/23 Date of admission: 12/09/22 13:01 Primary care physician: Jevon Rice MD Consults: 12/07/22 19:05 Consult to Neurology Routine Consulting Provider: [facility] Reason for consultation: increased seizure activity 12/07/22 19:17 Consult to Nephrology Routine Consulting Provider: Ender Esqueda Reason for consultation: esrd on dialysis 12/29/22 12:25 Consult to Wound Care Routine Consulting Provider: Vaishali Gomez Reason for consultation: new open area on left hip 12/29/22 12:49 Consult to Wound Care Routine Consulting Provider: Alejandro Acosta Reason for consultation: new open area on left hip 12/29/22 13:26 Consult to Neurology Routine Consulting Provider: [facility] Reason for consultation: Worsening altered mentation, encephalopathy , seizure? 12/31/22 15:38 Consult to Gastroenterology Routine Consulting Provider: Hanh Marquez Reason for consultation: Acute on chronic blood loss anemia, GIB DS: Diagnosis Discharge Diagnosis (1) End stage kidney disease: Status: Acute (2) Seizure: Status: Acute (3) GIB (gastrointestinal bleeding): Status: Acute (4) Acute on chronic blood loss anemia: Status: Acute (5) ESRD on dialysis: Status: Acute (6) Encephalopathy: Status: Acute (7) Acute alteration in mental status: Status: Acute DS: Summary Hospital Course Hospital Course: Admission HPI Chief Complaint: seizures 72-year-old female with history of paroxysmal atrial fibrillation anticoagulated with Eliquis, hypertension, hyperlipidemia, insulin-dependent type 2 diabetes, asthma, VIOLA, hypothyroidism, end-stage renal disease on dialysis, newly diagnosed seizure disorder, history CVA with expressive aphasia presented to the ED for evaluation of possible stroke.? The patient lives with her son who stated that the patient is not acting like herself this morning prior to dialysis.? At the dialysis unit she appeared to be weak and there is concern of stroke so EMS was called.? She was recently diagnosed with generalized tonic-clonic seizures on 10/07 and started on Keppra and was recently admitted at [facility] with discharge in 11/20. During admission she did undergo EEG which showed seizure activity and she was started on Depakote 750 mg b.i.d. in addition to the Keppra 500 mg daily she was taking.? Discussed with the son who states she had been mentating well following discharge off until this morning.? On arrival to the ED, patient is altered, repeating her name when asked questions.? There is no leukocytosis.? Mild normocytic anemia with H/H 10.9/32.4, platelets 120.? Creatinine 8.35, BUN 46, sodium 137, potassium 3.8, chloride 91, CO2 31 hepatic function normal.? Troponin within normal limits.? Total CK 37.? Urinalysis with trace leukocytes, negative nitrites, trace blood, 3+ protein, negative urinary sediment and bacteria.? Valproic acid level 108.? Head CT showing large area of encephalomalacia in the right occipital parietal lobe most likely related to chronic/subacute stroke without evidence of acute infarction or hemorrhage.? No mass effect, midline shift, brain edema.? There is also an area of encephalomalacia in the right parietal lobe.? Ventricles and sulci are dilated with ex vacuo dilatation of the right occipital horn of lateral ventricle.? In ED, given 500 mg IV Keppra.? For ED nurses, patient noted to have what appeared to be 2 absence seizures lasting several seconds while in the ED. Hospital course This patient with ESRD on dialysis MWF was recently diagnoed with seizure at [facility] by video eeg, and started on Keppra 500 daily and additional suplement on dialysis days, Depakote 750 mg twice and presented with with breakthrough seizure and noted to have excess depakote level of 108. CT showed no acute finding. She was evaluated by Neurologist Dr. Flores with recommendation to stop Keppra and redcucing Depakote to 500 mg twice daily as toxic level is likely trigger of seizure like symptoms which is likely encephalopathy from higher doses and he furthermore does recommend MRI which came back Chronic R post parietal infarct, moderate atrophy, no acute lesion. 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 while on Valproic acid 500 bid she continued to get altered and more encephalopathic with decrease PO intake. the route was changed to IV instead and dose increased for thoughts of possible Her Valproic acid was held after icu downgrade and the patient mentation improved significantly. she was started on a lower dose Valproic acid 250 mg twice daily with a plan to repeat the level as outpatient and monitor clinical course of the patient if it needs to be increased to 500 bid. She will continue Gabapentin 100 mg tid as well. repeated EEG showed no evidence of stroke. Regarding dementia neurology recommended starting Memantin to improve memory and awarness. but given her altered mentation and encephalopathy that was held during hospital stay and can be evaluated as outpatient. The patient had multiple low BP readings during the hospital stay associated with altered mentation. her blood pressure medication have been discontinued during hospital stay but she continued to have low readings. she was planned to discharge when he BP noted to be too low with altered mentation, discharge cancelled as multiple attempts to place an IV line failed. The patient eventually transferred to ICU for central line placement, IV fluids and Pressors with good response. transferred back to [facility] on 12/30 and maintained BP in acceptable range. Noted to have lower readings on days of dialysis. Midodrine changed to be given before dialysis sessions. She was noted to have a drop in hemoglobin. tested positive for occult stool. Hb improved to 9.5 after 1 unit PRBCs. GI evaluated the patient, EGD showed 2 nonbleeding ulcers, hemorrhagic folds in antrum and duodenum. Pending biopsy results. Please Follow on H.Pylori, to treat if positive. Treated with IV Pantoprazole that was later changed to PO PPI. restarted Eliquis with no drop in Hemoglobin. Chaged to PO PPI. The patient was followed by speech therapy team. diet advanced to chopped diabetic diet. Discharge plan Follow EGD biopsy result and H.Pylori testing Discontinue Amlodipine Hold Metoprolol and check BP for 1 week before restarting it Stop taking Keppra Depkote dose has been reduced to 250 mg twice daily for encephalopathy, monitor clincally and increase the dose if develops any more seizures Continue Pantoprazol twice daily To follow with blood and Depakote levels in 1 week Follow up with dr Flores from neurology in 1-2 weeks for seizure medication dose adjustment and Dementia evaluation Physical therapy and rehablitation Time Spent with Patient Time attestation: Total time managing care of this patient today ____ minutes. Discharge coordination time: Greater than 30 minutes Quality: Safe Use of Opioids Does Pt have an Active Cancer Diagnosis on the Problem List?: No Quality: Stroke Does the patient have a stroke diagnosis?: No Physical Exam Vital Signs: Vital Signs: Last Vital Signs Temp 97.3 F 01/04/23 07:39 Pulse 81 01/04/23 07:39 Resp 18 01/04/23 07:39 BP 126/66 01/04/23 07:39 Pulse Ox 92 01/04/23 07:39 O2 Del Method Room Air 01/04/23 07:39 O2 Flow Rate 3 01/01/23 16:55 BMI result Body Mass Index 36.3 Const: Other: Constitutional : Alert, interactive, not in distress Neck : Normal inspection, Supple, Central line in Lt EJ Cardiovascular : RRR, no JVP, trace lower extremity edema Respiratory : good bilateral air entry, no crackles, wheezes or rhonchi Gastrointestinal: soft, lax, Normal bowel sounds, Non tender Skin : Warm, Dry, fistula clean with no erythema Neurological : Alert , oriented to self and place, No focal deficit noticed DS: Data Data Completed and Pending Pending studies at discharge: Pending at discharge 01/01/23 16:30 Surgical [PTH] Routine Labs on day of discharge: Laboratory Results - last 24 hr 01/03/23 01/03/23 01/03/23 10:57 16:35 20:21 POC Glucose 178 H 175 H 188 H 01/04/23 07:25 POC Glucose 109 Imaging Chest x-ray: Radiologist's impression: ITS Impressions Brain MRI 12/15/22 14:45 IMPRESSION: 1. No acute infarct or other acute intracranial abnormality. 2. Chronic right parieto-occipital lobe infarct and mild chronic microangiopathy. Chest X-Ray 12/22/22 04:05 IMPRESSION: No acute cardiopulmonary findings. Chest X-Ray 12/29/22 18:22 IMPRESSION: New left central venous catheter tip is in proximal SVC. Mild cardiomegaly. Abdomen Ultrasound 12/29/22 21:55 IMPRESSION: Normal ultrasound right upper quadrant. Abdomen/Pelvis CT 12/30/22 08:54 IMPRESSION: Indistinctness of the gallbladder wall with question of pericholecystic fat stranding, however, this may be related to motion artifact. No definite pericholecystic fluid is seen. If there is strong suggestion of possible acute cholecystitis, then a repeat ultrasound examination may be of help in further evaluation. Bilateral renal cysts. Nephrolithiasis without evidence of obstructive uropathy. 1.5 cm right adrenal gland nodule with Hounsfield unit measurements of greater than 20. A 1-year followup adrenal washout CT is recommended. Question left sacral insufficiency fracture. Fleischner guidelines were followed. MRI - head: Radiologist's impression: ITS Impressions Brain MRI 12/15/22 14:45 IMPRESSION: 1. No acute infarct or other acute intracranial abnormality. 2. Chronic right parieto-occipital lobe infarct and mild chronic microangiopathy. Chest X-Ray 12/22/22 04:05 IMPRESSION: No acute cardiopulmonary findings. Chest X-Ray 12/29/22 18:22 IMPRESSION: New left central venous catheter tip is in proximal SVC. Mild cardiomegaly. Abdomen Ultrasound 12/29/22 21:55 IMPRESSION: Normal ultrasound right upper quadrant. Abdomen/Pelvis CT 12/30/22 08:54 IMPRESSION: Indistinctness of the gallbladder wall with question of pericholecystic fat stranding, however, this may be related to motion artifact. No definite pericholecystic fluid is seen. If there is strong suggestion of possible acute cholecystitis, then a repeat ultrasound examination may be of help in further evaluation. Bilateral renal cysts. Nephrolithiasis without evidence of obstructive uropathy. 1.5 cm right adrenal gland nodule with Hounsfield unit measurements of greater than 20. A 1-year followup adrenal washout CT is recommended. Question left sacral insufficiency fracture. Fleischner guidelines were followed. Discharge Plan Discharge Anticipated Discharge Date/Time: 01/04/23 10:06 Patient Disposition: [facility] Discharge Diagnosis: Breakthrough seizure Altered mental status Gastrointestinal bleeding Referrals: Demarco Gambino [place] [Outside] - 1 Week Jevon Rice MD [Primary Care Provider] - 1 Week Discharge Medications: New valproic acid 250 mg Capsule 250 mg PO BID Qty: 60 0RF Continued atorvastatin 40 mg tablet 40 mg PO BEDTIME levothyroxine 88 mcg tablet 88 mcg PO DAILY@0600 pantoprazole 40 mg tablet,delayed release (DR/EC) 40 mg PO BID@0630,1630 fluticasone propion-salmeterol [Advair Diskus] 500-50 mcg/dose blister with device 1 ea INHALATION BID albuterol sulfate [Ventolin HFA] 90 mcg/actuation HFA aerosol inhaler 2 puff inhalation Q4H PRN (Reason: Wheezing) Levemir U-100 Insulin 100 unit/mL solution 6 unit subcut BEDTIME sevelamer carbonate [Renvela] 800 mg tablet 800 mg PO BIDWM Eliquis 5 mg tablet 5 mg PO BID insulin aspart U-100 [Novolog FlexPen U-100 Insulin] 100 unit/mL (3 mL) insulin pen 4 - 12 unit subcut TIDWM PRN (Reason: ELEVATED BLOOD SUGAR) cinacalcet 30 mg Tablet 30 mg PO DAILY gabapentin 100 mg capsule 100 mg PO TID Changed midodrine 5 mg tablet 5 mg PO MOWEFR Qty: 30 0RF Rx Instructions: GIVEN NEEDED AT DIALYSIS Held metoprolol tartrate 50 mg tablet 50 mg PO BID Hold Instructions: Monitor Blood pressure for 1 week before deciding if can be restarted at a lower dose Discontinued divalproex 250 mg tablet,delayed release (DR/EC) 750 mg PO BID levetiracetam 500 mg tablet 500 mg PO DAILY levetiracetam 500 mg tablet 500 mg PO MOWEFR@1645 Rx Instructions: GIVEN AFTER DIALYSIS ON DIALYSIS DAYS amlodipine 5 mg tablet 5 mg PO DAILY Discharge Orders: Discharge Order (Routine); Ordered 01/04/23 Ordered By: Kassandra Nieves Diet: chopped solid diet Activity on Discharge: As tolerated Stand Alone Forms: Patient Portal Discharge page Other Ambulatory Orders: Complete Blood Count Auto Diff (Routine) Timeframe: 1 Week Facility: [facility] - Location: Laboratory Ordered By: Kassandra Nieves Care Plan Goals: seizure control Health Concerns: seizure Plan of Treatment: You were admitted for altered mentation. thought to be a result of seizures. evaluated by neurologist and your medication was changed to Depakote from Keppra. You developed low blood pressure and required ICU admission for IVF fluids with good response. Your mentation improved. you tolerated dialysis well. no seizures recorded while inpatient. Discontinue Amlodipine Hold Metoprolol and check BP for 1 week before restarting it Stop taking Keppra Depkote dose has been reduced to 250 mg twice daily for encephalopathy, monitor clincally and increase the dose if develops any more seizures Continue Pantoprazol twice daily To follow with blood levels in 1 week Follow up with your Doctor in a week Physical therapy and rehablitation Assessment: as above
[2023-01-04] MEDS: Midodrine HCl 5 MG TABLET PO (10:44)
--- NOTE | 2023-01-04 10:59 | MHC.CM.PN ---
Patient has been medically cleared for dc to SNF/STR today. Patient will dc to [facility] today at 5PM, via [facility]. CM spoke with Son/Juan @ [phone] and addressed IMM with him.
--- NOTE | 2023-01-04 11:50 | PM.NEUROCN ---
History of Present Illness Data of Consult Service Date: 01/04/23 Primary Care Provider: Jevon Rice MD HPI Reason for consult: Encephalopathy 72 yo woman with encephalopathy related to seizures and stroke. She was doing much better and was getting dialysis when I saw her today. Review of Systems Review of Systems: She said she did not feel well but there was no sign of pain or distress. [facility] Past Medical History Medical History Asthma Epilepsy ESRD on dialysis Expressive aphasia History of CVA (cerebrovascular accident) Hypertension Insulin dependent type 2 diabetes mellitus Morbid obesity Obstructive sleep apnea Paroxysmal atrial fibrillation Tubular adenoma of colon Social History Social History Household Members: Unknown / Unable to assess Housing: Unknown / Unable to assess Unable to assess alcohol history related to: Refusing to respond Patient Tobacco Use Status: Never used Tobacco Advance Directives Date on File: 04/22/22 service: No Meds Allergies Allergy/AdvReac Type Severity Reaction Status Date / Time Penicillins Allergy Unknown Unknown Verified 04/21/22 16:53 lisinopri Allergy Unknown Unknown Uncoded 04/21/22 16:53 Active Medications: Current Medications Acetaminophen (Acetaminophen 325 Mg Tablet) 650 mg PO Q6H PRN PRN Reason: Pain, Mild (Pain Scale 1-3) Last Admin: 01/03/23 11:34 Dose: 650 mg Apixaban (Apixaban 5 Mg Tablet) 5 mg PO BID [facility] Last Admin: 01/04/23 08:35 Dose: Not Given Dextrose (Dextrose 50 % 25 Gm/50 Ml Syringe) 25 gm IVPUSH Q15M PRN; Protocol PRN Reason: per Hypoglycemia Standing Ord. Last Admin: 12/08/22 03:25 Dose: 25 gm Glucose (Glucose Gel 15 Gm Gel..Gram.) 15 gm PO Q15M PRN; Protocol PRN Reason: per Hypoglycemia Standing Ord. Insulin Human Lispro (Insulin Lispro 100 Unit/Ml 3 Ml Vial) 0 unit SUBCUT QIDACHS [facility]; Protocol Last Admin: 01/04/23 07:39 Dose: Not Given Levothyroxine Sodium (Levothyroxine Sodium 88 Mcg Tablet) 88 mcg PO DAILY@0600 [facility] Last Admin: 01/04/23 06:21 Dose: 88 mcg Omeprazole (Omeprazole 40 Mg Capsule.) 40 mg PO BID@0630,1630 [facility] Last Admin: 01/04/23 06:21 Dose: 40 mg Ondansetron HCl (Ondansetron Hcl 4 Mg/2 Ml Vial) 4 mg IVPUSH Q8H PRN PRN Reason: Nausea and Vomiting Pharmacy Consult (Consult Rx Perform Med Rec) 1 each MISCELLANE ONCE PRN PRN Reason: Consult order Valproic Acid (Valproic Acid 250 Mg Capsule) 250 mg PO BID [facility] Home Medications Medication Instructions Recorded Confirmed Last Taken Type albuterol sulfate 90 mcg/actuation 2 puff inhalation Q4H PRN Wheezing 12/07/22 12/07/22 Unknown History aerosol inhaler (Ventolin HFA) apixaban 5 mg tablet (Eliquis) 5 mg PO BID 12/07/22 12/07/22 12/07/22 History atorvastatin 40 mg tablet 40 mg PO BEDTIME 12/07/22 12/07/22 12/06/22 History cinacalcet 30 mg tablet 30 mg PO DAILY 12/07/22 12/07/22 12/07/22 History fluticasone 500 mcg-salmeterol 50 1 ea inhalation BID 12/07/22 12/07/22 12/07/22 History mcg/dose blistr powdr for inhalation (Advair Diskus) gabapentin 100 mg capsule 100 mg PO TID 12/07/22 Unknown History insulin aspart U-100 100 unit/mL 4 - 12 unit subcut TIDWM PRN 12/07/22 12/07/22 Unknown History (3 mL) subcutaneous pen (Novolog ELEVATED BLOOD SUGAR FlexPen U-100 Insulin aspart) insulin detemir U-100 100 unit/mL 6 unit subcut BEDTIME 12/07/22 12/07/22 12/06/22 History subcutaneous solution (Levemir U-100 Insulin) levothyroxine 88 mcg tablet 88 mcg PO DAILY@0600 12/07/22 12/07/22 12/07/22 History metoprolol tartrate 50 mg tablet 50 mg PO BID 12/07/22 12/07/22 12/07/22 History pantoprazole 40 mg tablet,delayed 40 mg PO BID@0630,1630 12/07/22 12/07/22 12/07/22 History release sevelamer carbonate 800 mg tablet 800 mg PO BIDWM 12/07/22 12/07/22 12/07/22 History (Renvela) Physical Exam Vital Signs: Vital Signs: Last Vital Signs Temp 97.3 F 01/04/23 07:39 Pulse 81 01/04/23 07:39 Resp 18 01/04/23 07:39 BP 126/66 01/04/23 07:39 Pulse Ox 92 01/04/23 07:39 O2 Del Method Room Air 01/04/23 07:39 O2 Flow Rate 3 01/01/23 16:55 BMI result Body Mass Index 36.3 Neuro: Other: She is alert and awake with normal spontaneity of speech fluency comprehension and affect. She knew where she was not told me she has 4 children. She was following commands per Results Labs 01/03/23 05:38 01/01/23 07:04 Labs: Last EEG revealed slowing with no evidence of seizure disorder. Microbiology Microbiology Results: Microbiology 12/29/22 18:15 Blood - Central Line Blood Culture - Final No growth after 5 days. 12/29/22 18:14 Blood - Central Line Blood Culture - Final Coag negative Staphylococcus 12/07/22 12:43 Blood - Venous Blood Culture - Final No growth after 5 days. 12/07/22 12:11 Blood - Venous Blood Culture - Final No growth after 5 days. Assessment and Plan (1) Seizure: Status: Acute 72 years old woman with cerebral infarction and seizure disorder. She also has end-stage renal disease and is on dialysis. Her dose of valproic acid was decreased to 250 mg twice a day, after her liver enzymes were noted to be high. Now she was doing much better. My recommendation is to continue same does. Time Spent With Patient Time: Total time managing care of this patient today ____ minutes. Procedures Date of Service Date of Service: 01/04/23
--- NOTE | 2023-01-04 12:10 | P.PNNP_ITS ---
Subjective Subjective Date of Service: 01/04/23 Interval history: seen and examined on dialysis events noted Physical Exam Vital Signs: Vital Signs: Last Vital Signs Temp 97.3 F 01/04/23 07:39 Pulse 81 01/04/23 07:39 Resp 18 01/04/23 07:39 BP 126/66 01/04/23 07:39 Pulse Ox 92 01/04/23 07:39 O2 Del Method Room Air 01/04/23 07:39 O2 Flow Rate 3 01/01/23 16:55 BMI result Body Mass Index 36.3 Const: General: alert and awake HEENT: Head: Yes normocephalic and Yes atraumatic Neck: Neck: Yes supple Resp: Auscultation: diminished lung sounds Cardio: Heart sounds: S1 normal heart sound present and S2 normal heart sound present GI: Palpation (GI): Soft to palpation and nontender Extrem: General: Yes edema Objective Data Labs 01/03/23 05:38 01/01/23 07:04 Labs: Laboratory Results - last 24 hr 01/03/23 01/03/23 01/04/23 16:35 20:21 07:25 POC Glucose 175 H 188 H 109 Microbiology Microbiology Results: Microbiology 12/29/22 18:15 Blood - Central Line Blood Culture - Final No growth after 5 days. 12/29/22 18:14 Blood - Central Line Blood Culture - Final Coag negative Staphylococcus 12/07/22 12:43 Blood - Venous Blood Culture - Final No growth after 5 days. 12/07/22 12:11 Blood - Venous Blood Culture - Final No growth after 5 days. Procedures Date of Service Date of Service: 01/04/23 Assessment & Plan Assessment and plan (1) End stage kidney disease: Status: Acute (2) Seizure: Status: Acute (3) Anemia: Status: Acute Plan usually has HD at [facility] dialysis [facility] new diagnosed seizure disorder with expressive aphasia REC HD today UF as tolerated renal diet ABEBE per protocol phosphate binders Time Spent With Patient Time: Total time managing care of this patient today ____ minutes. Progress Note: Quality Stroke Does the patient have a stroke diagnosis?: No
--- NOTE | 2023-01-04 13:05 | MHC.CM.PN ---
SS # is [id number].
--- NOTE | 2023-01-04 13:30 | MHC.CM.PN ---
CM met with Patient at bedside and reviewed the dc plan. Patient is aware of and in agreement with the dc plan.
[2023-01-04 14:00] VITALS: BP 114/63; PULSE 85; RESP 18; TEMP 36.2; O2SAT 92
[2023-01-04 15:27] VITALS: BP 131/59; PULSE 94; RESP 18; TEMP 36.1; O2SAT 96
[2023-01-04 15:28] LABS: Mean Corpuscular HGB Conc 33.3 g/dl (31.0-35.0); Mean Corpuscular Hemoglobin 32.5 pg (27.0-33.0); Mean Corpuscular Volume 97.4 fL (80.0-98.0); Mean Platelet Volume 10.6 fL (9.4-12.3); NRBC Pct Auto 0.2 /100WBC (0.0-0.2); Platelet Count 188 X10*3/uL (160-400); Red Blood Count 3.08 X10*6/uL (4.20-5.50); Red Cell Distribution Width 18.7 % (11.0-16.0); White Blood Count 21.9 X10*3/uL (4.8-10.8)
[2023-01-04 15:48] LABS: Glucose, Whole Blood 119 mg/dL (60-115)
[2023-01-04 16:00] VITALS: O2SAT 95
--- NOTE | 2023-01-04 17:34 | PC.NURSE ---
Triple lumen removed from Left IJ. patient tolerated well. DSG clean, dry, and intact.
--- NOTE | 2023-01-04 17:48 | PC.NURSE ---
called [facility] to give RN-RN report but there was no answer.
--- NOTE | 2023-01-05 12:17 | P.CDIM_ITS ---
PROVIDER RESPONSE TEXT: To clarify, the appropriate diagnosis supported by the clinical indicators: Folate Deficiency Anemia QUERY TEXT: PHYSICIAN'S DOCUMENTATION REQUEST Date of Query: 12/29/2022 07:27 AM EDT Patient Name: HOLGER BILL Admit Date: 12/09/2022 Dear Alejandro Acosta, A review of the medical record indicates additional documentation may be needed. Please review below and update the documentation accordingly. Clinical Indicators: Folate level 3.8 on 12/17/22 The following diagnoses or signs and symptoms were noted in the patient record: Per Hospitalist Progress Note 12/28/22: Low folate levels :on folate replacements Based on the above, could you clarify the appropriate diagnosis, if significant, that supports the ab ove abnormalities and additional evaluation, monitoring, and/or treatment rendered: Folate Deficiency Anemia Labs indicate a diagnosis of (please specify) Other (explain)Clinically unable to determine (explain)Thank you, Peggy Paz RN Use of terms such as suspected, likely, concern for, or probable (associated with a specific diagnosi s that is being evaluated, monitored, or treated as if it exists) are acceptable and can be coded in the inpatient se tting, when documented at the time of discharge. Please use your independent medical judgment in providing your response. THIS QUERY IS PART OF THE PERMANENT MEDICAL RECORD
== END 2023-01-04 17:59 | disposition skilled nursing facility (03) | DRG 100 ==
LOC: HO.ED 17:20 → HO.EDOVER 19:12 → HO.IMC 19:35 → HO.ICU 12-29 16:03 → HO.IMC 12-30 09:42
PROVIDERS: Internal Medicine; Internal Medicine Gastroenterology; Internal Medicine Nephrology; Internal Medicine Pulmonary Disease; Physician Assistant Medical; Admitting Provider Physician Assistant; Emergency Provider Emergency Medicine Emergency Medical Services; PCP Student in an Organized Health Care Education/Training Program; Visit Provider Student in an Organized Health Care Education/Training Program
PROC: 0DJ08ZZ Inspection of Upper Intestinal Tract, Via Natural or Artificial Opening Endoscopic (ICD-10-PCS; CPT 43235; principal; 2023-01-01 16:20)
DX: G40.909 Epilepsy, unspecified, not intractable, without status epilepticus (principal); K25.4 Chronic or unspecified gastric ulcer with hemorrhage; K29.71 Gastritis, unspecified, with bleeding; K29.81 Duodenitis with bleeding; N18.6 End stage renal disease; I12.0 Hypertensive chronic kidney disease with stage 5 chronic kidney disease or end stage renal disease; D62 Acute posthemorrhagic anemia; Z68.41 Body mass index [BMI] 40.0-44.9, adult; E87.20 Acidosis, unspecified; E87.1 Hypo-osmolality and hyponatremia; E11.22 Type 2 diabetes mellitus with diabetic chronic kidney disease; E66.01 Morbid (severe) obesity due to excess calories; I48.0 Paroxysmal atrial fibrillation; D63.1 Anemia in chronic kidney disease; J45.20 Mild intermittent asthma, uncomplicated; D69.6 Thrombocytopenia, unspecified; I69.320 Aphasia following cerebral infarction; E78.5 Hyperlipidemia, unspecified; N25.0 Renal osteodystrophy; G47.33 Obstructive sleep apnea (adult) (pediatric); I69.398 Other sequelae of cerebral infarction; E87.5 Hyperkalemia; F03.90 Unspecified dementia, unspecified severity, without behavioral disturbance, psychotic disturbance, mood disturbance, and anxiety; I95.3 Hypotension of hemodialysis; E86.0 Dehydration; L89.152 Pressure ulcer of sacral region, stage 2; D52.9 Folate deficiency anemia, unspecified; E03.9 Hypothyroidism, unspecified; Z99.2 Dependence on renal dialysis; Z88.0 Allergy status to penicillin; Z79.4 Long term (current) use of insulin; Z79.01 Long term (current) use of anticoagulants; Z79.51 Long term (current) use of inhaled steroids; Z79.890 Hormone replacement therapy; Z79.899 Other long term (current) drug therapy
CPT/HCPCS: 36415; 70450; 70551; 71045; 74176; 76705; 80048; 80053; 80076; 80164; 81001; 82040; 82140; 82272; 82550; 82607; 82746; 82803; 82947; 83540; 83605; 83690; 83735; 83970; 84100; 84443; 84484; 85007; 85014; 85018; 85025; 85027; 85610; 85730; 86850; 86900; 86901; 86923; 87040; 87147; 87205; 88305; 88342; 90999; 92526; 92610; 92950; 93005; 94640; 95816; 99222; 99285; J0692; J1200; J1953; J2060; J2370; J2371; J3371; P9016; P9047

== ENCOUNTER → 2022-12-07 19:01 | Outpatient (BNV) | payer MEDICARE, MEDICAID, SELFPAY | PROVIDERS: Admitting Provider Physician Assistant; Emergency Provider Emergency Medicine Emergency Medical Services; PCP Student in an Organized Health Care Education/Training Program; Visit Provider Internal Medicine | DX: N18.6 End stage renal disease (principal); Z99.2 Dependence on renal dialysis; R56.9 Unspecified convulsions; K92.2 Gastrointestinal hemorrhage, unspecified; D62 Acute posthemorrhagic anemia; G93.40 Encephalopathy, unspecified; R41.82 Altered mental status, unspecified | CPT/HCPCS: 99223; 99231; 99232; 99233; 99239; 99499 ==

== ENCOUNTER 2022-12-09 13:01 | Outpatient (BNV) | payer MEDICARE, MEDICAID, SELFPAY | END 2022-12-22 05:07 | PROVIDERS: Admitting Provider Physician Assistant; Emergency Provider Emergency Medicine Emergency Medical Services; PCP Student in an Organized Health Care Education/Training Program; Visit Provider Internal Medicine Cardiovascular Disease | DX: I49.1 Atrial premature depolarization (principal); R94.31 Abnormal electrocardiogram [ECG] [EKG] | CPT/HCPCS: 93010 ==

== ENCOUNTER → 2022-12-09 13:01 | Outpatient (BNV) | payer MEDICARE, MEDICAID, SELFPAY | PROVIDERS: Admitting Provider Physician Assistant; Emergency Provider Emergency Medicine Emergency Medical Services; PCP Student in an Organized Health Care Education/Training Program; Visit Provider Internal Medicine Pulmonary Disease | DX: N18.6 End stage renal disease (principal); Z99.2 Dependence on renal dialysis | CPT/HCPCS: 36556; 99233; 99499 ==

== ENCOUNTER → 2022-12-09 13:01 | Outpatient (BNV) | payer MEDICARE, MEDICAID, SELFPAY | PROVIDERS: Admitting Provider Physician Assistant; Emergency Provider Emergency Medicine Emergency Medical Services; PCP Student in an Organized Health Care Education/Training Program; Visit Provider Internal Medicine Gastroenterology | DX: D62 Acute posthemorrhagic anemia (principal); K25.9 Gastric ulcer, unspecified as acute or chronic, without hemorrhage or perforation; K29.70 Gastritis, unspecified, without bleeding; K29.80 Duodenitis without bleeding | CPT/HCPCS: 43239; 99232 ==

== ENCOUNTER 2023-01-08 12:46 | Inpatient (IN) | payer MEDICARE, MEDICAID, SELFPAY ==
[2023-01-08] VITALS (12 sets, daily range): BP systolic 72–130; BP diastolic 40–60; PULSE 74–99; RESP 12–20; TEMP 36.7–37; O2SAT 99–100; BMI 40.4
--- NOTE | ~2023-01-08 | CT_ITS ---
EXAMINATION: CT abdomen pelvis wo IV con CLINICAL INFORMATION: Reason for Exam abue abd pain COMPARISON: Prior CT 12/30/2022 TECHNIQUE: Multidetector volumetric imaging was performed from the superior aspect of the liver through the pubic symphysis a noncontrasted study. Sagittal and coronal reformatted images were obtained on the technologist's workstation. This CT examination was performed using dose optimization techniques as appropriate, variously including the following: *Automated exposure control *Adjustment of mA and/or kV according to patient size (this includes techniques or standardized protocols for targeted exams where dose is matched to indication/reason for exam; i.e. extremities or head) *Use of iterative reconstruction technique DLP: 737 mGy-cm FINDINGS: LOWER THORAX: Included lung bases are clear. HEPATOBILIARY: There is heterogeneous attenuation of the liver especially the dome of the liver, hypodense area measures 6 x 3.5 cm concerning for possible liver lesion image 14 series of 3 this may require correlation with follow-up cross-sectional imaging with contrast preferably MRI. GALLBLADDER: Gallbladder unremarkable. SPLEEN: Spleen is normal in size. PANCREAS: No focal mass or ductal dilatation. STOMACH AND GASTROINTESTINAL TRACT: Stomach is grossly unremarkable. There is no bowel distention or thickening. No CT evidence of appendicitis. ADRENALS: Redemonstration of right adrenal nodule 3.5 x 1.3 cm with attenuation below 0 favoring fat-containing adrenal adenoma. There is hypertrophy of left adrenal unchanged. KIDNEYS/URETERS: Stable simple cyst protruding from the middle pole right kidney 1.4 x 0.9 cm simple cyst protruding from the lower pole right kidney 1.1 cm, these are was near class I no follow-up is required unchanged. No kidney stone or hydronephrosis. URINARY BLADDER: Partially decompressed. PELVIC VISCERA: Unremarkable PERITONEUM: No free air or fluid. LYMPH NODES: No lymphadenopathy. VASCULAR:Abdominal aorta normal in size, no aneurysm found. BONES, ABDOMINAL WALL AND SOFT TISSUES: Age-appropriate changes of the spine and skeletal system, no destructive osteolytic or osteosclerotic bone lesion found CT/CT abdomen pelvis wo IV con IMPRESSION: Exam limited due to lack of contrast. * No CT evidence of acute intra-abdominal process to explain patient's pain symptoms. * Stable right adrenal nodule with attenuation below 0 favoring fat-containing adrenal adenoma. * There is heterogeneous attenuation of the liver especially the dome of the liver, hypodense area measures 6 x 3.5 cm concerning for possible liver lesion, attention to follow-up cross-sectional imaging with contrast preferably MRI recommended.. (Referring physician staff is being called, by physician staff assistance, to be alerted of the above critical findings and recommendations.) 01/08/2023 5:58 PM
--- NOTE | ~2023-01-08 | US_ITS ---
EXAMINATION: US ABDOMEN LIMITED CLINICAL INFORMATION: Abdominal pain. COMPARISON: CT abdomen/pelvis 12/30/2022. TECHNIQUE: Real-time imaging of the right upper quadrant abdominal viscera. FINDINGS: Limited examination secondary to patient body habitus, shadowing from bowel gas and incomplete views secondary to patient's difficulties with positioning. The visualized portions of the pancreas are within normal limits. No evidence of cholelithiasis, gallbladder wall thickening or pericholecystic free fluid. The common bile duct is only partially seen approximately 0.4 cm. The liver and right kidney were not imaged in this examination. US/US abdomen limited IMPRESSION: Normal sonographic appearance of the gallbladder. Otherwise, very limited examination of additional organs as above.
--- NOTE | ~2023-01-08 | XR_ITS ---
EXAMINATION: XR CHEST CLINICAL INFORMATION: Generalized weakness. COMPARISON: 12/29/2022 chest radiograph. TECHNIQUE: Frontal view of the chest was obtained. FINDINGS: Support devices: Interval removal of left internal jugular catheter. No significant abnormality is noted involving the heart, lungs, mediastinum, bony thorax or soft tissues. XR/XR chest 1V IMPRESSION: No acute cardiopulmonary process.
--- NOTE | ~2023-01-08 | CT_ITS ---
CT head/brain wo IV con CLINICAL INFORMATION: Reason for Exam confusion COMPARISON: Prior CT 12/07/2022 TECHNIQUE: Department standard protocol. This CT examination was performed using dose optimization techniques as appropriate, variously including the following: *Automated exposure control *Adjustment of mA and/or kV according to patient size (this includes techniques or standardized protocols for targeted exams where dose is matched to indication/reason for exam; i.e. extremities or head) *Use of iterative reconstruction technique DLP: 737 mGy-cm FINDINGS: CEREBRAL HEMISPHERES: Redemonstration of area of infarct in the posterior right parietal and parieto-occipital region with associated area of encephalomalacia, this has not changed from prior exam no associated intracranial bleed. BRAIN PARENCHYMA: Deep white matter and paraventricular hypoattenuation, nonspecific; most likely changes secondary to chronic ischemia due to microvascular angiopathy. SUBDURAL SPACE: No bleed. BASAL GANGLIA AND PINEAL GLAND: Unremarkable VENTRICLES: Symmetric and normal in size. CEREBELLUM AND BRAINSTEM: No space-occupying mass, hemorrhage or acute infarct. CEREBELLOPONTINE ANGLES: No lesion found. ORBITS: No intraorbital mass. VESSELS: Unremarkable SKULL BASE: Unremarkable INCLUDED SINUSES AT SKULL BASE: Clear SKULL AND SKIN: No fracture or bone lesion found. CT/CT head/brain wo IV con IMPRESSION: * Redemonstration of area of infarct in the right parieto-occipital region with associated adjacent brain edema and encephalomalacia, this has not changed from prior CT of 12/07/2022. * Deep white matter and periventricular hypoattenuation, nonspecific; most likely sequela of chronic microvascular angiopathy ischemia. * No intracranial bleed.
--- NOTE | 2023-01-08 13:00 | PC.NURSE ---
pt a&o to self only. pt verbalizing that she is unaware of where she is and that the year is 1954. pt's vs aside from hypotension, nsr/sinus tachy on the monitor. pt comes in via ems after being refused at dialysis treatment as pt was not her baseline.
--- NOTE | 2023-01-08 13:23 | ECG_ITS ---
Test Reason : septic protocol Blood Pressure : / mmHG Vent. Rate : 091 BPM Atrial Rate : 091 BPM P-R Int : 150 ms QRS Dur : 092 ms QT Int : 380 ms P-R-T Axes : 054 -35 046 degrees QTc Int : 467 ms Normal sinus rhythm Left axis deviation Abnormal ECG When compared with ECG of 22-DEC-2022 05:07, Premature atrial complexes are no longer Present Referred By: Byron Polk Electronically Signed By:SHAY SHANE
--- NOTE | 2023-01-08 13:27 | ED.GENADULT ---
HPI - General Adult General Chief complaint: General Medical Stated complaint: From SNF, abnormal labs (WBC 20.8) per EMS Time Seen by Provider: 01/08/23 12:52 Source: patient and EMS Mode of arrival: EMS Limitations: no limitations History of Present Illness HPI narrative: 72-year-old female coming in by ambulance. She was due to go to dialysis however when she arrived, she was not at her baseline status. She was complaining of abdominal pain at that time. At this time, patient denies any abdominal pain. She has complained of some lower extremity pain. Pain is [id number]. Worse with palpation. Does not radiate. There is no numbness or tingling. She denies any injuries. Patient denies any fevers, chills, cough or mucus production. She denies any shortness of breath. Patient just admits not feeling generally well. Related Data Home Medications Medication Instructions Recorded Confirmed albuterol sulfate 90 mcg/actuation 2 puff inhalation Q4H PRN Wheezing 12/07/22 01/08/23 aerosol inhaler (Ventolin HFA) apixaban 5 mg tablet (Eliquis) 5 mg PO BID 12/07/22 01/08/23 atorvastatin 40 mg tablet 40 mg PO BEDTIME 12/07/22 01/08/23 cinacalcet 30 mg tablet 30 mg PO DAILY 12/07/22 01/08/23 fluticasone 500 mcg-salmeterol 50 1 ea inhalation BID 12/07/22 01/08/23 mcg/dose blistr powdr for inhalation (Advair Diskus) gabapentin 100 mg capsule 100 mg PO TID 12/07/22 01/08/23 insulin aspart U-100 100 unit/mL See Protocol subcut TIDAC 12/07/22 01/08/23 (3 mL) subcutaneous pen (Novolog FlexPen U-100 Insulin aspart) insulin detemir U-100 100 unit/mL 6 unit subcut BEDTIME 12/07/22 01/08/23 subcutaneous solution (Levemir U-100 Insulin) levothyroxine 88 mcg tablet 88 mcg PO DAILY@0600 12/07/22 01/08/23 pantoprazole 40 mg tablet,delayed 40 mg PO BID@0630,1630 12/07/22 01/08/23 release sevelamer carbonate 800 mg tablet 800 mg PO BIDWM 12/07/22 01/08/23 (Renvela) Previous Rx's Medication Instructions Recorded midodrine 5 mg tablet 5 mg PO MOWEFR #30 tabs 01/04/23 valproic acid 250 mg capsule 250 mg PO BID #60 caps 01/04/23 Allergies Allergy/AdvReac Type Severity Reaction Status Date / Time Penicillins Allergy Unknown Unknown Verified 01/08/23 12:51 lisinopri Allergy Unknown Unknown Uncoded 01/08/23 12:51 Review of Systems Review of Systems: CONSTITUTIONAL: Denies weight loss, fever and chills. HEENT: Denies changes in vision and hearing. RESPIRATORY: Denies SOB and cough. CV: Denies palpitations no CP. GI: + abdominal pain, no nausea, vomiting and diarrhea. : Denies dysuria and urinary frequency. MSK: + myalgia and joint pain. SKIN: Denies rash and pruritus. NEUROLOGICAL: Denies headache and syncope. PSYCHIATRIC: Denies recent changes in mood. Denies anxiety and depression. All other ROS are negative unless in HPI PMFSH Past Medical History Medical History Asthma Epilepsy ESRD on dialysis Expressive aphasia History of CVA (cerebrovascular accident) Hypertension Insulin dependent type 2 diabetes mellitus Morbid obesity Obstructive sleep apnea Paroxysmal atrial fibrillation Tubular adenoma of colon Social History Social History Household Members: Unknown / Unable to assess Housing: Unknown / Unable to assess Unable to assess alcohol history related to: Refusing to respond Alcohol intake: never Patient Tobacco Use Status: Never used Tobacco Use of substances other than those prescribed or required for medical reasons: No Advance Directives: Yes Advance Directives on File: Yes Advance Directives Date on File: 04/22/22 service: No Physical Exam ED Vital Signs: Vital Signs - 24 hr 01/08/23 12:51 01/08/23 13:02 01/08/23 13:27 Temperature 98.3 F 98.6 F Pulse Rate 99 Respiratory Rate 18 Blood Pressure 72/40 L Pulse Oximetry 100 Oxygen Delivery Method Nasal Cannula Oxygen Flow Rate 01/08/23 13:51 Temperature Pulse Rate 93 Respiratory Rate 20 Blood Pressure 101/47 L Pulse Oximetry 100 Oxygen Delivery Method Nasal Cannula Oxygen Flow Rate 3 BMI result Body Mass Index 40.4 GEN: Obese female, no acute distress, alert, oriented HEENT: Normocephalic, atraumatic, normal external ears, nose appears normal, no oropharyngeal edema or exudates Eyes: Normal to appearance Neck: Supple, no lymphadenopathy Respiratory: Talks in complete sentences, no respiratory distress, clear to auscultation bilaterally Cardiovascular: Regular rate and rhythm, no murmurs rubs or gallops Abdomen: Soft, nontender, nondistended, no guarding, no rebound Back: No CVA tenderness Extremities: No clubbing cyanosis or edema Neurologic: No focal neurologic deficits, cranial nerves 2-12 intact, strength is 5/5 bilaterally Skin: No rash Course Reevaluation(s) Reevaluation #1: CT scans are currently pending. Patient continues like generally unwell. Etiology is not entirely clear at this time. Patient will be sent out to my colleague at 4:[address] results and re-evaluation. Time: 16:30 Medications Administered Discontinued Medications Generic Name Dose Route Start Last Admin Trade Name Lawq PRN Reason Stop Dose Admin Sodium Chloride 1,000 mls @ 999 mls/hr 01/08/23 13:30 01/08/23 15:09 Ns IV 01/08/23 14:30 Not Given .Q1H1M PB Sodium Chloride 500 mls @ 500 mls/hr 01/08/23 15:15 01/08/23 15:29 Ns IV 01/08/23 16:14 500 mls/hr .Q1H PB Administration Medical Decision Making Medical Decision Making MDM Narrative: 72-year-old female presents with generalized unwellness. She had been complaining of some abdominal pain. Currently that it seems to have passed in her abdomen is soft and nontender. However, given her comorbidities I do believe it is appropriate to obtain a CT scan the abdomen pelvis. She did not dialyze today. Will do a dry CT scan at this point. Patient's pain is apparently well controlled. There is no indication for analgesia. Differential diagnoses for her would be gastroenteritis, colitis, diverticulitis, IBS, IBD, electrolyte abnormality, anemia, CKD, ESRD, bowel edema. On top of CT scan, I will obtain routine laboratory testing. EKG. Will provide patient with IV fluids. Her blood pressure is currently on the low side. Will have to be careful as patient is a dialysis patient we do not want to fluid overload the patient. Differential Diagnosis Differential Diagnoses: The differential diagnosis associated with the presentation includes (See above) Lab Data MDM Lab Attestation statement: I reviewed the patient's lab results. 01/08/23 14:35 01/08/23 14:35 Labs: Lab Results 01/08/23 01/08/23 01/08/23 Range/Units 14:26 14:35 14:35 WBC 16.8 H (4.8-10.8) X10*3/uL RBC 2.64 L (4.20-5.50) X10*6/uL Hgb 8.6 L (12.0-16.0) g/dl Hct 27.2 L (37.0-47.0) % MCV 103.0 H D (80.0-98.0) fL MCH 32.6 (27.0-33.0) pg MCHC 31.6 (31.0-35.0) g/dl RDW 19.1 H (11.0-16.0) % Plt Count 270 D (160-400) X10*3/uL MPV 10.5 (9.4-12.3) fL Immature Gran % (Auto) 1.0 H (0.0-0.4) % Neut % (Auto) 75.7 H (45-73) % Lymph % (Auto) 10.4 L (20-40) % [place] % (Auto) 11.7 H (2-11) % Eos % (Auto) 0.7 (0-4) % Baso % (Auto) 0.5 (0-2) % Lymph # (Auto) 1.7 (1.2-4.9) X10*3/uL [place] # (Auto) 2.0 H (0.1-1.2) X10*3/uL Eos # (Auto) 0.1 (0.0-0.4) X10*3/uL Baso # (Auto) 0.1 (0.0-0.2) X10*3/uL Abs Immat Gran (auto) 0.17 H (0.00-0.03) X10*3/uL Absolute Neuts (auto) 12.7 H (2.0-8.3) x10*3/uL Absolute Nucleated RBC 0.000 (0.0-0.012) X10*3/uL Nucleated RBC % (auto) 0.0 (0.0-0.2) /100WBC PT 15.0 H (11.1-13.3) SEC INR 1.2 H (0.9-1.1) APTT (26.0-36.4) SEC Sodium (135-145) mmol/L Potassium (3.3-5.1) mmol/L Chloride (96-108) mmol/L Carbon Dioxide (22-29) mmol/L Anion Gap (12-20) BUN (9-16) mg/dL Creatinine (0.5-1.4) mg/dL Estim Creat Clear Calc Estimated GFR Random Glucose (60-115) mg/dL Lactic Acid 2.4 H* (0.5-2.0) mmol/L Calcium (8.4-10.2) mg/dL Total Bilirubin (0.0-1.0) mg/dL AST (5-31) U/L ALT (0-31) U/L Alkaline Phosphatase (39-117) U/L Total Protein (6.5-8.0) g/dL Albumin (3.5-5.0) g/dL TSH (0.32-4.0) uIU/mL Urine Color Urine Appearance Urine pH (5.0-9.0) Ur Specific [place] (1.005-1.025) Urine Protein (Neg-Trace) mg/dL Urine Glucose (UA) (Negative) mg/dL Urine Ketones (Negative) mg/dL Urine Blood (Negative) Urine Nitrite (Negative) Ur Leukocyte Esterase (Negative) Urine RBC (0-2) /HPF Urine WBC (0-5) /HPF Ur Squamous Epith Cells (0-2) /HPF Urine Bacteria (None Seen) Hyaline Casts (0-2) /LPF COVID-19 ([facility]) (Negative) COVID-19 Clin Com 01/08/23 01/08/23 01/08/23 Range/Units 14:35 14:35 14:35 WBC (4.8-10.8) X10*3/uL RBC (4.20-5.50) X10*6/uL Hgb (12.0-16.0) g/dl Hct (37.0-47.0) % MCV (80.0-98.0) fL MCH (27.0-33.0) pg MCHC (31.0-35.0) g/dl RDW (11.0-16.0) % Plt Count (160-400) X10*3/uL MPV (9.4-12.3) fL Immature Gran % (Auto) (0.0-0.4) % Neut % (Auto) (45-73) % Lymph % (Auto) (20-40) % [place] % (Auto) (2-11) % Eos % (Auto) (0-4) % Baso % (Auto) (0-2) % Lymph # (Auto) (1.2-4.9) X10*3/uL [place] # (Auto) (0.1-1.2) X10*3/uL Eos # (Auto) (0.0-0.4) X10*3/uL Baso # (Auto) (0.0-0.2) X10*3/uL Abs Immat Gran (auto) (0.00-0.03) X10*3/uL Absolute Neuts (auto) (2.0-8.3) x10*3/uL Absolute Nucleated RBC (0.0-0.012) X10*3/uL Nucleated RBC % (auto) (0.0-0.2) /100WBC PT (11.1-13.3) SEC INR (0.9-1.1) APTT 33.2 (26.0-36.4) SEC Sodium 141 (135-145) mmol/L Potassium 4.1 D (3.3-5.1) mmol/L Chloride 99 (96-108) mmol/L Carbon Dioxide 27 (22-29) mmol/L Anion Gap 19 (12-20) BUN 43 H (9-16) mg/dL Creatinine 5.61 H* (0.5-1.4) mg/dL Estim Creat Clear Calc 11.1 Estimated GFR 7 Random Glucose 160 H (60-115) mg/dL Lactic Acid (0.5-2.0) mmol/L Calcium 8.7 D (8.4-10.2) mg/dL Total Bilirubin 0.9 (0.0-1.0) mg/dL AST 26 (5-31) U/L ALT 51 H (0-31) U/L Alkaline Phosphatase 391 H (39-117) U/L Total Protein 6.0 L (6.5-8.0) g/dL Albumin 3.0 L (3.5-5.0) g/dL TSH 1.84 (0.32-4.0) uIU/mL Urine Color Urine Appearance Urine pH (5.0-9.0) Ur Specific [place] (1.005-1.025) Urine Protein (Neg-Trace) mg/dL Urine Glucose (UA) (Negative) mg/dL Urine Ketones (Negative) mg/dL Urine Blood (Negative) Urine Nitrite (Negative) Ur Leukocyte Esterase (Negative) Urine RBC (0-2) /HPF Urine WBC (0-5) /HPF Ur Squamous Epith Cells (0-2) /HPF Urine Bacteria (None Seen) Hyaline Casts (0-2) /LPF COVID-19 ([facility]ENZO) Negative (Negative) COVID-19 Clin Com See Note 01/08/23 Range/Units 15:11 WBC (4.8-10.8) X10*3/uL RBC (4.20-5.50) X10*6/uL Hgb (12.0-16.0) g/dl Hct (37.0-47.0) % MCV (80.0-98.0) fL MCH (27.0-33.0) pg MCHC (31.0-35.0) g/dl RDW (11.0-16.0) % Plt Count (160-400) X10*3/uL MPV (9.4-12.3) fL Immature Gran % (Auto) (0.0-0.4) % Neut % (Auto) (45-73) % Lymph % (Auto) (20-40) % [place] % (Auto) (2-11) % Eos % (Auto) (0-4) % Baso % (Auto) (0-2) % Lymph # (Auto) (1.2-4.9) X10*3/uL [place] # (Auto) (0.1-1.2) X10*3/uL Eos # (Auto) (0.0-0.4) X10*3/uL Baso # (Auto) (0.0-0.2) X10*3/uL Abs Immat Gran (auto) (0.00-0.03) X10*3/uL Absolute Neuts (auto) (2.0-8.3) x10*3/uL Absolute Nucleated RBC (0.0-0.012) X10*3/uL Nucleated RBC % (auto) (0.0-0.2) /100WBC PT (11.1-13.3) SEC INR (0.9-1.1) APTT (26.0-36.4) SEC Sodium (135-145) mmol/L Potassium (3.3-5.1) mmol/L Chloride (96-108) mmol/L Carbon Dioxide (22-29) mmol/L Anion Gap (12-20) BUN (9-16) mg/dL Creatinine (0.5-1.4) mg/dL Estim Creat Clear Calc Estimated GFR Random Glucose (60-115) mg/dL Lactic Acid (0.5-2.0) mmol/L Calcium (8.4-10.2) mg/dL Total Bilirubin (0.0-1.0) mg/dL AST (5-31) U/L ALT (0-31) U/L Alkaline Phosphatase (39-117) U/L Total Protein (6.5-8.0) g/dL Albumin (3.5-5.0) g/dL TSH (0.32-4.0) uIU/mL Urine Color Dark Yellow Urine Appearance Cloudy Urine pH 5.5 (5.0-9.0) Ur Specific [place] 1.020 (1.005-1.025) Urine Protein 100 (2+) H (Neg-Trace) mg/dL Urine Glucose (UA) Negative (Negative) mg/dL Urine Ketones Negative (Negative) mg/dL Urine Blood Moderate (2+) H (Negative) Urine Nitrite Negative (Negative) Ur Leukocyte Esterase Moderate (2+) H (Negative) Urine RBC >20 H (0-2) /HPF Urine WBC 11-20 H (0-5) /HPF Ur Squamous Epith Cells 0-2 (0-2) /HPF Urine Bacteria None Seen (None Seen) Hyaline Casts 11-20 (0-2) /LPF COVID-19 ([facility]) (Negative) COVID-19 Clin Com Independent Interpretation I performed an independent interpretation of an: EKG (Normal sinus rhythm heart rate 91, left axis deviation, possible LVH, no acute ST elevations depressions, nonspecific STT wave changes), Plain X-Ray (Chest: No acute disease process), Ultrasound (Limited study but no obvious acute cholecystitis) and CT Scan Radiology Impression Discussion of test interpretation with radiology: I have reviewed the radiologist's reading. Radiologist Impression: XR/XR chest 1V IMPRESSION: No acute cardiopulmonary process. ? Dictated By: Blair Marinelli MD Signed By: <Electronically signed by Blair Marinelli MD in [facility]> 01/08/23 1404 US/US abdomen limited IMPRESSION: Normal sonographic appearance of the gallbladder. Otherwise, very limited examination of additional organs as above. ? Dictated By: Roslyn Shore Signed By: <Electronically signed by Roslyn? Mone in [facility]> 01/08/23 1624 DD/ 1537 TD/TT:? 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 History obtained from or confirmed by: EMS Prescription Management I considered prescription management with: Pain Medication and Antibiotic Chronic Conditions Patient?s care impacted by: Diabetes and Hypertension Discharge Plan Discharge Clinical Impression: End stage kidney disease Patient Disposition: Still a Patient Prescriptions: No Action atorvastatin 40 mg tablet 40 mg PO BEDTIME levothyroxine 88 mcg tablet 88 mcg PO DAILY@0600 pantoprazole 40 mg tablet,delayed release (DR/EC) 40 mg PO BID@0630,1630 fluticasone propion-salmeterol [Advair Diskus] 500-50 mcg/dose blister with device 1 ea INHALATION BID albuterol sulfate [Ventolin HFA] 90 mcg/actuation HFA aerosol inhaler 2 puff inhalation Q4H PRN (Reason: Wheezing) Levemir U-100 Insulin 100 unit/mL solution 6 unit subcut BEDTIME sevelamer carbonate [Renvela] 800 mg tablet 800 mg PO BIDWM Eliquis 5 mg tablet 5 mg PO BID insulin aspart U-100 [Novolog FlexPen U-100 Insulin] 100 unit/mL (3 mL) insulin pen See Protocol subcut TIDAC Protocol: Insulin Correction Scale Less than or equal to 110 ---- Give (units): 0 111 to 150 Give (units): 0 151 to 200 Give (units): 2 201 to 250 Give (units): 4 251 to 300 Give (units): 6 301 to 350 Give (units): 8 Greater than 350 Give (units): 10 Call MD if Blood Glucose > : 350 cinacalcet 30 mg Tablet 30 mg PO DAILY gabapentin 100 mg capsule 100 mg PO TID midodrine 5 mg tablet [facility] 30 0RF Rx Instructions: Before dialysis valproic acid 250 mg Capsule 250 mg PO BID Qty: 60 0RF
--- NOTE | 2023-01-08 13:35 | PC.NURSE ---
pt has hx of seizures/epilepsy. 1 seizure pad applied to right side of bed. cannot locate any other seizure pads - excess blankets positioned and secure to left side of bed. x-ray currently in room.
[2023-01-08 14:50] LABS: MANUAL DIFF FLAG NO
--- NOTE | 2023-01-08 14:52 | PHA.MEDREC ---
Pharmacy Consult ? Medication Reconciliation Pharmacy has completed the medication reconciliation. Recieved list from Demarco Carroll. Dacia Mar, walkerD
[2023-01-08 14:57] LABS: Basophils Absolute Auto 0.1 X10*3/uL (0.0-0.2); Basophils Percent Auto 0.5 % (0-2); Eosinophils Absolute Auto 0.1 X10*3/uL (0.0-0.4); Eosinophils Percent Auto 0.7 % (0-4); Hematocrit 27.2 % (37.0-47.0); Hemoglobin 8.6 g/dl (12.0-16.0); Imm Gran Abs Auto 0.17 X10*3/uL (0.00-0.03); Lymphocytes Absolute Auto 1.7 X10*3/uL (1.2-4.9); Lymphocytes Percent Auto 10.4 % (20-40); Mean Corpuscular HGB Conc 31.6 g/dl (31.0-35.0); Mean Corpuscular Hemoglobin 32.6 pg (27.0-33.0); Mean Platelet Volume 10.5 fL (9.4-12.3); Monocytes Percent Auto 11.7 % (2-11); Neutrophils Absolute Auto 12.7 x10*3/uL (2.0-8.3); Neutrophils Percent Auto 75.7 % (45-73); Platelet Count 270 X10*3/uL (160-400); Red Blood Count 2.64 X10*6/uL (4.20-5.50); Red Cell Distribution Width 19.1 % (11.0-16.0); SCAN SMEAR FLAG 1; White Blood Count 16.8 X10*3/uL (4.8-10.8)
[2023-01-08 15:00] LABS: INTERNATIONAL NORM RATIO 1.2 (0.9-1.1)
[2023-01-08 15:03] LABS: Partial Thromboplastin Time 33.2 SEC (26.0-36.4)
--- NOTE | 2023-01-08 15:10 | PC.NURSE ---
provider verbal order to not give 1000 ml NS instead give 500 ml due to pt not having dialysis today.
[2023-01-08 15:19] LABS: COVID-19 Test Negative (Negative); IDNOW Serial# BCCEAD1C
[2023-01-08 15:24] LABS: Appearance Urine Cloudy; Color Urine Dark Yellow; Glucose Urine UA Negative (Negative); Leukocyte Esterase Urine Moderate (2+) (Negative); Nitrite Urine Negative (Negative); PH 5.5 (5.0-9.0); UMIC TRIGGER UACC YES; Urine Blood Moderate (2+) (Negative); Urine Ketones Negative (Negative); Urine Protein 100 (2+) mg/dL (Neg-Trace)
[2023-01-08] MEDS: 0.9 % Sodium Chloride 500 ML IV (15:29)
--- NOTE | 2023-01-08 15:29 | PC.NURSE ---
IVF hung and administered per provider order.
--- NOTE | 2023-01-08 15:30 | PC.NURSE ---
straight cath performed - pt tolerated well. 50ml of dark jerrell urine in bag post catheterization. urine sent to lab.
[2023-01-08 15:33] LABS: TSH reflex Free T4 1.84 uIU/mL (0.32-4.0)
--- NOTE | 2023-01-08 15:34 | PC.NURSE ---
old dressings removed and discarded, 4 allevyn life sacrum dressings dated and applied. 1 applied to left hip, 3 applied to right thigh/hip. pictures taken and sent to ED provider.
[2023-01-08 15:37] LABS: Alanine Aminotransferase 51 U/L (0-31); Alkaline Phosphatase 391 U/L (39-117); Anion Gap 19 (12-20); Aspartate Amino Transferase 26 U/L (5-31); Bilirubin Total 0.9 mg/dL (0.0-1.0); Blood Urea Nitrogen 43 mg/dL (9-16); Calcium 8.7 mg/dL (8.4-10.2); Carbon Dioxide 27 mmol/L (22-29); Chloride 99 mmol/L (96-108); Creatinine Clr Calc Pharmacy 11.1; Estimated Glomerular Filt Rate 7; Glucose Random 160 mg/dL (60-115); Potassium 4.1 mmol/L (3.3-5.1); Sodium 141 mmol/L (135-145)
[2023-01-08 15:38] LABS: Bacteria Urine None Seen (None Seen); RBC Urine >20 /HPF (0-2); Squamous Epithelial Cell Urine 0-2 /HPF (0-2); UACC Culture Trigger YES
[2023-01-08 15:38] LABS: Lactic Acid 2.4 mmol/L (0.5-2.0)
[2023-01-08 16:37] LABS: Reflex Lactate? Lactic Acid Added
--- NOTE | 2023-01-08 16:47 | PC.NURSE ---
phlebotomy called for additional labs pt difficult stick
--- NOTE | 2023-01-08 16:59 | PC.NURSE ---
pt's son bedside. pt's son notified on why his mother is here. IVF still hung and running. positive thrill and bruit on left sided fistula.
--- NOTE | 2023-01-08 17:15 | PC.NURSE ---
pt to ct scan
[2023-01-08 18:18] LABS: VBG Base Excess 5.9 mmol/L; VBG HCO3 30 mmol/L (22-26); VBG pCO2 45 mmHg; VBG pH 7.43 (7.32-7.43); VBG pO2 166 mmHg
[2023-01-08 18:24] LABS: Ammonia 57 umol/L (13-55)
[2023-01-08 18:26] LABS: Venous Blood Gas Refer to POC result
[2023-01-08 18:28] LABS: Valproate 31.6 mcg/mL (50.0-100.0)
[2023-01-08 18:37] LABS: ~Lactic Acid-LAB USE ONLY 2.5 mmol/L (0.5-2.0)
[2023-01-08 20:06] LABS: Reflex Lactate? 2 Y
--- NOTE | 2023-01-08 20:18 | P.HPHOSP_ITS ---
History of Present Illness Date of Service: 01/08/23 Attending physician on admission: Latrice Lal Chief Complaint: Altered mental status Pt is a 72-year-old female with a PMH significant for?paroxysmal AFib on Eliquis, HTN, HLD, insulin-dependent diabetes type 2, hypothyroidism, VIOLA, ESRD on HD Mon/Wed/Wed, mild intermittent asthma, VIOLA, recently diagnosed seizure disorder, and hx of CVA with expressive aphasia who presents to the ED with?altered mental status. Patient presented this morning to dialysis but was found to not be at her baseline mentation. Patient was also complaining of abdominal pain, and was sent to the ED for further evaluation. Of note, patient previously presented to the hospital with similar complaints of AMS at dialysis, and was admitted from 12/07/2022-01/04/2023. While in the hospital pt was transferred to the ICU for pressors for hypotension and for central line placement. During her stay there all medications were stopped and pt's mentation greatly improved. Pt's depakote was subsequently reduced to 250 bid with a plan to repeat levels as outpatient and monitor clinical course to see if depakote needs to be increased to 500 bid. Today, pt complains of feeling overall sick, tired, and weak. Has central abdominal pain but no N/V. Also reports dizzyness. Chronic SOB seemingly at baseline. No chest pain/pressure, palpitations. In the ED patient was afebrile with BP a little soft as low as 72/40, currently 129/43. Labs were significant for chronic leukocytosis of 16.8, H&H of 8.6/27.2, creatinine 5.61, lactic acid of 2.4 with repeat 2.5, ALT of 51, alk-phos of 391, ammonia slightly elevated at 57, a broke acid levels low at 31.6. UA likely negative for UTI. CXR showed no acute cardiopulmonary process. Abdominal ultrasound showed normal sonographic appearance of the gallbladder, otherwise limited in scope. CT of abdomen and pelvis showed no evidence of acute intra- abdominal process, and heterogeneous attenuation of the liver with evidence of hypodense area measuring 6 x 3.5 cm concerning for possible liver lesion. CT?of head found no intracranial bleed but redemonstrated area of infarct in right parieto-occipital region and showed deep white matter and periventricular hypoattenuation likely sequela of chronic microvascular angiopathy ischemia. EKG demonstrated normal sinus rhythm with no evidence of ST elevations or depressions. Pt was treated with IVF. Pt will be admitted to the hospital for fu rther workup and evaluation of acute metabolic encephalopathy of unknown origin. Review of Systems Review of Systems: Altered mental status Central abdominal pain Weakness Dizziness Denies chest pain/pressure, palpitations No nausea, vomiting, diarrhea Denies shortness of breath [facility] Medical History Asthma Epilepsy ESRD on dialysis Expressive aphasia History of CVA (cerebrovascular accident) Hypertension Insulin dependent type 2 diabetes mellitus Morbid obesity Obstructive sleep apnea Paroxysmal atrial fibrillation Tubular adenoma of colon Social History Household Members: Unknown / Unable to assess Housing: Unknown / Unable to assess Unable to assess alcohol history related to: Refusing to respond Alcohol intake: never Patient Tobacco Use Status: Never used Tobacco Use of substances other than those prescribed or required for medical reasons: No Advance Directives: Yes Advance Directives on File: Yes Advance Directives Date on File: 04/22/22 service: No Meds Allergies Allergy/AdvReac Type Severity Reaction Status Date / Time Penicillins Allergy Unknown Unknown Verified 01/08/23 12:51 lisinopri Allergy Unknown Unknown Uncoded 01/08/23 12:51 Active Medications: Current Medications Pharmacy Consult (Consult Rx Perform Med Rec) 1 each MISCELLANE ONCE PRN PRN Reason: Consult order Home Medications Medication Instructions Recorded Confirmed Last Taken Type albuterol sulfate 90 mcg/actuation 2 puff inhalation Q4H PRN Wheezing 12/07/22 01/08/23 Unknown History aerosol inhaler (Ventolin HFA) apixaban 5 mg tablet (Eliquis) 5 mg PO BID 12/07/22 01/08/23 12/07/22 History atorvastatin 40 mg tablet 40 mg PO BEDTIME 12/07/22 01/08/23 12/06/22 History cinacalcet 30 mg tablet 30 mg PO DAILY 12/07/22 01/08/23 12/07/22 History fluticasone 500 mcg-salmeterol 50 1 ea inhalation BID 12/07/22 01/08/23 12/07/22 History mcg/dose blistr powdr for inhalation (Advair Diskus) gabapentin 100 mg capsule 100 mg PO TID 12/07/22 01/08/23 Unknown History insulin aspart U-100 100 unit/mL See Protocol subcut TIDAC 12/07/22 01/08/23 Unknown History (3 mL) subcutaneous pen (Novolog FlexPen U-100 Insulin aspart) insulin detemir U-100 100 unit/mL 6 unit subcut BEDTIME 12/07/22 01/08/23 12/06/22 History subcutaneous solution (Levemir U-100 Insulin) levothyroxine 88 mcg tablet 88 mcg PO DAILY@0600 12/07/22 01/08/23 12/07/22 History pantoprazole 40 mg tablet,delayed 40 mg PO BID@0630,1630 12/07/22 01/08/23 12/07/22 History release sevelamer carbonate 800 mg tablet 800 mg PO BIDWM 12/07/22 01/08/23 12/07/22 History (Leonela) Physical Exam Vital Signs and Narrative: Vital Signs: Last Vital Signs Temp 98.3 F 01/08/23 18:00 Pulse 78 01/08/23 18:59 Resp 12 01/08/23 18:59 BP 114/56 L 01/08/23 18:59 Pulse Ox 99 01/08/23 18:59 O2 Del Method Room Air 01/08/23 18:59 O2 Flow Rate 3 01/08/23 18:44 Oxygen Flow Rate 3 01/08/23 12:51 BMI result Body Mass Index 40.4 Constitutional: Alert, mildly confused, looks uncomfortable. Mental Status: Oriented to person, place and time but not to situation Eyes: Pupils are equal, round, and reactive to light. Ear, Nose, and Throat: Oropharynx clear, mucous membranes moist. Ears and nose without deformities. Trachea midline. Respiratory: Clear to auscultation bilaterally. No wheezing, rales, or rhonchi. Cardiovascular: S1, S2 regular. No murmurs, rubs, or gallops. Gastrointestinal: Abdomen soft, non-tender, non-distended. Normal bowel sounds. Neurologic: Cranial nerves II-XII are grossly intact bilaterally. No focal neurological deficits. Moves all extremities spontaneously. Shaking of upper body and extremities. Skin: No rashes or lesions noted. Musculoskeletal: No cyanosis or clubbing. Extremities: No edema. Psychiatric: Normal mood and affect. Results Labs 01/08/23 14:35 01/08/23 14:35 Labs: Laboratory Results - last 24 hr 01/08/23 01/08/23 01/08/23 14:26 14:35 14:35 MCV 103.0 H D MCH 32.6 MCHC 31.6 RDW 19.1 H Plt Count 270 D MPV 10.5 Immature Gran % (Auto) 1.0 H Neut % (Auto) 75.7 H Lymph % (Auto) 10.4 L Green % (Auto) 11.7 H Eos % (Auto) 0.7 Baso % (Auto) 0.5 Lymph # (Auto) 1.7 Green # (Auto) 2.0 H Eos # (Auto) 0.1 Baso # (Auto) 0.1 Abs Immat Gran (auto) 0.17 H Absolute Neuts (auto) 12.7 H Absolute Nucleated RBC 0.000 Nucleated RBC % (auto) 0.0 PT 15.0 H INR 1.2 H APTT VBG pH VBG pCO2 VBG pO2 VBG HCO3 VBG O2 Saturation VBG Base Excess Anion Gap Estim Creat Clear Calc Estimated GFR Random Glucose Lactic Acid 2.4 H* Lactic Acid F/U @ 2Hr Calcium Total Bilirubin AST ALT Alkaline Phosphatase Ammonia Total Protein Albumin TSH Urine Color Urine Appearance Urine pH Ur Specific [place] Urine Protein Urine Glucose (UA) Urine Ketones Urine Blood Urine Nitrite Ur Leukocyte Esterase Urine RBC Urine WBC Ur Squamous Epith Cells Urine Bacteria Hyaline Casts Valproic Acid COVID-19 ([facility]ZO) COVID-19 Clin Com 01/08/23 01/08/23 01/08/23 14:35 14:35 14:35 MCV MCH MCHC RDW Plt Count MPV Immature Gran % (Auto) Neut % (Auto) Lymph % (Auto) Green % (Auto) Eos % (Auto) Baso % (Auto) Lymph # (Auto) Green # (Auto) Eos # (Auto) Baso # (Auto) Abs Immat Gran (auto) Absolute Neuts (auto) Absolute Nucleated RBC Nucleated RBC % (auto) PT INR APTT 33.2 VBG pH VBG pCO2 VBG pO2 VBG HCO3 VBG O2 Saturation VBG Base Excess Anion Gap 19 Estim Creat Clear Calc 11.1 Estimated GFR 7 Random Glucose 160 H Lactic Acid Lactic Acid F/U @ 2Hr Calcium 8.7 D Total Bilirubin 0.9 AST 26 ALT 51 H Alkaline Phosphatase 391 H Ammonia Total Protein 6.0 L Albumin 3.0 L TSH 1.84 Urine Color Urine Appearance Urine pH Ur Specific [place] Urine Protein Urine Glucose (UA) Urine Ketones Urine Blood Urine Nitrite Ur Leukocyte Esterase Urine RBC Urine WBC Ur Squamous Epith Cells Urine Bacteria Hyaline Casts Valproic Acid COVID-19 ([facility]) Negative COVID-19 Clin Com See Note 01/08/23 01/08/23 01/08/23 15:11 17:53 17:53 MCV MCH MCHC RDW Plt Count MPV Immature Gran % (Auto) Neut % (Auto) Lymph % (Auto) Green % (Auto) Eos % (Auto) Baso % (Auto) Lymph # (Auto) Green # (Auto) Eos # (Auto) Baso # (Auto) Abs Immat Gran (auto) Absolute Neuts (auto) Absolute Nucleated RBC Nucleated RBC % (auto) PT INR APTT VBG pH VBG pCO2 VBG pO2 VBG HCO3 VBG O2 Saturation VBG Base Excess Anion Gap Estim Creat Clear Calc Estimated GFR Random Glucose Lactic Acid Lactic Acid F/U @ 2Hr Calcium Total Bilirubin AST ALT Alkaline Phosphatase Ammonia 57 H Total Protein Albumin TSH Urine Color Dark Yellow Urine Appearance Cloudy Urine pH 5.5 Ur Specific [place] 1.020 Urine Protein 100 (2+) H Urine Glucose (UA) Negative Urine Ketones Negative Urine Blood Moderate (2+) H Urine Nitrite Negative Ur Leukocyte Esterase Moderate (2+) H Urine RBC >20 H Urine WBC 11-20 H Ur Squamous Epith Cells 0-2 Urine Bacteria None Seen Hyaline Casts 11-20 Valproic Acid 31.6 L COVID-19 ([facility]) COVID-19 Clin Com 01/08/23 01/08/23 17:53 18:06 MCV MCH MCHC RDW Plt Count MPV Immature Gran % (Auto) Neut % (Auto) Lymph % (Auto) Green % (Auto) Eos % (Auto) Baso % (Auto) Lymph # (Auto) Green # (Auto) Eos # (Auto) Baso # (Auto) Abs Immat Gran (auto) Absolute Neuts (auto) Absolute Nucleated RBC Nucleated RBC % (auto) PT INR APTT VBG pH 7.43 VBG pCO2 45 VBG pO2 166 VBG HCO3 30 H VBG O2 Saturation 99.0 VBG Base Excess 5.9 Anion Gap Estim Creat Clear Calc Estimated GFR Random Glucose Lactic Acid Lactic Acid F/U @ 2Hr 2.5 H* Calcium Total Bilirubin AST ALT Alkaline Phosphatase Ammonia Total Protein Albumin TSH Urine Color Urine Appearance Urine pH Ur Specific [place] Urine Protein Urine Glucose (UA) Urine Ketones Urine Blood Urine Nitrite Ur Leukocyte Esterase Urine RBC Urine WBC Ur Squamous Epith Cells Urine Bacteria Hyaline Casts Valproic Acid COVID-19 ([facility]) COVID-19 Clin Com Imaging Radiologist's Impressions: Impressions Chest X-Ray 01/08/23 13:40 IMPRESSION: No acute cardiopulmonary process. Abdomen Ultrasound 01/08/23 15:37 IMPRESSION: Normal sonographic appearance of the gallbladder. Otherwise, very limited examination of additional organs as above. Abdomen/Pelvis CT 01/08/23 16:00 IMPRESSION: Exam limited due to lack of contrast. * No CT evidence of acute intra-abdominal process to explain patient's pain symptoms. * Stable right adrenal nodule with attenuation below 0 favoring fat-containing adrenal adenoma. * There is heterogeneous attenuation of the liver especially the dome of the liver, hypodense area measures 6 x 3.5 cm concerning for possible liver lesion, attention to follow-up cross-sectional imaging with contrast preferably MRI recommended.. (Referring physician staff is being called, by physician staff assistance, to be alerted of the above critical findings and recommendations.) LJ 01/08/2023 5:[address] 01/08/23 17:20 IMPRESSION: * Redemonstration of area of infarct in the right parieto-occipital region with associated adjacent brain edema and encephalomalacia, this has not changed from prior CT of 12/07/2022. * Deep white matter and periventricular hypoattenuation, nonspecific; most likely sequela of chronic microvascular angiopathy ischemia. * No intracranial bleed. Assessment and Plan (1) Liver mass: Status: Acute (2) Encephalopathy: Status: Acute Plan Pt is a 72-year-old female with a PMH significant for?paroxysmal AFib on Eliquis, HTN, HLD, insulin-dependent diabetes type 2, hypothyroidism, VIOLA, ESRD on HD Mon/Wed/Fri, mild intermittent asthma, VIOLA, recently diagnosed seizure disorder, and hx of CVA with expressive aphasia who presents to the ED with?altered mental status. Pt was treated with IVF. Pt will be admitted to the hospital for further workup and evaluation of acute metabolic encephalopathy of unknown origin. Acute metabolic encephalopathy of unknown origin Unclear etiology: No likely source of infection, no leukocytosis, UA negative for UTI, CXR negative for pneumonia, CT of abdomen and pelvis negative for acute abdomen, Ammonia mildly elevated at 57 Patient with history of encephalopathy with extensive workup in the past, previous episode attributed to Depakote toxicity Will consult Neurology with additional workup in the morning Possible component of dementia as well NPO pending swallow evaluation Lactic acidosis Patient's lactic acid 2.4 with repeat 2.5 Likely secondary to liver lesion Patient does not meet sepsis criteria Repeat lactic acid in the morning Question of liver lesion CT of abdomen and pelvis on 01/08/2023 found heterogeneous hypodense attenuation of the liver measuring 6 x 3.5 cm, concerning for possible liver lesion Will get MRI of abdomen and pelvis wo contrast Consult with Neurology about managing patient's seizure disorder with Depakote Chronic anemia H&H 8.6/27.2, slightly down from 10 0.0/30.0 on 01/04/2023 EGD during last admission showed 2 nonbleeding ulcers, hemorrhagic folds in antrum and duodenum. Pending biopsy results Patient to follow on H.Pylori outpatient, to treat if positive Continue Eliquis Continue PPI Follow CBC Hypotension Patient with initial BP of 72/40 Likely secondary to dehydration Improved with fluids in ED to 129/43 Monitor BP Seizure disorder Diagnosed with video eeg [place] [facility] [place] Presented with breakthrough seizures on last admission with supratherapeutic depakote level Pt's depakote reduced to 250mg bid Current depakote level subtherapeutic at 31.6 Continue Depakote 250 b.i.d. for now, pending neurology consult and MRI of abdomen/pelvis results Paroxysmal atrial fibrillation Continue Eliquis ESRD on dialysis HD on F Nephrology consult Hypothyroidism Continue Synthroid. Insulin-dependent type 2 diabetes: Sliding scale, lantus Diabetic diet Mild intermittent asthma Not in acute exacerbation Continue home inhalers Full Code Attending:?Dr. Lal DVT Prophylaxis: On Eliquis Pt will require a hospitalization of at least two nights for treatment of acute metabolic encephalopathy of unknown origin. Time Spent With Patient Time: Total time managing care of this patient today ____ minutes. Quality Stroke Does the patient have a stroke diagnosis?: No VTE Prior VTE?: No VTE Risk Level:: Medical - moderate - high VTE Device Contraindication: Treatment Not Indicated VTE Drug Contraindication: N/A - Med Ordered
--- NOTE | 2023-01-08 20:37 | PC.NURSE ---
pt sleeping, wakes to verbal stimulus, vss, potline monitor intact, call palomino within reach, will continue to monitor.
[2023-01-08] MEDS: Apixaban 5 MG TABLET PO (21:55)
[2023-01-08] MEDS: Gabapentin 100 MG CAPSULE PO (21:55)
[2023-01-08] MEDS: Valproic Acid 250 MG CAPSULE PO (21:55)
[2023-01-08] MEDS: 0.9 % Sodium Chloride Flush 3 ML SYRINGE IVFLUSH (23:33)
[2023-01-08 23:49] LABS: ~Lactic Acid-LAB USE ONLY 2.1 mmol/L (0.5-2.0)
[2023-01-09] MEDS: Albumin Human 25 % 100 ML IV ×2 (01:30→02:29)
[2023-01-09 06:44] VITALS: BMI 38.9
[2023-01-09] MEDS: Levothyroxine Sodium 88 MCG TABLET PO (06:45)
[2023-01-09] MEDS: Omeprazole 20 MG CAPSULE.DR PO ×2 (06:45→15:18)
[2023-01-09 06:54] LABS: Glucose, Whole Blood 68 mg/dL (60-115)
[2023-01-09 07:10] LABS: Anion Gap 24 (12-20); Blood Urea Nitrogen 48 mg/dL (9-16); Calcium 9.3 mg/dL (8.4-10.2); Carbon Dioxide 21 mmol/L (22-29); Chloride 102 mmol/L (96-108); Estimated Glomerular Filt Rate 6; Glucose Random 79 mg/dL (60-115); Potassium 5.2 mmol/L (3.3-5.1); Sodium 142 mmol/L (135-145)
--- NOTE | 2023-01-09 07:19 | PC.NURSE ---
Pt up to floor with POC of 68. Pt passed nursing swallow eval and given juice and crackers. Pt also has large unstageable wounds on lateral hips and buttocks/coccyx. Pictures taken and foam dressings replaced. Wound consult placed.
[2023-01-09 07:47] VITALS: BP 122/71; PULSE 79; RESP 20; TEMP 36.1
[2023-01-09] MEDS: 0.9 % Sodium Chloride Flush 3 ML SYRINGE IVFLUSH ×3 (08:26→20:20)
[2023-01-09] MEDS: cefTRIAXone sodium 1 GM in 0.9 % Sodium Chloride 50 ML IV (08:26)
[2023-01-09] MEDS: Gabapentin 100 MG CAPSULE PO ×3 (08:26→20:19)
[2023-01-09] MEDS: Valproic Acid 250 MG CAPSULE PO ×2 (08:26→20:21)
[2023-01-09] MEDS: Cinacalcet HCl 30 MG TABLET PO (08:26)
[2023-01-09] MEDS: Apixaban 5 MG TABLET PO ×2 (08:26→20:19)
[2023-01-09 09:18] LABS: Hematocrit 25.6 % (37.0-47.0); Hemoglobin 8.1 g/dl (12.0-16.0); Mean Corpuscular HGB Conc 31.6 g/dl (31.0-35.0); Mean Corpuscular Hemoglobin 32.1 pg (27.0-33.0); Mean Corpuscular Volume 101.6 fL (80.0-98.0); Mean Platelet Volume 10.4 fL (9.4-12.3); Platelet Count 247 X10*3/uL (160-400); Red Blood Count 2.52 X10*6/uL (4.20-5.50); Red Cell Distribution Width 18.4 % (11.0-16.0); White Blood Count 11.6 X10*3/uL (4.8-10.8)
[2023-01-09 09:28] LABS: Lactic Acid 0.7 mmol/L (0.5-2.0)
--- NOTE | 2023-01-09 11:18 | P.PNIM_ITS ---
Subjective Subjective Date of Service: 01/09/23 Review of Systems Follow-up altered mental status Still some confusion but has baseline expressive aphasia Physical Exam Vital Signs: Vital Signs: Last Vital Signs Temp 96.9 F 01/09/23 07:47 Pulse 79 01/09/23 07:47 Resp 20 01/09/23 07:47 BP 122/71 01/09/23 07:47 Pulse Ox 100 01/08/23 23:44 O2 Del Method Nasal Cannula 01/08/23 23:44 O2 Flow Rate 3 01/08/23 23:44 Oxygen Flow Rate 3 01/08/23 12:51 BMI result Body Mass Index 38.9 Appearing in no acute distress lung sounds are clear to auscultation heart regular rate rhythm, clear S1, S2 positive bowel sounds, abdomen is soft, nontender neuro patient is alert, confused Objective Data Active Medications Acetaminophen (Acetaminophen 325 Mg Tablet) 650 mg PO Q6H PRN PRN Reason: Pain, Mild (Pain Scale 1-3) Albuterol Sulfate (Albuterol Sulfate 90 Mcg 8 Gm Inhaler) 2 puff INHALE Q4H PRN PRN Reason: Wheezing Apixaban (Apixaban 5 Mg Tablet) 5 mg PO BID [facility] Last Admin: 01/09/23 08:26 Dose: 5 mg Documented By: PORSHA Cinacalcet (Cinacalcet Hcl 30 Mg Tablet) 30 mg PO DAILY [facility] Last Admin: 01/09/23 08:26 Dose: 30 mg Documented By: PORSHA Docusate Sodium (Docusate Sodium 100 Mg Capsule) 100 mg PO DAILY PRN PRN Reason: Constipation Fluticasone/Vilanterol (Fluticasone/Vilanterol 200/25 Blst.W.Dev) 1 puff INHALE RDAILY [facility] Last Admin: 01/09/23 07:23 Dose: Not Given Documented By: ANA Non-Admin Reason: med unavailable jpharmacy called Gabapentin (Gabapentin 100 Mg Capsule) 100 mg PO TID [facility] Last Admin: 01/09/23 08:26 Dose: 100 mg Documented By: PORSHA Ceftriaxone Sodium 1 gm/ (Sodium Chloride) 50 mls @ 100 mls/hr IV Q24H [facility] Last Infusion: 01/09/23 08:56 Dose: 0 mls/hr Documented By: PORSHA Levothyroxine Sodium (Levothyroxine Sodium 88 Mcg Tablet) 88 mcg PO DAILY@0600 [facility] Last Admin: 01/09/23 06:45 Dose: 88 mcg Documented By: REGINALDO Midodrine (Midodrine Hcl 5 Mg Tablet) 5 mg PO MoWeFr@0900 [facility] Omeprazole (Omeprazole 20 Mg Capsule.) 20 mg PO BID@0630,1630 [facility] Last Admin: 01/09/23 06:45 Dose: 20 mg Documented By: REGINALDO Ondansetron HCl (Ondansetron Hcl 4 Mg/2 Ml Vial) 4 mg IVPUSH Q8H PRN PRN Reason: Nausea and Vomiting Pharmacy Consult (Consult Rx Perform Med Rec) 1 each MISCELLANE ONCE PRN PRN Reason: Consult order Sodium Chloride (0.9 % Sodium Chloride Flush 3 Ml Syringe) 3 ml IVFLUSH QSHIFT [facility] Last Admin: 01/09/23 08:26 Dose: 3 ml Documented By: PORSHA Valproic Acid (Valproic Acid 250 Mg Capsule) 250 mg PO BID [facility] Last Admin: 01/09/23 08:26 Dose: 250 mg Documented By: PORSHA Labs 01/09/23 09:04 01/09/23 06:39 Labs: Laboratory Results - last 24 hr 01/08/23 01/08/23 01/08/23 14:26 14:35 14:35 MCV 103.0 H D MCH 32.6 MCHC 31.6 RDW 19.1 H Plt Count 270 D MPV 10.5 Immature Gran % (Auto) 1.0 H Neut % (Auto) 75.7 H Lymph % (Auto) 10.4 L [place] % (Auto) 11.7 H Eos % (Auto) 0.7 Baso % (Auto) 0.5 Lymph # (Auto) 1.7 [place] # (Auto) 2.0 H Eos # (Auto) 0.1 Baso # (Auto) 0.1 Abs Immat Gran (auto) 0.17 H Absolute Neuts (auto) 12.7 H Absolute Nucleated RBC 0.000 Nucleated RBC % (auto) 0.0 PT 15.0 H INR 1.2 H APTT VBG pH VBG pCO2 VBG pO2 VBG HCO3 VBG O2 Saturation VBG Base Excess Anion Gap Estim Creat Clear Calc Estimated GFR POC Glucose Random Glucose Lactic Acid 2.4 H* Lactic Acid F/U @ 2Hr Lactic Acid F/U @ 4Hr Calcium Total Bilirubin AST ALT Alkaline Phosphatase Ammonia Total Protein Albumin TSH Urine Color Urine Appearance Urine pH Ur Specific [place] Urine Protein Urine Glucose (UA) Urine Ketones Urine Blood Urine Nitrite Ur Leukocyte Esterase Urine RBC Urine WBC Ur Squamous Epith Cells Urine Bacteria Hyaline Casts Valproic Acid COVID-19 ([facility]) COVID-19 Clin Com 01/08/23 01/08/23 01/08/23 14:35 14:35 14:35 MCV MCH MCHC RDW Plt Count MPV Immature Gran % (Auto) Neut % (Auto) Lymph % (Auto) [place] % (Auto) Eos % (Auto) Baso % (Auto) Lymph # (Auto) [place] # (Auto) Eos # (Auto) Baso # (Auto) Abs Immat Gran (auto) Absolute Neuts (auto) Absolute Nucleated RBC Nucleated RBC % (auto) PT INR APTT 33.2 VBG pH VBG pCO2 VBG pO2 VBG HCO3 VBG O2 Saturation VBG Base Excess Anion Gap 19 Estim Creat Clear Calc 11.1 Estimated GFR 7 POC Glucose Random Glucose 160 H Lactic Acid Lactic Acid F/U @ 2Hr Lactic Acid F/U @ 4Hr Calcium 8.7 D Total Bilirubin 0.9 AST 26 ALT 51 H Alkaline Phosphatase 391 H Ammonia Total Protein 6.0 L Albumin 3.0 L TSH 1.84 Urine Color Urine Appearance Urine pH Ur Specific [place] Urine Protein Urine Glucose (UA) Urine Ketones Urine Blood Urine Nitrite Ur Leukocyte Esterase Urine RBC Urine WBC Ur Squamous Epith Cells Urine Bacteria Hyaline Casts Valproic Acid COVID-19 ([facility]) Negative COVID-19 Clin Com See Note 01/08/23 01/08/23 01/08/23 15:11 17:53 17:53 MCV MCH MCHC RDW Plt Count MPV Immature Gran % (Auto) Neut % (Auto) Lymph % (Auto) [place] % (Auto) Eos % (Auto) Baso % (Auto) Lymph # (Auto) [place] # (Auto) Eos # (Auto) Baso # (Auto) Abs Immat Gran (auto) Absolute Neuts (auto) Absolute Nucleated RBC Nucleated RBC % (auto) PT INR APTT VBG pH VBG pCO2 VBG pO2 VBG HCO3 VBG O2 Saturation VBG Base Excess Anion Gap Estim Creat Clear Calc Estimated GFR POC Glucose Random Glucose Lactic Acid Lactic Acid F/U @ 2Hr Lactic Acid F/U @ 4Hr Calcium Total Bilirubin AST ALT Alkaline Phosphatase Ammonia 57 H Total Protein Albumin TSH Urine Color Dark Yellow Urine Appearance Cloudy Urine pH 5.5 Ur Specific [place] 1.020 Urine Protein 100 (2+) H Urine Glucose (UA) Negative Urine Ketones Negative Urine Blood Moderate (2+) H Urine Nitrite Negative Ur Leukocyte Esterase Moderate (2+) H Urine RBC >20 H Urine WBC 11-20 H Ur Squamous Epith Cells 0-2 Urine Bacteria None Seen Hyaline Casts 11-20 Valproic Acid 31.6 L COVID-19 ([facility]) COVID-19 Clin Com 01/08/23 01/08/23 01/08/23 17:53 18:06 23:19 MCV MCH MCHC RDW Plt Count MPV Immature Gran % (Auto) Neut % (Auto) Lymph % (Auto) [place] % (Auto) Eos % (Auto) Baso % (Auto) Lymph # (Auto) [place] # (Auto) Eos # (Auto) Baso # (Auto) Abs Immat Gran (auto) Absolute Neuts (auto) Absolute Nucleated RBC Nucleated RBC % (auto) PT INR APTT VBG pH 7.43 VBG pCO2 45 VBG pO2 166 VBG HCO3 30 H VBG O2 Saturation 99.0 VBG Base Excess 5.9 Anion Gap Estim Creat Clear Calc Estimated GFR POC Glucose Random Glucose Lactic Acid Lactic Acid F/U @ 2Hr 2.5 H* Lactic Acid F/U @ 4Hr 2.1 H* Calcium Total Bilirubin AST ALT Alkaline Phosphatase Ammonia Total Protein Albumin TSH Urine Color Urine Appearance Urine pH Ur Specific [place] Urine Protein Urine Glucose (UA) Urine Ketones Urine Blood Urine Nitrite Ur Leukocyte Esterase Urine RBC Urine WBC Ur Squamous Epith Cells Urine Bacteria Hyaline Casts Valproic Acid COVID-19 ([facility]) COVID-19 Clin Com 01/09/23 01/09/23 01/09/23 06:39 06:50 09:04 MCV 101.6 H MCH 32.1 MCHC 31.6 RDW 18.4 H Plt Count 247 MPV 10.4 Immature Gran % (Auto) Neut % (Auto) Lymph % (Auto) [place] % (Auto) Eos % (Auto) Baso % (Auto) Lymph # (Auto) [place] # (Auto) Eos # (Auto) Baso # (Auto) Abs Immat Gran (auto) Absolute Neuts (auto) Absolute Nucleated RBC 0.000 Nucleated RBC % (auto) 0.0 PT INR APTT VBG pH VBG pCO2 VBG pO2 VBG HCO3 VBG O2 Saturation VBG Base Excess Anion Gap 24 H Estim Creat Clear Calc 9.0 Estimated GFR 6 POC Glucose 68 Random Glucose 79 Lactic Acid Lactic Acid F/U @ 2Hr Lactic Acid F/U @ 4Hr Calcium 9.3 D Total Bilirubin AST ALT Alkaline Phosphatase Ammonia Total Protein Albumin TSH Urine Color Urine Appearance Urine pH Ur Specific [place] Urine Protein Urine Glucose (UA) Urine Ketones Urine Blood Urine Nitrite Ur Leukocyte Esterase Urine RBC Urine WBC Ur Squamous Epith Cells Urine Bacteria Hyaline Casts Valproic Acid COVID-19 ([facility]) COVID-19 [employer] Com 01/09/23 09:04 MCV MCH MCHC RDW Plt Count MPV Immature Gran % (Auto) Neut % (Auto) Lymph % (Auto) [place] % (Auto) Eos % (Auto) Baso % (Auto) Lymph # (Auto) [place] # (Auto) Eos # (Auto) Baso # (Auto) Abs Immat Gran (auto) Absolute Neuts (auto) Absolute Nucleated RBC Nucleated RBC % (auto) PT INR APTT VBG pH VBG pCO2 VBG pO2 VBG HCO3 VBG O2 Saturation VBG Base Excess Anion Gap Estim Creat Clear Calc Estimated GFR POC Glucose Random Glucose Lactic Acid 0.7 Lactic Acid F/U @ 2Hr Lactic Acid F/U @ 4Hr Calcium Total Bilirubin AST ALT Alkaline Phosphatase Ammonia Total Protein Albumin TSH Urine Color Urine Appearance Urine pH Ur Specific [place] Urine Protein Urine Glucose (UA) Urine Ketones Urine Blood Urine Nitrite Ur Leukocyte Esterase Urine RBC Urine WBC Ur Squamous Epith Cells Urine Bacteria Hyaline Casts Valproic Acid COVID-19 ([facility]) COVID-19 Clin Com Assessment and Plan (1) Liver mass: Status: Acute Plan Pt is a 72-year-old female with a PMH significant for?paroxysmal AFib on Eliquis, HTN, HLD, insulin-dependent diabetes type 2, hypothyroidism, VIOLA, ESRD on HD Wed/Wed/Wed, mild intermittent asthma, VIOLA, recently diagnosed seizure disorder, and hx of CVA with expressive aphasia who presents to the ED with?altered mental status. Pt was treated with IVF. Pt will be admitted to the hospital for further workup and evaluation of acute metabolic encephalopathy of unknown origin. Acute metabolic encephalopathy possibly related to UTI Patient with history of encephalopathy with extensive workup in the past, previous episode attributed to Depakote toxicity Possible component of dementia as well will start puree diet UTI start Rocephin follow urine cx Lactic acidosis Patient's lactic acid 2.4 with repeat 2.5 Likely secondary to liver lesion Patient does not meet sepsis criteria Repeat lactic acid in the morning Question of liver lesion CT of abdomen and pelvis on 01/08/2023 found heterogeneous hypodense attenuation of the liver measuring 6 x 3.5 cm, concerning for possible liver lesion Will get MRI of abdomen and pelvis wo contrast Consult with Neurology about managing patient's seizure disorder with Depakote Chronic anemia H&H 8.6/27.2, slightly down from 10 0.0/30.0 on 01/04/2023 EGD during last admission showed 2 nonbleeding ulcers, hemorrhagic folds in antrum and duodenum. Pending biopsy results Patient to follow on H.Pylori outpatient, to treat if positive Continue Eliquis Continue PPI Follow CBC Hypotension. Resolved Patient with initial BP of 72/40 Likely secondary to dehydration Resolved after IV fluids Monitor BP Seizure disorder [place] [facility] [place] with breakthrough seizures on last admission with supratherapeutic depakote level Pt's depakote reduced to 250mg bid Current depakote level subtherapeutic at 31.6 Continue Depakote 250 b.i.d. for now, pending neurology consult and MRI of abdomen/pelvis results Paroxysmal atrial fibrillation Continue Eliquis ESRD on dialysis HD on MWF Dialyzed today SENSIPAR ON DIALYSIS DAYS nephro following Hypothyroidism Continue Synthroid. Insulin-dependent type 2 diabetes Sliding scale, lantus Diabetic diet Mild intermittent asthma Not in acute exacerbation Continue home inhalers Full Code Attending:?Dr. Acosta DVT Prophylaxis: On Eliquis Continue hospitalization for treatment of acute mental status changes, UTI requiring antibiotics Time Spent With Patient Time: Total time managing care of this patient today ____ minutes. Quality Stroke Does the patient have a stroke diagnosis?: No VTE Prior VTE?: No VTE Risk Level:: Medical - moderate - high VTE Device Contraindication: Treatment Not Indicated VTE Drug Contraindication: N/A - Med Ordered
[2023-01-09 12:00] VITALS: BP 102/67; PULSE 78; RESP 20; TEMP 36.2; O2SAT 100
--- NOTE | 2023-01-09 14:31 | MHC.CM.PN ---
Lives with son Dre on first floor. Ramp to enter, home is fully handicapped accessible per Dre. He takes her to her appts. [employer] transports her to OP HD: [facility] Brian, W, F 11:00-3:30. Was previously on VNA service, he does not remember which agency, but said always came from [facility]. Does not want them back. Right up to hospital admission, Pt was at [facility], Dre very much prefers [facility] for first choice to complete STR rather than return to [facility]. He is not at all open to an LTC considerations. Referral made to [facility] per Dre's request. He is requesting that upon D/C from STR, that his mother receive a VNA with a high school social science teacher; referral also made to [facility] for high school social studies teacher oversight. Dre is inquiring how to get his mother a hospital bed; states he has bought her 6 beds over the recent past, and none of them are working for her growing needs. He would like it communicated to SNF and/or VNA that he is looking for assistance in applying to her insurances for hospital bed delivery to their home for her medical care. Referrals made to [facility] and [facility] at this time. CM to follow.
--- NOTE | 2023-01-09 15:07 | PM.CNNEP ---
History of Present Illness Reason for Consult Consult date: 01/09/23 Chief Complaint Chief complaint: Altered mental status History of Present Illness Narrative: Ms. 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 She missed Dialysis Wednesday. Review of Systems Review of Systems Follow-up altered mental status Still some confusion but has baseline expressive aphasia PMFSH Past Medical History Medical History Asthma Epilepsy ESRD on dialysis Expressive aphasia History of CVA (cerebrovascular accident) Hypertension Insulin dependent type 2 diabetes mellitus Morbid obesity Obstructive sleep apnea Paroxysmal atrial fibrillation Tubular adenoma of colon Social History Social History Household Members: Unknown / Unable to assess Housing: Unknown / Unable to assess Unable to assess alcohol history related to: Unable to respond Alcohol intake: never Patient Tobacco Use Status: Tobacco use Unknown Advance Directives Date on File: 04/22/22 service: No Meds Allergies Allergy/AdvReac Type Severity Reaction Status Date / Time Penicillins Allergy Unknown Unknown Verified 01/08/23 12:51 lisinopri Allergy Unknown Unknown Uncoded 01/08/23 12:51 Active Medications: Current Medications Acetaminophen (Acetaminophen 325 Mg Tablet) 650 mg PO Q6H PRN PRN Reason: Pain, Mild (Pain Scale 1-3) Albuterol Sulfate (Albuterol Sulfate 90 Mcg 8 Gm Inhaler) 2 puff INHALE Q4H PRN PRN Reason: Wheezing Apixaban (Apixaban 5 Mg Tablet) 5 mg PO BID [facility] Last Admin: 01/09/23 08:26 Dose: 5 mg Cinacalcet (Cinacalcet Hcl 30 Mg Tablet) 30 mg PO DAILY [facility] Last Admin: 01/09/23 08:26 Dose: 30 mg Docusate Sodium (Docusate Sodium 100 Mg Capsule) 100 mg PO DAILY PRN PRN Reason: Constipation Fluticasone/Vilanterol (Fluticasone/Vilanterol 200/25 Blst.W.Dev) 1 puff INHALE RDAILY [facility] Last Admin: 01/09/23 07:23 Dose: Not Given Gabapentin (Gabapentin 100 Mg Capsule) 100 mg PO TID [facility] Last Admin: 01/09/23 08:26 Dose: 100 mg Ceftriaxone Sodium 1 gm/ (Sodium Chloride) 50 mls @ 100 mls/hr IV Q24H [facility] Last Infusion: 01/09/23 08:56 Dose: Infused Levothyroxine Sodium (Levothyroxine Sodium 88 Mcg Tablet) 88 mcg PO DAILY@0600 [facility] Last Admin: 01/09/23 06:45 Dose: 88 mcg Midodrine (Midodrine Hcl 5 Mg Tablet) 5 mg PO MoWeFr@0900 [facility] Omeprazole (Omeprazole 20 Mg Capsule.Dr) 20 mg PO BID@0630,1630 [facility] Last Admin: 01/09/23 06:45 Dose: 20 mg Ondansetron HCl (Ondansetron Hcl 4 Mg/2 Ml Vial) 4 mg IVPUSH Q8H PRN PRN Reason: Nausea and Vomiting Pharmacy Consult (Consult Rx Perform Med Rec) 1 each MISCELLANE ONCE PRN PRN Reason: Consult order Sodium Chloride (0.9 % Sodium Chloride Flush 3 Ml Syringe) 3 ml IVFLUSH QSHIFT [facility] Last Admin: 01/09/23 08:26 Dose: 3 ml Tramadol HCl (Tramadol Hcl 50 Mg Tablet) 25 mg PO Q6H PRN PRN Reason: Pain, Mild (Pain Scale 1-3) Valproic Acid (Valproic Acid 250 Mg Capsule) 250 mg PO BID [facility] Last Admin: 01/09/23 08:26 Dose: 250 mg Home Medications Medication Instructions Recorded Confirmed Last Taken Type albuterol sulfate 90 mcg/actuation 2 puff inhalation Q4H PRN Wheezing 12/07/22 01/08/23 Unknown History aerosol inhaler (Ventolin HFA) apixaban 5 mg tablet (Eliquis) 5 mg PO BID 12/07/22 01/08/23 12/07/22 History atorvastatin 40 mg tablet 40 mg PO BEDTIME 12/07/22 01/08/23 12/06/22 History cinacalcet 30 mg tablet 30 mg PO DAILY 12/07/22 01/08/23 12/07/22 History fluticasone 500 mcg-salmeterol 50 1 ea inhalation BID 12/07/22 01/08/23 12/07/22 History mcg/dose blistr powdr for inhalation (Advair Diskus) gabapentin 100 mg capsule 100 mg PO TID 12/07/22 01/08/23 Unknown History insulin aspart U-100 100 unit/mL See Protocol subcut TIDAC 12/07/22 01/08/23 Unknown History (3 mL) subcutaneous pen (Novolog FlexPen U-100 Insulin aspart) insulin detemir U-100 100 unit/mL 6 unit subcut BEDTIME 12/07/22 01/08/23 12/06/22 History subcutaneous solution (Levemir U-100 Insulin) levothyroxine 88 mcg tablet 88 mcg PO DAILY@0600 12/07/22 01/08/23 12/07/22 History pantoprazole 40 mg tablet,delayed 40 mg PO BID@0630,1630 12/07/22 01/08/23 12/07/22 History release sevelamer carbonate 800 mg tablet 800 mg PO BIDWM 12/07/22 01/08/23 12/07/22 History (Renchasidy) Physical Exam Vital Signs: Last Vital Signs Temp 97.1 F 01/09/23 12:00 Pulse 78 01/09/23 12:00 Resp 20 01/09/23 12:00 BP 102/67 01/09/23 12:00 Pulse Ox 100 01/09/23 12:00 O2 Del Method Nasal Cannula 01/09/23 12:00 O2 Flow Rate 2 01/09/23 12:00 Oxygen Flow Rate 3 01/08/23 12:51 BMI result Body Mass Index 38.9 Const General: no acute distress Chest Chest palpation & inspection: normal inspection of the chest Resp Effort & Inspection: normal respiratory effort Cardio Jugular venous distension: no JVD Rhythm: abnormal rhythm GI Auscultation: normal bowel sounds Extrem Other: LUE AVF with bruit and thrill. Results Lab Results 01/09/23 09:04 01/09/23 06:39 Lab results: Chemistry 01/08/23 01/09/23 14:35 06:39 Sodium 141 142 Potassium 4.1 D 5.2 H D Carbon Dioxide 27 21 L BUN 43 H 48 H Creatinine 5.61 H* 6.74 H* Calcium 8.7 D 9.3 D Hematology 01/08/23 01/09/23 14:35 09:04 WBC 16.8 H 11.6 H Hgb 8.6 L 8.1 L Plt Count 270 D 247 Urinalysis 01/08/23 15:11 Urine Color Dark Yellow Urine Appearance Cloudy Urine pH 5.5 Ur Specific [place] 1.020 Urine Protein 100 (2+) H Urine Glucose (UA) Negative Urine Ketones Negative Urine Blood Moderate (2+) H Urine Nitrite Negative Ur Leukocyte Esterase Moderate (2+) H Urine RBC >20 H Urine WBC 11-20 H Ur Squamous Epith Cells 0-2 Hyaline Casts 11-20 Assessment and Plan (1) Liver mass: Status: Acute (2) Encephalopathy: Status: Acute (3) ESRD on dialysis: Status: Acute Plan Ms. 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 Plan: - iHD today as she missed Wednesday - MWF dialysis thereafter - Sensipar 120mg MWF - Sevelamer 800mg TID - Midodrine with Dialysis - Keppra dosed post HD Time Spent With Patient Time: Total time managing care of this patient today ____ minutes. Procedures Date of Service Date of Service: 01/09/23
[2023-01-09 15:18] VITALS: BP 116/53; PULSE 87; RESP 14; TEMP 35.9; O2SAT 100
--- NOTE | 2023-01-09 16:48 | PC.NURSE ---
Pt went for HD this morning--1kilo off per HD RN, limited by BP. Started on IV Rocephin for UTI. Repeat lactic improved this morning. Pt tolerating puree diet well, taking pills whole without difficulty. Extensive pressure injuries to lower body, photographed and documented in chart, dressings applied. Remains on 3L NC. NSR.
[2023-01-09 18:59] VITALS: BP 138/88; PULSE 86; RESP 14; TEMP 35.9; O2SAT 100
[2023-01-10] VITALS (7 sets, daily range): BP systolic 106–134; BP diastolic 46–77; PULSE 83–98; RESP 13–18; TEMP 35.7–36.6; O2SAT 94–100
[2023-01-10] MEDS: Levothyroxine Sodium 88 MCG TABLET PO (05:33)
[2023-01-10] MEDS: Omeprazole 20 MG CAPSULE.DR PO ×2 (05:33→16:10)
[2023-01-10] MEDS: Gabapentin 100 MG CAPSULE PO ×3 (08:45→19:42)
[2023-01-10] MEDS: cefTRIAXone sodium 1 GM in 0.9 % Sodium Chloride 50 ML IV (08:45)
[2023-01-10] MEDS: Apixaban 5 MG TABLET PO ×2 (08:45→19:42)
[2023-01-10] MEDS: Valproic Acid 250 MG CAPSULE PO ×2 (08:45→19:42)
[2023-01-10] MEDS: 0.9 % Sodium Chloride Flush 3 ML SYRINGE IVFLUSH ×3 (08:46→19:42)
--- NOTE | 2023-01-10 09:01 | HO.PM.IMPN ---
Subjective Subjective Date of Service: 01/10/23 Review of Systems Follow-up altered mental status Still some confusion but has baseline expressive aphasia Physical Exam Vital Signs: Vital Signs: Last Vital Signs Temp 97.8 F 01/10/23 08:00 Pulse 97 01/10/23 08:00 Resp 16 01/10/23 08:00 BP 121/74 01/10/23 08:00 Pulse Ox 99 01/10/23 08:00 O2 Del Method Room Air 01/10/23 08:00 O2 Flow Rate 2 01/10/23 03:07 Oxygen Flow Rate 3 01/08/23 12:51 BMI result Body Mass Index 38.9 Appearing in no acute distress lung sounds are clear to auscultation heart regular rate rhythm, clear S1, S2 positive bowel sounds, abdomen is soft, nontender neuro patient is alert x3, no focal deficits Objective Data Active Medications Acetaminophen (Acetaminophen 325 Mg Tablet) 650 mg PO Q6H PRN PRN Reason: Pain, Mild (Pain Scale 1-3) Albuterol Sulfate (Albuterol Sulfate 90 Mcg 8 Gm Inhaler) 2 puff INHALE Q4H PRN PRN Reason: Wheezing Apixaban (Apixaban 5 Mg Tablet) 5 mg PO BID [facility] Last Admin: 01/10/23 08:45 Dose: 5 mg Documented By: RASHAWN Cinacalcet (Cinacalcet Hcl 30 Mg Tablet) 30 mg PO DIALYSIS X3 MOWEFR [facility] Docusate Sodium (Docusate Sodium 100 Mg Capsule) 100 mg PO DAILY PRN PRN Reason: Constipation Fluticasone/Vilanterol (Fluticasone/Vilanterol 200/25 Blst.W.Dev) 1 puff INHALE RDAILY [facility] Last Admin: 01/10/23 07:16 Dose: Not Given Documented By: ANA Non-Admin Reason: med unavail pharmacy called Gabapentin (Gabapentin 100 Mg Capsule) 100 mg PO TID [facility] Last Admin: 01/10/23 08:45 Dose: 100 mg Documented By: RASHAWN Ceftriaxone Sodium 1 gm/ (Sodium Chloride) 50 mls @ 100 mls/hr IV Q24H [facility] Last Admin: 01/10/23 08:45 Dose: 100 mls/hr Documented By: RASHAWN Levothyroxine Sodium (Levothyroxine Sodium 88 Mcg Tablet) 88 mcg PO DAILY@0600 [facility] Last Admin: 01/10/23 05:33 Dose: 88 mcg Documented By: MARISSA Midodrine (Midodrine Hcl 5 Mg Tablet) 5 mg PO MoWeFr@0900 [facility] Nystatin (Nystatin Powder 15 Gm Bottle) 1 appl TOPICAL BID [facility]; Protocol Omeprazole (Omeprazole 20 Mg Capsule.) 20 mg PO BID@0630,1630 [facility] Last Admin: 01/10/23 05:33 Dose: 20 mg Documented By: MARISSA Ondansetron HCl (Ondansetron Hcl 4 Mg/2 Ml Vial) 4 mg IVPUSH Q8H PRN PRN Reason: Nausea and Vomiting Pharmacy Consult (Consult Rx Perform Med Rec) 1 each MISCELLANE ONCE PRN PRN Reason: Consult order Sodium Chloride (0.9 % Sodium Chloride Flush 3 Ml Syringe) 3 ml IVFLUSH QSHIFT [facility] Last Admin: 01/10/23 08:46 Dose: 3 ml Documented By: RASHAWN Tramadol HCl (Tramadol Hcl 50 Mg Tablet) 25 mg PO Q6H PRN PRN Reason: Pain, Mild (Pain Scale 1-3) Valproic Acid (Valproic Acid 250 Mg Capsule) 250 mg PO BID [facility] Last Admin: 01/10/23 08:45 Dose: 250 mg Documented By: RASHAWN Labs 01/09/23 09:04 01/09/23 06:39 Labs: Laboratory Results - last 24 hr 01/09/23 01/09/23 09:04 09:04 MCV 101.6 H MCH 32.1 MCHC 31.6 RDW 18.4 H Plt Count 247 MPV 10.4 Absolute Nucleated RBC 0.000 Nucleated RBC % (auto) 0.0 Lactic Acid 0.7 Microbiology Microbiology Results: Microbiology 01/08/23 14:26 Blood Culture - Preliminary Blood - Venous No growth after 24 hours. 01/08/23 14:26 Blood Culture - Preliminary Blood - Venous No growth after 24 hours. 01/08/23 Unknown Urine Culture - Preliminary Urine clean catch - Urine matt top No growth to date. Assessment and Plan (1) Liver mass: Status: Acute Plan Pt is a 72-year-old female with a PMH significant for?paroxysmal AFib on Eliquis, HTN, HLD, insulin-dependent diabetes type 2, hypothyroidism, VIOLA, ESRD on HD Mon/Wed/Wed, mild intermittent asthma, VIOLA, recently diagnosed seizure disorder, and hx of CVA with expressive aphasia who presents to the ED with?altered mental status. Pt was treated with IVF. Pt will be admitted to the hospital for further workup and evaluation of acute metabolic encephalopathy of unknown origin. Acute metabolic encephalopathy. Improving Likely related to UTI Patient with history of encephalopathy with extensive workup in the past, previous episode attributed to Depakote toxicity Possible component of dementia as well will start puree diet UTI start Rocephin follow urine cx Lactic acidosis Patient's lactic acid 2.4 with repeat 2.5 Likely secondary to liver lesion Patient does not meet sepsis criteria Repeat lactic acid in the morning Question of liver lesion CT of abdomen and pelvis on 01/08/2023 found heterogeneous hypodense attenuation of the liver measuring 6 x 3.5 cm, concerning for possible liver lesion Will get MRI of abdomen and pelvis wo contrast Consult with Neurology about managing patient's seizure disorder with Depakote Chronic anemia H&H 8.6/27.2, slightly down from 10 0.0/30.0 on 01/04/2023 EGD during last admission showed 2 nonbleeding ulcers, hemorrhagic folds in antrum and duodenum. Pending biopsy results Patient to follow on H.Pylori outpatient, to treat if positive Continue Eliquis Continue PPI Follow CBC Hypotension. Resolved Patient with initial BP of 72/40 Likely secondary to dehydration Resolved after IV fluids Monitor BP Seizure disorder Diagnosed with video eeg at [facility] Presented with breakthrough seizures on last admission with supratherapeutic depakote level Pt's depakote reduced to 250mg bid Current depakote level subtherapeutic at 31.6 Continue Depakote 250 b.i.d. for now, pending neurology consult and MRI of abdomen/pelvis results Paroxysmal atrial fibrillation Continue Eliquis ESRD on dialysis HD on MWF Dialyzed today SENSIPAR ON DIALYSIS DAYS nephro following Hypothyroidism Continue Synthroid. Insulin-dependent type 2 diabetes Sliding scale, lantus Diabetic diet Mild intermittent asthma Not in acute exacerbation Continue home inhalers Full Code Attending:?Dr. Acosta DVT Prophylaxis: On Eliquis Continue hospitalization for treatment of acute mental status changes, UTI requiring antibiotics Time Spent With Patient Time: Total time managing care of this patient today ____ minutes. Quality Stroke Does the patient have a stroke diagnosis?: No VTE Prior VTE?: No VTE Risk Level:: Medical - moderate - high VTE Device Contraindication: Treatment Not Indicated VTE Drug Contraindication: N/A - Med Ordered
[2023-01-10] MEDS: Nystatin Powder 15 GM BOTTLE 1 APPL TOPICAL ×2 (11:17→19:48)
--- NOTE | 2023-01-10 12:12 | P.PNNP_ITS ---
Subjective Subjective Date of Service: 01/10/23 Interval history: dialyzed yesterday Physical Exam Vital Signs: Vital Signs: Last Vital Signs Temp 97.7 F 01/10/23 11:21 Pulse 89 01/10/23 11:21 Resp 18 01/10/23 11:21 BP 120/70 01/10/23 11:21 Pulse Ox 100 01/10/23 11:21 O2 Del Method Room Air 01/10/23 11:21 O2 Flow Rate 2 01/10/23 03:07 Oxygen Flow Rate 3 01/08/23 12:51 BMI result Body Mass Index 38.9 Const: General: no acute distress Chest: Chest palpation & inspection: normal inspection of the chest Resp: Effort & Inspection: normal respiratory effort Cardio: Jugular venous distension: no JVD Rhythm: abnormal rhythm GI: Auscultation: normal bowel sounds Extrem: Other: LUE AVF with bruit and thrill. Objective Data Labs 01/09/23 09:04 01/09/23 06:39 Microbiology Microbiology Results: Microbiology 01/08/23 14:26 Blood - Venous Blood Culture - Preliminary No growth after 24 hours. 01/08/23 14:26 Blood - Venous Blood Culture - Preliminary No growth after 24 hours. 01/08/23 Unknown Urine clean catch - Urine matt top Urine Culture - Preliminary No growth to date. Procedures Date of Service Date of Service: 01/10/23 Assessment & Plan Assessment and plan (1) Liver mass: Status: Acute (2) Encephalopathy: Status: Acute (3) ESRD on dialysis: Status: Acute Plan Ms. 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 Dialyzed in hospital 01/09/23 Plan: - HD next tomorrow per MWF schedule - Sensipar 120mg MWF - Sevelamer 800mg TID - Midodrine with Dialysis - Keppra dosed post HD Time Spent With Patient Time: Total time managing care of this patient today ____ minutes. Progress Note: Quality Stroke Does the patient have a stroke diagnosis?: No
[2023-01-10 22:33] LABS: Anion Gap 24 (12-20); Blood Urea Nitrogen 44 mg/dL (9-16); Calcium 8.5 mg/dL (8.4-10.2); Carbon Dioxide 19 mmol/L (22-29); Chloride 100 mmol/L (96-108); Estimated Glomerular Filt Rate 8; Glucose Random 106 mg/dL (60-115); Potassium 5.6 mmol/L (3.3-5.1); Sodium 137 mmol/L (135-145)
[2023-01-11 03:22] VITALS: BP 121/47; PULSE 74; RESP 18; TEMP 36; O2SAT 100
--- NOTE | 2023-01-11 03:24 | PC.NURSE ---
K+ came back elevated at 5.6 Dr. Lal made aware at 03:18, no new orders at this time, plan of care continuing
[2023-01-11] MEDS: Levothyroxine Sodium 88 MCG TABLET PO (05:49)
[2023-01-11] MEDS: Omeprazole 20 MG CAPSULE.DR PO ×2 (05:49→17:46)
[2023-01-11 07:20] LABS: Glucose, Whole Blood 76 mg/dL (60-115)
[2023-01-11 07:28] VITALS: BP 121/46; PULSE 72; RESP 18; TEMP 36.1; O2SAT 100
[2023-01-11] MEDS: Nystatin Powder 15 GM BOTTLE 1 APPL TOPICAL (09:15)
[2023-01-11] MEDS: Valproic Acid 250 MG CAPSULE PO (09:15)
[2023-01-11] MEDS: Apixaban 5 MG TABLET PO (09:15)
[2023-01-11] MEDS: Midodrine HCl 5 MG TABLET PO (09:15)
[2023-01-11] MEDS: 0.9 % Sodium Chloride Flush 3 ML SYRINGE IVFLUSH ×2 (09:15→17:47)
[2023-01-11] MEDS: Gabapentin 100 MG CAPSULE PO ×2 (09:15→17:46)
[2023-01-11] MEDS: cefTRIAXone sodium 1 GM in 0.9 % Sodium Chloride 50 ML IV (09:15)
[2023-01-11 09:40] VITALS: BP 121/46; PULSE 72; O2SAT 100
[2023-01-11 09:48] LABS: Chloride 99 mmol/L (96-108)
[2023-01-11 09:49] LABS: Anion Gap 19 (12-20); Blood Urea Nitrogen 46 mg/dL (9-16); Calcium 8.8 mg/dL (8.4-10.2); Carbon Dioxide 22 mmol/L (22-29); Creatinine Clr Calc Pharmacy 9.9; Estimated Glomerular Filt Rate 7; Glucose Random 93 mg/dL (60-115); Potassium 4.9 mmol/L (3.3-5.1); Sodium 135 mmol/L (135-145)
--- NOTE | 2023-01-11 11:07 | PM.PNNEP ---
Subjective Subjective Date of Service: 01/11/23 Interval history: Events noted Physical Exam Vital Signs: Vital Signs: Last Vital Signs Temp 96.9 F 01/11/23 07:28 Pulse 72 01/11/23 09:40 Resp 18 01/11/23 07:28 BP 121/46 L 01/11/23 09:40 Pulse Ox 100 01/11/23 09:40 O2 Del Method Nasal Cannula 01/11/23 07:28 O2 Flow Rate 2 01/11/23 07:28 Oxygen Flow Rate 3 01/08/23 12:51 BMI result Body Mass Index 38.9 Const: General: no acute distress Chest: Chest palpation & inspection: normal inspection of the chest Resp: Effort & Inspection: normal respiratory effort Cardio: Jugular venous distension: no JVD Rhythm: abnormal rhythm GI: Auscultation: normal bowel sounds Extrem: Other: LUE AVF with bruit and thrill. Objective Data Labs 01/09/23 09:04 01/11/23 09:14 Labs: Laboratory Results - last 24 hr 01/10/23 01/11/23 01/11/23 21:54 07:16 09:14 Sodium 137 135 Potassium 5.6 H 4.9 Chloride 100 99 Carbon Dioxide 19 L 22 Anion Gap 24 H 19 BUN 44 H 46 H Creatinine 5.56 H* 6.10 H* Estim Creat Clear Calc 11.0 9.9 Estimated GFR 8 7 POC Glucose 76 Random Glucose 106 93 Calcium 8.5 D 8.8 Microbiology Microbiology Results: Microbiology 01/08/23 14:26 Blood - Venous Blood Culture - Preliminary No growth after 48 hours. 01/08/23 14:26 Blood - Venous Blood Culture - Preliminary No growth after 48 hours. 01/08/23 Unknown Urine clean catch - Urine matt top Urine Culture - Final No growth. Procedures Date of Service Date of Service: 01/11/23 Assessment & Plan Assessment and plan (1) Liver mass: Status: Acute (2) Encephalopathy: Status: Acute (3) ESRD on dialysis: Status: Acute Plan 72-year-old female with ESRD on HD MWF via LUE AVF, secondary hyperparathyroidism, history of calciphylaxis (resolved, remains on sensipar), Afib, CAD, DM2, VIOLA, HTN, who presented with AMS. Dialyzed in hospital 01/09/23 Plan: - HD per MWF schedule - Sensipar 120mg MWF - Sevelamer 800mg TID - Midodrine with Dialysis - Keppra dosed post HD Time Spent With Patient Time: Total time managing care of this patient today ____ minutes. Progress Note: Quality Stroke Does the patient have a stroke diagnosis?: No
[2023-01-11 11:16] VITALS: BP 130/58; PULSE 80; RESP 16; TEMP 36.4; O2SAT 100
[2023-01-11 11:29] VITALS: BMI 38.9
--- NOTE | 2023-01-11 11:32 | MHC.CLN ---
RE: CONSULT PT WITH INCREASED NUTRITION RISK R/T PRESSURE INJURIES PO INTAKE 50 AND 100% DIET RX: 1800DM PUREED -RECOMMEND ADDING 2GM NA LOW K LOW PHOS R/T ESRD ON HD IN ADDITION, WILL ADD ENSURE CLEAR TID AND GELATEIN TO PROMOTE WOUND HEALING MONITOR PO INTAKE CLOSELY SEE ALSO FULL CLINICAL NUTRITION ASSESSMENT
--- NOTE | 2023-01-11 12:07 | PM.DS ---
DS: Providers Provider Date of Service: 01/11/23 Date of admission: 01/08/23 20:49 Primary care physician: Jevon Rice MD Consults: 01/08/23 20:49 Consult to Neurology Routine Consulting Provider: [facility] Reason for consultation: AMS. Pt on depakote w/possible liver mass, transaminitis 01/08/23 20:55 Consult to Nephrology Routine Consulting Provider: René Omer Reason for consultation: ESRD on HD M/W/, missed dialysis on Wednesday01/09/23 16:58 Consult to Wound Care Routine Consulting Provider: Charlette Blancas Reason for consultation: unstageable pressure injuries DS: Diagnosis Discharge Diagnosis (1) Liver mass: Status: Acute (2) Encephalopathy: Status: Acute (3) ESRD on dialysis: Status: Acute DS: Summary Hospital Course Hospital Course: Pt is a 72-year-old female with a PMH significant for?paroxysmal AFib on Eliquis, HTN, HLD, insulin-dependent diabetes type 2, hypothyroidism, VIOLA, ESRD on HD Wed/Wed/Wed, mild intermittent asthma, VIOLA, recently diagnosed seizure disorder, and hx of CVA with expressive aphasia who presents to the ED with?altered mental status.? Patient presented this morning to dialysis but was found to not be at her baseline mentation.? Patient was also complaining of abdominal pain, and was sent to the ED for further evaluation.? Of note, patient previously presented to the hospital with similar complaints of AMS at dialysis, and was admitted from 12/07/2022-01/04/2023. While in the hospital pt was transferred to the ICU for pressors for hypotension and for central line placement. During her stay there all medications were stopped and pt's mentation greatly improved. Pt's depakote was subsequently reduced to 250 bid?with a plan to repeat levels as outpatient and monitor clinical course to see if depakote needs to be increased to 500 bid. Today, pt complains of feeling overall sick, tired, and weak. Has central abdominal pain but no N/V. Also reports dizzyness. Chronic SOB seemingly at baseline. No chest pain/pressure, palpitations. In the ED patient was afebrile with BP a little soft as low as 72/40, currently 129/43. Labs were significant for chronic leukocytosis of 16.8, H&H of 8.6/27.2, creatinine 5.61, lactic acid of 2.4 with repeat 2.5, ALT of 51, alk-phos of 391, ammonia slightly elevated at 57, a broke acid levels low at 31.6. UA likely negative for UTI.? CXR showed no acute cardiopulmonary process.? Abdominal ultrasound showed normal sonographic appearance of the gallbladder, otherwise limited in scope.? CT of abdomen and pelvis showed no evidence of acute intra-abdominal process, and heterogeneous attenuation of the liver with evidence of hypodense area measuring 6 x 3.5 cm concerning for possible liver lesion. CT?of head found no intracranial bleed but redemonstrated area of infarct in right parieto-occipital region and showed deep white matter and periventricular hypoattenuation likely sequela of chronic microvascular angiopathy ischemia. EKG demonstrated normal sinus rhythm with no evidence of ST elevations or depressions. Pt was treated with IVF. Pt will be admitted to the hospital for further workup and evaluation of acute metabolic encephalopathy of unknown origin. 72-year-old woman treated for acute metabolic encephalopathy likely secondary to UTI. Her acute metabolic encephalopathy seemed to clear up with antibiotics although the urine culture was negative she was treated for clinical symptoms. Head CT negative for acute abnormality. Lactic acidosis and hypotension most likely related to dehydration, treated with IV fluids. Patient has returned to baseline mental status and will be sent to short-term rehab. Incidentally, liver lesion noted on abdominal CT therefore patient should have outpatient follow-up including an abdominal MRI. End-stage renal disease on dialysis. Continue Wednesday and Wednesday schedule and hypothyroidism. Continue Synthroid Diabetes mellitus type 2. Continue home medications Mild intermittent asthma. No exacerbation. Continue home medications Paroxysmal atrial fibrillation. Continue Eliquis Seizure disorder. No seizures during admission, continue Depakote same dose of 250 mg twice Daily as per Neurology Time Spent with Patient Time attestation: Total time managing care of this patient today ____ minutes. Discharge coordination time: Greater than 30 minutes Quality: Safe Use of Opioids Does Pt have an Active Cancer Diagnosis on the Problem List?: No Quality: Stroke Does the patient have a stroke diagnosis?: No Physical Exam Vital Signs: Vital Signs: Last Vital Signs Temp 97.6 F 01/11/23 11:16 Pulse 80 01/11/23 11:16 Resp 16 01/11/23 11:16 BP 130/58 L 01/11/23 11:16 Pulse Ox 100 01/11/23 11:16 O2 Del Method Nasal Cannula 01/11/23 11:16 O2 Flow Rate 2 01/11/23 11:16 Oxygen Flow Rate 3 01/08/23 12:51 BMI result Body Mass Index 38.9 Appearing in no acute distress head is normocephalic atraumatic eyes pupils are PERRLA sclera is anicteric mouth throat mucous membranes are intact and moist neck is supple no lymphadenopathy, no JVD noted lung sounds are clear to auscultation heart regular rate rhythm, clear S1, S2 positive bowel sounds, abdomen is soft, nontender neuro patient is alert x3, no focal deficits DS: Data Data Completed and Pending Labs on day of discharge: Laboratory Results - last 24 hr 01/10/23 01/11/23 01/11/23 21:54 07:16 09:14 Sodium 137 135 Potassium 5.6 H 4.9 Chloride 100 99 Carbon Dioxide 19 L 22 Anion Gap 24 H 19 BUN 44 H 46 H Creatinine 5.56 H* 6.10 H* Estim Creat Clear Calc 11.0 9.9 Estimated GFR 8 7 POC Glucose 76 Random Glucose 106 93 Calcium 8.5 D 8.8 Preliminary micro results at discharge 01/08/23 14:26 Blood Culture - Preliminary Blood - Venous No growth after 48 hours. 01/08/23 14:26 Blood Culture - Preliminary Blood - Venous No growth after 48 hours. Discharge Plan Discharge Anticipated Discharge Date/Time: 01/11/23 12:02 Patient Disposition: er [facility] Discharge Diagnosis: Acute metabolic encephalopathy UTI Lactic acidosis Hypotension [facility] Jevon Rice MD [Primary Care Provider] - 1 Week Discharge Medications: New cefuroxime axetil 250 mg tablet 250 mg PO DAILY Qty: 2 0RF Continued atorvastatin 40 mg tablet 40 mg PO BEDTIME levothyroxine 88 mcg tablet 88 mcg PO DAILY@0600 pantoprazole 40 mg tablet,delayed release (DR/EC) 40 mg PO BID@0630,1630 fluticasone propion-salmeterol [Advair Diskus] 500-50 mcg/dose blister with device 1 ea INHALATION BID albuterol sulfate [Ventolin HFA] 90 mcg/actuation HFA aerosol inhaler 2 puff inhalation Q4H PRN (Reason: Wheezing) Levemir U-100 Insulin 100 unit/mL solution 6 unit subcut BEDTIME sevelamer carbonate [Renvela] 800 mg tablet 800 mg PO BIDWM Eliquis 5 mg tablet 5 mg PO BID insulin aspart U-100 [Novolog FlexPen U-100 Insulin] 100 unit/mL (3 mL) insulin pen See Protocol subcut TIDAC Protocol: Insulin Correction Scale Less than or equal to 110 ---- Give (units): 0 111 to 150 Give (units): 0 151 to 200 Give (units): 2 201 to 250 Give (units): 4 251 to 300 Give (units): 6 301 to 350 Give (units): 8 Greater than 350 Give (units): 10 Call MD if Blood Glucose > : 350 cinacalcet 30 mg Tablet 30 mg PO DAILY gabapentin 100 mg capsule 100 mg PO TID midodrine 5 mg tablet 5 mg PO MOWEFR Qty: 30 0RF Rx Instructions: Before dialysis valproic acid 250 mg Capsule 250 mg PO BID Qty: 60 0RF Discharge Orders: Discharge Order (Routine); Ordered 01/11/23 Ordered By: Charlette Blancas Diet: Advance to usual diet Activity on Discharge: As tolerated Stand Alone Forms: Patient Portal Discharge page Care Plan Goals: Complete resolution of symptoms Health Concerns: Acute metabolic encephalopathy UTI Lactic acidosis Hypotension Plan of Treatment: Follow-up with primary care provider as needed Take all medications as prescribed Complete course of cefuroxime for 2 more days for urinary tract infection Assessment: See discharge summary
--- NOTE | 2023-01-11 12:12 | MHC.CM.PN ---
Patient has been medically cleared for dc to return to [facility] today at 6PM(After HD) via [facility]. Last IMM addressed on 01/09/2023. CM spoke with Son/Juan at [phone] and informed him of the dc plan.
--- NOTE | 2023-01-11 14:32 | MHC.SLORD ---
Addendum entered and electronically signed by Marely Daniels MA, [facility] 01/11/23 16:42: Per RN, pt is still at dialysis. Discussed w/ attending [facility]. Per [facility], pt is getting discharged. Pt was seen by [facility] during previous hospitalizations. Recommend continue ST for dysphagia at next level of care. Original Note: Speech Language Pathology Order Status: [facility] attempted to see pt for bedside dysphagia eval. Pt was away at dialysis. RN to contact [facility] once pt has returned.
[2023-01-11] MEDS: Cinacalcet HCl 30 MG TABLET PO (17:47)
--- NOTE | 2023-01-11 17:49 | HO.WOUNDCONS ---
History of Present Illness Data of Consult Service Date: 01/11/23 Requesting physician: Charlette Blancas Primary Care Provider: Jevon Rice MD HPI Reason for consult: unstagable pressure injuries [id number]: Obese 72-year-old female who is a poor historian receiving dialysis 3 times per week since at least the end of November when she was initially admitted. She was followed for altered mental status and there was seizure history. She was switched to Keppra. That hospital course was complicated by GI bleed. There was question of sacral insufficiency fracture and she went to a intermediate facility January 05. She return to [facility] on January 08 with ongoing concern. We are asked to look at her hips and low back ulceration. It is not clear to me whether she was followed as an outpatient for end-stage renal disease though suspect that she was. 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 Review of Systems Review of Systems: Yes Unobtainable due to mental condition [facility] Medical History Asthma Epilepsy ESRD on dialysis Expressive aphasia History of CVA (cerebrovascular accident) Hypertension Insulin dependent type 2 diabetes mellitus Morbid obesity Obstructive sleep apnea Paroxysmal atrial fibrillation Tubular adenoma of colon Social History Household Members: Unknown / Unable to assess Housing: Unknown / Unable to assess Unable to assess alcohol history related to: Unable to respond Alcohol intake: never Patient Tobacco Use Status: Tobacco use Unknown Advance Directives Date on File: 04/22/22 service: No Meds Allergies Allergy/AdvReac Type Severity Reaction Status Date / Time Penicillins Allergy Unknown Unknown Verified 01/08/23 12:51 lisinopri Allergy Unknown Unknown Uncoded 01/08/23 12:51 Active Medications: Current Medications Acetaminophen (Acetaminophen 325 Mg Tablet) 650 mg PO Q6H PRN PRN Reason: Pain, Mild (Pain Scale 1-3) Albuterol Sulfate (Albuterol Sulfate 90 Mcg 8 Gm Inhaler) 2 puff INHALE Q4H PRN PRN Reason: Wheezing Apixaban (Apixaban 5 Mg Tablet) 5 mg PO BID PB Last Admin: 01/11/23 09:15 Dose: 5 mg Cinacalcet (Cinacalcet Hcl 30 Mg Tablet) 30 mg PO DIALYSIS X3 MOWEFR [facility] Last Admin: 01/11/23 17:47 Dose: 30 mg Docusate Sodium (Docusate Sodium 100 Mg Capsule) 100 mg PO DAILY PRN PRN Reason: Constipation Fluticasone/Vilanterol (Fluticasone/Vilanterol 200/25 Blst.W.Dev) 1 puff INHALE RDAILY [facility] Last Admin: 01/11/23 07:27 Dose: Not Given Gabapentin (Gabapentin 100 Mg Capsule) 100 mg PO TID [facility] Last Admin: 01/11/23 17:46 Dose: 100 mg Ceftriaxone Sodium 1 gm/ (Sodium Chloride) 50 mls @ 100 mls/hr IV Q24H [facility] Last Infusion: 01/11/23 09:48 Dose: Infused Levothyroxine Sodium (Levothyroxine Sodium 88 Mcg Tablet) 88 mcg PO DAILY@0600 [facility] Last Admin: 01/11/23 05:49 Dose: 88 mcg Midodrine (Midodrine Hcl 5 Mg Tablet) 5 mg PO MoWeFr@0900 [facility] Last Admin: 01/11/23 09:15 Dose: 5 mg Nystatin (Nystatin Powder 15 Gm Bottle) 1 appl TOPICAL BID [facility]; Protocol Last Admin: 01/11/23 09:15 Dose: 1 appl Omeprazole (Omeprazole 20 Mg Capsule.Dr) 20 mg PO BID@0630,1630 [facility] Last Admin: 01/11/23 17:46 Dose: 20 mg Ondansetron HCl (Ondansetron Hcl 4 Mg/2 Ml Vial) 4 mg IVPUSH Q8H PRN PRN Reason: Nausea and Vomiting Pharmacy Consult (Consult Rx Perform Med Rec) 1 each MISCELLANE ONCE PRN PRN Reason: Consult order Sodium Chloride (0.9 % Sodium Chloride Flush 3 Ml Syringe) 3 ml IVFLUSH QSHIFT [facility] Last Admin: 01/11/23 17:47 Dose: 3 ml Tramadol HCl (Tramadol Hcl 50 Mg Tablet) 25 mg PO Q6H PRN PRN Reason: Pain, Mild (Pain Scale 1-3) Valproic Acid (Valproic Acid 250 Mg Capsule) 250 mg PO BID [facility] Last Admin: 01/11/23 09:15 Dose: 250 mg Home Medications Medication Instructions Recorded Confirmed Last Taken Type albuterol sulfate 90 mcg/actuation 2 puff inhalation Q4H PRN Wheezing 12/07/22 01/08/23 Unknown History aerosol inhaler (Ventolin HFA) apixaban 5 mg tablet (Eliquis) 5 mg PO BID 12/07/22 01/08/23 12/07/22 History atorvastatin 40 mg tablet 40 mg PO BEDTIME 12/07/22 01/08/23 12/06/22 History cinacalcet 30 mg tablet 30 mg PO DAILY 12/07/22 01/08/23 12/07/22 History fluticasone 500 mcg-salmeterol 50 1 ea inhalation BID 12/07/22 01/08/23 12/07/22 History mcg/dose blistr powdr for inhalation (Advair Diskus) gabapentin 100 mg capsule 100 mg PO TID 12/07/22 01/08/23 Unknown History insulin aspart U-100 100 unit/mL See Protocol subcut TIDAC 12/07/22 01/08/23 Unknown History (3 mL) subcutaneous pen (Novolog FlexPen U-100 Insulin aspart) insulin detemir U-100 100 unit/mL 6 unit subcut BEDTIME 12/07/22 01/08/23 12/06/22 History subcutaneous solution (Levemir U-100 Insulin) levothyroxine 88 mcg tablet 88 mcg PO DAILY@0600 12/07/22 01/08/23 12/07/22 History pantoprazole 40 mg tablet,delayed 40 mg PO BID@0630,1630 12/07/22 01/08/23 12/07/22 History release sevelamer carbonate 800 mg tablet 800 mg PO BIDWM 12/07/22 01/08/23 12/07/22 History (Leonela) Physical Exam Vital Signs and Narrative: Vital Signs: Last Vital Signs Temp 97.6 F 01/11/23 11:16 Pulse 80 01/11/23 11:16 Resp 16 01/11/23 11:16 BP 130/58 L 01/11/23 11:16 Pulse Ox 100 01/11/23 11:16 O2 Del Method Nasal Cannula 01/11/23 11:16 O2 Flow Rate 2 01/11/23 11:16 Oxygen Flow Rate 3 01/08/23 12:51 BMI result Body Mass Index 38.9 There is a large eschar over the left greater trochanter of approximately 4 x 2 cm. This is an unstageable pressure ulcer because it is surrounded by non blanching and is likely ischemic. It is not particularly tender painful. With assistance we examine the right-sided ulcerations and find that a large right posterior iliac spine ulcer sure similar quality, indurated eschar. Likely unstageable pressure injury over bony prominence with associated lack of blanching. The other areas that have epithelial breakdown and stage II, in particular of the buttocks and coccygeal area actually cisco relatively well. This could be more consistent with friction and shear. Results Labs 01/09/23 09:04 01/11/23 09:14 Labs: Laboratory Results - last 24 hr 01/10/23 01/11/23 01/11/23 21:54 07:16 09:14 Anion Gap 24 H 19 Estim Creat Clear Calc 11.0 9.9 Estimated GFR 8 7 POC Glucose 76 Random Glucose 106 93 Calcium 8.5 D 8.8 Assessment and Plan (1) Pressure injury of skin of contiguous region involving back and left hip: Status: Acute Plan Nonambulatory 72-year-old female with other medical issues who is at risk for pressure ulceration in the setting of altered mental status and inability to ambulate. End-stage renal disease place role. 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 Suggest positional change with assistance in bed every 2 hours. I do not think she would tolerate surgical debridement. I think Allevyn foam is a reasonable approach to protect these areas. The other alternative for the unstageable eschar is Betadine paint. Time Spent With Patient Time: Total time managing care of this patient today ____ minutes.
== END 2023-01-11 18:28 | disposition skilled nursing facility (03) | DRG 689 ==
LOC: HO.ED 19:15 → HO.EDOVER 21:01 → HO.IMC 01-09 05:24
PROVIDERS: Emergency Medicine; Student in an Organized Health Care Education/Training Program; Admitting Provider Student in an Organized Health Care Education/Training Program; Emergency Provider Emergency Medicine; PCP Student in an Organized Health Care Education/Training Program; Visit Provider Nurse Practitioner Acute Care
DX: N39.0 Urinary tract infection, site not specified (principal); G93.41 Metabolic encephalopathy; N18.6 End stage renal disease; I12.0 Hypertensive chronic kidney disease with stage 5 chronic kidney disease or end stage renal disease; E87.20 Acidosis, unspecified; N25.81 Secondary hyperparathyroidism of renal origin; E11.22 Type 2 diabetes mellitus with diabetic chronic kidney disease; D63.1 Anemia in chronic kidney disease; J45.20 Mild intermittent asthma, uncomplicated; G40.909 Epilepsy, unspecified, not intractable, without status epilepticus; E03.9 Hypothyroidism, unspecified; I69.320 Aphasia following cerebral infarction; G47.33 Obstructive sleep apnea (adult) (pediatric); E86.0 Dehydration; L89.45 Pressure ulcer of contiguous site of back, buttock and hip, unstageable; K76.9 Liver disease, unspecified; I95.9 Hypotension, unspecified; E66.9 Obesity, unspecified; Z68.38 Body mass index [BMI] 38.0-38.9, adult; Z91.158 Patient's noncompliance with renal dialysis for other reason; Z20.822 Contact with and (suspected) exposure to COVID-19; Z99.2 Dependence on renal dialysis; Z79.4 Long term (current) use of insulin; Z79.01 Long term (current) use of anticoagulants; Z79.51 Long term (current) use of inhaled steroids; Z79.890 Hormone replacement therapy; Z79.899 Other long term (current) drug therapy
CPT/HCPCS: 36415; 70450; 71045; 74176; 76705; 80048; 80053; 80164; 81001; 82140; 82803; 82947; 83605; 84443; 85025; 85027; 85610; 85730; 87040; 87086; 87635; 90999; 93005; 97162; 99285; J0696; P9047

== ENCOUNTER → 2023-01-08 13:23 | Outpatient (BNV) | payer MEDICARE, MEDICAID, SELFPAY | PROVIDERS: Emergency Provider Emergency Medicine; PCP Student in an Organized Health Care Education/Training Program; Visit Provider Internal Medicine | DX: R94.31 Abnormal electrocardiogram [ECG] [EKG] (principal) | CPT/HCPCS: 93010 ==

== ENCOUNTER → 2023-01-08 20:49 | Outpatient (BNV) | payer MEDICARE, MEDICAID, SELFPAY | PROVIDERS: Admitting Provider Student in an Organized Health Care Education/Training Program; Emergency Provider Emergency Medicine; PCP Student in an Organized Health Care Education/Training Program; Visit Provider Student in an Organized Health Care Education/Training Program | DX: R16.0 Hepatomegaly, not elsewhere classified (principal); G93.40 Encephalopathy, unspecified; N18.6 End stage renal disease; Z99.2 Dependence on renal dialysis | CPT/HCPCS: 99223; 99232; 99239 ==